=== PATIENT | female | born 1935 | race Caucasian/White ===

== ENCOUNTER → 2017-03-15 | Outpatient (CLI) | payer OTHER ==
--- NOTE | 2017-03-15 15:31 | RAD ---
Examination: Ultrasound left lower extremity venous duplex History: History of left leg pain, swelling Technique: Grayscale, color Doppler 2-D, spectral waveform analysis of the left lower extremity venous system were performed Findings: The visualized common femoral vein, superficial femoral vein, popliteal vein demonstrate normal compression augmentation of flow. The visualized calf veins are patent. Impression No evidence of deep venous thrombosis identified in the visualized left lower extremity venous system.
== END | disposition home or self-care (01) ==
LOC: US 14:39
PROVIDERS: ATTEND Internal Medicine
DX: M79.89 Other specified soft tissue disorders (principal)
CPT/HCPCS: 93971

== ENCOUNTER → 2017-11-25 | Outpatient (CLI) | payer OTHER | END | disposition home or self-care (01) | LOC: KCIC 12:25 | DX: M25.742 Osteophyte, left hand (principal); M25.741 Osteophyte, right hand | CPT/HCPCS: 73130 ==

== ENCOUNTER → 2017-11-25 | Outpatient (CLI) | payer OTHER | END | disposition home or self-care (01) | LOC: KCIC DEXA 12:13 | DX: Z13.820 Encounter for screening for osteoporosis (principal); Z78.0 Asymptomatic menopausal state; M85.88 Other specified disorders of bone density and structure, other site | CPT/HCPCS: 77080 ==

== ENCOUNTER → 2018-11-14 | Outpatient (CLI) | payer MEDICARE ==
[~2018-11-14] MED LIST: ADAL40PE SQ; ASCO500T2 PO; ATOR10TA PO; CLON0.3T PO; CYAN-25 PO; FERR325T14 PO; FURO20TA3 PO; LABE200T4 PO; LEVO125T PO; LINA5TAB PO; MONT10TA49 PO; TRAM50TA PO
--- NOTE | 2018-11-14 10:17 | CARD ---
MR#: [id number] Date of Study: 11/14/2018 Ordering Physician: LEVON BILLINGS, Referring Physician: LEVON BILLINGS Tech: Maria Eugenia Sorto RDCS APPROVED REPORT EXAM: Two-dimensional and M-mode echocardiogram with Doppler and color Doppler. Other Information Quality : Good INDICATION Dizziness and Vertigo 2D DIMENSIONS RVDd2.2 (2.9-3.5cm)Left Atrium(2D)3.4 (1.6-4.0cm) IVSd0.8 (0.7-1.1cm)Aortic Root(2D)2.6 (2.0-3.7cm) LVDd3.5 (3.9-5.9cm)LVOT Diameter2.0 (1.8-2.4cm) PWd0.9 (0.7-1.1cm)LVDs3.1 (2.5-4.0cm) FS (%) 27.0 %SV15.1 ml LVEF(%)55.0 (>50%) Aortic Valve AoV Peak Mayur.123.9cm/sAoV VTI30.0cm AO Peak GR.6.1mmHgLVOT Peak Mayur.93.7cm/s LVOT VTI 22.01cmAO Mean GR.3mmHg JOSE L (VMAX)2.94gl5GON (VTI)2.31cm2 Mitral Valve MV E Roljlowx544.7cm/sMV DECEL XMXW021ni MV A Ihmwgapa675.8cm/sMV PIN77cr E/A Ratio0.9MVA (PHT)3.66cm2 TDI E/Lateral E'13.7E/Medial E'16.4 Tricuspid Valve TR P. Lslwxjsm289qc/sRAP FKHVWUJF7adAg TR Peak Gr.11hqCvAKYS82koNt Pulmonary Vein S1 Gzbomssu52.1cm/sD2 Nuzhfhed39.4cm/s LEFT VENTRICLE The left ventricle is normal size. There is normal left ventricular wall thickness. The left ventricu lar systolic function is normal. The Ejection Fraction is 55-60%. There is normal LV segmental wall m otion. Transmitral Doppler flow pattern is Grade I-abnormal relaxation pattern. RIGHT VENTRICLE The right ventricle is normal size. The right ventricular systolic function is normal. ATRIA The left atrium size is normal. The right atrium size is normal. The interatrial septum is intact wit h no evidence for an atrial septal defect or patent foramen ovale as noted on 2-D or Doppler imaging. AORTIC VALVE The aortic valve is calcified but opens well. Doppler and Color Flow revealed no significant aortic r egurgitation. There is no significant aortic valvular stenosis. MITRAL VALVE The mitral valve is calcified but opens well. There is no evidence of mitral valve prolapse. There is no mitral valve stenosis. Doppler and Color Flow revealed no significant mitral valve regurgitation noted. TRICUSPID VALVE The tricuspid valve is normal in structure and function. Doppler and Color Flow revealed mild tricusp id regurgitation. There is mild pulmonary hypertension. The PA pressure was estimated at 36 mmHg. The re is no tricuspid valve stenosis. PULMONIC VALVE The pulmonic valve is not well visualized. Doppler and Color Flow revealed trace pulmonic valvular re gurgitation. There is no pulmonic valvular stenosis. GREAT VESSELS The aortic root is normal in size. The ascending aorta is normal in size. The IVC is normal in size a nd collapses >50% with inspiration. PERICARDIAL EFFUSION There is no evidence of significant pericardial effusion. Critical Notification Critical Value: No <Conclusion> The left ventricular systolic function is normal. The Ejection Fraction is 55-60%. There is normal LV segmental wall motion. Doppler and Color Flow revealed mild tricuspid regurgitation. The PA pressure was estimated at 36 mmHg. There is no evidence of significant pericardial effusion. Signed by : Levon Billings, Electronically Approved : 11/14/2018 10:15:26
--- NOTE | 2018-11-14 10:28 | RAD ---
MR#: [id number] Date of Study: 11/14/2018 Ordering Physician: LEVON BILLINGS, Referring Physician: LEVON BILLINGS, Tech: MARY Troy, RDMS, RTR APPROVED REPORT Patient Location: OUT-PATIENT Laterality:Bilateral Indications Dizziness and Vertigo Risk Factors Hypertension: Diabetes Doppler Spectral Velocity Analysis Right Left pCCA 65/9 cm/spCCA 82/15 cm/s mCCA 92/15 cm/smCCA 83/17 cm/s dCCA 78/15 cm/sdCCA 89/16 cm/s ECA 76/ cm/sECA 99/ cm/s pICA 50/11 cm/spICA 67/18 cm/s Beth 92/22 cm/smICA 86/19 cm/s dICA 103/23 cm/sdICA 97/31 cm/s Vert. 46/ cm/sVert. 81/ cm/s ICA/CCA 1.12ICA/CCA 1.18 Findings Goldberg scale images of the bilateral carotid vessels reveals mild diffuse intimal hyperplasia. Spectral waveforms and color Doppler of the bilateral internal carotid vessels do not reveal any evid ence of obstructive disease. By velocity criteria overall 0 to less than 50% stenosis. No significant stenosis is identified in the bilateral common carotid and external carotid vessels. Bilateral vertebral velocities are antegrade. Normal ICA to CCA ratio bilaterally Critical Notification Critical Value: No <Conclusion> No significant carotid occlusive disease bilaterally Signed by : Tony Galo, Electronically Approved : 11/14/2018 10:26:34
== END | disposition home or self-care (01) ==
LOC: ECHO 08:39
PROVIDERS: ATTEND Internal Medicine Cardiovascular Disease
DX: I77.3 Arterial fibromuscular dysplasia (principal); I36.1 Nonrheumatic tricuspid (valve) insufficiency; I27.20 Pulmonary hypertension, unspecified; R00.8 Other abnormalities of heart beat; I10 Essential (primary) hypertension; E11.9 Type 2 diabetes mellitus without complications
CPT/HCPCS: 93306; 93880

== ENCOUNTER → 2019-06-08 | Outpatient (CLI) | payer MEDICARE ==
[2019-06-06 11:32] VITALS: BP 165/71
--- NOTE | 2019-06-10 13:55 | RAD ---
MR#: [id number] Date of Study: 06/08/2019 Ordering Physician: LEVON BILLINGS, Referring Physician: LEVON BILLINGS Tech: Medina Porter RVT,ROXIECA APPROVED REPORT Patient Location: OUT-PATIENT Risk Factors Hypertension Renal Artery Doppler Right Renal Artery Left Renal Arter y Proximal 144.2/25.5 cm/secProximal 85.3/30.5 cm/sec Mid 70.6/15.0 cm/secMid 106.9/28.0 cm/sec Distal 74.0/20.8 cm/secDistal 85.6/19.7 cm/sec Renal/Aorta Ratio 1.50Renal/Aorta Ratio 1.10 Prox. Resistive Index 0.82Prox. Resistive Index 0.64 Mid Resistive Index 0.79Mid Resistive Index 0.74 Distal Resistive Index 0.72Distal Resistive Index 0.77 Aortic Doppler VelocityWaveform Mid. Aorta 94.6 cm/sec Findings Due to body habitus and patient compliance the grayscale images are limited. No obvious renal parench ymal abnormalities noted. A cyst is noted on the right kidney measuring approximately 1.2 x 1.1 x 0.8 cm. There is a cyst on the left kidney measuring 1.7 x 1.7 x 1.6 cm. These both appear to be simple cysts. Spectral waveforms and color Doppler are grossly unremarkable. Normal renal to aortic ratios. No obvi ous aortic abnormality noted. The right kidney appears to be small in size at approximate 6.8 x 3.9 x 3.6 cm. Again these are limit ed images. Critical Notification Critical Value: No <Conclusion> 1. No evidence of renal artery stenosis. 2. The bilateral kidneys appear to be small in size and this may simply be related to chronic renal d isease. Clinical correlation recommended. Signed by : Tony Galo, Electronically Approved : 06/10/2019 13:54:46
== END | disposition home or self-care (01) ==
LOC: US 15:34
PROVIDERS: ATTEND Internal Medicine Cardiovascular Disease
DX: N28.1 Cyst of kidney, acquired (principal); I10 Essential (primary) hypertension
CPT/HCPCS: 76770

== ENCOUNTER 2019-07-18 11:48 | Inpatient (IN) | payer MEDICARE ==
[~2019-07-18] VITALS: Ht 162.6 cm; Wt 79.9 kg
[2019-07-18 12:18] LABS: BASO # 0.1 x10^3/uL (0.0-0.2); BASO % 1 % (0-3); EOS # 0.4 x10^3/uL (0.0-0.7); EOS % 5 % (0-3); HEMATOCRIT 30.1 % (36.0-47.0); LYMPH % 12 % (24-48); MEAN CORPUSCULAR HEMOGLOBIN 32 pg (25-35); MEAN CORPUSCULAR HGB CONC 33 g/dL (31-37); MEAN CORPUSCULAR VOLUME 96 fL (79-100); MONO # 0.6 x10^3/uL (0.0-1.1); MONO % 7 % (0-9); NEUT # 6.1 x10^3/uL (1.8-7.7); NEUT % 74 % (31-73); PLATELET COUNT 130 x10^3/uL (140-400); RED BLOOD COUNT 3.13 x10^6/uL (3.50-5.40); RED CELL DISTRIBUTION WIDTH 17.3 % (11.5-14.5); WHITE BLOOD COUNT 8.2 x10^3/uL (4.0-11.0)
[2019-07-18 12:29] LABS: PROTHROMBIN TIME PATIENT 13.6 SEC (11.7-14.0)
[2019-07-18 12:32] LABS: CALCIUM 8.9 mg/dL (8.5-10.1); CREATININE 3.9 mg/dL (0.6-1.0); POTASSIUM 5.1 mmol/L (3.5-5.1)
[2019-07-18 12:38] LABS: ALBUMIN 3.5 g/dL (3.4-5.0); ALBUMIN/GLOBULIN RATIO 0.9 (1.0-1.7); TOTAL BILIRUBIN 0.5 mg/dL (0.2-1.0); TOTAL PROTEIN 7.2 g/dL (6.4-8.2)
--- NOTE | 2019-07-18 12:44 | RAD ---
EXAM: CHEST 1 VIEW History: Shortness of breath COMPARISON: None available. TECHNIQUE: Single portable radiograph of the chest FINDINGS: Low lung volumes and technique accentuates heart size and pulmonary vascularity. Mild prominent bilateral interstitial lung markings likely mild congestive changes. Mild bibasilar lung airspace opacities likely atelectasis or infiltrates. IMPRESSION: Mild congestive changes. Mild bibasilar lung airspace opacities likely atelectasis or infiltrates. Electronically signed by: Bridger Hawkins MD (07/18/2019 12:42 PM) [place] [id number]
--- NOTE | 2019-07-18 13:47 | EKG ---
[facility] [address] [place] [address] Test Date: 2019-07-18 Test Time: 11:58:16 Pat Name: BONI DIAZ Department: Room: Gender: F Night Auditor: : 1935 Requested By: SANJUANITA HESTER Order Number: [id number] Reading MD: Tony Galo MD Measurements Intervals [place] Rate: 71 P: 0 TN: 202 QRS: -177 QRSD: 126 T: 62 QT: 402 QTc: 442 Interpretive Statements SINUS RHYTHM Electronically Signed On 07-30-2019 14:27:56 CDT by Tony Galo MD
[2019-07-18 14:34] LABS: BILIRUBIN,URINE NEGATIVE (NEG); CLARITY,URINE CLEAR; COLOR,URINE YELLOW; NITRITE,URINE POSITIVE (NEG); PROTEIN,URINE 100 mg/dL (NEG-TRACE); UROBILINOGEN,URINE 0.2 mg/dL (0.2 mg/dL)
[2019-07-18 14:42] LABS: BACTERIA,URINE MANY /HPF (0-FEW); SQUAMOUS EPITHELIAL CELL,UR FEW /LPF
[2019-07-18 14:43] LABS: WBC,URINE >40 /HPF (0-4)
[2019-07-18] MEDS ORDERED: ONDANSETRON PF 4 MG/2 ML VIAL. IV PRN (15:45)
[2019-07-18] MEDS ORDERED: MORPHINE SULFATE 4 MG/ML VIAL. IV PRN (15:45)
--- NOTE | 2019-07-18 15:48 | PHYS DOC ---
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 Patient states symptoms are worse when she is laying down she states symptoms are relieved when she is sitting up straight. Denies any cough, congestion, fever. She states she is currently on Lasix by mouth. Review of Systems Review of Systems Constitutional: Denies fever or chills [] Eyes: Denies change in visual acuity, redness, or eye pain [] HENT: Denies nasal congestion or sore throat [] Respiratory: Reports shortness of breath. Denies cough Cardiovascular: No additional information not addressed in HPI [] GI: Denies abdominal pain, nausea, vomiting, bloody stools or diarrhea [] : Denies dysuria or hematuria [] Musculoskeletal: Denies back pain or joint pain [] Integument: Denies rash or skin lesions [] Neurologic: Denies headache, focal weakness or sensory changes [] All other systems were reviewed and found to be within normal limits, except as documented in this note. Allergies Allergies Allergies Coded Allergies Type Severity Reaction Last Updated Verified Sulfa (Sulfonamide Antibiotics) Allergy Severe Swelling 07/05/19 Yes Physical Exam Physical Exam Constitutional: Well developed, well nourished, no acute distress, non-toxic appearance. [] HENT: Normocephalic, atraumatic, bilateral external ears normal, oropharynx moist, no oral exudates, nose normal. [] Eyes: PERRLA, EOMI, conjunctiva normal, no discharge. [] Neck: Normal range of motion, no tenderness, supple, no stridor. [] Cardiovascular:Heart rate regular rhythm, no murmur [] Lungs & Thorax: Bilateral breath sounds clear to auscultation [] Abdomen: Bowel sounds normal, soft, no tenderness, no masses, no pulsatile masses. [] Skin: Warm, dry, left upper extremity noted for new fistula that is not ready for use. The laceration site is still new but it's well approximated with no signs of infection. Back: No tenderness, no CVA tenderness. [] Extremities: No tenderness, no cyanosis, no clubbing, ROM intact, bilateral lower extremities with +2 edema. Neurologic: Alert and oriented X 3, normal motor function, normal sensory function, no focal deficits noted. [] Psychologic: Affect normal, judgement normal, mood normal. [] Current Patient Data Vital Signs Vital Signs Date Time Temp Pulse Resp B/P (MAP) Pulse Ox O2 Delivery O2 Flow Rate FiO2 07/18/19 11:55 99.1 75 23 205/87 (126) 95 Room Air 99.1 Lab Values Laboratory Tests Test 07/18/19 12:00 White Blood Count 8.2 x10^3/uL (4.0-11.0) Red Blood Count 3.13 x10^6/uL (3.50-5.40) L Hemoglobin 10.0 g/dL (12.0-15.5) L Hematocrit 30.1 % (36.0-47.0) L Mean Corpuscular Volume 96 fL (79-100) Mean Corpuscular Hemoglobin 32 pg (25-35) Mean Corpuscular Hemoglobin Concent 33 g/dL (31-37) Red Cell Distribution Width 17.3 % (11.5-14.5) H Platelet Count 130 x10^3/uL (140-400) L Neutrophils (%) (Auto) 74 % (31-73) H Lymphocytes (%) (Auto) 12 % (24-48) L Monocytes (%) (Auto) 7 % (0-9) Eosinophils (%) (Auto) 5 % (0-3) H Basophils (%) (Auto) 1 % (0-3) Neutrophils # (Auto) 6.1 x10^3/uL (1.8-7.7) Lymphocytes # (Auto) 1.0 x10^3/uL (1.0-4.8) Monocytes # (Auto) 0.6 x10^3/uL (0.0-1.1) Eosinophils # (Auto) 0.4 x10^3/uL (0.0-0.7) Basophils # (Auto) 0.1 x10^3/uL (0.0-0.2) Prothrombin Time 13.6 SEC (11.7-14.0) Prothrombin Time INR 1.1 (0.8-1.1) Sodium Level 141 mmol/L (136-145) Potassium Level 5.1 mmol/L (3.5-5.1) Chloride Level 107 mmol/L (98-107) Carbon Dioxide Level 23 mmol/L (21-32) Anion Gap 11 (6-14) Blood Urea Nitrogen 90 mg/dL (7-20) H Creatinine 3.9 mg/dL (0.6-1.0) H Estimated GFR (Cockcroft-Gault) 11.0 BUN/Creatinine Ratio 23 (6-20) H Glucose Level 178 mg/dL (70-99) H Calcium Level 8.9 mg/dL (8.5-10.1) Magnesium Level 2.0 mg/dL (1.8-2.4) Total Bilirubin 0.5 mg/dL (0.2-1.0) Aspartate Amino Transferase (AST) 22 U/L (15-37) Alanine Aminotransferase (ALT) 19 U/L (14-59) Alkaline Phosphatase 79 U/L (46-116) Creatine Kinase 174 U/L (26-192) Creatine Kinase MB (Mass) 4.0 ng/mL (0.0-3.6) H Creatine Kinase MB Relative Index 2.3 % (0-4) Troponin I Quantitative < 0.017 ng/mL (0.000-0.055) BF-Efx-L-Type Natriuretic Peptide 3059 pg/mL (0-449) H Total Protein 7.2 g/dL (6.4-8.2) Albumin 3.5 g/dL (3.4-5.0) Albumin/Globulin Ratio 0.9 (1.0-1.7) L Thyroid Stimulating Hormone (TSH) 5.199 uIU/mL (0.358-3.74) H Laboratory Tests 07/18/19 12:00 Laboratory Tests 07/18/19 12:00 EKG EKG [address] Rose sinus rhythm HR 71 no STEMI[] Radiology/Procedures Radiology/Procedures []PROCEDURE: PORTABLE CHEST 1V EXAM: CHEST 1 VIEW History: Shortness of breath COMPARISON: None available. TECHNIQUE: Single portable radiograph of the chest FINDINGS: Low lung volumes and technique accentuates heart size and pulmonary vascularity. Mild prominent bilateral interstitial lung markings likely mild congestive changes. Mild bibasilar lung airspace opacities likely atelectasis or infiltrates. IMPRESSION: Mild congestive changes. Mild bibasilar lung airspace opacities likely atelectasis or infiltrates. Electronically signed by: Bridger Hawkins MD (07/18/2019 12:42 PM) [facility] DICTATED and SIGNED BY: BRIDGER HAWKINS MD DATE: 07/18/19 1242 Course & Med Decision Making Course & Med Decision Making Pertinent Labs and Imaging studies reviewed. (See chart for details) This is a 84-year-old female patient presenting to the ED today complaining of shortness of breath that began yesterday. Patient has history of CHF as well as kidney disease, she is supposed to start dialysis as soon as her dialysis fistula is ready. She arrives in the ED with O2 sats 95% on room air CBC with normal WBC, CMP with creatinine of 3.9, BUN is 90, chest x-ray noted for CHF exacerbation, also noted for possible atelectasis or pneumonia. Urine analysis is noted for nitrites and leukocytes-patient to be started on Rocephin. [address] Garg who accepted patient for admission, he requested consult to cardiology as well as nephrology. Spoke with Mercedes KLINE for cardiology who will follow-up with patient Routine consult placed for nephrology. Dragon Disclaimer Dragon Disclaimer This electronic medical record was generated, in whole or in part, using a voice recognition dictation system. Departure Departure Impression: Primary Impression: CHF exacerbation Additional Impressions: End stage renal disease UTI (urinary tract infection) Disposition: ADMITTED INPATIENT Condition: STABLE Referrals: HIRA GARG MD (PCP) Problem Qualifiers Primary Impression: CHF exacerbation Heart failure type: unspecified Qualified Codes: I50.9 - Heart failure, unspecified Additional Impressions: UTI (urinary tract infection) Urinary tract infection type: site unspecified Hematuria presence: without hematuria Qualified Codes: N39.0 - Urinary tract infection, site not specified SANJUANITA HESTER APRN Jul 18, 2019 15:48
--- NOTE | 2019-07-18 15:50 | PDOC2 ---
DENIZ BRAN KEMI 07/18/19 1550: CARDIAC CONSULT DATE OF CONSULT Date of Consult DATE: 07/18/19 TIME: 15:49 REASON FOR CONSULT Reason for Consult: SOA REFERRING PHYSICIAN Referring Physician: Ann-Marie Ortiz APRN SOURCE Source: Chart review, Patient HISTORY OF PRESENT ILLNESS HISTORY OF PRESENT ILLNESS This is an 84 yo female who presented secondary to shortness of breath. Patient reports she has been short of breath for the last couple of days. Has progressively worsened. Last night, was unable to lay flat and developed some heaviness in her central chest. Was nauseated this morning. Has had lower ex tremity edema for the last 3-4 days. Has been dizzy upon exertion since last Tuesday. No diaphoresis. Had graft placed last week to start HD. PAST MEDICAL HISTORY Cardiovascular: HTN, Hyperlipidemia Musculoskeletal: Osteoarthritis Rheumatologic: Gout, Rheumatoid arthritis Renal/: Chronic renal failure Endocrine: Diabetes, Hypothyroidism, Osteoporosis PAST SURGICAL HISTORY Past Surgical History: Cholecystectomy, Cataract Removal, Hysterectomy FAMILY HISTORY Family History: Diabetes, Hypertension SOCIAL HISTORY Smoke: No ALCOHOL: none Drugs: None Lives: with Family ALLERGIES ALLERGIES: Coded Allergies: Sulfa (Sulfonamide Antibiotics) (Verified Allergy, Severe, Swelling, 07/05/19) ROS Review of System 14 point ROS conducted with pertinent positives note above in HPI. PHYSICAL EXAM General: Alert, Oriented X3, Cooperative, No acute distress HEENT: Atraumatic, Mucous membr. moist/pink Lungs: Other (bibasilar crackles ) Heart: Regular rate, Normal S1, Normal S2 Abdomen: Soft Extremities: Normal pulses, Other (2+ bilateral LE edema ) Skin: No significant lesion Neuro: Normal speech, Sensation intact Psych/Mental Status: Mental status NL, Mood NL MUSCULOSKELETAL: Osteoarthritic changes both hands VITALS/I&O VITALS/I&O: Vital Signs Date Time Temp Pulse Resp B/P (MAP) Pulse Ox O2 Delivery O2 Flow Rate FiO2 07/18/19 11:55 99.1 75 23 205/87 (126) 95 Room Air 99.1 LABS Lab: Laboratory Tests Test 07/18/19 12:00 07/18/19 14:05 White Blood Count 8.2 x10^3/uL (4.0-11.0) Red Blood Count 3.13 x10^6/uL (3.50-5.40) L Hemoglobin 10.0 g/dL (12.0-15.5) L Hematocrit 30.1 % (36.0-47.0) L Mean Corpuscular Volume 96 fL (79-100) Mean Corpuscular Hemoglobin 32 pg (25-35) Mean Corpuscular Hemoglobin Concent 33 g/dL (31-37) Red Cell Distribution Width 17.3 % (11.5-14.5) H Platelet Count 130 x10^3/uL (140-400) L Neutrophils (%) (Auto) 74 % (31-73) H Lymphocytes (%) (Auto) 12 % (24-48) L Monocytes (%) (Auto) 7 % (0-9) Eosinophils (%) (Auto) 5 % (0-3) H Basophils (%) (Auto) 1 % (0-3) Neutrophils # (Auto) 6.1 x10^3/uL (1.8-7.7) Lymphocytes # (Auto) 1.0 x10^3/uL (1.0-4.8) Monocytes # (Auto) 0.6 x10^3/uL (0.0-1.1) Eosinophils # (Auto) 0.4 x10^3/uL (0.0-0.7) Basophils # (Auto) 0.1 x10^3/uL (0.0-0.2) Prothrombin Time 13.6 SEC (11.7-14.0) Prothrombin Time INR 1.1 (0.8-1.1) Sodium Level 141 mmol/L (136-145) Potassium Level 5.1 mmol/L (3.5-5.1) Chloride Level 107 mmol/L (98-107) Carbon Dioxide Level 23 mmol/L (21-32) Anion Gap 11 (6-14) Blood Urea Nitrogen 90 mg/dL (7-20) H Creatinine 3.9 mg/dL (0.6-1.0) H Estimated GFR (Cockcroft-Gault) 11.0 BUN/Creatinine Ratio 23 (6-20) H Glucose Level 178 mg/dL (70-99) H Calcium Level 8.9 mg/dL (8.5-10.1) Magnesium Level 2.0 mg/dL (1.8-2.4) Total Bilirubin 0.5 mg/dL (0.2-1.0) Aspartate Amino Transferase (AST) 22 U/L (15-37) Alanine Aminotransferase (ALT) 19 U/L (14-59) Alkaline Phosphatase 79 U/L (46-116) Creatine Kinase 174 U/L (26-192) Creatine Kinase MB (Mass) 4.0 ng/mL (0.0-3.6) H Creatine Kinase MB Relative Index 2.3 % (0-4) Troponin I Quantitative < 0.017 ng/mL (0.000-0.055) DH-Klu-Q-Type Natriuretic Peptide 3059 pg/mL (0-449) H Total Protein 7.2 g/dL (6.4-8.2) Albumin 3.5 g/dL (3.4-5.0) Albumin/Globulin Ratio 0.9 (1.0-1.7) L Thyroid Stimulating Hormone (TSH) 5.199 uIU/mL (0.358-3.74) H Urine Collection Type Void Urine Color Yellow Urine Clarity Clear Urine pH 5.0 Urine Specific [place] 1.010 Urine Protein 100 mg/dL (NEG-TRACE) Urine Glucose (UA) Negative mg/dL (NEG) Urine Ketones (Stick) Negative mg/dL (NEG) Urine Blood Trace (NEG) Urine Nitrite Positive (NEG) Urine Bilirubin Negative (NEG) Urine Urobilinogen Dipstick 0.2 mg/dL (0.2 mg/dL) Urine Leukocyte Esterase Moderate (NEG) Urine RBC 1-2 /HPF (0-2) Urine WBC >40 /HPF (0-4) Urine Squamous Epithelial Cells Few /LPF Urine Bacteria Many /HPF (0-FEW) Urine Mucus Slight /LPF Laboratory Tests 07/18/19 12:00 Laboratory Tests 07/18/19 12:00 ECHOCARDIOGRAM ECHOCARDIOGRAM <Conclusion> The left ventricular systolic function is normal. The Ejection Fraction is 55-60%. There is normal LV segmental wall motion. Doppler and Color Flow revealed mild tricuspid regurgitation. The PA pressure was estimated at 36 mmHg. There is no evidence of significant pericardial effusion. DATE: 11/14/18 1015 ASSESSMENT/PLAN ASSESSMENT/PLAN 1. Dyspnea secondary to acute on chronic diastolic HF; likely secondary to uncontrolled blood pressure. Echo earlier this year with preserved LV systolic function 2. Accelerated hypertension; was taken off Norvasc 3 weeks ago with LE edema. Blood pressure has been consistently elevated since. 3. Chest pain, atypical; most probably secondary to above. 4. Hyperlipidemia; statin 5. Diabetes, II; as per PCP 6. PAULA on CKD- ESRD; plan for HD to be initiated 7. Hypothyroidism 8. UTI; as per PCP Recommendations Diuresis as able Consider HD if unable to adequately diurese Echo to assess LV systolic function Resume home antiHTN therapy. Add hydralazine Lipids Consider outpatient ischemic evaluation unless echo significantly abnormal. LEVON BILLINGS MD 07/19/19 0748: CARDIAC CONSULT ASSESSMENT/PLAN ASSESSMENT/PLAN Patient seen and examined 07/18/19. Agree with BORING MACHINE FEEDER's assessment and plan. Acute on chronic diastolic heart failure probably secondary to uncontrolled hypertension and renal insufficiency Agree with adding hydralazine for better blood pressure control Check 2-D echo to assess LV systolic function Attempt diuresis with Lasix and consider hemodialysis if this fails We will consider ischemic evaluation as an outpatient Thank you for your consultation DENIZ BRAN APRN Jul 18, 2019 15:50 LEVON BILLINGS MD Jul 19, 2019 07:48
[2019-07-18] MEDS ORDERED: FUROSEMIDE 40 MG/4 ML VIAL. IVP ONE (16:00)
[2019-07-18] MEDS ORDERED: cefTRIAXone IV Push 1 GM VIAL. IVP ONE (16:15)
[2019-07-18 16:56] VITALS: BP 175/75
[2019-07-18 17:34] LABS: CHOLESTEROL/HDL RATIO 2.3
[2019-07-18] MEDS ORDERED: ACETAMINOPHEN 325 MG TABLET. PO PRN (19:00)
[2019-07-18 19:01] VITALS: BP 173/70
--- NOTE | 2019-07-18 19:29 | PDOC ---
Provider Note Provider Note Patient seen. History and Physical dictated. See dictation# [id number] HIRA BELTRE MD Jul 18, 2019 19:29
[2019-07-18] MEDS ORDERED: ALBUTEROL SULFATE 2.5 MG/3 ML NEBU. NEB PRN ×2 (19:30→19:45)
[2019-07-18] MEDS: IPRATRPIUM/ALBUTEROL 0.5/2.5MG 3 ML NEBU. NEB SCH (19:31)
[2019-07-18] MEDS: BUDESONIDE 0.5 MG/2 ML NEBU. NEB SCH (19:31)
[2019-07-18] MEDS: MORPHINE SULFATE 2 MG/ML VIAL. IV PRN (19:48)
--- NOTE | 2019-07-18 20:28 | HP ---
ADMIT DATE: 07/18/2019 HISTORY OF PRESENT ILLNESS: This 84-year-old female who is known to have worsening chronic kidney disease, recently had a graft placed to start hemodialysis. For the last few days, the patient's breathing has become much worse. She has also been retaining a lot of fluid. Three weeks ago, Dr. Elizondo had started her on amlodipine for elevated blood pressure. She started increasing swelling of the extremities and she felt that, that was due to amlodipine, so she stopped it. Her blood pressures remained high and she has become more short of breath, so she was brought to the Emergency Room. In the Emergency Room, she was noted to be quite short of breath. She was placed on oxygen. She was given IV Lasix. She had congestive changes on the chest x-ray. Urinalysis showed positive nitrite. She had anasarca. Because of the acute on chronic diastolic congestive heart failure and likely need for hemodialysis, the patient was admitted for further evaluation and management. REVIEW OF SYSTEMS: At present time, the patient continues to have persistent shortness of breath. The Lasix given in the Emergency Room did not help her. She remains very anxious. She denies any vomiting, has had nausea earlier. She has had allergies and congestion and nasal drainage. She takes Zyrtec and Xyzal for the same. She even tried inhalers at home from her , but it did not help. She does not have any fever or chills. She complains of swelling of the lower extremities as well as upper extremities and weakness. No complaints of diarrhea, heartburn or abdominal pain. The patient complains of tightness of chest. Denies any chest pains or palpitations. Other systems reviewed and are negative. ALLERGIES: She is allergic to ALLOPURINOL, CIPRO, HYDROXYCHLOROQUINE TABLETS and SULFA. MEDICATIONS: Reviewed and reconciled. PAST MEDICAL HISTORY: Includes chronic gout due to renal impairment of multiple sites without tophus, diabetic polyneuropathy associated with type 2 diabetes mellitus, benign essential hypertension, mixed hyperlipidemia, allergic sinusitis, chronic kidney disease stage V, asthma. PAST SURGICAL HISTORY: Includes cholecystectomy and hysterectomy. The patient recently had a graft placed in the left upper extremity. SOCIAL HISTORY: No history of alcoholism, drug abuse or smoking. FAMILY HISTORY: Reviewed and noncontributory. PHYSICAL EXAMINATION: VITAL SIGNS: Temperature maximum 99.1, pulse 75 per minute, respirations 23 per minute, blood pressure was 205/87 mmHg on admission, now it is 173/70 mmHg. GENERAL: The patient is an elderly female who is alert, oriented x 3 and in mild respiratory distress. She is anxious. EYES: Pupils reacting to light. Conjunctivae pale. Sclerae muddy. HENT: Unremarkable except for mild congestion of throat. NECK: Supple. JVP normal. No thyromegaly. Trachea midline. LUNGS: Decreased breath sounds at bases with occasional basilar rales and tightness with decreased air entry bilaterally. CARDIOVASCULAR: S1, S2 regular. ABDOMEN: Soft, nontender, no guarding, no rigidity. Bowel sounds present. EXTREMITIES: 2+ edema of both lower extremities. The patient has swelling of the left forearm because of the recent surgery for graft for dialysis access. CENTRAL NERVOUS SYSTEM: Alert, oriented and anxious. LABORATORY FINDINGS: Include WBC count 8.2, hemoglobin 10. Glucose 137. Troponin less than 0.017. TSH is 5.199. LDL 50. Sodium 141, potassium 5.1, BUN 90, creatinine 3.9, CK 174. BNP 3059. WBC count 8.2, hemoglobin 10, platelet count 830,000. Urinalysis is positive for nitrite, moderate leukocyte esterase, more than 40 wbc's. IMPRESSION: 1. Acute hypoxic respiratory failure. 2. Acute on chronic diastolic congestive heart failure. 3. End-stage renal disease. 4. Asthma with mild exacerbation. 5. Allergic rhinitis. 6. Anxiety. 7. Urinary tract infection. 8. Diabetes mellitus type 2 with diabetic nephropathy. 9. Diabetic polyneuropathy. 10. Chronic gout. 11. Hypertension. 12. Mixed hyperlipidemia. PLAN: Consult Dr. Rao for nephrology evaluation and management, Dr. Elizondo for cardiology evaluation and management. The patient was given 1 dose of IV Rocephin today. I will readjust it tomorrow. We will resume home medications including the blood pressure medications. The patient was given one dose of IV Lasix in the Emergency Room and she had taken her morning dose also. Special Effects Designer felt that more Lasix may not be beneficial at this time. I will give her low dose morphine 1 mg and give her breathing treatment and also Pulmicort breathing treatment to see if this would help her breathing and relieve the pressure on her chest. For details, please refer to the orders. Hopefully tomorrow if she does not respond, will need dialysis. Condition and treatment extensively discussed with multiple children. For details, please refer to the orders. HIRA BELTRE MD DR: STACI/gerri JOB#: [id number] / [id number]
[2019-07-18] MEDS: cloNIDine HCL 0.3 MG TABLET PO SCH (20:43)
[2019-07-18] MEDS: traMADol 50 MG TABLET PO PRN (20:43)
[2019-07-18] MEDS: ATORVASTATIN CALCIUM 10 MG TABLET. PO SCH (20:43)
[2019-07-18] MEDS: LABETALOL HCL 200 MG TABLET PO SCH (20:43)
[2019-07-18] MEDS: HEPARIN for SUB-Q USE 5,000 UNIT/ML VIAL. SQ SCH (20:47)
[2019-07-18] MEDS ORDERED: FLU VAX QS 2019-20 (36MOS+)/PF 0.5 ML SYRINGE. VAX IM ONE (21:00)
[2019-07-18 23:00] VITALS: BP 175/75
[2019-07-19 03:00] VITALS: BP 145/65
[2019-07-19 04:54] LABS: BASO # 0.1 x10^3/uL (0.0-0.2); BASO % 1 % (0-3); EOS # 0.5 x10^3/uL (0.0-0.7); EOS % 6 % (0-3); HEMATOCRIT 28.6 % (36.0-47.0); HEMOGLOBIN 9.5 g/dL (12.0-15.5); LYMPH # 1.6 x10^3/uL (1.0-4.8); LYMPH % 20 % (24-48); MEAN CORPUSCULAR HEMOGLOBIN 32 pg (25-35); MEAN CORPUSCULAR HGB CONC 33 g/dL (31-37); MEAN CORPUSCULAR VOLUME 96 fL (79-100); MONO # 0.8 x10^3/uL (0.0-1.1); MONO % 9 % (0-9); NEUT # 5.1 x10^3/uL (1.8-7.7); NEUT % 64 % (31-73); PLATELET COUNT 121 x10^3/uL (140-400); RED BLOOD COUNT 2.98 x10^6/uL (3.50-5.40); RED CELL DISTRIBUTION WIDTH 16.9 % (11.5-14.5)
[2019-07-19 05:05] LABS: ALBUMIN 3.1 g/dL (3.4-5.0); ALBUMIN/GLOBULIN RATIO 0.9 (1.0-1.7); CALCIUM 8.7 mg/dL (8.5-10.1); CREATININE 3.6 mg/dL (0.6-1.0); TOTAL BILIRUBIN 0.5 mg/dL (0.2-1.0); TOTAL PROTEIN 6.5 g/dL (6.4-8.2)
[2019-07-19] MEDS: LEVOTHYROXINE 125 MCG TABLET PO SCH (05:59)
[2019-07-19 07:00] VITALS: BP 168/72
[2019-07-19] MEDS: IPRATRPIUM/ALBUTEROL 0.5/2.5MG 3 ML NEBU. NEB SCH ×5 (07:49→20:08)
[2019-07-19] MEDS: BUDESONIDE 0.5 MG/2 ML NEBU. NEB SCH ×2 (07:49→20:08)
[2019-07-19] MEDS: FUROSEMIDE 20 MG TABLET PO SCH (09:00)
[2019-07-19] MEDS: FERROUS SULFATE 325 MG TABLET. PO SCH ×2 (09:00→10:36)
[2019-07-19] MEDS ORDERED: MONTELUKAST SODIUM 10 MG TABLET. PO SCH (09:00)
[2019-07-19] MEDS: HEPARIN for SUB-Q USE 5,000 UNIT/ML VIAL. SQ SCH ×2 (09:00→21:41)
--- NOTE | 2019-07-19 10:01 | PDOC ---
IM PROGRESS NOTES- Subjective Subjective The breathing treatment and morphine helped her dyspnea .Feeling a little better. Objective Vitals/I&O Vital Signs Date Time Temp Pulse Resp B/P (MAP) Pulse Ox O2 Delivery O2 Flow Rate FiO2 07/19/19 07:00 97.6 67 18 168/72 (104) 98 Nasal Cannula 2.0 97.6 I & O 07/18/19 07/18/19 07/19/19 15:00 23:00 07:00 Intake Total 500 ml Output Total 1050 ml 300 ml Balance -1050 ml 200 ml Physical Exam Physical Exam GENERAL: The patient is an elderly female who is alert, oriented x 3 and in mild respiratory distress. She is anxious. EYES: Pupils reacting to light. Conjunctivae pale. Sclerae muddy. HENT: Unremarkable except for mild congestion of throat. NECK: Supple. JVP normal. No thyromegaly. Trachea midline. LUNGS: increased air entry CARDIOVASCULAR: S1, S2 regular. ABDOMEN: Soft, nontender, no guarding, no rigidity. Bowel sounds present. EXTREMITIES: 2+ edema of both lower extremities. The patient has swelling of the left forearm because of the recent surgery for graft for dialysis access. CENTRAL NERVOUS SYSTEM: Alert, oriented and anxious. Labs Laboratory Tests Test 07/18/19 12:00 07/18/19 14:05 07/18/19 17:19 07/18/19 18:08 White Blood Count 8.2 x10^3/uL (4.0-11.0) Red Blood Count 3.13 x10^6/uL (3.50-5.40) L Hemoglobin 10.0 g/dL (12.0-15.5) L Hematocrit 30.1 % (36.0-47.0) L Mean Corpuscular Volume 96 fL (79-100) Mean Corpuscular Hemoglobin 32 pg (25-35) Mean Corpuscular Hemoglobin Concent 33 g/dL (31-37) Red Cell Distribution Width 17.3 % (11.5-14.5) H Platelet Count 130 x10^3/uL (140-400) L Neutrophils (%) (Auto) 74 % (31-73) H Lymphocytes (%) (Auto) 12 % (24-48) L Monocytes (%) (Auto) 7 % (0-9) Eosinophils (%) (Auto) 5 % (0-3) H Basophils (%) (Auto) 1 % (0-3) Neutrophils # (Auto) 6.1 x10^3/uL (1.8-7.7) Lymphocytes # (Auto) 1.0 x10^3/uL (1.0-4.8) Monocytes # (Auto) 0.6 x10^3/uL (0.0-1.1) Eosinophils # (Auto) 0.4 x10^3/uL (0.0-0.7) Basophils # (Auto) 0.1 x10^3/uL (0.0-0.2) Prothrombin Time 13.6 SEC (11.7-14.0) Prothrombin Time INR 1.1 (0.8-1.1) Sodium Level 141 mmol/L (136-145) Potassium Level 5.1 mmol/L (3.5-5.1) Chloride Level 107 mmol/L (98-107) Carbon Dioxide Level 23 mmol/L (21-32) Anion Gap 11 (6-14) Blood Urea Nitrogen 90 mg/dL (7-20) H Creatinine 3.9 mg/dL (0.6-1.0) H Estimated GFR (Cockcroft-Gault) 11.0 BUN/Creatinine Ratio 23 (6-20) H Glucose Level 178 mg/dL (70-99) H Calcium Level 8.9 mg/dL (8.5-10.1) Magnesium Level 2.0 mg/dL (1.8-2.4) Total Bilirubin 0.5 mg/dL (0.2-1.0) Aspartate Amino Transferase (AST) 22 U/L (15-37) Alanine Aminotransferase (ALT) 19 U/L (14-59) Alkaline Phosphatase 79 U/L (46-116) Creatine Kinase 174 U/L (26-192) Creatine Kinase MB (Mass) 4.0 ng/mL (0.0-3.6) H Creatine Kinase MB Relative Index 2.3 % (0-4) Troponin I Quantitative < 0.017 ng/mL (0.000-0.055) < 0.017 ng/mL (0.000-0.055) SH-Gck-Q-Type Natriuretic Peptide 3059 pg/mL (0-449) H Total Protein 7.2 g/dL (6.4-8.2) Albumin 3.5 g/dL (3.4-5.0) Albumin/Globulin Ratio 0.9 (1.0-1.7) L Triglycerides Level 103 mg/dL (0-150) Cholesterol Level 125 mg/dL (0-200) LDL Cholesterol, Calculated 50 mg/dL (0-100) VLDL Cholesterol, Calculated 21 mg/dL (0-40) Non-HDL Cholesterol Calculated 71 mg/dL (0-129) HDL Cholesterol 54 mg/dL (40-60) Cholesterol/HDL Ratio 2.3 Thyroid Stimulating Hormone (TSH) 5.199 uIU/mL (0.358-3.74) H Urine Collection Type Void Urine Color Yellow Urine Clarity Clear Urine pH 5.0 Urine Specific [place] 1.010 Urine Protein 100 mg/dL (NEG-TRACE) Urine Glucose (UA) Negative mg/dL (NEG) Urine Ketones (Stick) Negative mg/dL (NEG) Urine Blood Trace (NEG) Urine Nitrite Positive (NEG) Urine Bilirubin Negative (NEG) Urine Urobilinogen Dipstick 0.2 mg/dL (0.2 mg/dL) Urine Leukocyte Esterase Moderate (NEG) Urine RBC 1-2 /HPF (0-2) Urine WBC >40 /HPF (0-4) Urine Squamous Epithelial Cells Few /LPF Urine Bacteria Many /HPF (0-FEW) Urine Mucus Slight /LPF Glucose (Fingerstick) 137 mg/dL (70-99) H Test 07/18/19 23:10 07/19/19 02:55 Troponin I Quantitative < 0.017 ng/mL (0.000-0.055) White Blood Count 8.0 x10^3/uL (4.0-11.0) Red Blood Count 2.98 x10^6/uL (3.50-5.40) L Hemoglobin 9.5 g/dL (12.0-15.5) L Hematocrit 28.6 % (36.0-47.0) L Mean Corpuscular Volume 96 fL (79-100) Mean Corpuscular Hemoglobin 32 pg (25-35) Mean Corpuscular Hemoglobin Concent 33 g/dL (31-37) Red Cell Distribution Width 16.9 % (11.5-14.5) H Platelet Count 121 x10^3/uL (140-400) L Neutrophils (%) (Auto) 64 % (31-73) Lymphocytes (%) (Auto) 20 % (24-48) L Monocytes (%) (Auto) 9 % (0-9) Eosinophils (%) (Auto) 6 % (0-3) H Basophils (%) (Auto) 1 % (0-3) Neutrophils # (Auto) 5.1 x10^3/uL (1.8-7.7) Lymphocytes # (Auto) 1.6 x10^3/uL (1.0-4.8) Monocytes # (Auto) 0.8 x10^3/uL (0.0-1.1) Eosinophils # (Auto) 0.5 x10^3/uL (0.0-0.7) Basophils # (Auto) 0.1 x10^3/uL (0.0-0.2) Sodium Level 140 mmol/L (136-145) Potassium Level 5.0 mmol/L (3.5-5.1) Chloride Level 107 mmol/L (98-107) Carbon Dioxide Level 21 mmol/L (21-32) Anion Gap 12 (6-14) Blood Urea Nitrogen 89 mg/dL (7-20) H Creatinine 3.6 mg/dL (0.6-1.0) H Estimated GFR (Cockcroft-Gault) 12.0 BUN/Creatinine Ratio 25 (6-20) H Glucose Level 133 mg/dL (70-99) H Calcium Level 8.7 mg/dL (8.5-10.1) Total Bilirubin 0.5 mg/dL (0.2-1.0) Aspartate Amino Transferase (AST) 20 U/L (15-37) Alanine Aminotransferase (ALT) 15 U/L (14-59) Alkaline Phosphatase 65 U/L (46-116) Total Protein 6.5 g/dL (6.4-8.2) Albumin 3.1 g/dL (3.4-5.0) L Albumin/Globulin Ratio 0.9 (1.0-1.7) L Laboratory Tests 07/18/19 12:00 07/19/19 02:55 Laboratory Tests 07/18/19 12:00 07/19/19 02:55 Meds Current Medications Medications (Trade) Dose Ordered Sig/Cate Route PRN Reason Start Time Stop Time Status Last Admin Dose Admin Albuterol/ Ipratropium (Duoneb) 3 ml RTQID NEB 07/18/19 16:00 07/19/19 15:59 07/19/19 07:49 Furosemide (Lasix) 40 mg 1X ONCE IVP 07/18/19 16:00 07/18/19 16:01 DC 07/18/19 16:10 Ceftriaxone Sodium (Rocephin) 1 gm 1X ONCE IVP 07/18/19 16:15 07/18/19 16:16 DC 07/18/19 18:55 Atorvastatin Calcium (Lipitor) 10 mg QHS PO 07/18/19 21:00 07/18/19 20:47 Clonidine HCl (Catapres) 0.3 mg QHS PO 07/18/19 21:00 07/18/19 20:47 Labetalol HCl (Trandate) 200 mg BID PO 07/18/19 21:00 07/18/19 20:47 Hydralazine HCl (Apresoline) 50 mg TID PO 07/18/19 21:00 07/18/19 20:47 Levothyroxine Sodium (Synthroid) 125 mcg DAILY06 PO 07/19/19 06:00 07/19/19 05:59 Tramadol HCl (Ultram) 50 mg PRN Q6HRS PRN PO PAIN MODERATE 07/18/19 19:00 07/18/19 20:47 Heparin Sodium (Porcine) (Heparin Sodium) 5,000 unit Q12HR SQ 07/18/19 21:00 07/18/19 20:47 Budesonide (Pulmicort) 0.5 mg RTBID NEB 07/18/19 20:00 07/19/19 07:49 Morphine Sulfate (Morphine Sulfate) 1 mg PRN Q3HRS PRN IV MODERATE PAIN 07/18/19 19:30 07/18/19 19:48 Assessment Assessment 1. Acute hypoxic respiratory failure. 2. Acute on chronic diastolic congestive heart failure. 3. End-stage renal disease. 4. Asthma with mild exacerbation. 5. Allergic rhinitis. 6. Anxiety. 7. Urinary tract infection. 8. Diabetes mellitus type 2 with diabetic nephropathy. 9. Diabetic polyneuropathy. 10. Chronic gout. 11. Hypertension. 12. Mixed hyperlipidemia. PLAN: Consult Dr. Rao for nephrology evaluation and management, Dr. Elizondo for cardiology evaluation and management. The patient was given 1 dose of IV Rocephin today. I will readjust it tomorrow. We will resume home medications including the blood pressure medications. The patient was given one dose of IV Lasix in the Emergency Room and she had taken her morning dose also. Optician felt that more Lasix may not be beneficial at this time. I will give her low dose morphine 1 mg and give her breathing treatment and also Pulmicort breathing treatment to see if this would help her breathing and relieve the pressure on her chest. For details, please refer to the orders. Hopefully tomorrow if she does not respond, will need dialysis. Condition and treatment extensively discussed with multiple children. For details, please refer to the orders. UTI- adjust the dose of Rocephin due to end-stage renal disease. Diabetes- stable End-stage renal disease- patient had the graft placed on july states about 10-11 days old. We will see the regional office coordinator will allow dialysis through that or she will need a temporary dialysis catheter. Condition treatment options discussed with the patient and the family. Hypertension- not controlled. Echocardiogram pending. Mild exacerbation of asthma improving. Anxiety improving. Plan Plan For more details regarding further plans, please refer to the orders. HIRA BELTRE MD Jul 19, 2019 10:01
[2019-07-19] MEDS ORDERED: FUROSEMIDE 40 MG/4 ML VIAL. IVP ONE ×2 (10:30→17:00)
[2019-07-19] MEDS: ASPIRIN ENTERIC COATED 81 MG TABLET.DR. PO SCH (10:34)
[2019-07-19] MEDS: LABETALOL HCL 200 MG TABLET PO SCH ×2 (10:35→21:32)
[2019-07-19] MEDS: CYANOCOBALAMIN (VITAMIN B-12) 1,000 MCG TABLET. PO SCH (10:35)
[2019-07-19] MEDS: LINAGLIPTIN 5 MG TABLET PO SCH (10:35)
[2019-07-19] MEDS: ASCORBIC ACID 500 MG TABLET PO SCH (10:36)
[2019-07-19 10:53] VITALS: BP 173/79
--- NOTE | 2019-07-19 11:47 | CARD ---
MR#: [id number] Date of Study: 07/19/2019 Ordering Physician: DENIZ BRAN, Referring Physician: DENIZ BRAN Tech: Alma Morataya CHRISTIANNE APPROVED REPORT EXAM: Two-dimensional and M-mode echocardiogram with Doppler and color Doppler. Other Information Quality : AverageHR: 77bpm Rhythm : NSR INDICATION Congestive Heart Failure RISK FACTORS Hypertension Obesity 2D DIMENSIONS RVDd3.3 (2.9-3.5cm)Left Atrium(2D)4.5 (1.6-4.0cm) IVSd0.8 (0.7-1.1cm)Aortic Root(2D)2.9 (2.0-3.7cm) LVDd5.0 (3.9-5.9cm)LVOT Diameter2.1 (1.8-2.4cm) PWd0.8 (0.7-1.1cm)LVDs3.1 (2.5-4.0cm) FS (%) 36.9 %SV78.0 ml Aortic Valve AoV Peak Mayur.160.3cm/sAoV VTI39.8cm AO Peak GR.10.3mmHgLVOT Peak Mayur.112.9cm/s AO Mean GR.5mmHgAVA (VMAX)2.44cm2 Mitral Valve MV E Vbrvglzk994.3cm/sMV DECEL [id number] MV A Xbooyela270.9cm/sE/A Ratio1.1 MV A [id number] Pulmonary Valve PV Peak Ukhpsxgn515.1cm/s Tricuspid Valve TR P. [id number]/sTR Peak Gr.42mmHg Pulmonary Vein S1 Ieykpwko62.9cm/sD2 Zkvbzadf43.8cm/s PVa [id number] LEFT VENTRICLE The left ventricle is normal size. There is borderline concentric left ventricular hypertrophy. The l eft ventricular systolic function is normal and the ejection fraction is within normal range. Ejecti on fraction 55-60%. There is normal LV segmental wall motion. Transmitral Doppler flow pattern is Gra de II-pseudonormal filling dynamics. RIGHT VENTRICLE The right ventricle is normal size. There is normal right ventricular wall thickness. The right ventr icular systolic function is normal. ATRIA The left atrium size is normal. The right atrium size is normal. The interatrial septum is intact wit h no evidence for an atrial septal defect or patent foramen ovale as noted on 2-D or Doppler imaging. AORTIC VALVE The aortic valve is normal in structure and function. Doppler and Color Flow revealed no significant aortic regurgitation. There is no significant aortic valvular stenosis. MITRAL VALVE Mitral annular calcification is mild. There is no mitral valve stenosis. Doppler and Color-flow revea led trace to mild mitral regurgitation. TRICUSPID VALVE The tricuspid valve is normal in structure and function. Doppler and Color Flow revealed mild tricusp id regurgitation. Estimated PAP 48 mmHg. There is no tricuspid valve stenosis. PULMONIC VALVE Doppler and Color Flow revealed no pulmonic valvular regurgitation. GREAT VESSELS The aortic root is normal in size. The ascending aorta is normal in size. IVC is dialated and unrespo nsive. PERICARDIAL EFFUSION There is no evidence of significant pericardial effusion. Critical Notification Critical Value: No <Conclusion> The left ventricle is normal size. The left ventricular systolic function is normal and the ejection fraction is within normal range. Ejection fraction 55-60%. There is borderline concentric left ventricular hypertrophy. Doppler and Color Flow revealed no significant aortic regurgitation. There is no significant aortic valvular stenosis. Doppler and Color-flow revealed trace to mild mitral regurgitation. Doppler and Color Flow revealed mild tricuspid regurgitation. Estimated PAP 48 mmHg. Signed by : Trav Maxwell MD Electronically Approved : 07/19/2019 11:46:47
--- NOTE | 2019-07-19 12:17 | PDOC2 ---
CONSULT Date of Consult Date of Consult DATE: 07/19/19 TIME: 11:50 Reason for Consult Reason for Consult: " ESRD " per primary Identification/Chief Complaint Chief Complaint Shortness of breath" I am feeling little better after breathing treatment " Source Source: Caregiver, Chart review, Patient History of Present Illness Reason for Visit: Pt lashawn 84-year-old with Dx of CKD stage 4/ [address] Rao . Recently seen in the office by [employer] SERVICES DISPATCHER on 06/29 progressed to stage 5. After the CV she was referred to Dr. Campbell for AV access placement - she has a quick AVG placed on 07/09 and can be used when needed. Pt and family reports she was doing alright after shunt placement except for some pain in the Lt arm/forearm- below the shunt but then yesterday starting feeling short of breath . She states her appetite is fair, she had BF this am , denies any N/V. No CP. Reports good UOP. Recd 1 dose of IV Lasix yesterday Currently she just came back from ECHO, reports she is feeling little better since the breathing treatment but still feels hard to breath . Daughter reports LE edema is better since IV lasix Pt states she is not yet ready to initiate HD and would like to ait if possible for some more time Daughter states they have already visited the Dialysis unit [place] [facility] and will be under Dr. Rao's care She was started on amlodipine by Dr. Elizondo for elevated blood pressure but pt stopped it due increasing swelling of the extremities Past Medical History Cardiovascular: HTN, Hyperlipidemia Musculoskeletal: Osteoarthritis Rheumatologic: Gout, Rheumatoid arthritis Renal/: Chronic renal failure Endocrine: Diabetes, Hypothyroidism, Osteoporosis Past Surgical History Past Surgical History: Cholecystectomy, Cataract Removal, Hysterectomy Family History Family History: Diabetes, Hypertension Social History No ALCOHOL: none Drugs: None Lives: with Family Current Problem List Problem List Problems Medical Problems: (1) Acute on chronic diastolic (congestive) heart failure Status: Acute (2) Acute respiratory failure with hypoxia Status: Acute (3) Asthma exacerbation, mild Status: Acute (4) CHF exacerbation Status: Acute (5) Diabetes mellitus with neuropathy Status: Chronic (6) End stage renal disease Status: Acute (7) ESRD (end stage renal disease) Status: Chronic (8) Gout Status: Chronic (9) Hypertension Status: Chronic (10) Mixed hyperlipidemia Status: Chronic (11) UTI (urinary tract infection) Status: Acute Current Medications Current Medications Current Medications Ondansetron HCl (Zofran) 4 mg PRN Q8HRS PRN IV NAUSEA/VOMITING; Start 07/18/19 at 15:45; Stop 07/19/19 at 15:44 Morphine Sulfate (Morphine Sulfate) 4 mg PRN Q2HR PRN IV PAIN; Start 07/18/19 at 15:45; Stop 07/19/19 at 15:44 Albuterol/ Ipratropium (Duoneb) 3 ml RTQID NEB Last administered on 07/19/19 07:49; Start 07/18/19 at 16:00; Stop 07/19/19 at 15:59 Furosemide (Lasix) 40 mg 1X ONCE IVP Last administered on 07/18/19 16:10; Start 07/18/19 at 16:00; Stop 07/18/19 at 16:01; Status DC Ceftriaxone Sodium (Rocephin) 1 gm 1X ONCE IVP Last administered on 07/18/19 18:55; Start 07/18/19 at 16:15; Stop 07/18/19 at 16:16; Status DC Atorvastatin Calcium (Lipitor) 10 mg QHS PO Last administered on 07/18/19 20:47; Start 07/18/19 at 21:00 Clonidine HCl (Catapres) 0.3 mg QHS PO Last administered on 07/18/19 20:47; Start 07/18/19 at 21:00 Labetalol HCl (Trandate) 200 mg BID PO Last administered on 07/19/19 10:42; Start 07/18/19 at 21:00 Aspirin (Ecotrin) 81 mg DAILYWBKFT PO Last administered on 07/19/19 10:42; Start 07/19/19 at 08:00 Hydralazine HCl (Apresoline) 50 mg TID PO Last administered on 07/19/19 10:42; Start 07/18/19 at 21:00 Ascorbic Acid (Vitamin C) 500 mg DAILY PO Last administered on 07/19/19 10:42; Start 07/19/19 at 09:00 Cyanocobalamin (Vitamin B-12) 1,000 mcg DAILY PO Last administered on 07/19/19 10:42; Start 07/19/19 at 09:00 Ferrous Sulfate (Feosol) 325 mg DAILY PO ; Start 07/19/19 at 09:00 Furosemide (Lasix) 20 mg DAILY PO ; Start 07/19/19 at 09:00 Levothyroxine Sodium (Synthroid) 125 mcg DAILY06 PO Last administered on 07/19/19at 05:59; Start 07/19/19 at 06:00 Linagliptin (Tradjenta) 5 mg DAILY PO Last administered on 07/19/19at 10:42; Start 07/19/19 at 09:00 Montelukast Sodium (Singulair) 10 mg DAILY PO ; Start 07/19/19 at 09:00; Stop 07/19/19 at 11:35; Status DC Tramadol HCl (Ultram) 50 mg PRN Q6HRS PRN PO PAIN MODERATE Last administered on 07/18/19at 20:47; Start 07/18/19 at 19:00 Acetaminophen (Tylenol) 650 mg PRN Q6HRS PRN PO MILD PAIN / TEMP; Start 07/18/19 at 19:00 Heparin Sodium (Porcine) (Heparin Sodium) 5,000 unit Q12HR SQ Last administered on 07/18/19at 20:47; Start 07/18/19 at 21:00 Budesonide (Pulmicort) 0.5 mg RTBID NEB Last administered on 07/19/19at 07:49; Start 07/18/19 at 20:00 Morphine Sulfate (Morphine Sulfate) 1 mg PRN Q3HRS PRN IV MODERATE PAIN Last administered on 07/18/19at 19:48; Start 07/18/19 at 19:30 Albuterol Sulfate (Ventolin Neb Soln) 2.5 mg PRN QID PRN NEB SHORTNESS OF BREATH; Start 07/18/19 at 19:30 Influenza Virus Vaccine Quadrival (Afluria Quad 2019-20 (3yr Up) Syringe) 0.5 ml ONCE ONCE VAX IM ; Start 07/18/19 at 21:00; Stop 07/18/19 at 21:01; Status UNV Albuterol Sulfate (Ventolin Neb Soln) 2.5 mg PRN Q6HRS PRN NEB SHORTNESS OF BREATH; Start 07/18/19 at 19:45; Status UNV Ceftriaxone Sodium (Rocephin) 1 gm Q24H IVP ; Start 07/19/19 at 16:00 Furosemide (Lasix) 40 mg 1X ONCE IVP Last administered on 07/19/19at 10:42; Start 07/19/19 at 10:30; Stop 07/19/19 at 10:31; Status DC Cetirizine HCl (ZyrTEC) 10 mg HS PO ; Start 07/19/19 at 21:00 Montelukast Sodium (Singulair) 10 mg HS PO ; Start 07/19/19 at 21:00 Active Scripts Active Reported Vitamin C (Ascorbic Acid) 500 Mg Tablet 500 Mg PO DAILY Humira (Adalimumab) 40 Mg/0.8 Ml Pen.ij.kit 40 Mg SQ Q2WKS Ferrous Sulfate 325 Mg Tablet 325 Mg PO DAILY Tramadol Hcl 50 Mg Tablet 50 Mg PO Q6HRS PRN Singulair Tablet (Montelukast Sodium) 10 Mg Tablet 1 Tab PO DAILY Vitamin B-12 (Cyanocobalamin (Vitamin B-12)) 1,000 Mcg Tablet 1 Tab PO DAILY Tradjenta (Linagliptin) 5 Mg Tablet 5 Mg PO DAILY Synthroid (Levothyroxine Sodium) 125 Mcg Tablet 1 Tab PO DAILY Labetalol Hcl 200 Mg Tablet 1 Tab PO BID Lipitor (Atorvastatin Calcium) 10 Mg Tablet 1 Tab PO QHS Furosemide 20 Mg Tablet 1 Tab PO DAILY Clonidine Hcl 0.3 Mg Tablet 1 Tab PO QHS Allergies Allergies: Coded Allergies: Sulfa (Sulfonamide Antibiotics) (Verified Allergy, Severe, Swelling, 07/05/19) ROS Review of System Per HPI Physical Exam Physical Exam General: NAD HEENT: OM moist, On o2 by NC Neck supple Lungs: Coarse breath sounds Heart: Regular rate, Normal S1, Normal S2 Abdomen: Soft, NT Extremities: 1+ bilateral LE edema ) Skin: No significant lesion, No rash Neuro Grossly normal, No Asterexis Psych/Mental Status: Mental status NL, Mood NL No Alex Vital Signs Vital Signs Date Time Temp Pulse Resp B/P (MAP) Pulse Ox O2 Delivery O2 Flow Rate FiO2 07/19/19 10:53 67 173/79 (110) 07/19/19 07:00 97.6 18 98 Nasal Cannula 2.0 97.6 Assessment & Plan PAULA - Creat peaked to 3.9 Back to baseline, s/p IV Lasix x 1 Pt has a quick AVG which can be used for HD any time Pt reluctant to initiate dialysis and wait for some time IV Lasix today, Re-eval in am will have to start Dialysis if inadequately diuresed or worsening renal function Discussed with Pt and family at bedside ,Monitor renal function, strict i/o , daily standing weight CKD stage 5- Stable Outpatient labs on 06/06 with BUN/Cr 79/.5 with eGFR of 12 % UTI- as per PCP Dyspnea secondary to acute on chronic diastolic HF Echo earlier this year with preserved LV systolic function Cardiology following Accelerated hypertension; was taken off Norvasc 3 weeks ago with LE edema Diabetes, II- as per PCP Discussed with RN Labs Labs Laboratory Tests Test 07/18/19 12:00 07/18/19 14:05 07/18/19 17:19 07/18/19 18:08 White Blood Count 8.2 x10^3/uL (4.0-11.0) Red Blood Count 3.13 x10^6/uL (3.50-5.40) Hemoglobin 10.0 g/dL (12.0-15.5) Hematocrit 30.1 % (36.0-47.0) Mean Corpuscular Volume 96 fL (79-100) Mean Corpuscular Hemoglobin 32 pg (25-35) Mean Corpuscular Hemoglobin Concent 33 g/dL (31-37) Red Cell Distribution Width 17.3 % (11.5-14.5) Platelet Count 130 x10^3/uL (140-400) Neutrophils (%) (Auto) 74 % (31-73) Lymphocytes (%) (Auto) 12 % (24-48) Monocytes (%) (Auto) 7 % (0-9) Eosinophils (%) (Auto) 5 % (0-3) Basophils (%) (Auto) 1 % (0-3) Neutrophils # (Auto) 6.1 x10^3/uL (1.8-7.7) Lymphocytes # (Auto) 1.0 x10^3/uL (1.0-4.8) Monocytes # (Auto) 0.6 x10^3/uL (0.0-1.1) Eosinophils # (Auto) 0.4 x10^3/uL (0.0-0.7) Basophils # (Auto) 0.1 x10^3/uL (0.0-0.2) Prothrombin Time 13.6 SEC (11.7-14.0) Prothromb Time International Ratio 1.1 (0.8-1.1) Sodium Level 141 mmol/L (136-145) Potassium Level 5.1 mmol/L (3.5-5.1) Chloride Level 107 mmol/L (98-107) Carbon Dioxide Level 23 mmol/L (21-32) Anion Gap 11 (6-14) Blood Urea Nitrogen 90 mg/dL (7-20) Creatinine 3.9 mg/dL (0.6-1.0) Estimated GFR (Cockcroft-Gault) 11.0 BUN/Creatinine Ratio 23 (6-20) Glucose Level 178 mg/dL (70-99) Calcium Level 8.9 mg/dL (8.5-10.1) Magnesium Level 2.0 mg/dL (1.8-2.4) Total Bilirubin 0.5 mg/dL (0.2-1.0) Aspartate Amino Transf (AST/SGOT) 22 U/L (15-37) Alanine Aminotransferase (ALT/SGPT) 19 U/L (14-59) Alkaline Phosphatase 79 U/L (46-116) Creatine Kinase 174 U/L (26-192) Creatine Kinase MB (Mass) 4.0 ng/mL (0.0-3.6) Creatine Kinase MB Relative Index 2.3 % (0-4) Troponin I Quantitative < 0.017 ng/mL (0.000-0.055) < 0.017 ng/mL (0.000-0.055) XN-Rie-R-Type Natriuretic Peptide 3059 pg/mL (0-449) Total Protein 7.2 g/dL (6.4-8.2) Albumin 3.5 g/dL (3.4-5.0) Albumin/Globulin Ratio 0.9 (1.0-1.7) Triglycerides Level 103 mg/dL (0-150) Cholesterol Level 125 mg/dL (0-200) LDL Cholesterol, Calculated 50 mg/dL (0-100) VLDL Cholesterol, Calculated 21 mg/dL (0-40) Non-HDL Cholesterol Calculated 71 mg/dL (0-129) HDL Cholesterol 54 mg/dL (40-60) Cholesterol/HDL Ratio 2.3 Thyroid Stimulating Hormone (TSH) 5.199 uIU/mL (0.358-3.74) Urine Collection Type Void Urine Color Yellow Urine Clarity Clear Urine pH 5.0 Urine Specific Fajardo 1.010 Urine Protein 100 mg/dL (NEG-TRACE) Urine Glucose (UA) Negative mg/dL (NEG) Urine Ketones (Stick) Negative mg/dL (NEG) Urine Blood Trace (NEG) Urine Nitrite Positive (NEG) Urine Bilirubin Negative (NEG) Urine Urobilinogen Dipstick 0.2 mg/dL (0.2 mg/dL) Urine Leukocyte Esterase Moderate (NEG) Urine RBC 1-2 /HPF (0-2) Urine WBC >40 /HPF (0-4) Urine Squamous Epithelial Cells Few /LPF Urine Bacteria Many /HPF (0-FEW) Urine Mucus Slight /LPF Glucose (Fingerstick) 137 mg/dL (70-99) Test 07/18/19 23:10 07/19/19 02:55 Troponin I Quantitative < 0.017 ng/mL (0.000-0.055) White Blood Count 8.0 x10^3/uL (4.0-11.0) Red Blood Count 2.98 x10^6/uL (3.50-5.40) Hemoglobin 9.5 g/dL (12.0-15.5) Hematocrit 28.6 % (36.0-47.0) Mean Corpuscular Volume 96 fL (79-100) Mean Corpuscular Hemoglobin 32 pg (25-35) Mean Corpuscular Hemoglobin Concent 33 g/dL (31-37) Red Cell Distribution Width 16.9 % (11.5-14.5) Platelet Count 121 x10^3/uL (140-400) Neutrophils (%) (Auto) 64 % (31-73) Lymphocytes (%) (Auto) 20 % (24-48) Monocytes (%) (Auto) 9 % (0-9) Eosinophils (%) (Auto) 6 % (0-3) Basophils (%) (Auto) 1 % (0-3) Neutrophils # (Auto) 5.1 x10^3/uL (1.8-7.7) Lymphocytes # (Auto) 1.6 x10^3/uL (1.0-4.8) Monocytes # (Auto) 0.8 x10^3/uL (0.0-1.1) Eosinophils # (Auto) 0.5 x10^3/uL (0.0-0.7) Basophils # (Auto) 0.1 x10^3/uL (0.0-0.2) Sodium Level 140 mmol/L (136-145) Potassium Level 5.0 mmol/L (3.5-5.1) Chloride Level 107 mmol/L (98-107) Carbon Dioxide Level 21 mmol/L (21-32) Anion Gap 12 (6-14) Blood Urea Nitrogen 89 mg/dL (7-20) Creatinine 3.6 mg/dL (0.6-1.0) Estimated GFR (Cockcroft-Gault) 12.0 BUN/Creatinine Ratio 25 (6-20) Glucose Level 133 mg/dL (70-99) Calcium Level 8.7 mg/dL (8.5-10.1) Total Bilirubin 0.5 mg/dL (0.2-1.0) Aspartate Amino Transf (AST/SGOT) 20 U/L (15-37) Alanine Aminotransferase (ALT/SGPT) 15 U/L (14-59) Alkaline Phosphatase 65 U/L (46-116) Total Protein 6.5 g/dL (6.4-8.2) Albumin 3.1 g/dL (3.4-5.0) Albumin/Globulin Ratio 0.9 (1.0-1.7) Laboratory Tests Test 07/18/19 12:00 07/18/19 14:05 07/18/19 17:19 07/18/19 18:08 White Blood Count 8.2 x10^3/uL (4.0-11.0) Red Blood Count 3.13 x10^6/uL (3.50-5.40) Hemoglobin 10.0 g/dL (12.0-15.5) Hematocrit 30.1 % (36.0-47.0) Mean Corpuscular Volume 96 fL (79-100) Mean Corpuscular Hemoglobin 32 pg (25-35) Mean Corpuscular Hemoglobin Concent 33 g/dL (31-37) Red Cell Distribution Width 17.3 % (11.5-14.5) Platelet Count 130 x10^3/uL (140-400) Neutrophils (%) (Auto) 74 % (31-73) Lymphocytes (%) (Auto) 12 % (24-48) Monocytes (%) (Auto) 7 % (0-9) Eosinophils (%) (Auto) 5 % (0-3) Basophils (%) (Auto) 1 % (0-3) Neutrophils # (Auto) 6.1 x10^3/uL (1.8-7.7) Lymphocytes # (Auto) 1.0 x10^3/uL (1.0-4.8) Monocytes # (Auto) 0.6 x10^3/uL (0.0-1.1) Eosinophils # (Auto) 0.4 x10^3/uL (0.0-0.7) Basophils # (Auto) 0.1 x10^3/uL (0.0-0.2) Prothrombin Time 13.6 SEC (11.7-14.0) Prothromb Time International Ratio 1.1 (0.8-1.1) Sodium Level 141 mmol/L (136-145) Potassium Level 5.1 mmol/L (3.5-5.1) Chloride Level 107 mmol/L (98-107) Carbon Dioxide Level 23 mmol/L (21-32) Anion Gap 11 (6-14) Blood Urea Nitrogen 90 mg/dL (7-20) Creatinine 3.9 mg/dL (0.6-1.0) Estimated GFR (Cockcroft-Gault) 11.0 BUN/Creatinine Ratio 23 (6-20) Glucose Level 178 mg/dL (70-99) Calcium Level 8.9 mg/dL (8.5-10.1) Magnesium Level 2.0 mg/dL (1.8-2.4) Total Bilirubin 0.5 mg/dL (0.2-1.0) Aspartate Amino Transf (AST/SGOT) 22 U/L (15-37) Alanine Aminotransferase (ALT/SGPT) 19 U/L (14-59) Alkaline Phosphatase 79 U/L (46-116) Creatine Kinase 174 U/L (26-192) Creatine Kinase MB (Mass) 4.0 ng/mL (0.0-3.6) Creatine Kinase MB Relative Index 2.3 % (0-4) Troponin I Quantitative < 0.017 ng/mL (0.000-0.055) < 0.017 ng/mL (0.000-0.055) FP-Khh-M-Type Natriuretic Peptide 3059 pg/mL (0-449) Total Protein 7.2 g/dL (6.4-8.2) Albumin 3.5 g/dL (3.4-5.0) Albumin/Globulin Ratio 0.9 (1.0-1.7) Triglycerides Level 103 mg/dL (0-150) Cholesterol Level 125 mg/dL (0-200) LDL Cholesterol, Calculated 50 mg/dL (0-100) VLDL Cholesterol, Calculated 21 mg/dL (0-40) Non-HDL Cholesterol Calculated 71 mg/dL (0-129) HDL Cholesterol 54 mg/dL (40-60) Cholesterol/HDL Ratio 2.3 Thyroid Stimulating Hormone (TSH) 5.199 uIU/mL (0.358-3.74) Urine Collection Type Void Urine Color Yellow Urine Clarity Clear Urine pH 5.0 Urine Specific Fajardo 1.010 Urine Protein 100 mg/dL (NEG-TRACE) Urine Glucose (UA) Negative mg/dL (NEG) Urine Ketones (Stick) Negative mg/dL (NEG) Urine Blood Trace (NEG) Urine Nitrite Positive (NEG) Urine Bilirubin Negative (NEG) Urine Urobilinogen Dipstick 0.2 mg/dL (0.2 mg/dL) Urine Leukocyte Esterase Moderate (NEG) Urine RBC 1-2 /HPF (0-2) Urine WBC >40 /HPF (0-4) Urine Squamous Epithelial Cells Few /LPF Urine Bacteria Many /HPF (0-FEW) Urine Mucus Slight /LPF Glucose (Fingerstick) 137 mg/dL (70-99) Test 07/18/19 23:10 07/19/19 02:55 Troponin I Quantitative < 0.017 ng/mL (0.000-0.055) White Blood Count 8.0 x10^3/uL (4.0-11.0) Red Blood Count 2.98 x10^6/uL (3.50-5.40) Hemoglobin 9.5 g/dL (12.0-15.5) Hematocrit 28.6 % (36.0-47.0) Mean Corpuscular Volume 96 fL (79-100) Mean Corpuscular Hemoglobin 32 pg (25-35) Mean Corpuscular Hemoglobin Concent 33 g/dL (31-37) Red Cell Distribution Width 16.9 % (11.5-14.5) Platelet Count 121 x10^3/uL (140-400) Neutrophils (%) (Auto) 64 % (31-73) Lymphocytes (%) (Auto) 20 % (24-48) Monocytes (%) (Auto) 9 % (0-9) Eosinophils (%) (Auto) 6 % (0-3) Basophils (%) (Auto) 1 % (0-3) Neutrophils # (Auto) 5.1 x10^3/uL (1.8-7.7) Lymphocytes # (Auto) 1.6 x10^3/uL (1.0-4.8) Monocytes # (Auto) 0.8 x10^3/uL (0.0-1.1) Eosinophils # (Auto) 0.5 x10^3/uL (0.0-0.7) Basophils # (Auto) 0.1 x10^3/uL (0.0-0.2) Sodium Level 140 mmol/L (136-145) Potassium Level 5.0 mmol/L (3.5-5.1) Chloride Level 107 mmol/L (98-107) Carbon Dioxide Level 21 mmol/L (21-32) Anion Gap 12 (6-14) Blood Urea Nitrogen 89 mg/dL (7-20) Creatinine 3.6 mg/dL (0.6-1.0) Estimated GFR (Cockcroft-Gault) 12.0 BUN/Creatinine Ratio 25 (6-20) Glucose Level 133 mg/dL (70-99) Calcium Level 8.7 mg/dL (8.5-10.1) Total Bilirubin 0.5 mg/dL (0.2-1.0) Aspartate Amino Transf (AST/SGOT) 20 U/L (15-37) Alanine Aminotransferase (ALT/SGPT) 15 U/L (14-59) Alkaline Phosphatase 65 U/L (46-116) Total Protein 6.5 g/dL (6.4-8.2) Albumin 3.1 g/dL (3.4-5.0) Albumin/Globulin Ratio 0.9 (1.0-1.7) Review All relevant outside records, renal labs, imaging studies, telemetry/EKG's were reviewed. Images Images Mild congestive changes. Mild bibasilar lung airspace opacities likely atelectasis or infiltrates. LAQUITA SEGUNDO MD Jul 19, 2019 12:16
--- NOTE | 2019-07-19 14:34 | PDOC ---
DENIZ BRAN DIRECTOR GEOTHERMAL OPERATIONS 07/19/19 1434: CARDIO Progress Notes Date and Time Date of Service 07/19/19 Time of Evaluation 1415 Subjective Subjective: No Chest Pain, No Palpitations, No Dizziness, Other (still SOA) Vitals Vitals Vital Signs Date Time Temp Pulse Resp B/P (MAP) Pulse Ox O2 Delivery O2 Flow Rate FiO2 07/19/19 11:58 98 Nasal Cannula 2.0 07/19/19 10:53 67 173/79 (110) 07/19/19 07:00 97.6 18 97.6 Weight Weight [ ] Input and Output Intake and Output Intake and Output 07/19/19 06:59 Intake Total 500 ml Output Total 1350 ml Balance -850 ml Intake Oral 500 ml Output Urine Total 1350 ml Laboratory Labs Laboratory Tests Test 07/18/19 17:19 07/18/19 18:08 07/18/19 23:10 07/19/19 02:55 Glucose (Fingerstick) 137 mg/dL (70-99) Troponin I Quantitative < 0.017 ng/mL (0.000-0.055) < 0.017 ng/mL (0.000-0.055) White Blood Count 8.0 x10^3/uL (4.0-11.0) Red Blood Count 2.98 x10^6/uL (3.50-5.40) Hemoglobin 9.5 g/dL (12.0-15.5) Hematocrit 28.6 % (36.0-47.0) Mean Corpuscular Volume 96 fL (79-100) Mean Corpuscular Hemoglobin 32 pg (25-35) Mean Corpuscular Hemoglobin Concent 33 g/dL (31-37) Red Cell Distribution Width 16.9 % (11.5-14.5) Platelet Count 121 x10^3/uL (140-400) Neutrophils (%) (Auto) 64 % (31-73) Lymphocytes (%) (Auto) 20 % (24-48) Monocytes (%) (Auto) 9 % (0-9) Eosinophils (%) (Auto) 6 % (0-3) Basophils (%) (Auto) 1 % (0-3) Neutrophils # (Auto) 5.1 x10^3/uL (1.8-7.7) Lymphocytes # (Auto) 1.6 x10^3/uL (1.0-4.8) Monocytes # (Auto) 0.8 x10^3/uL (0.0-1.1) Eosinophils # (Auto) 0.5 x10^3/uL (0.0-0.7) Basophils # (Auto) 0.1 x10^3/uL (0.0-0.2) Sodium Level 140 mmol/L (136-145) Potassium Level 5.0 mmol/L (3.5-5.1) Chloride Level 107 mmol/L (98-107) Carbon Dioxide Level 21 mmol/L (21-32) Anion Gap 12 (6-14) Blood Urea Nitrogen 89 mg/dL (7-20) Creatinine 3.6 mg/dL (0.6-1.0) Estimated GFR (Cockcroft-Gault) 12.0 BUN/Creatinine Ratio 25 (6-20) Glucose Level 133 mg/dL (70-99) Calcium Level 8.7 mg/dL (8.5-10.1) Total Bilirubin 0.5 mg/dL (0.2-1.0) Aspartate Amino Transf (AST/SGOT) 20 U/L (15-37) Alanine Aminotransferase (ALT/SGPT) 15 U/L (14-59) Alkaline Phosphatase 65 U/L (46-116) Total Protein 6.5 g/dL (6.4-8.2) Albumin 3.1 g/dL (3.4-5.0) Albumin/Globulin Ratio 0.9 (1.0-1.7) Hepatitis B Surface Antigen Nonreactive (Nonreactive) Hepatitis B Surface Antibody Nonreactive Hepatitis B Core Total Antibody Nonreactive (Nonreactive) Physical Exam HEENT: Neck Supple W Full Motion Chest: Symmetric LUNGS: Other (bibasilar crackles ) Heart: S1S2, RRR, murmurs Abdomen: Soft N/T Extremities: Other (2+ bilateral LE edema) Neurology: alert, oriented, follow commands Assessment Assessment 1. Dyspnea secondary to acute on chronic diastolic HF; likely secondary to uncontrolled blood pressure and RI. Echo showed preserved LV systolic function 2. Accelerated hypertension; remains elevated 3. Chest pain, atypical; most probably secondary to above. Echo without WMA 4. Hyperlipidemia; statin. LDL 50 5. Diabetes, II; as per PCP 6. PAULA on CKD- ESRD; plans for HD to be initiated 7. Hypothyroidism 8. UTI; as per PCP Recommendations Ongoing diuresis; will give extra dose of Lasix this afternoon Consider HD if unable to adequately diurese; defer to nephrology Increase hydralazine Consider outpatient ischemic evaluation unless echo significantly abnormal. Supportive care LEVON BILLINGS MD 07/19/19 1647: CARDIO Progress Notes Assessment Assessment Patient seen and examined. Agree with GROUNDS CARETAKER's assessment and plan. Inadequate diuresis with current dose of Lasix Defer Lasix drip vs initiating hemodialysis to nephrology team Blood pressure better controlled 2-D echo showed normal LV function without any wall motion abnormalities Plan ischemic evaluation as an outpatient DENIZ BRAN APRN Jul 19, 2019 14:34 LEVON BILLINGS MD Jul 19, 2019 16:47
[2019-07-19 15:00] VITALS: BP 141/67
[2019-07-19] MEDS: cefTRIAXone IV Push 1 GM VIAL. IVP SCH (15:15)
[2019-07-19 19:21] VITALS: BP 166/74
[2019-07-19] MEDS: LACTOBACILLUS RHAMNOSUS GG 1 CAPSULE. PO SCH (21:31)
[2019-07-19] MEDS: cloNIDine HCL 0.3 MG TABLET PO SCH (21:31)
[2019-07-19] MEDS: MONTELUKAST SODIUM 10 MG TABLET. PO SCH (21:32)
[2019-07-19] MEDS: ATORVASTATIN CALCIUM 10 MG TABLET. PO SCH (21:32)
[2019-07-19] MEDS: hydrALAZINE 25 MG TABLET PO SCH (21:32)
[2019-07-19] MEDS: CETIRIZINE HCL 10 MG TABLET. PO SCH (21:32)
[2019-07-19] MEDS: traMADol 50 MG TABLET PO PRN (21:33)
[2019-07-19] MEDS: MORPHINE SULFATE 2 MG/ML VIAL. IV PRN (21:37)
[2019-07-19 22:19] VITALS: BP 193/74
[2019-07-20 03:02] VITALS: BP 174/80
[2019-07-20] MEDS: LEVOTHYROXINE 125 MCG TABLET PO SCH (05:51)
[2019-07-20 06:10] LABS: BASO # 0.1 x10^3/uL (0.0-0.2); BASO % 1 % (0-3); EOS # 0.2 x10^3/uL (0.0-0.7); EOS % 3 % (0-3); HEMATOCRIT 30.7 % (36.0-47.0); HEMOGLOBIN 10.2 g/dL (12.0-15.5); LYMPH # 1.2 x10^3/uL (1.0-4.8); LYMPH % 14 % (24-48); MEAN CORPUSCULAR HEMOGLOBIN 32 pg (25-35); MEAN CORPUSCULAR HGB CONC 33 g/dL (31-37); MEAN CORPUSCULAR VOLUME 96 fL (79-100); MONO # 0.7 x10^3/uL (0.0-1.1); MONO % 8 % (0-9); NEUT # 6.9 x10^3/uL (1.8-7.7); NEUT % 76 % (31-73); PLATELET COUNT 142 x10^3/uL (140-400); RED BLOOD COUNT 3.21 x10^6/uL (3.50-5.40); RED CELL DISTRIBUTION WIDTH 17.1 % (11.5-14.5); WHITE BLOOD COUNT 9.1 x10^3/uL (4.0-11.0)
[2019-07-20 07:00] VITALS: BP 165/70
[2019-07-20 07:07] LABS: ALBUMIN 3.3 g/dL (3.4-5.0); CREATININE 3.4 mg/dL (0.6-1.0); GFR 12.9; PHOSPHORUS 4.8 mg/dL (2.6-4.7); POTASSIUM 4.5 mmol/L (3.5-5.1); TOTAL BILIRUBIN 0.6 mg/dL (0.2-1.0); TOTAL PROTEIN 6.5 g/dL (6.4-8.2)
[2019-07-20] MEDS: BUDESONIDE 0.5 MG/2 ML NEBU. NEB SCH ×2 (07:50→20:00)
[2019-07-20] MEDS: IPRATRPIUM/ALBUTEROL 0.5/2.5MG 3 ML NEBU. NEB SCH ×4 (07:50→20:00)
[2019-07-20] MEDS: FERROUS SULFATE 325 MG TABLET. PO SCH (09:00)
[2019-07-20] MEDS: LACTOBACILLUS RHAMNOSUS GG 1 CAPSULE. PO SCH ×2 (09:20→21:22)
[2019-07-20] MEDS: ASPIRIN ENTERIC COATED 81 MG TABLET.DR. PO SCH (09:21)
[2019-07-20] MEDS: FUROSEMIDE 20 MG TABLET PO SCH (09:21)
[2019-07-20] MEDS: LINAGLIPTIN 5 MG TABLET PO SCH (09:21)
[2019-07-20] MEDS: CYANOCOBALAMIN (VITAMIN B-12) 1,000 MCG TABLET. PO SCH (09:21)
[2019-07-20] MEDS: ASCORBIC ACID 500 MG TABLET PO SCH (09:21)
[2019-07-20] MEDS: LABETALOL HCL 200 MG TABLET PO SCH (09:22)
[2019-07-20] MEDS: hydrALAZINE 25 MG TABLET PO SCH ×3 (09:23→21:00)
[2019-07-20] MEDS: HEPARIN for SUB-Q USE 5,000 UNIT/ML VIAL. SQ SCH ×2 (09:31→21:29)
--- NOTE | 2019-07-20 09:53 | PDOC ---
IM PROGRESS NOTES- Subjective Subjective The breathing treatment and morphine helped her dyspnea .Feeling a little better. Objective Vitals/I&O Vital Signs Date Time Temp Pulse Resp B/P (MAP) Pulse Ox O2 Delivery O2 Flow Rate FiO2 07/20/19 09:31 73 165/70 07/20/19 07:51 97 Nasal Cannula 2.0 07/20/19 07:00 98.1 22 98.1 I & O 07/19/19 07/19/19 07/20/19 15:00 23:00 07:00 Intake Total 350 ml Output Total 650 ml 600 ml 950 ml Balance -650 ml -600 ml -600 ml Physical Exam Physical Exam GENERAL: The patient is an elderly female who is alert, oriented x 3 and in mild respiratory distress. She is anxious. EYES: Pupils reacting to light. Conjunctivae pale. Sclerae muddy. HENT: Unremarkable except for mild congestion of throat. NECK: Supple. JVP normal. No thyromegaly. Trachea midline. LUNGS: increased air entry CARDIOVASCULAR: S1, S2 regular. ABDOMEN: Soft, nontender, no guarding, no rigidity. Bowel sounds present. EXTREMITIES: 2+ edema of both lower extremities. The patient has swelling of the left forearm because of the recent surgery for graft for dialysis access. CENTRAL NERVOUS SYSTEM: Alert, oriented and anxious. Labs Laboratory Tests Test 07/19/19 20:41 07/20/19 05:45 07/20/19 07:58 Glucose (Fingerstick) 142 mg/dL (70-99) H 147 mg/dL (70-99) H White Blood Count 9.1 x10^3/uL (4.0-11.0) Red Blood Count 3.21 x10^6/uL (3.50-5.40) L Hemoglobin 10.2 g/dL (12.0-15.5) L Hematocrit 30.7 % (36.0-47.0) L Mean Corpuscular Volume 96 fL (79-100) Mean Corpuscular Hemoglobin 32 pg (25-35) Mean Corpuscular Hemoglobin Concent 33 g/dL (31-37) Red Cell Distribution Width 17.1 % (11.5-14.5) H Platelet Count 142 x10^3/uL (140-400) Neutrophils (%) (Auto) 76 % (31-73) H Lymphocytes (%) (Auto) 14 % (24-48) L Monocytes (%) (Auto) 8 % (0-9) Eosinophils (%) (Auto) 3 % (0-3) Basophils (%) (Auto) 1 % (0-3) Neutrophils # (Auto) 6.9 x10^3/uL (1.8-7.7) Lymphocytes # (Auto) 1.2 x10^3/uL (1.0-4.8) Monocytes # (Auto) 0.7 x10^3/uL (0.0-1.1) Eosinophils # (Auto) 0.2 x10^3/uL (0.0-0.7) Basophils # (Auto) 0.1 x10^3/uL (0.0-0.2) Sodium Level 140 mmol/L (136-145) Potassium Level 4.5 mmol/L (3.5-5.1) Chloride Level 104 mmol/L (98-107) Carbon Dioxide Level 21 mmol/L (21-32) Anion Gap 15 (6-14) H Blood Urea Nitrogen 88 mg/dL (7-20) H Creatinine 3.4 mg/dL (0.6-1.0) H Estimated GFR (Cockcroft-Gault) 12.9 BUN/Creatinine Ratio 26 (6-20) H Glucose Level 147 mg/dL (70-99) H Calcium Level 9.0 mg/dL (8.5-10.1) Phosphorus Level 4.8 mg/dL (2.6-4.7) H Total Bilirubin 0.6 mg/dL (0.2-1.0) Aspartate Amino Transferase (AST) 17 U/L (15-37) Alanine Aminotransferase (ALT) 16 U/L (14-59) Alkaline Phosphatase 66 U/L (46-116) Total Protein 6.5 g/dL (6.4-8.2) Albumin 3.3 g/dL (3.4-5.0) L Albumin/Globulin Ratio 1.0 (1.0-1.7) Laboratory Tests 07/20/19 05:45 Laboratory Tests 07/20/19 05:45 Meds Current Medications Medications (Trade) Dose Ordered Sig/Cate Route PRN Reason Start Time Stop Time Status Last Admin Dose Admin Ceftriaxone Sodium (Rocephin) 1 gm Q24H IVP 07/19/19 16:00 07/19/19 15:16 Furosemide (Lasix) 40 mg 1X ONCE IVP 07/19/19 10:30 07/19/19 10:31 DC 07/19/19 10:42 Cetirizine HCl (ZyrTEC) 10 mg HS PO 07/19/19 21:00 07/19/19 21:41 Montelukast Sodium (Singulair) 10 mg HS PO 07/19/19 21:00 07/19/19 21:41 Lactobacillus Rhamnosus (Culturelle) 1 cap BID PO 07/19/19 21:00 07/20/19 09:31 Albuterol/ Ipratropium (Duoneb) 3 ml RTQID NEB 07/19/19 17:00 07/20/19 07:50 Furosemide (Lasix) 40 mg 1X ONCE IVP 07/19/19 17:00 07/19/19 17:01 DC 07/19/19 18:00 Hydralazine HCl (Apresoline) 75 mg TID PO 07/19/19 21:00 07/20/19 09:31 Assessment Assessment 1. Acute hypoxic respiratory failure. 2. Acute on chronic diastolic congestive heart failure. 3. End-stage renal disease. 4. Asthma with mild exacerbation. 5. Allergic rhinitis. 6. Anxiety. 7. Urinary tract infection. 8. Diabetes mellitus type 2 with diabetic nephropathy. 9. Diabetic polyneuropathy. 10. Chronic gout. 11. Hypertension. 12. Mixed hyperlipidemia. PLAN: Consult Dr. Rao for nephrology evaluation and management, Dr. Elizondo for cardiology evaluation and management. The patient was given 1 dose of IV Rocephin today. I will readjust it tomorrow. We will resume home medications including the blood pressure medications. The patient was given one dose of IV Lasix in the Emergency Room and she had taken her morning dose also. Heel Seat Fitter felt that more Lasix may not be beneficial at this time. I will give her low dose morphine 1 mg and give her breathing treatment and also Pulmicort breathing treatment to see if this would help her breathing and relieve the pressure on her chest. For details, please refer to the orders. Hopefully tomorrow if she does not respond, will need dialysis. Condition and treatment extensively discussed with multiple children. For details, please refer to the orders. UTI- adjust the dose of Rocephin due to end-stage renal disease. Diabetes- stable End-stage renal disease- patient had the graft placed on july about 11 days old. She has a quick AVG. Condition treatment options discussed with the patient and the family. Hypertension- not controlled. Echocardiogram pending. Mild exacerbation of asthma improving. Anxiety improving. Plan Plan For more details regarding further plans, please refer to the orders. HIRA BELTRE MD Jul 20, 2019 09:53
[2019-07-20 11:00] VITALS: BP 138/62
[2019-07-20] MEDS ORDERED: IV NORMAL SALINE 1000ML BAG 1,000 ML IV PRN ×2 (12:23)
[2019-07-20] MEDS ORDERED: DIALYSIS PATIENT. MC PRN ×2 (12:30)
[2019-07-20] MEDS ORDERED: ACETAMINOPHEN 500 MG TABLET PO PRN (12:30)
[2019-07-20] MEDS ORDERED: ALBUMIN HUMAN 25% 200 ML IV PRN (12:30)
[2019-07-20] MEDS ORDERED: diphenhydrAMINE 50 MG/ML VIAL IV PRN ×2 (12:30)
--- NOTE | 2019-07-20 13:44 | PDOC ---
SUBJECTIVE ROS Pt is looking comfortable but states that she is still short of breath and is ready to start HD OBJECTIVE Vital Signs Vital Signs Date Time Temp Pulse Resp B/P (MAP) Pulse Ox O2 Delivery O2 Flow Rate FiO2 07/20/19 09:31 73 165/70 07/20/19 07:51 97 Nasal Cannula 2.0 07/20/19 07:00 98.1 22 98.1 I & 0 Intake and Output 07/20/19 06:59 Intake Total 350 ml Output Total 2200 ml Balance -1850 ml Intake Oral 350 ml Output Urine Total 2200 ml PHYSICAL EXAM Physical Exam General: NAD HEENT: OM moist, On o2 by NC Neck supple Lungs: Coarse breath sounds Heart: Regular rate, Normal S1, Normal S2 Abdomen: Soft, NT Extremities: 1+ bilateral LE edema ) Skin: No significant lesion, No rash Neuro Grossly normal, No Asterexis Psych/Mental Status: Mental status NL, Mood NL No Alex DIAGNOSIS/ASSESSMENT Assessment & Plan CKD stage 5-Now ESRD Cr back to baseline since admission Pt would like to go ahead with HD , 1 st treatment today Seen on dialysis , tolerating well, continue as ordered, Florian CHOUDHARY Consult for OP chair time Access - Quick Graft Lt PAULA - Creat peaked to 3.9 ,Back to baseline, UTI- as per PCP Dyspnea secondary to acute on chronic diastolic HF Echo earlier this year with preserved LV systolic function Cardiology following Accelerated hypertension; was taken off Norvasc 3 weeks ago with LE edema Anticipate improvement with HD and UF Diabetes, II- as per PCP Discussed with Pt, family members at bed side and RN COMMENT/RELEVANT DATA Meds Current Medications Medications (Trade) Dose Ordered Sig/Cate Start Time Stop Time Status Last Admin Dose Admin Acetaminophen (Tylenol) 500 mg 1X PRN PRN 07/20/19 12:30 07/21/19 12:29 Albumin Human 200 ml @ 200 mls/hr 1X PRN PRN 07/20/19 12:30 07/20/19 18:29 Albuterol Sulfate (Ventolin Neb Soln) 2.5 mg PRN Q6HRS PRN 07/18/19 19:45 UNV Albuterol/ Ipratropium (Duoneb) 3 ml RTQID 07/19/19 17:00 07/20/19 07:50 3 ML Ascorbic Acid (Vitamin C) 500 mg DAILY 07/19/19 09:00 07/20/19 09:31 500 MG Aspirin (Ecotrin) 81 mg [id number] 07/19/19 08:00 07/20/19 09:31 81 MG Atorvastatin Calcium (Lipitor) 10 mg QHS 07/18/19 21:00 07/19/19 21:41 10 MG Budesonide (Pulmicort) 0.5 mg RTBID 07/18/19 20:00 07/20/19 07:50 0.5 MG Ceftriaxone Sodium (Rocephin) 1 gm Q24H 07/19/19 16:00 07/19/19 15:16 1 GM Cetirizine HCl (ZyrTEC) 10 mg HS 07/19/19 21:00 07/19/19 21:41 10 MG Clonidine HCl (Catapres) 0.3 mg QHS 07/18/19 21:00 07/19/19 21:41 0.3 MG Cyanocobalamin (Vitamin B-12) 1,000 mcg DAILY 07/19/19 09:00 07/20/19 09:31 1,000 MCG Diphenhydramine HCl (Benadryl) 25 mg 1X PRN PRN 07/20/19 12:30 07/21/19 12:29 Ferrous Sulfate (Feosol) 325 mg DAILY 07/19/19 09:00 Furosemide (Lasix) 40 mg 1X ONCE 07/19/19 17:00 07/19/19 17:01 DC 07/19/19 18:00 40 MG Heparin Sodium (Porcine) (Heparin Sodium) 5,000 unit Q12HR 07/18/19 21:00 07/20/19 09:31 5,000 UNIT Hydralazine HCl (Apresoline) 75 mg TID 07/19/19 21:00 07/20/19 09:31 75 MG Influenza Virus Vaccine Quadrival (Afluria Quad 2019-20 (3yr Up) Syringe) 0.5 ml ONCE ONCE 07/18/19 21:00 07/18/19 21:01 UNV Info (PHARMACY MONITORING -- do not chart) 1 each PRN DAILY PRN 07/20/19 12:30 Labetalol HCl (Trandate) 200 mg BID 07/18/19 21:00 07/20/19 09:31 200 MG Lactobacillus Rhamnosus (Culturelle) 1 cap BID 07/19/19 21:00 07/20/19 09:31 1 CAP Levothyroxine Sodium (Synthroid) 125 mcg DAILY06 07/19/19 06:00 07/20/19 05:51 125 MCG Linagliptin (Tradjenta) 5 mg DAILY 07/19/19 09:00 07/20/19 09:31 5 MG Montelukast Sodium (Singulair) 10 mg HS 07/19/19 21:00 07/19/19 21:41 10 MG Morphine Sulfate (Morphine Sulfate) 1 mg PRN Q3HRS PRN 07/18/19 19:30 07/19/19 21:41 1 MG Ondansetron HCl (Zofran) 4 mg PRN Q8HRS PRN 07/18/19 15:45 07/19/19 15:44 DC Sodium Chloride 1,000 ml @ 400 mls/hr Q2H30M PRN 07/20/19 12:23 07/21/19 00:22 Tramadol HCl (Ultram) 50 mg PRN Q6HRS PRN 07/18/19 19:00 07/19/19 21:41 50 MG Lab Laboratory Tests Test 07/19/19 20:41 07/20/19 05:45 07/20/19 07:58 07/20/19 11:55 Glucose (Fingerstick) 142 mg/dL (70-99) 147 mg/dL (70-99) 151 mg/dL (70-99) White Blood Count 9.1 x10^3/uL (4.0-11.0) Red Blood Count 3.21 x10^6/uL (3.50-5.40) Hemoglobin 10.2 g/dL (12.0-15.5) Hematocrit 30.7 % (36.0-47.0) Mean Corpuscular Volume 96 fL (79-100) Mean Corpuscular Hemoglobin 32 pg (25-35) Mean Corpuscular Hemoglobin Concent 33 g/dL (31-37) Red Cell Distribution Width 17.1 % (11.5-14.5) Platelet Count 142 x10^3/uL (140-400) Neutrophils (%) (Auto) 76 % (31-73) Lymphocytes (%) (Auto) 14 % (24-48) Monocytes (%) (Auto) 8 % (0-9) Eosinophils (%) (Auto) 3 % (0-3) Basophils (%) (Auto) 1 % (0-3) Neutrophils # (Auto) 6.9 x10^3/uL (1.8-7.7) Lymphocytes # (Auto) 1.2 x10^3/uL (1.0-4.8) Monocytes # (Auto) 0.7 x10^3/uL (0.0-1.1) Eosinophils # (Auto) 0.2 x10^3/uL (0.0-0.7) Basophils # (Auto) 0.1 x10^3/uL (0.0-0.2) Sodium Level 140 mmol/L (136-145) Potassium Level 4.5 mmol/L (3.5-5.1) Chloride Level 104 mmol/L (98-107) Carbon Dioxide Level 21 mmol/L (21-32) Anion Gap 15 (6-14) Blood Urea Nitrogen 88 mg/dL (7-20) Creatinine 3.4 mg/dL (0.6-1.0) Estimated GFR (Cockcroft-Gault) 12.9 BUN/Creatinine Ratio 26 (6-20) Glucose Level 147 mg/dL (70-99) Calcium Level 9.0 mg/dL (8.5-10.1) Phosphorus Level 4.8 mg/dL (2.6-4.7) Total Bilirubin 0.6 mg/dL (0.2-1.0) Aspartate Amino Transf (AST/SGOT) 17 U/L (15-37) Alanine Aminotransferase (ALT/SGPT) 16 U/L (14-59) Alkaline Phosphatase 66 U/L (46-116) Total Protein 6.5 g/dL (6.4-8.2) Albumin 3.3 g/dL (3.4-5.0) Albumin/Globulin Ratio 1.0 (1.0-1.7) Results All relevant outside records, renal labs, imaging studies, telemetry/EKG's were reviewed. LAQUITA SEGUNDO MD Jul 20, 2019 13:44
--- NOTE | 2019-07-20 14:13 | PDOC ---
BRADEN STARKEY [employer]IC[employer] 07/20/19 1413: CARDIO Progress Notes Date and Time Date of Service 07/20/2019 Time of Evaluation 1700 Subjective Subjective: No Chest Pain, No Palpitations, No Dizziness, Other (just came back from HD, not feeling good, nauseated) Vitals Vitals Vital Signs Date Time Temp Pulse Resp B/P (MAP) Pulse Ox O2 Delivery O2 Flow Rate FiO2 07/20/19 11:00 98.2 71 22 138/62 (87) 97 Nasal Cannula 2.0 98.2 Weight Weight [ ] Input and Output Intake and Output Intake and Output 07/20/19 06:59 Intake Total 350 ml Output Total 2200 ml Balance -1850 ml Intake Oral 350 ml Output Urine Total 2200 ml Laboratory Labs Laboratory Tests Test 07/19/19 20:41 07/20/19 05:45 07/20/19 07:58 07/20/19 11:55 Glucose (Fingerstick) 142 mg/dL (70-99) 147 mg/dL (70-99) 151 mg/dL (70-99) White Blood Count 9.1 x10^3/uL (4.0-11.0) Red Blood Count 3.21 x10^6/uL (3.50-5.40) Hemoglobin 10.2 g/dL (12.0-15.5) Hematocrit 30.7 % (36.0-47.0) Mean Corpuscular Volume 96 fL (79-100) Mean Corpuscular Hemoglobin 32 pg (25-35) Mean Corpuscular Hemoglobin Concent 33 g/dL (31-37) Red Cell Distribution Width 17.1 % (11.5-14.5) Platelet Count 142 x10^3/uL (140-400) Neutrophils (%) (Auto) 76 % (31-73) Lymphocytes (%) (Auto) 14 % (24-48) Monocytes (%) (Auto) 8 % (0-9) Eosinophils (%) (Auto) 3 % (0-3) Basophils (%) (Auto) 1 % (0-3) Neutrophils # (Auto) 6.9 x10^3/uL (1.8-7.7) Lymphocytes # (Auto) 1.2 x10^3/uL (1.0-4.8) Monocytes # (Auto) 0.7 x10^3/uL (0.0-1.1) Eosinophils # (Auto) 0.2 x10^3/uL (0.0-0.7) Basophils # (Auto) 0.1 x10^3/uL (0.0-0.2) Sodium Level 140 mmol/L (136-145) Potassium Level 4.5 mmol/L (3.5-5.1) Chloride Level 104 mmol/L (98-107) Carbon Dioxide Level 21 mmol/L (21-32) Anion Gap 15 (6-14) Blood Urea Nitrogen 88 mg/dL (7-20) Creatinine 3.4 mg/dL (0.6-1.0) Estimated GFR (Cockcroft-Gault) 12.9 BUN/Creatinine Ratio 26 (6-20) Glucose Level 147 mg/dL (70-99) Calcium Level 9.0 mg/dL (8.5-10.1) Phosphorus Level 4.8 mg/dL (2.6-4.7) Total Bilirubin 0.6 mg/dL (0.2-1.0) Aspartate Amino Transf (AST/SGOT) 17 U/L (15-37) Alanine Aminotransferase (ALT/SGPT) 16 U/L (14-59) Alkaline Phosphatase 66 U/L (46-116) Total Protein 6.5 g/dL (6.4-8.2) Albumin 3.3 g/dL (3.4-5.0) Albumin/Globulin Ratio 1.0 (1.0-1.7) Physical Exam HEENT: Neck Supple W Full Motion Chest: Symmetric LUNGS: Other (bibasilar crackles ) Heart: murmurs, irregularly irregular (AFIB RVR) Abdomen: Soft N/T Extremities: Other (2+ bilateral LE edema) Neurology: alert, oriented, follow commands Assessment Assessment 1. Acute on chronic diastolic CHF: due to uncontrolled HTN and renal disease. Echo showed preserved LV systolic function 2. Accelerated hypertension; better 3. Chest pain, atypical 4. Hyperlipidemia; statin. LDL 50 5. Diabetes, II; as per PCP 6. PALUA on CKD 7. Hypothyroidism 8. UTI; as per PCP 9. AFIB RVR: new today Recommendations 1. post HD, nauseated, zofran x1. AFIB started post HD possibly from fluid/lyte shifts. DC labetolol. give IV lopressor and start on metoprolol 2. Fluid off loading per HD 3. Continue current BP regimen. Continue ASA. Note rhythm in the next 48 hours then will consider for anticoagulation 4. Consider outpatient ischemic evaluation unless echo significantly abnormal. 5. Supportive care LEVON BILLINGS MD 07/20/19 1545: CARDIO Progress Notes Assessment Assessment Patient seen and examined. Agree with ORGANIC SECTION TECHNICAL LEAD's assessment and plan. Hemodialysis initiated today secondary to inadequate diuresis with Lasix. Nephrology following. Blood pressure labile but better controlled 2-D echo showed normal LV function without any wall motion abnormalities Plan ischemic evaluation as an outpatient BRADEN STARKEY APRN Jul 20, 2019 14:13 LEVON BILLINGS MD Jul 20, 2019 15:45
[2019-07-20 15:00] VITALS: BP 147/67
--- NOTE | 2019-07-20 15:07 | NUR ---
SW consulted for OP HD. Chart reviewed and discussed with RN. Pt lives at home with family and starting HD today. SW spoke with pt and family at bedside regarding OP HD set up process. Pt's family reported they had visited [facility] by blaise (Gamaliel Randall) and requested if pt can be placed at that clinic. Pt and family aware if Gamaliel [facility] if full pt might have to go to other clinics until a chair opens. Pt and family verbalized understanding. Plan 1. [facility] phoned and faxed referral to [facility] Admission, phone: [phone] ext: [phone] (left a message for Pk). Pt acceptance and admission pending. 2. Access notes and flow sheet pending- will need to be faxed once available. 3. Will continue to follow pt.
[2019-07-20] MEDS: cefTRIAXone IV Push 1 GM VIAL. IVP SCH (16:11)
[2019-07-20] MEDS ORDERED: ONDANSETRON PF 4 MG/2 ML VIAL. IV ONE (17:15)
[2019-07-20] MEDS ORDERED: METOPROLOL TARTRATE 5 MG/5 ML VIAL. IVP ONE (17:15)
[2019-07-20] MEDS ORDERED: METOPROLOL TARTRATE 5 MG/5 ML VIAL. IVP PRN (17:15)
[2019-07-20 19:40] VITALS: BP 133/58
[2019-07-20] MEDS: cloNIDine HCL 0.3 MG TABLET PO SCH (21:00)
[2019-07-20] MEDS: ATORVASTATIN CALCIUM 10 MG TABLET. PO SCH (21:00)
[2019-07-20] MEDS: CETIRIZINE HCL 10 MG TABLET. PO SCH (21:22)
[2019-07-20] MEDS: MONTELUKAST SODIUM 10 MG TABLET. PO SCH (21:22)
[2019-07-20] MEDS: METOPROLOL TART IMMED RELEASE 50 MG TABLET. PO SCH (21:23)
[2019-07-20 23:00] VITALS: BP 144/63
[2019-07-21] MEDS: traMADol 50 MG TABLET PO PRN (02:11)
[2019-07-21 02:36] VITALS: BP 155/70
[2019-07-21] MEDS: LEVOTHYROXINE 125 MCG TABLET PO SCH (06:19)
[2019-07-21 07:00] VITALS: BP 173/75
[2019-07-21] MEDS ORDERED: IV NORMAL SALINE 1000ML BAG 1,000 ML IV PRN ×2 (07:39)
[2019-07-21] MEDS ORDERED: ALBUMIN HUMAN 25% 200 ML IV PRN (07:45)
[2019-07-21] MEDS ORDERED: DIALYSIS PATIENT. MC PRN ×2 (07:45)
[2019-07-21] MEDS ORDERED: diphenhydrAMINE 50 MG/ML VIAL IV PRN ×2 (07:45)
[2019-07-21 07:47] LABS: BASO % 0 % (0-3); EOS % 0 % (0-3); HEMATOCRIT 33.2 % (36.0-47.0); HEMOGLOBIN 10.6 g/dL (12.0-15.5); LYMPH # 1.2 x10^3/uL (1.0-4.8); LYMPH % 11 % (24-48); MEAN CORPUSCULAR HEMOGLOBIN 31 pg (25-35); MEAN CORPUSCULAR HGB CONC 32 g/dL (31-37); MEAN CORPUSCULAR VOLUME 97 fL (79-100); MONO # 0.9 x10^3/uL (0.0-1.1); MONO % 8 % (0-9); NEUT # 8.7 x10^3/uL (1.8-7.7); NEUT % 81 % (31-73); PLATELET COUNT 170 x10^3/uL (140-400); RED BLOOD COUNT 3.42 x10^6/uL (3.50-5.40); RED CELL DISTRIBUTION WIDTH 17.1 % (11.5-14.5); WHITE BLOOD COUNT 10.9 x10^3/uL (4.0-11.0)
[2019-07-21] MEDS ORDERED: LIDOCAINE 1% PF 2 ML VIAL. ONE ×2 (07:55→08:00)
[2019-07-21] MEDS ORDERED: LIDOCAINE 1% PF 30 ML VIAL. INJ ONE (08:00)
[2019-07-21 08:03] LABS: CALCIUM 9.3 mg/dL (8.5-10.1); CREATININE 3.3 mg/dL (0.6-1.0); GFR 13.3; POTASSIUM 4.4 mmol/L (3.5-5.1)
[2019-07-21] MEDS: IPRATRPIUM/ALBUTEROL 0.5/2.5MG 3 ML NEBU. NEB SCH ×4 (08:17→18:29)
[2019-07-21] MEDS: BUDESONIDE 0.5 MG/2 ML NEBU. NEB SCH ×2 (08:17→18:29)
[2019-07-21] MEDS: CYANOCOBALAMIN (VITAMIN B-12) 1,000 MCG TABLET. PO SCH (09:00)
[2019-07-21] MEDS: LACTOBACILLUS RHAMNOSUS GG 1 CAPSULE. PO SCH ×2 (09:00→22:39)
[2019-07-21] MEDS: FERROUS SULFATE 325 MG TABLET. PO SCH (09:00)
[2019-07-21] MEDS: ASCORBIC ACID 500 MG TABLET PO SCH (09:00)
[2019-07-21] MEDS: ONDANSETRON PF 4 MG/2 ML VIAL. IV PRN ×3 (09:53→22:36)
--- NOTE | 2019-07-21 11:24 | PDOC ---
PROGRESS NOTES Subjective Subjective seen in dialysis Objective Objective Vital Signs Date Time Temp Pulse Resp B/P (MAP) Pulse Ox O2 Delivery O2 Flow Rate FiO2 07/21/19 08:18 97 Nasal Cannula 3.0 07/21/19 07:00 98.1 70 18 173/75 (107) 98.1 Intake and Output 07/21/19 07:00 Intake Total 170 ml Output Total 100 ml Balance 70 ml Intake Oral 170 ml Output Urine Total 100 ml Physical Exam Abdomen: Soft Heart: Regular rate, Normal S1, Normal S2 Extremities: Normal pulses, Other (2+ bilateral LE edema ) General: Alert, Oriented X3, Cooperative, No acute distress HEENT: Atraumatic, Mucous membr. moist/pink Lungs: Other (bibasilar crackles ) MUSCULOSKELETAL: Osteoarthritic changes both hands Neuro: Normal speech, Sensation intact Psych/Mental Status: Mental status NL, Mood NL Skin: No significant lesion Diagnosis Problem List Problems Medical Problems: (1) Acute on chronic diastolic (congestive) heart failure Status: Acute (2) Acute respiratory failure with hypoxia Status: Acute (3) Asthma exacerbation, mild Status: Acute (4) CHF exacerbation Status: Acute (5) Diabetes mellitus with neuropathy Status: Chronic (6) End stage renal disease Status: Acute (7) ESRD (end stage renal disease) Status: Chronic (8) Gout Status: Chronic (9) Hypertension Status: Chronic (10) Mixed hyperlipidemia Status: Chronic (11) UTI (urinary tract infection) Status: Acute Assessment Assessment 1. Acute hypoxic respiratory failure. 2. Acute on chronic diastolic congestive heart failure. 3. End-stage renal disease. 4. Asthma with mild exacerbation. 5. Allergic rhinitis. 6. Anxiety. 7. Urinary tract infection. 8. Diabetes mellitus type 2 with diabetic nephropathy. 9. Diabetic polyneuropathy. 10. Chronic gout. 11. Hypertension. 12. Mixed hyperlipidemia. PLAN: Day #2 dialysis. doing well. less sob . cr 3.3. home ? mon/tue. Consult Dr. Rao for nephrology evaluation and management, Dr. Elizondo for cardiology evaluation and management. The patient was given 1 dose of IV Rocephin today. I will readjust it tomorrow. We will resume home medications including the blood pressure medications. The patient was given one dose of IV Lasix in the Emergency Room and she had taken her morning dose also. Oil Changer felt that more Lasix may not be beneficial at this time. I will give her low dose morphine 1 mg and give her breathing treatment and also Pulmicort breathing treatment to see if this would help her breathing and relieve the pressure on her chest. For details, please refer to the orders. Hopefully tomorrow if she does not respond, will need dialysis. Condition and treatment extensively discussed with multiple children. For details, please refer to the orders. UTI- adjust the dose of Rocephin due to end-stage renal disease. Diabetes- stable End-stage renal disease- patient had the graft placed on july tates about 11 days old. She has a quick AVG. Condition treatment options discussed with the patient and the family. Hypertension- not controlled. Echocardiogram pending. Mild exacerbation of asthma improving. Anxiety improving. Plan Plan of Care Problems Medical Problems: (1) Acute on chronic diastolic (congestive) heart failure Status: Acute (2) Acute respiratory failure with hypoxia Status: Acute (3) Asthma exacerbation, mild Status: Acute (4) CHF exacerbation Status: Acute (5) Diabetes mellitus with neuropathy Status: Chronic (6) End stage renal disease Status: Acute (7) ESRD (end stage renal disease) Status: Chronic (8) Gout Status: Chronic (9) Hypertension Status: Chronic (10) Mixed hyperlipidemia Status: Chronic (11) UTI (urinary tract infection) Status: Acute Comment Review of Relevant I have reviewed the following items james (where applicable) has been applied. Labs Laboratory Tests Test 07/20/19 11:55 07/20/19 17:15 07/20/19 21:00 07/21/19 06:40 Glucose (Fingerstick) 151 mg/dL (70-99) 153 mg/dL (70-99) 139 mg/dL (70-99) White Blood Count 10.9 x10^3/uL (4.0-11.0) Red Blood Count 3.42 x10^6/uL (3.50-5.40) Hemoglobin 10.6 g/dL (12.0-15.5) Hematocrit 33.2 % (36.0-47.0) Mean Corpuscular Volume 97 fL (79-100) Mean Corpuscular Hemoglobin 31 pg (25-35) Mean Corpuscular Hemoglobin Concent 32 g/dL (31-37) Red Cell Distribution Width 17.1 % (11.5-14.5) Platelet Count 170 x10^3/uL (140-400) Neutrophils (%) (Auto) 81 % (31-73) Lymphocytes (%) (Auto) 11 % (24-48) Monocytes (%) (Auto) 8 % (0-9) Eosinophils (%) (Auto) 0 % (0-3) Basophils (%) (Auto) 0 % (0-3) Neutrophils # (Auto) 8.7 x10^3/uL (1.8-7.7) Lymphocytes # (Auto) 1.2 x10^3/uL (1.0-4.8) Monocytes # (Auto) 0.9 x10^3/uL (0.0-1.1) Eosinophils # (Auto) 0.0 x10^3/uL (0.0-0.7) Basophils # (Auto) 0.0 x10^3/uL (0.0-0.2) Sodium Level 140 mmol/L (136-145) Potassium Level 4.4 mmol/L (3.5-5.1) Chloride Level 100 mmol/L (98-107) Carbon Dioxide Level 28 mmol/L (21-32) Anion Gap 12 (6-14) Blood Urea Nitrogen 67 mg/dL (7-20) Creatinine 3.3 mg/dL (0.6-1.0) Estimated GFR (Cockcroft-Gault) 13.3 Glucose Level 146 mg/dL (70-99) Calcium Level 9.3 mg/dL (8.5-10.1) Test 07/21/19 07:38 Glucose (Fingerstick) 133 mg/dL (70-99) Medications Current Medications Acetaminophen (Tylenol) 500 mg 1X PRN PRN PO MILD PAIN / TEMP; Start 07/20/19 at 12:30; Stop 07/21/19 at 12:29 Albumin Human 200 ml @ 200 mls/hr 1X PRN PRN IV Hypotension; Start 07/20/19 at 12:30; Stop 07/20/19 at 18:29; Status DC Albumin Human 200 ml @ 200 mls/hr 1X PRN PRN IV Hypotension; Start 07/21/19 at 07:45; Stop 07/21/19 at 13:44 Diphenhydramine HCl (Benadryl) 25 mg 1X PRN PRN IV ITCHING; Start 07/20/19 at 12:30; Stop 07/21/19 at 12:29 Diphenhydramine HCl (Benadryl) 25 mg 1X PRN PRN IV ITCHING; Start 07/20/19 at 12:30; Stop 07/21/19 at 12:29 Diphenhydramine HCl (Benadryl) 25 mg 1X PRN PRN IV ITCHING; Start 07/21/19 at 07:45; Stop 07/22/19 at 07:44 Diphenhydramine HCl (Benadryl) 25 mg 1X PRN PRN IV ITCHING; Start 07/21/19 at 07:45; Stop 07/22/19 at 07:44 Info (PHARMACY MONITORING -- do not chart) 1 each PRN DAILY PRN MC SEE COMMENTS; Start 07/20/19 at 12:30 Info (PHARMACY MONITORING -- do not chart) 1 each PRN DAILY PRN MC SEE COMMENTS; Start 07/20/19 at 12:30; Status UNV Info (PHARMACY MONITORING -- do not chart) 1 each PRN DAILY PRN MC SEE COMMENTS; Start 07/21/19 at 07:45 Info (PHARMACY MONITORING -- do not chart) 1 each PRN DAILY PRN MC SEE COMMENTS; Start 07/21/19 at 07:45; Status UNV Lidocaine HCl (Xylocaine 1% Pf 30ml Vial) 30 ml 1X ONCE INJ ; Start 07/21/19 at 08:00; Stop 07/21/19 at 08:01; Status DC Lidocaine HCl (Xylocaine-Mpf 1% 2ml Vial) 2 ml STK-MED ONCE .ROUTE ; Start 07/21/19 at 07:55; Stop 07/21/19 at 07:55; Status DC Metoprolol Tartrate (Lopressor Vial) 5 mg 1X ONCE IVP Last administered on 07/20/19at 17:35; Start 07/20/19 at 17:15; Stop 07/20/19 at 17:16; Status DC Metoprolol Tartrate (Lopressor Vial) 5 mg PRN Q6HRS PRN IVP HYPERTENSION; Start 07/20/19 at 17:15 Metoprolol Tartrate (Lopressor) 50 mg BID PO Last administered on 07/20/19at 21:29; Start 07/20/19 at 21:00 Ondansetron HCl (Zofran) 4 mg 1X ONCE IV Last administered on 07/20/19at 17:35; Start 07/20/19 at 17:15; Stop 07/20/19 at 17:16; Status DC Ondansetron HCl (Zofran) 4 mg PRN Q6HRS PRN IV NAUSEA/VOMITING Last administered on 07/21/19at 09:53; Start 07/20/19 at 17:15 Sodium Chloride 1,000 ml @ 400 mls/hr Q2H30M PRN IV PATENCY; Start 07/20/19 at 12:23; Stop 07/21/19 at 00:22; Status DC Sodium Chloride 1,000 ml @ 400 mls/hr Q2H30M PRN IV PATENCY; Start 07/21/19 at 07:39; Stop 07/21/19 at 19:38 Sodium Chloride 1,000 ml @ 1,000 mls/hr Q1H PRN IV hypotension; Start 07/20/19 at 12:23; Stop 07/20/19 at 18:22; Status DC Sodium Chloride 1,000 ml @ 1,000 mls/hr Q1H PRN IV hypotension; Start 07/21/19 at 07:39; Stop 07/21/19 at 13:38 Vitals/I & O Vital Sign - Last 24 Hours 07/20/19 07/20/19 07/20/19 07/20/19 15:00 17:18 17:35 19:40 Temp 98.4 98.1 98.4 98.1 Pulse 76 71 117 123 Resp 22 21 B/P (MAP) 147/67 (93) 138/62 126/59 133/58 (83) Pulse Ox 98 97 O2 Delivery Nasal Cannula Nasal Cannula O2 Flow Rate 2.0 2.0 07/20/19 07/20/19 07/20/19 07/21/19 20:00 21:29 23:00 02:11 Temp 98.1 98.1 Pulse 115 75 Resp 20 20 B/P (MAP) 133/64 144/63 (90) Pulse Ox 97 O2 Delivery Nasal Cannula Nasal Cannula Nasal Cannula O2 Flow Rate 2.0 2.0 2.0 07/21/19 07/21/19 07/21/19 07/21/19 02:19 02:36 03:32 07:00 Temp 98.2 98.1 98.2 98.1 Pulse 73 70 Resp 19 18 B/P (MAP) 155/70 (98) 173/75 (107) Pulse Ox 97 98 98 O2 Delivery Nasal Cannula Nasal Cannula Nasal Cannula Nasal Cannula O2 Flow Rate 2.0 2.0 2.0 2.0 07/21/19 07/21/19 07:54 08:18 Pulse Ox 97 O2 Delivery Nasal Cannula Nasal Cannula O2 Flow Rate 2.0 3.0 Intake and Output 07/20/19 07/20/19 07/21/19 15:00 23:00 07:00 Intake Total 170 ml Output Total 100 ml Balance 70 ml NAPOLEON LUNA MD Jul 21, 2019 11:24
[2019-07-21] MEDS: LINAGLIPTIN 5 MG TABLET PO SCH (13:07)
[2019-07-21] MEDS: METOPROLOL TART IMMED RELEASE 50 MG TABLET. PO SCH ×2 (13:08→22:38)
[2019-07-21] MEDS: FUROSEMIDE 20 MG TABLET PO SCH (13:08)
[2019-07-21] MEDS: hydrALAZINE 25 MG TABLET PO SCH ×3 (13:08→22:37)
[2019-07-21] MEDS: ASPIRIN ENTERIC COATED 81 MG TABLET.DR. PO SCH (13:09)
--- NOTE | 2019-07-21 13:14 | PDOC ---
SUBJECTIVE ROS HD this am, went well, no concerns voiced by RN. Pt c/o feeling weak and mild nausea . Reports breathing better but still feels as if Phlegm stuck in the chest OBJECTIVE Vital Signs Vital Signs Date Time Temp Pulse Resp B/P (MAP) Pulse Ox O2 Delivery O2 Flow Rate FiO2 07/21/19 08:18 97 Nasal Cannula 3.0 07/21/19 07:00 98.1 70 18 173/75 (107) 98.1 I & 0 Intake and Output 07/21/19 07:00 Intake Total 170 ml Output Total 100 ml Balance 70 ml Intake Oral 170 ml Output Urine Total 100 ml PHYSICAL EXAM Physical Exam General: NAD HEENT: OM moist, On o2 by NC Neck supple Lungs: Coarse breath sounds Heart: Regular rate, Normal S1, Normal S2 Abdomen: Soft, NT Extremities: 1+ bilateral LE edema ) Skin: No significant lesion, No rash Neuro Grossly normal, No Asterexis Psych/Mental Status: Mental status NL, Mood NL No Alex DIAGNOSIS/ASSESSMENT Assessment & Plan ESRD - initiated on HD 07/20 2 nd treatment today as ordered, Florian Pugh , No issues during HD OP chair time pending Access - Quick Graft Lt UTI- as per PCP Dyspnea secondary to acute on chronic diastolic HF Echo earlier this year with preserved LV systolic function Cardiology following Accelerated hypertension; was taken off Norvasc 3 weeks ago with LE edema Anticipate improvement with HD and UF Diabetes, II- as per PCP Discussed with Pt, family members at bed side COMMENT/RELEVANT DATA Meds Current Medications Medications (Trade) Dose Ordered Sig/Cate Start Time Stop Time Status Last Admin Dose Admin Acetaminophen (Tylenol) 500 mg 1X PRN PRN 07/20/19 12:30 07/21/19 12:29 DC Albumin Human 200 ml @ 200 mls/hr 1X PRN PRN 07/21/19 07:45 07/21/19 13:44 Albuterol Sulfate (Ventolin Neb Soln) 2.5 mg PRN Q6HRS PRN 07/18/19 19:45 UNV Albuterol/ Ipratropium (Duoneb) 3 ml RTQID 07/19/19 17:00 07/21/19 08:17 3 ML Ascorbic Acid (Vitamin C) 500 mg DAILY 07/19/19 09:00 07/20/19 09:31 500 MG Aspirin (Ecotrin) 81 mg [id number] 07/19/19 08:00 07/20/19 09:31 81 MG Atorvastatin Calcium (Lipitor) 10 mg QHS 07/18/19 21:00 07/19/19 21:41 10 MG Budesonide (Pulmicort) 0.5 mg RTBID 07/18/19 20:00 07/21/19 08:17 0.5 MG Ceftriaxone Sodium (Rocephin) 1 gm Q24H 07/19/19 16:00 07/20/19 17:18 1 GM Cetirizine HCl (ZyrTEC) 10 mg HS 07/19/19 21:00 07/20/19 21:29 10 MG Clonidine HCl (Catapres) 0.3 mg QHS 07/18/19 21:00 07/19/19 21:41 0.3 MG Cyanocobalamin (Vitamin B-12) 1,000 mcg DAILY 07/19/19 09:00 07/20/19 09:31 1,000 MCG Diphenhydramine HCl (Benadryl) 25 mg 1X PRN PRN 07/21/19 07:45 07/22/19 07:44 Ferrous Sulfate (Feosol) 325 mg DAILY 07/19/19 09:00 Furosemide (Lasix) 40 mg 1X ONCE 07/19/19 17:00 07/19/19 17:01 DC 07/19/19 18:00 40 MG Heparin Sodium (Porcine) (Heparin Sodium) 5,000 unit Q12HR 07/18/19 21:00 07/20/19 21:29 5,000 UNIT Hydralazine HCl (Apresoline) 75 mg TID 07/19/19 21:00 07/20/19 17:18 75 MG Influenza Virus Vaccine Quadrival (Afluria Quad 2019-20 (3yr Up) Syringe) 0.5 ml ONCE ONCE 07/18/19 21:00 07/18/19 21:01 UNV Info (PHARMACY MONITORING -- do not chart) 1 each PRN DAILY PRN 07/21/19 07:45 Labetalol HCl (Trandate) 200 mg BID 07/18/19 21:00 07/20/19 17:10 DC 07/20/19 09:31 200 MG Lactobacillus Rhamnosus (Culturelle) 1 cap BID 07/19/19 21:00 07/20/19 21:29 1 CAP Levothyroxine Sodium (Synthroid) 125 mcg DAILY06 07/19/19 06:00 07/21/19 06:23 125 MCG Lidocaine HCl (Xylocaine 1% Pf 30ml Vial) 30 ml 1X ONCE 07/21/19 08:00 07/21/19 08:01 DC Lidocaine HCl (Xylocaine-Mpf 1% 2ml Vial) 2 ml STK-MED ONCE 07/21/19 07:55 07/21/19 07:55 DC Linagliptin (Tradjenta) 5 mg DAILY 07/19/19 09:00 07/20/19 09:31 5 MG Metoprolol Tartrate (Lopressor Vial) 5 mg PRN Q6HRS PRN 07/20/19 17:15 Metoprolol Tartrate (Lopressor) 50 mg BID 07/20/19 21:00 07/20/19 21:29 50 MG Montelukast Sodium (Singulair) 10 mg HS 07/19/19 21:00 07/20/19 21:29 10 MG Morphine Sulfate (Morphine Sulfate) 1 mg PRN Q3HRS PRN 07/18/19 19:30 07/19/19 21:41 1 MG Ondansetron HCl (Zofran) 4 mg PRN Q6HRS PRN 07/20/19 17:15 07/21/19 09:53 4 MG Sodium Chloride 1,000 ml @ 400 mls/hr Q2H30M PRN 07/21/19 07:39 07/21/19 19:38 Tramadol HCl (Ultram) 50 mg PRN Q6HRS PRN 07/18/19 19:00 07/21/19 02:11 50 MG Lab Laboratory Tests Test 07/20/19 17:15 07/20/19 21:00 07/21/19 06:40 07/21/19 07:38 Glucose (Fingerstick) 153 mg/dL (70-99) 139 mg/dL (70-99) 133 mg/dL (70-99) White Blood Count 10.9 x10^3/uL (4.0-11.0) Red Blood Count 3.42 x10^6/uL (3.50-5.40) Hemoglobin 10.6 g/dL (12.0-15.5) Hematocrit 33.2 % (36.0-47.0) Mean Corpuscular Volume 97 fL (79-100) Mean Corpuscular Hemoglobin 31 pg (25-35) Mean Corpuscular Hemoglobin Concent 32 g/dL (31-37) Red Cell Distribution Width 17.1 % (11.5-14.5) Platelet Count 170 x10^3/uL (140-400) Neutrophils (%) (Auto) 81 % (31-73) Lymphocytes (%) (Auto) 11 % (24-48) Monocytes (%) (Auto) 8 % (0-9) Eosinophils (%) (Auto) 0 % (0-3) Basophils (%) (Auto) 0 % (0-3) Neutrophils # (Auto) 8.7 x10^3/uL (1.8-7.7) Lymphocytes # (Auto) 1.2 x10^3/uL (1.0-4.8) Monocytes # (Auto) 0.9 x10^3/uL (0.0-1.1) Eosinophils # (Auto) 0.0 x10^3/uL (0.0-0.7) Basophils # (Auto) 0.0 x10^3/uL (0.0-0.2) Sodium Level 140 mmol/L (136-145) Potassium Level 4.4 mmol/L (3.5-5.1) Chloride Level 100 mmol/L (98-107) Carbon Dioxide Level 28 mmol/L (21-32) Anion Gap 12 (6-14) Blood Urea Nitrogen 67 mg/dL (7-20) Creatinine 3.3 mg/dL (0.6-1.0) Estimated GFR (Cockcroft-Gault) 13.3 Glucose Level 146 mg/dL (70-99) Calcium Level 9.3 mg/dL (8.5-10.1) Results All relevant outside records, renal labs, imaging studies, telemetry/EKG's were reviewed. LAQUITA SEGUNDO MD Jul 21, 2019 13:14
[2019-07-21] MEDS: HEPARIN for SUB-Q USE 5,000 UNIT/ML VIAL. SQ SCH ×2 (13:19→22:57)
[2019-07-21 15:21] VITALS: BP_SYST 175
[2019-07-21] MEDS: diphenhydrAMINE HCL 25 MG CAPSULE PO PRN ×2 (15:42→22:48)
[2019-07-21] MEDS: cefTRIAXone IV Push 1 GM VIAL. IVP SCH (15:56)
[2019-07-21 19:35] VITALS: BP 167/72
[2019-07-21] MEDS: ATORVASTATIN CALCIUM 10 MG TABLET. PO SCH (22:37)
[2019-07-21] MEDS: CETIRIZINE HCL 10 MG TABLET. PO SCH (22:37)
[2019-07-21] MEDS: cloNIDine HCL 0.3 MG TABLET PO SCH (22:38)
[2019-07-21] MEDS: MONTELUKAST SODIUM 10 MG TABLET. PO SCH (22:39)
[2019-07-21 23:00] VITALS: BP 178/79
[2019-07-22] MEDS: traMADol 50 MG TABLET PO PRN (01:32)
[2019-07-22 05:08] VITALS: BP 166/81
[2019-07-22] MEDS: LEVOTHYROXINE 125 MCG TABLET PO SCH (06:00)
[2019-07-22] MEDS: ONDANSETRON PF 4 MG/2 ML VIAL. IV PRN ×2 (06:12→16:17)
[2019-07-22 07:00] VITALS: BP 161/78
[2019-07-22] MEDS: IPRATRPIUM/ALBUTEROL 0.5/2.5MG 3 ML NEBU. NEB SCH ×4 (07:58→19:49)
[2019-07-22] MEDS: BUDESONIDE 0.5 MG/2 ML NEBU. NEB SCH ×2 (07:59→19:49)
[2019-07-22] MEDS: FERROUS SULFATE 325 MG TABLET. PO SCH (08:59)
[2019-07-22] MEDS: ASPIRIN ENTERIC COATED 81 MG TABLET.DR. PO SCH (08:59)
[2019-07-22] MEDS: LACTOBACILLUS RHAMNOSUS GG 1 CAPSULE. PO SCH ×2 (08:59→22:35)
[2019-07-22] MEDS: hydrALAZINE 25 MG TABLET PO SCH ×3 (08:59→22:34)
[2019-07-22] MEDS: LINAGLIPTIN 5 MG TABLET PO SCH (08:59)
[2019-07-22] MEDS: ASCORBIC ACID 500 MG TABLET PO SCH (08:59)
[2019-07-22] MEDS: FUROSEMIDE 20 MG TABLET PO SCH (09:00)
[2019-07-22] MEDS: CYANOCOBALAMIN (VITAMIN B-12) 1,000 MCG TABLET. PO SCH (09:00)
[2019-07-22] MEDS: METOPROLOL TART IMMED RELEASE 50 MG TABLET. PO SCH ×2 (09:00→22:35)
[2019-07-22] MEDS: HEPARIN for SUB-Q USE 5,000 UNIT/ML VIAL. SQ SCH ×2 (09:01→22:45)
[2019-07-22 11:00] VITALS: BP 164/68
--- NOTE | 2019-07-22 12:09 | PDOC ---
PROGRESS NOTES Subjective Subjective constipated and nurse requested a stool softener. nurse notes she has insomnia and will order hs trazodone. she was up in chair for 2 hours and now resting in bed supine and not short of breath. family at bedside. no vomiting tomorrow. Objective Objective Vital Signs Date Time Temp Pulse Resp B/P (MAP) Pulse Ox O2 Delivery O2 Flow Rate FiO2 07/22/19 11:58 98 Nasal Cannula 2.0 07/22/19 11:00 98.6 63 18 164/68 (100) 98.6 Intake and Output 07/22/19 07:00 Intake Total 700 ml Output Total 100 ml Balance 600 ml Intake Oral 700 ml Output Urine Total 100 ml Physical Exam Abdomen: Normal bowel sounds, Soft, No tenderness Heart: Normal S1, Normal S2 Extremities: No edema General: Alert HEENT: Atraumatic Lungs: Other (clear anteriorly) Neuro: Normal speech Psych/Mental Status: Mental status NL Skin: No rashes Assessment Assessment Problems acute hypoxic respiratory failure acute on chronic diastolic chf compensated clinically chronic kidney disease stage 5 asthma 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 hypertension hyperlipidemia constipation insomnia Medical Problems: (1) Acute on chronic diastolic (congestive) heart failure Status: Acute (2) Acute respiratory failure with hypoxia Status: Acute (3) Asthma exacerbation, mild Status: Acute (4) CHF exacerbation Status: Acute (5) Diabetes mellitus with neuropathy Status: Chronic (6) End stage renal disease Status: Acute (7) ESRD (end stage renal disease) Status: Chronic (8) Gout Status: Chronic (9) Hypertension Status: Chronic (10) Mixed hyperlipidemia Status: Chronic (11) UTI (urinary tract infection) Status: Acute Plan Plan of Care start colace start hs trazodone continue furosemide continue present management Comment Review of Relevant I have reviewed the following items james (where applicable) has been applied. Labs Laboratory Tests Test 07/20/19 17:15 07/20/19 21:00 07/21/19 06:40 07/21/19 07:38 Glucose (Fingerstick) 153 mg/dL (70-99) 139 mg/dL (70-99) 133 mg/dL (70-99) White Blood Count 10.9 x10^3/uL (4.0-11.0) Red Blood Count 3.42 x10^6/uL (3.50-5.40) Hemoglobin 10.6 g/dL (12.0-15.5) Hematocrit 33.2 % (36.0-47.0) Mean Corpuscular Volume 97 fL (79-100) Mean Corpuscular Hemoglobin 31 pg (25-35) Mean Corpuscular Hemoglobin Concent 32 g/dL (31-37) Red Cell Distribution Width 17.1 % (11.5-14.5) Platelet Count 170 x10^3/uL (140-400) Neutrophils (%) (Auto) 81 % (31-73) Lymphocytes (%) (Auto) 11 % (24-48) Monocytes (%) (Auto) 8 % (0-9) Eosinophils (%) (Auto) 0 % (0-3) Basophils (%) (Auto) 0 % (0-3) Neutrophils # (Auto) 8.7 x10^3/uL (1.8-7.7) Lymphocytes # (Auto) 1.2 x10^3/uL (1.0-4.8) Monocytes # (Auto) 0.9 x10^3/uL (0.0-1.1) Eosinophils # (Auto) 0.0 x10^3/uL (0.0-0.7) Basophils # (Auto) 0.0 x10^3/uL (0.0-0.2) Sodium Level 140 mmol/L (136-145) Potassium Level 4.4 mmol/L (3.5-5.1) Chloride Level 100 mmol/L (98-107) Carbon Dioxide Level 28 mmol/L (21-32) Anion Gap 12 (6-14) Blood Urea Nitrogen 67 mg/dL (7-20) Creatinine 3.3 mg/dL (0.6-1.0) Estimated GFR (Cockcroft-Gault) 13.3 Glucose Level 146 mg/dL (70-99) Calcium Level 9.3 mg/dL (8.5-10.1) Test 07/22/19 07:57 Glucose (Fingerstick) 172 mg/dL (70-99) Laboratory Tests Test 07/22/19 07:57 Glucose (Fingerstick) 172 mg/dL (70-99) Medications Current Medications Ondansetron HCl (Zofran) 4 mg PRN Q8HRS PRN IV NAUSEA/VOMITING; Start 07/18/19 at 15:45; Stop 07/19/19 at 15:44; Status DC Morphine Sulfate (Morphine Sulfate) 4 mg PRN Q2HR PRN IV PAIN; Start 07/18/19 at 15:45; Stop 07/19/19 at 13:56; Status DC Albuterol/ Ipratropium (Duoneb) 3 ml RTQID NEB Last administered on 07/19/19 16:04; Start 07/18/19 at 16:00; Stop 07/19/19 at 15:59; Status DC Furosemide (Lasix) 40 mg 1X ONCE IVP Last administered on 07/18/19 16:10; Start 07/18/19 at 16:00; Stop 07/18/19 at 16:01; Status DC Ceftriaxone Sodium (Rocephin) 1 gm 1X ONCE IVP Last administered on 07/18/19 18:55; Start 07/18/19 at 16:15; Stop 07/18/19 at 16:16; Status DC Atorvastatin Calcium (Lipitor) 10 mg QHS PO Last administered on 07/21/19at 22:58; Start 07/18/19 at 21:00 Clonidine HCl (Catapres) 0.3 mg QHS PO Last administered on 07/21/19 22:58; Start 07/18/19 at 21:00 Labetalol HCl (Trandate) 200 mg BID PO Last administered on 07/20/19 09:31; Start 07/18/19 at 21:00; Stop 07/20/19 at 17:10; Status DC Aspirin (Ecotrin) 81 mg DAILYWBKFT PO Last administered on 07/22/19 09:01; Start 07/19/19 at 08:00 Hydralazine HCl (Apresoline) 50 mg TID PO Last administered on 07/19/19 15:16; Start 07/18/19 at 21:00; Stop 07/19/19 at 16:54; Status DC Ascorbic Acid (Vitamin C) 500 mg DAILY PO Last administered on 07/22/19 09:01; Start 07/19/19 at 09:00 Cyanocobalamin (Vitamin B-12) 1,000 mcg DAILY PO Last administered on 07/22/19at 09:01; Start 07/19/19 at 09:00 Ferrous Sulfate (Feosol) 325 mg DAILY PO Last administered on 07/22/19 09:01; Start 07/19/19 at 09:00 Furosemide (Lasix) 20 mg DAILY PO Last administered on 07/22/19 09:01; Start 07/19/19 at 09:00 Levothyroxine Sodium (Synthroid) 125 mcg DAILY06 PO Last administered on 07/22/19 06:19; Start 07/19/19 at 06:00 Linagliptin (Tradjenta) 5 mg DAILY PO Last administered on 07/22/19 09:01; Start 07/19/19 at 09:00 Montelukast Sodium (Singulair) 10 mg DAILY PO ; Start 07/19/19 at 09:00; Stop 07/19/19 at 11:35; Status DC Tramadol HCl (Ultram) 50 mg PRN Q6HRS PRN PO PAIN MODERATE Last administered on 07/22/19 01:35; Start 07/18/19 at 19:00 Acetaminophen (Tylenol) 650 mg PRN Q6HRS PRN PO MILD PAIN / TEMP; Start 07/18/19 at 19:00 Heparin Sodium (Porcine) (Heparin Sodium) 5,000 unit Q12HR SQ Last administered on 07/22/19 09:01; Start 07/18/19 at 21:00 Budesonide (Pulmicort) 0.5 mg RTBID NEB Last administered on 07/22/19 07:59; Start 07/18/19 at 20:00 Morphine Sulfate (Morphine Sulfate) 1 mg PRN Q3HRS PRN IV SEVERE PAIN Last administered on 07/19/19at 21:41; Start 07/18/19 at 19:30 Albuterol Sulfate (Ventolin Neb Soln) 2.5 mg PRN QID PRN NEB SHORTNESS OF BREATH Last administered on 07/21/19at 02:19; Start 07/18/19 at 19:30 Influenza Virus Vaccine Quadrival (Afluria Quad 2019-20 (3yr Up) Syringe) 0.5 ml ONCE ONCE VAX IM ; Start 07/18/19 at 21:00; Stop 07/18/19 at 21:01; Status UNV Albuterol Sulfate (Ventolin Neb Soln) 2.5 mg PRN Q6HRS PRN NEB SHORTNESS OF BREATH; Start 07/18/19 at 19:45; Status UNV Ceftriaxone Sodium (Rocephin) 1 gm Q24H IVP Last administered on 07/21/19at 15:56; Start 07/19/19 at 16:00 Furosemide (Lasix) 40 mg 1X ONCE IVP Last administered on 07/19/19at 10:42; Start 07/19/19 at 10:30; Stop 07/19/19 at 10:31; Status DC Cetirizine HCl (ZyrTEC) 10 mg HS PO Last administered on 07/21/19at 22:58; Start 07/19/19 at 21:00 Montelukast Sodium (Singulair) 10 mg HS PO Last administered on 07/21/19 22:58; Start 07/19/19 at 21:00 Lactobacillus Rhamnosus (Culturelle) 1 cap BID PO Last administered on 07/22/19 09:01; Start 07/19/19 at 21:00 Albuterol/ Ipratropium (Duoneb) 3 ml RTQID NEB Last administered on 07/22/19 11:56; Start 07/19/19 at 17:00 Furosemide (Lasix) 40 mg 1X ONCE IVP Last administered on 07/19/19at 18:00; Start 07/19/19 at 17:00; Stop 07/19/19 at 17:01; Status DC Hydralazine HCl (Apresoline) 75 mg TID PO Last administered on 07/22/19 09:01; Start 07/19/19 at 21:00 Sodium Chloride 1,000 ml @ 1,000 mls/hr Q1H PRN IV hypotension; Start 07/20/19 at 12:23; Stop 07/20/19 at 18:22; Status DC Albumin Human 200 ml @ 200 mls/hr 1X PRN PRN IV Hypotension; Start 07/20/19 at 12:30; Stop 07/20/19 at 18:29; Status DC Acetaminophen (Tylenol) 500 mg 1X PRN PRN PO MILD PAIN / TEMP; Start 07/20/19 at 12:30; Stop 07/21/19 at 12:29; Status DC Diphenhydramine HCl (Benadryl) 25 mg 1X PRN PRN IV ITCHING; Start 07/20/19 at 12:30; Stop 07/21/19 at 12:29; Status DC Diphenhydramine HCl (Benadryl) 25 mg 1X PRN PRN IV ITCHING; Start 07/20/19 at 12:30; Stop 07/21/19 at 12:29; Status DC Sodium Chloride 1,000 ml @ 400 mls/hr Q2H30M PRN IV PATENCY; Start 07/20/19 at 12:23; Stop 07/21/19 at 00:22; Status DC Info (PHARMACY MONITORING -- do not chart) 1 each PRN DAILY PRN MC SEE COMMENTS; Start 07/20/19 at 12:30; Status UNV Info (PHARMACY MONITORING -- do not chart) 1 each PRN DAILY PRN MC SEE COMME NTS; Start 07/20/19 at 12:30 Metoprolol Tartrate (Lopressor) 50 mg BID PO Last administered on 07/22/19at 09:01; Start 07/20/19 at 21:00 Metoprolol Tartrate (Lopressor Vial) 5 mg 1X ONCE IVP Last administered on 07/20/19at 17:35; Start 07/20/19 at 17:15; Stop 07/20/19 at 17:16; Status DC Metoprolol Tartrate (Lopressor Vial) 5 mg PRN Q6HRS PRN IVP HYPERTENSION; Start 07/20/19 at 17:15 Ondansetron HCl (Zofran) 4 mg 1X ONCE IV Last administered on 07/20/19at 17:35; Start 07/20/19 at 17:15; Stop 07/20/19 at 17:16; Status DC Ondansetron HCl (Zofran) 4 mg PRN Q6HRS PRN IV NAUSEA/VOMITING Last administered on 07/22/19at 06:19; Start 07/20/19 at 17:15 Sodium Chloride 1,000 ml @ 1,000 mls/hr Q1H PRN IV hypotension; Start 07/21/19 at 07:39; Stop 07/21/19 at 13:38; Status DC Albumin Human 200 ml @ 200 mls/hr 1X PRN PRN IV Hypotension; Start 07/21/19 at 07:45; Stop 07/21/19 at 13:44; Status DC Diphenhydramine HCl (Benadryl) 25 mg 1X PRN PRN IV ITCHING; Start 07/21/19 at 07:45; Stop 07/22/19 at 07:44; Status DC Diphenhydramine HCl (Benadryl) 25 mg 1X PRN PRN IV ITCHING; Start 07/21/19 at 07:45; Stop 07/22/19 at 07:44; Status DC Sodium Chloride 1,000 ml @ 400 mls/hr Q2H30M PRN IV PATENCY; Start 07/21/19 at 07:39; Stop 07/21/19 at 19:38; Status DC Info (PHARMACY MONITORING -- do not chart) 1 each PRN DAILY PRN MC SEE COMMENTS; Start 07/21/19 at 07:45; Status UNV Info (PHARMACY MONITORING -- do not chart) 1 each PRN DAILY PRN MC SEE COMMENTS; Start 07/21/19 at 07:45 Lidocaine HCl (Xylocaine 1% Pf 30ml Vial) 30 ml 1X ONCE INJ ; Start 07/21/19 at 08:00; Stop 07/21/19 at 08:01; Status DC Lidocaine HCl (Xylocaine-Mpf 1% 2ml Vial) 2 ml STK-MED ONCE .ROUTE ; Start 07/21/19 at 07:55; Stop 07/21/19 at 07:55; Status DC Diphenhydramine HCl (Benadryl) 25 mg PRN Q8HRS PRN PO ITCHING Last administered on 07/21/19at 22:58; Start 07/21/19 at 15:30 Active Scripts Active Reported Vitamin C (Ascorbic Acid) 500 Mg Tablet 500 Mg PO DAILY Humira (Adalimumab) 40 Mg/0.8 Ml Pen.ij.kit 40 Mg SQ Q2WKS Ferrous Sulfate 325 Mg Tablet 325 Mg PO DAILY Tramadol Hcl 50 Mg Tablet 50 Mg PO Q6HRS PRN Singulair Tablet (Montelukast Sodium) 10 Mg Tablet 1 Tab PO DAILY Vitamin B-12 (Cyanocobalamin (Vitamin B-12)) 1,000 Mcg Tablet 1 Tab PO DAILY Tradjenta (Linagliptin) 5 Mg Tablet 5 Mg PO DAILY Synthroid (Levothyroxine Sodium) 125 Mcg Tablet 1 Tab PO DAILY Labetalol Hcl 200 Mg Tablet 1 Tab PO BID Lipitor (Atorvastatin Calcium) 10 Mg Tablet 1 Tab PO QHS Furosemide 20 Mg Tablet 1 Tab PO DAILY Clonidine Hcl 0.3 Mg Tablet 1 Tab PO QHS Vitals/I & O Vital Sign - Last 24 Hours 07/21/19 07/21/19 07/21/19 07/21/19 13:20 13:20 15:17 15:21 Temp 97.9 97.9 Pulse 76 70 Resp 18 B/P (MAP) 197/80 197/80 175/ Pulse Ox 98 O2 Delivery Nasal Cannula Nasal Cannula O2 Flow Rate 2.0 2.0 07/21/19 07/21/19 07/21/19 07/21/19 15:43 18:31 19:35 20:00 Temp 98.3 98.3 Pulse 72 Resp 17 B/P (MAP) 175/77 167/72 (103) Pulse Ox 98 O2 Delivery Nasal Cannula Nasal Cannula Nasal Cannula O2 Flow Rate 2.0 2.0 2.0 07/21/19 07/21/19 07/21/19 07/21/19 22:58 22:58 22:58 23:00 Temp 98.0 98.0 Pulse 72 72 72 70 Resp 18 B/P (MAP) 167/72 167/72 167/72 178/79 (112) Pulse Ox 97 O2 Delivery Nasal Cannula O2 Flow Rate 2.0 07/22/19 07/22/19 07/22/19 07/22/19 01:35 03:00 04:07 05:08 Temp 98.6 98.6 Pulse 69 66 Resp 20 20 20 B/P (MAP) 166/81 (109) Pulse Ox 97 97 98 O2 Delivery Nasal Cannula Nasal Cannula Nasal Cannula O2 Flow Rate 2.0 2.0 2.0 07/22/19 07/22/19 07/22/19 07/22/19 07:00 07:51 08:00 09:01 Temp 98.0 98.0 Pulse 65 Resp 18 B/P (MAP) 161/78 (105) 161/78 Pulse Ox 99 98 O2 Delivery Nasal Cannula Nasal Cannula Nasal Cannula O2 Flow Rate 2.0 2.0 2.0 07/22/19 07/22/19 07/22/19 09:01 11:00 11:58 Temp 98.6 98.6 Pulse 63 Resp 18 B/P (MAP) 161/78 164/68 (100) Pulse Ox 98 98 O2 Delivery Nasal Cannula Nasal Cannula O2 Flow Rate 2.0 2.0 Intake and Output 07/21/19 07/21/19 07/22/19 15:00 23:00 07:00 Intake Total 100 ml 500 ml 100 ml Output Total 100 ml 0 ml Balance 100 ml 400 ml 100 ml JAYLAN TOLBERT MD Jul 22, 2019 12:09
--- NOTE | 2019-07-22 13:17 | PDOC ---
SUBJECTIVE ROS States feeling better OBJECTIVE Vital Signs Vital Signs Date Time Temp Pulse Resp B/P (MAP) Pulse Ox O2 Delivery O2 Flow Rate FiO2 07/22/19 11:58 98 Nasal Cannula 2.0 07/22/19 11:00 98.6 63 18 164/68 (100) 98.6 I & 0 Intake and Output 07/22/19 06:59 Intake Total 700 ml Output Total 100 ml Balance 600 ml Intake Oral 700 ml Output Urine Total 100 ml PHYSICAL EXAM Physical Exam General: NAD HEENT: OM moist, On o2 by NC Neck supple Lungs: Coarse breath sounds Heart: Regular rate, Normal S1, Normal S2 Abdomen: Soft, NT Extremities: 1+ bilateral LE edema ) Skin: No significant lesion, No rash Neuro Grossly normal, No Asterexis Psych/Mental Status: Mental status NL, Mood NL No Alex DIAGNOSIS/ASSESSMENT Assessment & Plan ESRD - initiated on HD 07/20 2 nd treatment 07/21, eval in am HD either tomorrow or Tuesday based on clinical eval OP chair time pending Access - Quick Graft Lt UTI- as per PCP Dyspnea secondary to acute on chronic diastolic HF Echo earlier this year with preserved LV systolic function Cardiology following Accelerated hypertension; was taken off Norvasc 3 weeks ago with LE edema Anticipate improvement with HD and UF Diabetes, II- as per PCP COMMENT/RELEVANT DATA Meds Current Medications Medications (Trade) Dose Ordered Sig/Cate Start Time Stop Time Status Last Admin Dose Admin Acetaminophen (Tylenol) 500 mg 1X PRN PRN 07/20/19 12:30 07/21/19 12:29 DC Albumin Human 200 ml @ 200 mls/hr 1X PRN PRN 07/21/19 07:45 07/21/19 13:44 DC Albuterol Sulfate (Ventolin Neb Soln) 2.5 mg PRN Q6HRS PRN 07/18/19 19:45 UNV Albuterol/ Ipratropium (Duoneb) 3 ml RTQID 07/19/19 17:00 07/22/19 11:56 3 ML Ascorbic Acid (Vitamin C) 500 mg DAILY 07/19/19 09:00 07/22/19 09:01 500 MG Aspirin (Ecotrin) 81 mg DAILYWBKFT 07/19/19 08:00 07/22/19 09:01 81 MG Atorvastatin Calcium (Lipitor) 10 mg QHS 07/18/19 21:00 07/21/19 22:58 10 MG Budesonide (Pulmicort) 0.5 mg RTBID 07/18/19 20:00 07/22/19 07:59 0.5 MG Ceftriaxone Sodium (Rocephin) 1 gm Q24H 07/19/19 16:00 07/21/19 15:56 1 GM Cetirizine HCl (ZyrTEC) 10 mg HS 07/19/19 21:00 07/21/19 22:58 10 MG Clonidine HCl (Catapres) 0.3 mg QHS 07/18/19 21:00 07/21/19 22:58 0.3 MG Cyanocobalamin (Vitamin B-12) 1,000 mcg DAILY 07/19/19 09:00 07/22/19 09:01 1,000 MCG Diphenhydramine HCl (Benadryl) 25 mg PRN Q8HRS PRN 07/21/19 15:30 07/21/19 22:58 25 MG Docusate Sodium (Colace) 100 mg BID 07/22/19 13:00 Ferrous Sulfate (Feosol) 325 mg DAILY 07/19/19 09:00 07/22/19 09:01 325 MG Furosemide (Lasix) 40 mg 1X ONCE 07/19/19 17:00 07/19/19 17:01 DC 07/19/19 18:00 40 MG Heparin Sodium (Porcine) (Heparin Sodium) 5,000 unit Q12HR 07/18/19 21:00 07/22/19 09:01 5,000 UNIT Hydralazine HCl (Apresoline) 75 mg TID 07/19/19 21:00 07/22/19 09:01 75 MG Influenza Virus Vaccine Quadrival (Afluria Quad 2019-20 (3yr Up) Syringe) 0.5 ml ONCE ONCE 07/18/19 21:00 07/18/19 21:01 UNV Info (PHARMACY MONITORING -- do not chart) 1 each PRN DAILY PRN 07/21/19 07:45 Labetalol HCl (Trandate) 200 mg BID 07/18/19 21:00 07/20/19 17:10 DC 07/20/19 09:31 200 MG Lactobacillus Rhamnosus (Culturelle) 1 cap BID 07/19/19 21:00 07/22/19 09:01 1 CAP Levothyroxine Sodium (Synthroid) 125 mcg DAILY06 07/19/19 06:00 07/22/19 06:19 125 MCG Lidocaine HCl (Xylocaine 1% Pf 30ml Vial) 30 ml 1X ONCE 07/21/19 08:00 07/21/19 08:01 DC Lidocaine HCl (Xylocaine-Mpf 1% 2ml Vial) 2 ml STK-MED ONCE 07/21/19 07:55 07/21/19 07:55 DC Linagliptin (Tradjenta) 5 mg DAILY 07/19/19 09:00 07/22/19 09:01 5 MG Metoprolol Tartrate (Lopressor Vial) 5 mg PRN Q6HRS PRN 07/20/19 17:15 Metoprolol Tartrate (Lopressor) 50 mg BID 07/20/19 21:00 07/22/19 09:01 50 MG Montelukast Sodium (Singulair) 10 mg HS 07/19/19 21:00 07/21/19 22:58 10 MG Morphine Sulfate (Morphine Sulfate) 1 mg PRN Q3HRS PRN 07/18/19 19:30 07/19/19 21:41 1 MG Ondansetron HCl (Zofran) 4 mg PRN Q6HRS PRN 07/20/19 17:15 07/22/19 06:19 4 MG Sodium Chloride 1,000 ml @ 400 mls/hr Q2H30M PRN 07/21/19 07:39 07/21/19 19:38 DC Tramadol HCl (Ultram) 50 mg PRN Q6HRS PRN 07/18/19 19:00 07/22/19 01:35 50 MG Trazodone HCl (Desyrel) 50 mg QHS 07/22/19 21:00 Lab Laboratory Tests Test 07/22/19 07:57 Glucose (Fingerstick) 172 mg/dL (70-99) Results All relevant outside records, renal labs, imaging studies, telemetry/EKG's were reviewed. LAQUITA SEGUNDO MD Jul 22, 2019 13:16
[2019-07-22 15:00] VITALS: BP 166/74
[2019-07-22] MEDS: DOCUSATE SODIUM 100 MG CAPSULE. PO SCH ×2 (16:02→22:34)
[2019-07-22] MEDS: cefTRIAXone IV Push 1 GM VIAL. IVP SCH (16:05)
[2019-07-22] MEDS ORDERED: PROCHLORPERAZINE 10 MG/2 ML VIAL. IM PRN (18:00)
[2019-07-22] MEDS: PROCHLORPERAZINE 10 MG/2 ML VIAL. IV PRN (18:14)
[2019-07-22 19:51] VITALS: BP 129/55
[2019-07-22] MEDS: traZODone 50 MG TABLET. PO SCH (21:00)
[2019-07-22] MEDS: CETIRIZINE HCL 10 MG TABLET. PO SCH (22:34)
[2019-07-22] MEDS: MONTELUKAST SODIUM 10 MG TABLET. PO SCH (22:35)
[2019-07-22] MEDS: ATORVASTATIN CALCIUM 10 MG TABLET. PO SCH (22:36)
[2019-07-22] MEDS: cloNIDine HCL 0.3 MG TABLET PO SCH (22:36)
[2019-07-22 23:28] VITALS: BP 161/68
[2019-07-23 03:57] VITALS: BP 161/69
[2019-07-23 05:08] LABS: CALCIUM 8.8 mg/dL (8.5-10.1); CREATININE 3.9 mg/dL (0.6-1.0); POTASSIUM 4.3 mmol/L (3.5-5.1)
[2019-07-23] MEDS: LEVOTHYROXINE 125 MCG TABLET PO SCH (06:00)
[2019-07-23 07:00] VITALS: BP 181/72
[2019-07-23] MEDS: BUDESONIDE 0.5 MG/2 ML NEBU. NEB SCH ×2 (08:13→19:23)
[2019-07-23] MEDS: IPRATRPIUM/ALBUTEROL 0.5/2.5MG 3 ML NEBU. NEB SCH ×4 (08:13→19:23)
[2019-07-23] MEDS: METOPROLOL TART IMMED RELEASE 50 MG TABLET. PO SCH ×2 (08:19→20:42)
[2019-07-23] MEDS: hydrALAZINE 25 MG TABLET PO SCH ×3 (08:20→20:43)
[2019-07-23] MEDS: ASCORBIC ACID 500 MG TABLET PO SCH (09:00)
[2019-07-23] MEDS: FERROUS SULFATE 325 MG TABLET. PO SCH (09:00)
[2019-07-23] MEDS: CYANOCOBALAMIN (VITAMIN B-12) 1,000 MCG TABLET. PO SCH (09:00)
[2019-07-23] MEDS: LINAGLIPTIN 5 MG TABLET PO SCH (09:57)
[2019-07-23] MEDS: DOCUSATE SODIUM 100 MG CAPSULE. PO SCH ×2 (09:57→20:41)
[2019-07-23] MEDS: ASPIRIN ENTERIC COATED 81 MG TABLET.DR. PO SCH (09:57)
[2019-07-23] MEDS: FUROSEMIDE 20 MG TABLET PO SCH (09:57)
[2019-07-23] MEDS: HEPARIN for SUB-Q USE 5,000 UNIT/ML VIAL. SQ SCH ×2 (10:05→20:51)
--- NOTE | 2019-07-23 10:17 | PDOC ---
IM PROGRESS NOTES- Subjective Subjective Feels very weak,fidgety per family.Has nausea. Objective Vitals/I&O Vital Signs Date Time Temp Pulse Resp B/P (MAP) Pulse Ox O2 Delivery O2 Flow Rate FiO2 07/23/19 09:54 67 175/74 07/23/19 08:13 100 Nasal Cannula 2.0 07/23/19 07:00 97.3 18 97.3 I & O 07/22/19 07/22/19 07/23/19 15:00 23:00 07:00 Intake Total 500 ml Balance 500 ml Physical Exam Physical Exam GENERAL: The patient is an elderly female who is alert, oriented x 3 and in mild respiratory distress. She is anxious. EYES: Pupils reacting to light. Conjunctivae pale. Sclerae muddy. HENT: Unremarkable except for mild congestion of throat. NECK: Supple. JVP normal. No thyromegaly. Trachea midline. LUNGS: increased air entry CARDIOVASCULAR: S1, S2 regular. ABDOMEN: Soft, nontender, no guarding, no rigidity. Bowel sounds present. EXTREMITIES: 2+ edema of both lower extremities. The patient has swelling of the left forearm because of the recent surgery for graft for dialysis access. CENTRAL NERVOUS SYSTEM: Alert, oriented and anxious. Labs Laboratory Tests Test 07/22/19 20:43 07/23/19 04:25 07/23/19 08:29 Glucose (Fingerstick) 214 mg/dL (70-99) H 155 mg/dL (70-99) H Sodium Level 131 mmol/L (136-145) L Potassium Level 4.3 mmol/L (3.5-5.1) Chloride Level 95 mmol/L (98-107) L Carbon Dioxide Level 26 mmol/L (21-32) Anion Gap 10 (6-14) Blood Urea Nitrogen 85 mg/dL (7-20) H Creatinine 3.9 mg/dL (0.6-1.0) H Estimated GFR (Cockcroft-Gault) 11.0 Glucose Level 163 mg/dL (70-99) H Calcium Level 8.8 mg/dL (8.5-10.1) Laboratory Tests 07/23/19 04:25 Meds Current Medications Medications (Trade) Dose Ordered Sig/Cate Route PRN Reason Start Time Stop Time Status Last Admin Dose Admin Docusate Sodium (Colace) 100 mg BID PO 07/22/19 13:00 07/23/19 10:06 Prochlorperazine Edisylate (Compazine) 10 mg PRN Q6HRS PRN IV NAUSEA/VOMITING 2ND CHOICE 07/22/19 18:00 07/22/19 18:14 Assessment Assessment 1. Acute hypoxic respiratory failure. 2. Acute on chronic diastolic congestive heart failure. 3. End-stage renal disease. 4. Asthma with mild exacerbation. 5. Allergic rhinitis. 6. Anxiety. 7. Urinary tract infection. 8. Diabetes mellitus type 2 with diabetic nephropathy. 9. Diabetic polyneuropathy. 10. Chronic gout. 11. Hypertension. 12. Mixed hyperlipidemia. PLAN: Day #2 dialysis. doing well. less sob . cr 3.3. home ? tue/tue. Consult Dr. Rao for nephrology evaluation and management, Dr. Elizondo for cardiology evaluation and management. The patient was given 1 dose of IV Rocephin today. I will readjust it tomorrow. We will resume home medications including the blood pressure medications. The patient was given one dose of IV Lasix in the Emergency Room and she had taken her morning dose also. Site Damage Prevention Technician felt that more Lasix may not be beneficial at this time. I will give her low dose morphine 1 mg and give her breathing treatment and also Pulmicort breathing treatment to see if this would help her breathing and relieve the pressure on her chest. For details, please refer to the orders. Hopefully tomorrow if she does not respond, will need dialysis. Condition and treatment extensively discussed with multiple children. For details, please refer to the orders. UTI- adjust the dose of Rocephin due to end-stage renal disease. Diabetes- stable End-stage renal disease- patient had the graft placed on july about 11 days old. She has a quick AVG. Condition treatment options discussed with the patient and the family. Hypertension- not controlled. Echocardiogram pending. Mild exacerbation of asthma improving. Anxiety improving. Weakness- PT/OT D/w family.? SNF when ready. Plan Plan For more details regarding further plans, please refer to the orders. HIRA BELTRE MD Jul 23, 2019 10:17
[2019-07-23 11:00] VITALS: BP 135/61
[2019-07-23] MEDS ORDERED: IV NORMAL SALINE 1000ML BAG 1,000 ML IV PRN ×2 (11:05)
[2019-07-23] MEDS ORDERED: ACETAMINOPHEN 500 MG TABLET PO PRN (11:15)
[2019-07-23] MEDS ORDERED: diphenhydrAMINE 50 MG/ML VIAL IV PRN ×2 (11:15)
[2019-07-23] MEDS ORDERED: DIALYSIS PATIENT. MC PRN (11:15)
--- NOTE | 2019-07-23 12:01 | PDOC ---
Renal-Progress Notes Subjective Notes Notes NAUSEA AND NOT EATING WELL PER FAMILY History of Present Illness Hx of present illness LONG HX OF CKD AND NOW ESRD WITH FLUID RETENTION Vitals Vitals Vital Signs Date Time Temp Pulse Resp B/P (MAP) Pulse Ox O2 Delivery O2 Flow Rate FiO2 07/23/19 11:00 97.7 61 18 135/61 (85) 97 Nasal Cannula 2.0 97.7 Weight Weight [ ] I.O. Intake and Output Intake and Output 07/23/19 07:00 Intake Total 500 ml Balance 500 ml Intake Oral 500 ml # Voids 3 Labs Labs Laboratory Tests Test 07/22/19 20:43 07/23/19 04:25 07/23/19 08:29 Glucose (Fingerstick) 214 mg/dL (70-99) 155 mg/dL (70-99) Sodium Level 131 mmol/L (136-145) Potassium Level 4.3 mmol/L (3.5-5.1) Chloride Level 95 mmol/L (98-107) Carbon Dioxide Level 26 mmol/L (21-32) Anion Gap 10 (6-14) Blood Urea Nitrogen 85 mg/dL (7-20) Creatinine 3.9 mg/dL (0.6-1.0) Estimated GFR (Cockcroft-Gault) 11.0 Glucose Level 163 mg/dL (70-99) Calcium Level 8.8 mg/dL (8.5-10.1) Review of Systems Constitutional: yes: weakness, alert, oriented Ears/Nose/Throat: Yes: no symptom reported Eyes: Yes: no symptom reported Pulmonary: Yes dyspnea Cardiovascular: Yes edema Gastrointestional: Yes: no symptom reported Genitourinary: Yes: no symptom reported Musculoskeletal: Yes: no symptom reported, muscle stiffness Skin: Yes no symptom reported Psychiatric/Neurological: Yes: no symptom reported Endocrine: Yes: no symptom reported Physical Exam General Appearance: no apparent distress Skin: warm Respiratory: decreased breath sounds Heart: S1S2 Abdomen: soft, bowel sounds present Genitourinary: bladder flat Extremities: pulses present, edema Neurology: alert, oriented Assessment Assessment IMP NEW ESRD ACUTE HYPOXIC RESP FAILURE ACUTE ON CHRONIC D CHF ANEMIA UTI DM II HTN UREMIA LE EDEMA DECONDITIONING PLAN INCREASE PO LASIX ARANESP HD TODAY UF TOWARDS DW CHALLENGE TOLERATED OP HD HAS BEEN SET UP TO MWF AT 3 PM AT [facility] [place] PER FAMILY REQUEST NEEDS THERAPY LURDES GANDARA MD Jul 23, 2019 12:01
--- NOTE | 2019-07-23 13:49 | NUR ---
SS following up with discharge planning. SS contacted [facility], ext [phone], for update. SS left voice message for Pk requesting a return call. SS will continue to follow up with discharge planning.
--- NOTE | 2019-07-23 14:24 | PDOC ---
PROGRESS NOTES Subjective Subjective Feeling better with improvement in dyspnea. Objective Objective Vital Signs Date Time Temp Pulse Resp B/P (MAP) Pulse Ox O2 Delivery O2 Flow Rate FiO2 07/23/19 11:00 97.7 61 18 135/61 (85) 97 Nasal Cannula 2.0 97.7 Intake and Output 07/23/19 07:00 Intake Total 500 ml Balance 500 ml Intake Oral 500 ml # Voids 3 Physical Exam Abdomen: Normal bowel sounds, Soft, No tenderness Heart: Normal S1, Normal S2 Extremities: No edema General: Alert HEENT: Atraumatic Lungs: Other (clear anteriorly) MUSCULOSKELETAL: Osteoarthritic changes both hands Neuro: Normal speech Psych/Mental Status: Mental status NL Skin: No rashes Assessment Assessment 1. Acute on chronic diastolic CHF: due to uncontrolled HTN and renal disease. Echo showed preserved LV systolic function. Much better compensated after initiation of hemodialysis. 2. Accelerated hypertension; better controlled but still labile. Continue current medical regimen. 3. Chest pain, atypical. We will consider ischemic evaluation as an outpatient. 4. Hyperlipidemia; statin. LDL 50 5. Diabetes, II; as per PCP 6. End-stage renal disease: Hemodialysis per nephrology team Plan Plan of Care Problems Medical Problems: (1) Acute on chronic diastolic (congestive) heart failure Status: Acute (2) Acute respiratory failure with hypoxia Status: Acute (3) Asthma exacerbation, mild Status: Acute (4) CHF exacerbation Status: Acute (5) Diabetes mellitus with neuropathy Status: Chronic (6) End stage renal disease Status: Acute (7) ESRD (end stage renal disease) Status: Chronic (8) Gout Status: Chronic (9) Hypertension Status: Chronic (10) Mixed hyperlipidemia Status: Chronic (11) UTI (urinary tract infection) Status: Acute Comment Review of Relevant I have reviewed the following items james (where applicable) has been applied. Labs Laboratory Tests Test 07/22/19 20:43 07/23/19 04:25 07/23/19 08:29 Glucose (Fingerstick) 214 mg/dL (70-99) 155 mg/dL (70-99) Sodium Level 131 mmol/L (136-145) Potassium Level 4.3 mmol/L (3.5-5.1) Chloride Level 95 mmol/L (98-107) Carbon Dioxide Level 26 mmol/L (21-32) Anion Gap 10 (6-14) Blood Urea Nitrogen 85 mg/dL (7-20) Creatinine 3.9 mg/dL (0.6-1.0) Estimated GFR (Cockcroft-Gault) 11.0 Glucose Level 163 mg/dL (70-99) Calcium Level 8.8 mg/dL (8.5-10.1) Medications Current Medications Acetaminophen (Tylenol) 500 mg 1X PRN PRN PO MILD PAIN / TEMP; Start 07/23/19 at 11:15; Stop 07/24/19 at 11:14 Darbepoetin Bryan (ARANESP for DIALYSIS PTS) 60 mcg WEEKLYHS SQ ; Start 07/28/19 at 21:00 Diphenhydramine HCl (Benadryl) 25 mg 1X PRN PRN IV ITCHING; Start 07/23/19 at 11:15; Stop 07/24/19 at 11:14 Diphenhydramine HCl (Benadryl) 25 mg 1X PRN PRN IV ITCHING; Start 07/23/19 at 1 1:15; Stop 07/24/19 at 11:14 Furosemide (Lasix) 40 mg DAILY PO ; Start 07/24/19 at 09:00 Info (PHARMACY MONITORING -- do not chart) 1 each PRN DAILY PRN MC SEE COMMENTS; Start 07/23/19 at 11:15 Prochlorperazine Edisylate (Compazine) 10 mg PRN Q6HRS PRN IM NAUSEA/VOMITING; Start 07/22/19 at 18:00; Stop 07/22/19 at 17:58; Status DC Prochlorperazine Edisylate (Compazine) 10 mg PRN Q6HRS PRN IV NAUSEA/VOMITING 2ND CHOICE Last administered on 07/22/19at 18:14; Start 07/22/19 at 18:00 Sodium Chloride 1,000 ml @ 400 mls/hr Q2H30M PRN IV PATENCY; Start 07/23/19 at 11:05; Stop 07/23/19 at 23:04 Sodium Chloride 1,000 ml @ 1,000 mls/hr Q1H PRN IV hypotension; Start 07/23/19 at 11:05; Stop 07/23/19 at 17:04 Trazodone HCl (Desyrel) 50 mg QHS PO ; Start 07/22/19 at 21:00 Vitals/I & O Vital Sign - Last 24 Hours 07/22/19 07/22/19 07/22/19 07/22/19 15:00 16:05 16:23 19:50 Temp 98.9 98.9 Pulse 68 72 Resp 18 B/P (MAP) 166/74 (104) 166/79 Pulse Ox 98 98 O2 Delivery Nasal Cannula Nasal Cannula Nasal Cannula O2 Flow Rate 2.0 2.0 2.0 07/22/19 07/22/19 07/22/19 07/22/19 19:51 19:52 20:00 22:46 Temp 97.5 97.5 Pulse 67 72 Resp 16 B/P (MAP) 129/55 (79) 166/79 Pulse Ox 97 O2 Delivery Nasal Cannula Nasal Cannula Nasal Cannula O2 Flow Rate 2.0 2.0 2.0 07/22/19 07/22/19 07/22/19 07/23/19 22:46 22:46 23:28 03:57 Temp 97.3 97.4 97.3 97.4 Pulse 72 72 70 78 Resp 16 16 B/P (MAP) 166/79 166/79 161/68 (99) 161/69 (99) Pulse Ox 98 98 O2 Delivery Nasal Cannula Nasal Cannula O2 Flow Rate 2.0 2.0 07/23/19 07/23/19 07/23/19 07/23/19 07:00 08:13 09:54 09:54 Temp 97.3 97.3 Pulse 67 67 67 Resp 18 B/P (MAP) 181/72 (108) 175/74 175/74 Pulse Ox 99 100 O2 Delivery Room Air Nasal Cannula O2 Flow Rate 2.0 07/23/19 11:00 Temp 97.7 97.7 Pulse 61 Resp 18 B/P (MAP) 135/61 (85) Pulse Ox 97 O2 Delivery Nasal Cannula O2 Flow Rate 2.0 Intake and Output 07/22/19 07/22/19 07/23/19 15:00 23:00 07:00 Intake Total 500 ml Balance 500 ml LEVON BILLINGS MD Jul 23, 2019 14:24
--- NOTE | 2019-07-23 15:19 | NUR ---
SS following up with discharge planning. SS received phone contact from Pk at [facility] stating that pt has confirmed chair time at [facility], , [id number] [place] [id number], Tuesday; Tuesday; Tuesday at 1500. Pk reported that pt's first chair time is scheduled for 07/25/2019 and pt will need to arrive at 1400. Pt's RN notified.
[2019-07-23] MEDS: PROCHLORPERAZINE 10 MG/2 ML VIAL. IV PRN (16:49)
[2019-07-23] MEDS: cefTRIAXone IV Push 1 GM VIAL. IVP SCH (16:51)
[2019-07-23] MEDS ORDERED: METOPROLOL TARTRATE 5 MG/5 ML VIAL. IVP SCH (18:00)
[2019-07-23] MEDS: LACTOBACILLUS RHAMNOSUS GG 1 CAPSULE. PO SCH ×2 (18:10→20:41)
[2019-07-23 19:00] VITALS: BP 127/51
[2019-07-23] MEDS: ATORVASTATIN CALCIUM 10 MG TABLET. PO SCH (20:41)
[2019-07-23] MEDS: CETIRIZINE HCL 10 MG TABLET. PO SCH (20:42)
[2019-07-23] MEDS: cloNIDine HCL 0.3 MG TABLET PO SCH (20:42)
[2019-07-23] MEDS: MONTELUKAST SODIUM 10 MG TABLET. PO SCH (20:42)
[2019-07-23] MEDS: traZODone 50 MG TABLET. PO SCH (20:43)
--- NOTE | 2019-07-23 22:00 | NUR ---
PT UP TO BSC, WEAK. WHEN BACK TO BED PT HAD DIZZY EPISODE, GOT VERY WEAK 98/56. ONCE IN BED AND MADE COMFORTABLE BP 107/53. EXPALINED TO DAUGHTER BOUCHRA THE EPISODE WHICH DAUGHTER IN ROOM NOTIFIED HER OF THE EPISODE. EXPLAINED SHE IS IN AFIB AND THAT MEDS WERE GIVEN AND IT TAKES TIME TO WORK. SEEING 61-109 IN HR/AFIB. AND PT ISNT SUSTAINING THE HIGH HR. WAS 120'S AT SHIFT CHANGE. PT IS STABLE NOW. DAUGHTER INSISTED THAT CARDIOLOGY BE CALLED. SPOKE WITH DR BILLINGS WHO SAID PT IS IN AND OUT OF AFIB. AND WILL ADDRESS SITUATION TOMORROW. LCRN
[2019-07-23 23:00] VITALS: BP 107/53
[2019-07-24 03:00] VITALS: BP 138/48
[2019-07-24 05:36] LABS: BASO % 0 % (0-3); EOS # 0.1 x10^3/uL (0.0-0.7); EOS % 0 % (0-3); HEMATOCRIT 37.3 % (36.0-47.0); HEMOGLOBIN 12.3 g/dL (12.0-15.5); LYMPH # 1.7 x10^3/uL (1.0-4.8); LYMPH % 11 % (24-48); MEAN CORPUSCULAR HEMOGLOBIN 32 pg (25-35); MEAN CORPUSCULAR HGB CONC 33 g/dL (31-37); MEAN CORPUSCULAR VOLUME 96 fL (79-100); MONO # 1.3 x10^3/uL (0.0-1.1); MONO % 9 % (0-9); NEUT # 12.1 x10^3/uL (1.8-7.7); NEUT % 80 % (31-73); PLATELET COUNT 233 x10^3/uL (140-400); RED BLOOD COUNT 3.88 x10^6/uL (3.50-5.40); RED CELL DISTRIBUTION WIDTH 16.7 % (11.5-14.5); WHITE BLOOD COUNT 15.1 x10^3/uL (4.0-11.0)
[2019-07-24 05:47] LABS: CALCIUM 8.7 mg/dL (8.5-10.1); CREATININE 3.5 mg/dL (0.6-1.0); GFR 12.4; POTASSIUM 4.4 mmol/L (3.5-5.1)
[2019-07-24 07:00] VITALS: BP 151/50
[2019-07-24] MEDS: LEVOTHYROXINE 125 MCG TABLET PO SCH (07:26)
[2019-07-24] MEDS: BUDESONIDE 0.5 MG/2 ML NEBU. NEB SCH ×2 (08:14→19:57)
[2019-07-24] MEDS: IPRATRPIUM/ALBUTEROL 0.5/2.5MG 3 ML NEBU. NEB SCH ×4 (08:14→19:57)
[2019-07-24] MEDS: CYANOCOBALAMIN (VITAMIN B-12) 1,000 MCG TABLET. PO SCH (09:00)
--- NOTE | 2019-07-24 09:08 | PDOC ---
Infectious Disease Note Vital Sign Vital Signs Vital Signs Date Time Temp Pulse Resp B/P (MAP) Pulse Ox O2 Delivery O2 Flow Rate FiO2 07/24/19 08:14 98 Nasal Cannula 1.0 07/24/19 07:00 97.4 65 16 151/50 (83) 97.4 Labs Lab Laboratory Tests Test 07/23/19 16:54 07/23/19 21:25 07/24/19 05:15 07/24/19 07:39 Glucose (Fingerstick) 148 mg/dL (70-99) 146 mg/dL (70-99) 147 mg/dL (70-99) White Blood Count 15.1 x10^3/uL (4.0-11.0) Red Blood Count 3.88 x10^6/uL (3.50-5.40) Hemoglobin 12.3 g/dL (12.0-15.5) Hematocrit 37.3 % (36.0-47.0) Mean Corpuscular Volume 96 fL (79-100) Mean Corpuscular Hemoglobin 32 pg (25-35) Mean Corpuscular Hemoglobin Concent 33 g/dL (31-37) Red Cell Distribution Width 16.7 % (11.5-14.5) Platelet Count 233 x10^3/uL (140-400) Neutrophils (%) (Auto) 80 % (31-73) Lymphocytes (%) (Auto) 11 % (24-48) Monocytes (%) (Auto) 9 % (0-9) Eosinophils (%) (Auto) 0 % (0-3) Basophils (%) (Auto) 0 % (0-3) Neutrophils # (Auto) 12.1 x10^3/uL (1.8-7.7) Lymphocytes # (Auto) 1.7 x10^3/uL (1.0-4.8) Monocytes # (Auto) 1.3 x10^3/uL (0.0-1.1) Eosinophils # (Auto) 0.1 x10^3/uL (0.0-0.7) Basophils # (Auto) 0.0 x10^3/uL (0.0-0.2) Sodium Level 135 mmol/L (136-145) Potassium Level 4.4 mmol/L (3.5-5.1) Chloride Level 97 mmol/L (98-107) Carbon Dioxide Level 29 mmol/L (21-32) Anion Gap 9 (6-14) Blood Urea Nitrogen 55 mg/dL (7-20) Creatinine 3.5 mg/dL (0.6-1.0) Estimated GFR (Cockcroft-Gault) 12.4 Glucose Level 159 mg/dL (70-99) Calcium Level 8.7 mg/dL (8.5-10.1) Objective Assessment pt seen, consult dictated Plan Plan of Care / LAKISHA GHOSH MD Jul 24, 2019 09:08
--- NOTE | 2019-07-24 09:11 | PDOC ---
IM PROGRESS NOTES- Subjective Subjective Had blisters on the left arm likely due to reaction to the tape yesterday. No complaints of her fever, cough. Objective Vitals/I&O Vital Signs Date Time Temp Pulse Resp B/P (MAP) Pulse Ox O2 Delivery O2 Flow Rate FiO2 07/24/19 08:14 98 Nasal Cannula 1.0 07/24/19 07:00 97.4 65 16 151/50 (83) 97.4 I & O 07/23/19 07/23/19 07/24/19 15:00 23:00 07:00 Intake Total 250 ml 300 ml 0 ml Output Total 350 ml 400 ml 300 ml Balance -100 ml -100 ml -300 ml Physical Exam Physical Exam GENERAL: The patient is an elderly female who is alert, oriented x 3 and in mild respiratory distress. She is anxious. EYES: Pupils reacting to light. Conjunctivae pale. Sclerae muddy. HENT: Unremarkable except for mild congestion of throat. NECK: Supple. JVP normal. No thyromegaly. Trachea midline. LUNGS: increased air entry CARDIOVASCULAR: S1, S2 regular. ABDOMEN: Soft, nontender, no guarding, no rigidity. Bowel sounds present. EXTREMITIES trace edema of both lower extremities. The patient has swelling of the left forearm because of the recent surgery for graft for dialysis access. She has blisters and redness and bruising on the left upper extremity. CENTRAL NERVOUS SYSTEM: Alert, oriented and anxious. Labs Laboratory Tests Test 07/23/19 16:54 07/23/19 21:25 07/24/19 05:15 07/24/19 07:39 Glucose (Fingerstick) 148 mg/dL (70-99) H 146 mg/dL (70-99) H 147 mg/dL (70-99) H White Blood Count 15.1 x10^3/uL (4.0-11.0) H Red Blood Count 3.88 x10^6/uL (3.50-5.40) Hemoglobin 12.3 g/dL (12.0-15.5) Hematocrit 37.3 % (36.0-47.0) Mean Corpuscular Volume 96 fL (79-100) Mean Corpuscular Hemoglobin 32 pg (25-35) Mean Corpuscular Hemoglobin Concent 33 g/dL (31-37) Red Cell Distribution Width 16.7 % (11.5-14.5) H Platelet Count 233 x10^3/uL (140-400) Neutrophils (%) (Auto) 80 % (31-73) H Lymphocytes (%) (Auto) 11 % (24-48) L Monocytes (%) (Auto) 9 % (0-9) Eosinophils (%) (Auto) 0 % (0-3) Basophils (%) (Auto) 0 % (0-3) Neutrophils # (Auto) 12.1 x10^3/uL (1.8-7.7) H Lymphocytes # (Auto) 1.7 x10^3/uL (1.0-4.8) Monocytes # (Auto) 1.3 x10^3/uL (0.0-1.1) H Eosinophils # (Auto) 0.1 x10^3/uL (0.0-0.7) Basophils # (Auto) 0.0 x10^3/uL (0.0-0.2) Sodium Level 135 mmol/L (136-145) L Potassium Level 4.4 mmol/L (3.5-5.1) Chloride Level 97 mmol/L (98-107) L Carbon Dioxide Level 29 mmol/L (21-32) Anion Gap 9 (6-14) Blood Urea Nitrogen 55 mg/dL (7-20) H Creatinine 3.5 mg/dL (0.6-1.0) H Estimated GFR (Cockcroft-Gault) 12.4 Glucose Level 159 mg/dL (70-99) H Calcium Level 8.7 mg/dL (8.5-10.1) Laboratory Tests 07/24/19 05:15 Laboratory Tests 07/24/19 05:15 Assessment Assessment 1. Acute hypoxic respiratory failure. 2. Acute on chronic diastolic congestive heart failure. 3. End-stage renal disease. 4. Asthma with mild exacerbation. 5. Allergic rhinitis. 6. Anxiety. 7. Urinary tract infection. 8. Diabetes mellitus type 2 with diabetic nephropathy. 9. Diabetic polyneuropathy. 10. Chronic gout. 11. Hypertension. 12. Mixed hyperlipidemia. PLAN: Day #2 dialysis. doing well. less sob . cr 3.3. home ? mon/tu. Consult Dr. Rao for nephrology evaluation and management, Dr. Elizondo for cardiology evaluation and management. The patient was given 1 dose of IV Rocephin today. I will readjust it tomorrow. We will resume home medications including the blood pressure medications. The patient was given one dose of IV Lasix in the Emergency Room and she had taken her morning dose also. Alligator Shear Operator felt that more Lasix may not be beneficial at this time. I will give her low dose morphine 1 mg and give her breathing treatment and also Pulmicort breathing treatment to see if this would help her breathing and relieve the pressure on her chest. For details, please refer to the orders. Hopefully tomorrow if she does not respond, will need dialysis. Condition and treatment extensively discussed with multiple children. For details, please refer to the orders. UTI- adjust the dose of Rocephin due to end-stage renal disease. Diabetes- stable End-stage renal disease- patient had the graft placed on july about 11 days old. She has a quick AVG. Condition treatment options discussed with the patient and the family. Hypertension- not controlled. Echocardiogram pending. Patient had rapid heart rate with low blood pressure last night. Continue to monitor. Mild exacerbation of asthma improving. Anxiety improving. Weakness- PT/OT Leukocytosis- WBC count is 15.1. This may be due to reaction to the tape with blisters on the left upper extremity. Patient is on Rocephin. I will order venous Doppler of the left upper extremity. Consult Dr. Lucian Goode. D/w family. SNF when ready. Plan Plan For more details regarding further plans, please refer to the orders. HIRA BELTRE MD Jul 24, 2019 09:11
[2019-07-24] MEDS: LACTOBACILLUS RHAMNOSUS GG 1 CAPSULE. PO SCH ×2 (09:12→21:16)
[2019-07-24] MEDS: DOCUSATE SODIUM 100 MG CAPSULE. PO SCH ×2 (09:12→21:14)
[2019-07-24] MEDS: ASCORBIC ACID 500 MG TABLET PO SCH (09:12)
[2019-07-24] MEDS: METOPROLOL TART IMMED RELEASE 50 MG TABLET. PO SCH ×2 (09:12→21:17)
[2019-07-24] MEDS: ASPIRIN ENTERIC COATED 81 MG TABLET.DR. PO SCH (09:12)
[2019-07-24] MEDS: LINAGLIPTIN 5 MG TABLET PO SCH (09:13)
[2019-07-24] MEDS: FUROSEMIDE 40 MG TABLET. PO SCH (09:13)
[2019-07-24] MEDS: hydrALAZINE 25 MG TABLET PO SCH ×3 (09:13→21:16)
[2019-07-24] MEDS: HEPARIN for SUB-Q USE 5,000 UNIT/ML VIAL. SQ SCH ×2 (09:21→21:19)
[2019-07-24 11:00] VITALS: BP 124/57
--- NOTE | 2019-07-24 11:42 | NUR ---
SS following up with discharge planning. [facility] contacted SS stating that pt's chair time has been adjusted to 1415 at [facility] on Tuesday, Tuesday, and Tuesday. SS was informed that pt will need to arrive at clinic at 1330 for her first chair time. Pt's daughter and pt's RN notified.
--- NOTE | 2019-07-24 12:33 | RAD ---
EXAM: Left upper extremity venous Doppler sonogram. HISTORY: Pain and swelling. TECHNIQUE: Goldberg scale and color Doppler sonographic evaluation of the left upper extremity veins with spectral waveform analysis was performed. FINDINGS: There is normal color flow, normal compressibility and there are normal spectral waveforms in the left upper extremity veins. There is a patent left upper extremity hemodialysis graft. IMPRESSION: No Doppler evidence of upper extremity venous thrombosis. Patent dialysis graft. Electronically signed by: Salima Harris MD (07/24/2019 12:31 PM) [place] [id number]
--- NOTE | 2019-07-24 13:30 | PDOC ---
Renal-Progress Notes Subjective Notes Notes NO NEW COMPLAINTS BUT TIRED History of Present Illness Hx of present illness STABLE Vitals Vitals Vital Signs Date Time Temp Pulse Resp B/P (MAP) Pulse Ox O2 Delivery O2 Flow Rate FiO2 07/24/19 12:24 92 Room Air 07/24/19 11:00 97.5 69 16 124/57 (79) 97.5 07/24/19 08:14 1.0 Weight Weight [ ] I.O. Intake and Output Intake and Output 07/24/19 07:00 Intake Total 550 ml Output Total 1050 ml Balance -500 ml Intake Oral 550 ml Output Urine Total 1050 ml Labs Labs Laboratory Tests Test 07/23/19 16:54 07/23/19 21:25 07/24/19 05:15 07/24/19 07:39 Glucose (Fingerstick) 148 mg/dL (70-99) 146 mg/dL (70-99) 147 mg/dL (70-99) White Blood Count 15.1 x10^3/uL (4.0-11.0) Red Blood Count 3.88 x10^6/uL (3.50-5.40) Hemoglobin 12.3 g/dL (12.0-15.5) Hematocrit 37.3 % (36.0-47.0) Mean Corpuscular Volume 96 fL (79-100) Mean Corpuscular Hemoglobin 32 pg (25-35) Mean Corpuscular Hemoglobin Concent 33 g/dL (31-37) Red Cell Distribution Width 16.7 % (11.5-14.5) Platelet Count 233 x10^3/uL (140-400) Neutrophils (%) (Auto) 80 % (31-73) Lymphocytes (%) (Auto) 11 % (24-48) Monocytes (%) (Auto) 9 % (0-9) Eosinophils (%) (Auto) 0 % (0-3) Basophils (%) (Auto) 0 % (0-3) Neutrophils # (Auto) 12.1 x10^3/uL (1.8-7.7) Lymphocytes # (Auto) 1.7 x10^3/uL (1.0-4.8) Monocytes # (Auto) 1.3 x10^3/uL (0.0-1.1) Eosinophils # (Auto) 0.1 x10^3/uL (0.0-0.7) Basophils # (Auto) 0.0 x10^3/uL (0.0-0.2) Sodium Level 135 mmol/L (136-145) Potassium Level 4.4 mmol/L (3.5-5.1) Chloride Level 97 mmol/L (98-107) Carbon Dioxide Level 29 mmol/L (21-32) Anion Gap 9 (6-14) Blood Urea Nitrogen 55 mg/dL (7-20) Creatinine 3.5 mg/dL (0.6-1.0) Estimated GFR (Cockcroft-Gault) 12.4 Glucose Level 159 mg/dL (70-99) Calcium Level 8.7 mg/dL (8.5-10.1) Test 07/24/19 12:00 Glucose (Fingerstick) 171 mg/dL (70-99) Review of Systems Constitutional: yes: weakness, alert, oriented Ears/Nose/Throat: Yes: no symptom reported Eyes: Yes: no symptom reported Pulmonary: Yes dyspnea Cardiovascular: Yes edema Gastrointestional: Yes: no symptom reported Genitourinary: Yes: no symptom reported Musculoskeletal: Yes: no symptom reported, muscle stiffness Skin: Yes no symptom reported Psychiatric/Neurological: Yes: no symptom reported Endocrine: Yes: no symptom reported Physical Exam General Appearance: no apparent distress Skin: warm Respiratory: decreased breath sounds Heart: S1S2 Abdomen: soft, bowel sounds present Genitourinary: bladder flat Extremities: pulses present, edema Neurology: alert, oriented Assessment Assessment IMP NEW ESRD ACUTE HYPOXIC RESP FAILURE ACUTE ON CHRONIC D CHF ANEMIA UTI DM II HTN UREMIA LE EDEMA DECONDITIONING NEW LEUCOCYTOSIS PLAN CONT LASIX ARANESP HD TOMORROW CHALLENGE TOLERATED OP HD HAS BEEN SET UP TO MWF AT 3 PM AT [facility] IN THE [facility] AREA PER FAMILY REQUEST NEEDS THERAPY PP TRANSFER SOON UPDATED FAMILY LRUDES GANDARA MD Jul 24, 2019 13:30
[2019-07-24] MEDS: BISACODYL 10 MG SUPP.RECT. PR PRN (13:57)
[2019-07-24 15:00] VITALS: BP 119/40
--- NOTE | 2019-07-24 15:54 | NUR ---
SS following up with discharge planning. PT/OT recommended [facility]. SS spoke with pt's daughter via phone. SS discussed [facility] unit with pt's daughter. Pt's daughter agreeable to [facility] unit and requested that referral be phoned and faxed to [facility], ; fax [phone]. SS phoned and faxed referral to [facility] and notified Gamaliel Randall that pt was not discharging today. SS will await acceptance decision from [facility] and will proceed accordingly with discharge planning.
--- NOTE | 2019-07-24 16:25 | PDOC ---
BRADEN STARKEY CLINICAL PATHOLOGIST 07/24/19 1625: CARDIO Progress Notes Date and Time Date of Service 07/24/2019 Time of Evaluation 1530 Subjective Subjective: No Chest Pain, No shortness of breath, No Palpitations Vitals Vitals Vital Signs Date Time Temp Pulse Resp B/P (MAP) Pulse Ox O2 Delivery O2 Flow Rate FiO2 07/24/19 14:02 115/53 07/24/19 12:24 92 Room Air 07/24/19 11:00 97.5 69 16 97.5 07/24/19 08:14 1.0 Weight Weight [ ] Input and Output Intake and Output Intake and Output 07/24/19 07:00 Intake Total 550 ml Output Total 1050 ml Balance -500 ml Intake Oral 550 ml Output Urine Total 1050 ml Laboratory Labs Laboratory Tests Test 07/23/19 16:54 07/23/19 21:25 07/24/19 05:15 07/24/19 07:39 Glucose (Fingerstick) 148 mg/dL (70-99) 146 mg/dL (70-99) 147 mg/dL (70-99) White Blood Count 15.1 x10^3/uL (4.0-11.0) Red Blood Count 3.88 x10^6/uL (3.50-5.40) Hemoglobin 12.3 g/dL (12.0-15.5) Hematocrit 37.3 % (36.0-47.0) Mean Corpuscular Volume 96 fL (79-100) Mean Corpuscular Hemoglobin 32 pg (25-35) Mean Corpuscular Hemoglobin Concent 33 g/dL (31-37) Red Cell Distribution Width 16.7 % (11.5-14.5) Platelet Count 233 x10^3/uL (140-400) Neutrophils (%) (Auto) 80 % (31-73) Lymphocytes (%) (Auto) 11 % (24-48) Monocytes (%) (Auto) 9 % (0-9) Eosinophils (%) (Auto) 0 % (0-3) Basophils (%) (Auto) 0 % (0-3) Neutrophils # (Auto) 12.1 x10^3/uL (1.8-7.7) Lymphocytes # (Auto) 1.7 x10^3/uL (1.0-4.8) Monocytes # (Auto) 1.3 x10^3/uL (0.0-1.1) Eosinophils # (Auto) 0.1 x10^3/uL (0.0-0.7) Basophils # (Auto) 0.0 x10^3/uL (0.0-0.2) Sodium Level 135 mmol/L (136-145) Potassium Level 4.4 mmol/L (3.5-5.1) Chloride Level 97 mmol/L (98-107) Carbon Dioxide Level 29 mmol/L (21-32) Anion Gap 9 (6-14) Blood Urea Nitrogen 55 mg/dL (7-20) Creatinine 3.5 mg/dL (0.6-1.0) Estimated GFR (Cockcroft-Gault) 12.4 Glucose Level 159 mg/dL (70-99) Calcium Level 8.7 mg/dL (8.5-10.1) Test 07/24/19 12:00 Glucose (Fingerstick) 171 mg/dL (70-99) Review of Systems Constitutional: yes: weakness, alert, oriented Ears/Nose/Throat: Yes: no symptom reported Eyes: Yes: no symptom reported Pulmonary: Yes dyspnea Cardiovascular: Yes edema Gastrointestional: Yes: no symptom reported Genitourinary: Yes: no symptom reported Musculoskeletal: Yes: no symptom reported, muscle stiffness Skin: Yes no symptom reported Psychiatric/Neurological: Yes: no symptom reported Endocrine: Yes: no symptom reported Physical Exam HEENT: Neck Supple W Full Motion Chest: Symmetric LUNGS: Other (bibasilar crackles ) Heart: RRR (SR), murmurs Abdomen: Soft N/T Extremities: Other (2+ bilateral LE edema) Neurology: alert, oriented, follow commands Assessment Assessment 1. Acute on chronic diastolic CHF: due to uncontrolled HTN and renal disease. compensated 2. Accelerated hypertension; controlled 3. Chest pain, atypical 4. Hyperlipidemia; statin. LDL 50 5. Diabetes, II; as per PCP 6. New ESRD 7. Hypothyroidism 8. UTI; as per PCP 9. PAFIB: new onset occurred post HD. Presently SR. 10. Leukocytosis: NEW. per PCP Recommendations 1. Will gradually titrate down her current BP regimen now that she is on HD. Continue BB MCOT as outpt and note AFIB burden to guide further treatment and NOAC consideration 2. Fluid off loading per HD 3. Continue ASA. 4. Consider outpatient ischemic evaluation 5. Supportive care LEVON BILLINGS MD 07/24/192101: CARDIO Progress Notes Assessment Assessment Patient seen and examined. Agree with NURSE SEXUAL ASSAULT's assessment and plan. BP borderline low She is currently on clonidine only QHS - will stop it and monitor BP closely Ac on chr diast HF better compensated with HD Agree with event monitor as outpatient to assess AFib burden and to guide antiarrhythmic/anticoagulation therapy BRADEN STARKEY APRN Jul 24, 2019 16:25 LEVON BILLINGS MD Jul 24, 2019 21:02
[2019-07-24] MEDS: cefTRIAXone IV Push 1 GM VIAL. IVP SCH (16:38)
--- NOTE | 2019-07-24 17:34 | CONS ---
DATE OF CONSULTATION: 07/24/2019 REQUESTING PHYSICIAN: Dr. Garg. REASON FOR CONSULTATION: Leukocytosis. HISTORY OF PRESENT ILLNESS: This is an 84-year-old female with a history of renal insufficiency, who came in with shortness of breath and now started on dialysis. The patient has AV fistula in the left upper arm and now, she has been doing dialysis. The patient has not had any fever. The patient's swelling is slowly improving, but the white count jumped from normal to 15,000, hence the consultation. The patient also has been treated with Rocephin for UTI. The patient denies any nausea or vomiting. Denies any diarrhea, in fact she is constipated. She has not had a bowel movement for 5 days, and some lower abdominal discomfort is present. The patient denies any chest pain, shortness of breath, headache, or visual symptoms. PAST MEDICAL HISTORY: Positive for end-stage renal disease, now on hemodialysis. The patient has rheumatoid arthritis. The patient had been on Humira and now has not had any because it did not help for several months. History of gout, history of diabetes with polyneuropathy, hypertension, hyperlipidemia, and asthma. PAST SURGICAL HISTORY: Has had cholecystectomy, hysterectomy. SOCIAL HISTORY: Negative for smoking, alcohol, or illicit drug use. ALLERGIES: LISTED ALLERGIC TO SULFA. CURRENT MEDICATIONS: The patient is on Rocephin. REVIEW OF SYSTEMS: As per HPI, all other systems reviewed and are negative. PHYSICAL EXAMINATION: GENERAL: Alert, oriented female, not in distress. VITAL SIGNS: Stable, afebrile. HEENT: NAD. NECK: Supple. No JVP. No lymphadenopathy. LUNGS: Clear. HEART: S1, S2 regular. ABDOMEN: Benign. EXTREMITIES: No cyanosis. The patient does have edema; graft site is unremarkable for any infection. SKIN: Unremarkable other than edema and some bruising. NEUROLOGIC: The patient is alert, awake, appropriate. No focal neurologic deficit. LABORATORY DATA: White count is 15.1 up from 10.9 three days ago. BUN and creatinine are 55 and 3.5. Liver functions have been normal. Urinalysis showed more than 40 wbc's. Urine culture is pending or actually not ordered or not done. Chest x-ray had shown pulmonary vascular congestion. IMPRESSION AND PLAN: Leukocytosis, most likely secondary to constipation, they are working on it. The patient is going to get suppository today. We will see what happens. If with good bowel movement white count comes down, then there is nothing much more to do; if it does not come down, we will do more testing. The patient has been on Rocephin for 5 days that can be discontinued now. Discussion with the patient's daughters done at the bedside. Thank you very much, Dr. Garg, for giving me the opportunity to participate in this patient's care. LAKISHA GHOSH MD DR: JESSICA/gerri JOB#: [id number] / [id number]
[2019-07-24 19:00] VITALS: BP 141/47
--- NOTE | 2019-07-24 20:00 | NUR ---
Pt in bed assessment completed vss poc explained pt denied pain at time of assessment family at bedside will resume care and continue to monitor pt. call light in each.
[2019-07-24] MEDS: ATORVASTATIN CALCIUM 10 MG TABLET. PO SCH (21:14)
[2019-07-24] MEDS: CETIRIZINE HCL 10 MG TABLET. PO SCH (21:16)
[2019-07-24] MEDS: MONTELUKAST SODIUM 10 MG TABLET. PO SCH (21:16)
[2019-07-24] MEDS: traZODone 50 MG TABLET. PO SCH (21:17)
[2019-07-24 22:59] VITALS: BP 168/71
[2019-07-25] VITALS (8 sets, daily range): BP systolic 127–188; BP diastolic 57–79
[2019-07-25 05:36] LABS: BASO % 0 % (0-3); EOS # 0.2 x10^3/uL (0.0-0.7); EOS % 1 % (0-3); HEMATOCRIT 36.4 % (36.0-47.0); HEMOGLOBIN 11.7 g/dL (12.0-15.5); LYMPH # 1.9 x10^3/uL (1.0-4.8); LYMPH % 12 % (24-48); MEAN CORPUSCULAR HEMOGLOBIN 31 pg (25-35); MEAN CORPUSCULAR HGB CONC 32 g/dL (31-37); MEAN CORPUSCULAR VOLUME 96 fL (79-100); MONO # 1.2 x10^3/uL (0.0-1.1); MONO % 8 % (0-9); NEUT # 12.2 x10^3/uL (1.8-7.7); NEUT % 79 % (31-73); PLATELET COUNT 225 x10^3/uL (140-400); RED BLOOD COUNT 3.79 x10^6/uL (3.50-5.40); RED CELL DISTRIBUTION WIDTH 16.7 % (11.5-14.5); WHITE BLOOD COUNT 15.6 x10^3/uL (4.0-11.0)
[2019-07-25 05:50] LABS: CALCIUM 8.8 mg/dL (8.5-10.1); CREATININE 4.5 mg/dL (0.6-1.0); GFR 9.3; POTASSIUM 4.1 mmol/L (3.5-5.1)
[2019-07-25] MEDS: LEVOTHYROXINE 125 MCG TABLET PO SCH (06:12)
[2019-07-25] MEDS: IPRATRPIUM/ALBUTEROL 0.5/2.5MG 3 ML NEBU. NEB SCH ×4 (08:00→20:18)
[2019-07-25] MEDS: BUDESONIDE 0.5 MG/2 ML NEBU. NEB SCH ×2 (08:00→20:18)
[2019-07-25] MEDS ORDERED: IV NORMAL SALINE 1000ML BAG 1,000 ML IV PRN ×2 (08:08)
[2019-07-25] MEDS ORDERED: DIALYSIS PATIENT. MC PRN (08:15)
[2019-07-25] MEDS ORDERED: diphenhydrAMINE 50 MG/ML VIAL IV PRN ×2 (08:15)
[2019-07-25] MEDS ORDERED: ACETAMINOPHEN 500 MG TABLET PO PRN (08:15)
[2019-07-25] MEDS: PIPERACILLIN/TAZOBACTAM 2.25 GM in IV NORMAL SALINE 50ML 50 ML IV SCH ×3 (08:15→19:09)
--- NOTE | 2019-07-25 08:27 | PDOC ---
Infectious Disease Note Subjective Subjective pt is feeling better, up sitting in bed ROS ROS no n/v/d/ did have BM yesterday says Vital Sign Vital Signs Vital Signs Date Time Temp Pulse Resp B/P (MAP) Pulse Ox O2 Delivery O2 Flow Rate FiO2 07/25/19 02:36 98.2 71 18 159/72 (101) 92 Room Air 98.2 07/24/19 19:00 2.0 Physical Exam PHYSICAL EXAM GENERAL: Alert, oriented female, not in distress. VITAL SIGNS: Stable, afebrile. HEENT: NAD. NECK: Supple. No JVP. No lymphadenopathy. LUNGS: Clear. HEART: S1, S2 regular. ABDOMEN: Benign. EXTREMITIES: No cyanosis. The patient does have edema; graft site is unremarkable for any infection. SKIN: Unremarkable other than edema and some bruising. NEUROLOGIC: The patient is alert, awake, appropriate. No focal neurologic deficit. Labs Lab Laboratory Tests Test 07/24/19 12:00 07/24/19 17:12 07/24/19 20:51 07/25/19 04:55 Glucose (Fingerstick) 171 mg/dL (70-99) 177 mg/dL (70-99) 145 mg/dL (70-99) White Blood Count 15.6 x10^3/uL (4.0-11.0) Red Blood Count 3.79 x10^6/uL (3.50-5.40) Hemoglobin 11.7 g/dL (12.0-15.5) Hematocrit 36.4 % (36.0-47.0) Mean Corpuscular Volume 96 fL (79-100) Mean Corpuscular Hemoglobin 31 pg (25-35) Mean Corpuscular Hemoglobin Concent 32 g/dL (31-37) Red Cell Distribution Width 16.7 % (11.5-14.5) Platelet Count 225 x10^3/uL (140-400) Neutrophils (%) (Auto) 79 % (31-73) Lymphocytes (%) (Auto) 12 % (24-48) Monocytes (%) (Auto) 8 % (0-9) Eosinophils (%) (Auto) 1 % (0-3) Basophils (%) (Auto) 0 % (0-3) Neutrophils # (Auto) 12.2 x10^3/uL (1.8-7.7) Lymphocytes # (Auto) 1.9 x10^3/uL (1.0-4.8) Monocytes # (Auto) 1.2 x10^3/uL (0.0-1.1) Eosinophils # (Auto) 0.2 x10^3/uL (0.0-0.7) Basophils # (Auto) 0.0 x10^3/uL (0.0-0.2) Sodium Level 133 mmol/L (136-145) Potassium Level 4.1 mmol/L (3.5-5.1) Chloride Level 95 mmol/L (98-107) Carbon Dioxide Level 28 mmol/L (21-32) Anion Gap 10 (6-14) Blood Urea Nitrogen 82 mg/dL (7-20) Creatinine 4.5 mg/dL (0.6-1.0) Estimated GFR (Cockcroft-Gault) 9.3 Glucose Level 151 mg/dL (70-99) Calcium Level 8.8 mg/dL (8.5-10.1) Objective Assessment Leukocytosis, ESRD on HD CHF DM HTN Plan Plan of Care ct abd and pelvis change rocephine to jakysyn d/w family supportive care pt/ot LAKISHA GHOSH MD Jul 25, 2019 08:27
[2019-07-25] MEDS: hydrALAZINE 25 MG TABLET PO SCH ×3 (09:00→21:01)
--- NOTE | 2019-07-25 09:49 | PDOC ---
IM PROGRESS NOTES- Subjective Subjective Had blisters on the left arm likely due to reaction to the tape. No complaints of her fever, cough. Objective Vitals/I&O Vital Signs Date Time Temp Pulse Resp B/P (MAP) Pulse Ox O2 Delivery O2 Flow Rate FiO2 07/25/19 07:00 97.7 71 18 188/79 (115) 93 Room Air 97.7 07/24/19 19:00 2.0 I & O 07/24/19 07/24/19 07/25/19 14:59 22:59 06:59 Intake Total 310 ml 50 ml Balance 310 ml 50 ml Physical Exam Physical Exam GENERAL: The patient is an elderly female who is alert, oriented x 3 and in mild respiratory distress. She is anxious. EYES: Pupils reacting to light. Conjunctivae pale. Sclerae muddy. HENT: Unremarkable except for mild congestion of throat. NECK: Supple. JVP normal. No thyromegaly. Trachea midline. LUNGS: increased air entry CARDIOVASCULAR: S1, S2 regular. ABDOMEN: Soft, non tender, no guarding, no rigidity. Bowel sounds present. EXTREMITIES trace edema of both lower extremities. The patient has swelling of the left forearm because of the recent surgery for graft for dialysis access. She has blisters and redness and bruising on the left upper extremity improving. CENTRAL NERVOUS SYSTEM: Alert, oriented and anxious. Labs Laboratory Tests Test 07/24/19 12:00 07/24/19 17:12 07/24/19 20:51 07/25/19 04:55 Glucose (Fingerstick) 171 mg/dL (70-99) H 177 mg/dL (70-99) H 145 mg/dL (70-99) H White Blood Count 15.6 x10^3/uL (4.0-11.0) H Red Blood Count 3.79 x10^6/uL (3.50-5.40) Hemoglobin 11.7 g/dL (12.0-15.5) L Hematocrit 36.4 % (36.0-47.0) Mean Corpuscular Volume 96 fL (79-100) Mean Corpuscular Hemoglobin 31 pg (25-35) Mean Corpuscular Hemoglobin Concent 32 g/dL (31-37) Red Cell Distribution Width 16.7 % (11.5-14.5) H Platelet Count 225 x10^3/uL (140-400) Neutrophils (%) (Auto) 79 % (31-73) H Lymphocytes (%) (Auto) 12 % (24-48) L Monocytes (%) (Auto) 8 % (0-9) Eosinophils (%) (Auto) 1 % (0-3) Basophils (%) (Auto) 0 % (0-3) Neutrophils # (Auto) 12.2 x10^3/uL (1.8-7.7) H Lymphocytes # (Auto) 1.9 x10^3/uL (1.0-4.8) Monocytes # (Auto) 1.2 x10^3/uL (0.0-1.1) H Eosinophils # (Auto) 0.2 x10^3/uL (0.0-0.7) Basophils # (Auto) 0.0 x10^3/uL (0.0-0.2) Sodium Level 133 mmol/L (136-145) L Potassium Level 4.1 mmol/L (3.5-5.1) Chloride Level 95 mmol/L (98-107) L Carbon Dioxide Level 28 mmol/L (21-32) Anion Gap 10 (6-14) Blood Urea Nitrogen 82 mg/dL (7-20) H Creatinine 4.5 mg/dL (0.6-1.0) H Estimated GFR (Cockcroft-Gault) 9.3 Glucose Level 151 mg/dL (70-99) H Calcium Level 8.8 mg/dL (8.5-10.1) Laboratory Tests 07/25/19 04:55 Laboratory Tests 07/25/19 04:55 Meds Current Medications Medications (Trade) Dose Ordered Sig/Cate Route PRN Reason Start Time Stop Time Status Last Admin Dose Admin Bisacodyl (Dulcolax Supp) 10 mg PRN DAILY PRN GA CONSTIPATION 07/24/19 11:00 07/24/19 14:02 Assessment Assessment 1. Acute hypoxic respiratory failure. 2. Acute on chronic diastolic congestive heart failure. 3. End-stage renal disease. 4. Asthma with mild exacerbation. 5. Allergic rhinitis. 6. Anxiety. 7. Urinary tract infection. 8. Diabetes mellitus type 2 with diabetic nephropathy. 9. Diabetic polyneuropathy. 10. Chronic gout. 11. Hypertension. 12. Mixed hyperlipidemia. PLAN: Day #2 dialysis. doing well. less sob . cr 3.3. home ? tue/tue. Consult Dr. Rao for nephrology evaluation and management, Dr. Elizondo for cardiology evaluation and management. The patient was given 1 dose of IV Rocephin today. I will readjust it tomorrow. We will resume home medications including the blood pressure medications. The patient was given one dose of IV Lasix in the Emergency Room and she had taken her morning dose also. Grocery Supervisor felt that more Lasix may not be beneficial at this time. I will give her low dose morphine 1 mg and give her breathing treatment and also Pulmicort breathing treatment to see if this would help her breathing and relieve the pressure on her chest. For details, please refer to the orders. Hopefully tomorrow if she does not respond, will need dialysis. Condition and treatment extensively discussed with multiple children. For details, please refer to the orders. UTI- adjust the dose of Rocephin due to end-stage renal disease. Diabetes- stable End-stage renal disease- patient had the graft placed on july about 11 days old. She has a quick AVG. Condition treatment options discussed with the patient and the family. Hypertension- not controlled. Echocardiogram pending. Patient had rapid heart rate with low blood pressure last night. Continue to monitor. Mild exacerbation of asthma improving. Anxiety improving. Weakness- PT/OT Leukocytosis- WBC count is 15.6. This may be due to reaction to the tape with blisters on the left upper extremity. Patient is on Rocephin. I will order venous Doppler of the left upper extremity. Consult Dr. Lucian Goode.On IV Zosyn. has ordered CT abd/pelvis.Venous doppler of left upper extremity is negative for DVT.Graft is patent.D/w . Order Chest x ray. D/w family. SNF when ready. Plan Plan For more details regarding further plans, please refer to the orders. HIRA BELTRE MD Jul 25, 2019 09:49
--- NOTE | 2019-07-25 10:33 | PDOC ---
Renal-Progress Notes Subjective Notes Notes NO NEW COMPLAINTS History of Present Illness Hx of present illness STABLE Vitals Vitals Vital Signs Date Time Temp Pulse Resp B/P (MAP) Pulse Ox O2 Delivery O2 Flow Rate FiO2 07/25/19 07:00 97.7 71 18 188/79 (115) 93 Room Air 97.7 07/24/19 19:00 2.0 Weight Weight [ ] I.O. Intake and Output Intake and Output 07/25/19 07:00 Intake Total 360 ml Balance 360 ml Intake Oral 360 ml # Voids 1 # Bowel Movements 1 Labs Labs Laboratory Tests Test 07/24/19 12:00 07/24/19 17:12 07/24/19 20:51 07/25/19 04:55 Glucose (Fingerstick) 171 mg/dL (70-99) 177 mg/dL (70-99) 145 mg/dL (70-99) White Blood Count 15.6 x10^3/uL (4.0-11.0) Red Blood Count 3.79 x10^6/uL (3.50-5.40) Hemoglobin 11.7 g/dL (12.0-15.5) Hematocrit 36.4 % (36.0-47.0) Mean Corpuscular Volume 96 fL (79-100) Mean Corpuscular Hemoglobin 31 pg (25-35) Mean Corpuscular Hemoglobin Concent 32 g/dL (31-37) Red Cell Distribution Width 16.7 % (11.5-14.5) Platelet Count 225 x10^3/uL (140-400) Neutrophils (%) (Auto) 79 % (31-73) Lymphocytes (%) (Auto) 12 % (24-48) Monocytes (%) (Auto) 8 % (0-9) Eosinophils (%) (Auto) 1 % (0-3) Basophils (%) (Auto) 0 % (0-3) Neutrophils # (Auto) 12.2 x10^3/uL (1.8-7.7) Lymphocytes # (Auto) 1.9 x10^3/uL (1.0-4.8) Monocytes # (Auto) 1.2 x10^3/uL (0.0-1.1) Eosinophils # (Auto) 0.2 x10^3/uL (0.0-0.7) Basophils # (Auto) 0.0 x10^3/uL (0.0-0.2) Sodium Level 133 mmol/L (136-145) Potassium Level 4.1 mmol/L (3.5-5.1) Chloride Level 95 mmol/L (98-107) Carbon Dioxide Level 28 mmol/L (21-32) Anion Gap 10 (6-14) Blood Urea Nitrogen 82 mg/dL (7-20) Creatinine 4.5 mg/dL (0.6-1.0) Estimated GFR (Cockcroft-Gault) 9.3 Glucose Level 151 mg/dL (70-99) Calcium Level 8.8 mg/dL (8.5-10.1) Review of Systems Constitutional: yes: weakness, alert, oriented Ears/Nose/Throat: Yes: no symptom reported Eyes: Yes: no symptom reported Pulmonary: Yes dyspnea Cardiovascular: Yes edema Gastrointestional: Yes: no symptom reported Genitourinary: Yes: no symptom reported Musculoskeletal: Yes: no symptom reported, muscle stiffness Skin: Yes no symptom reported Psychiatric/Neurological: Yes: no symptom reported Endocrine: Yes: no symptom reported Physical Exam General Appearance: no apparent distress Skin: warm Respiratory: decreased breath sounds Heart: S1S2 Abdomen: soft, bowel sounds present Genitourinary: bladder flat Extremities: pulses present, edema Neurology: alert, oriented, follow commands Assessment Assessment IMP NEW ESRD ACUTE HYPOXIC RESP FAILURE ACUTE ON CHRONIC D CHF ANEMIA UTI DM II HTN UREMIA LE EDEMA DECONDITIONING NEW LEUCOCYTOSIS PLAN CONT LASIX ARANESP HD TODAY UF TO DW [facility] TOLERATED OP HD HAS BEEN SET UP TO MWF AT 3 PM AT [facility] PER FAMILY REQUEST NEEDS THERAPY PP TRANSFER SOON CT ABD AND PELVIS TODAY D/W DR GHOSH UPDATED FAMILY LURDES GANDARA MD Jul 25, 2019 10:33
[2019-07-25] MEDS: METOPROLOL TARTRATE 5 MG/5 ML VIAL. IVP PRN (11:23)
--- NOTE | 2019-07-25 11:56 | PDOC ---
DENIZ BRAN NAIL MACHINE OPERATOR 07/25/19 1156: CARDIO Progress Notes Date and Time Date of Service 07/25/19 Time of Evaluation 1150 Subjective Subjective: No Chest Pain, No shortness of breath, No Palpitations, Other (feels fatigued after HD) Comments: feels Vitals Vitals Vital Signs Date Time Temp Pulse Resp B/P (MAP) Pulse Ox O2 Delivery O2 Flow Rate FiO2 07/25/19 11:23 137 07/25/19 07:00 97.7 18 188/79 (115) 93 Room Air 97.7 07/24/19 19:00 2.0 Weight Weight [ ] Input and Output Intake and Output Intake and Output 07/25/19 07:00 Intake Total 360 ml Balance 360 ml Intake Oral 360 ml # Voids 1 # Bowel Movements 1 Laboratory Labs Laboratory Tests Test 07/24/19 12:00 07/24/19 17:12 07/24/19 20:51 07/25/19 04:55 Glucose (Fingerstick) 171 mg/dL (70-99) 177 mg/dL (70-99) 145 mg/dL (70-99) White Blood Count 15.6 x10^3/uL (4.0-11.0) Red Blood Count 3.79 x10^6/uL (3.50-5.40) Hemoglobin 11.7 g/dL (12.0-15.5) Hematocrit 36.4 % (36.0-47.0) Mean Corpuscular Volume 96 fL (79-100) Mean Corpuscular Hemoglobin 31 pg (25-35) Mean Corpuscular Hemoglobin Concent 32 g/dL (31-37) Red Cell Distribution Width 16.7 % (11.5-14.5) Platelet Count 225 x10^3/uL (140-400) Neutrophils (%) (Auto) 79 % (31-73) Lymphocytes (%) (Auto) 12 % (24-48) Monocytes (%) (Auto) 8 % (0-9) Eosinophils (%) (Auto) 1 % (0-3) Basophils (%) (Auto) 0 % (0-3) Neutrophils # (Auto) 12.2 x10^3/uL (1.8-7.7) Lymphocytes # (Auto) 1.9 x10^3/uL (1.0-4.8) Monocytes # (Auto) 1.2 x10^3/uL (0.0-1.1) Eosinophils # (Auto) 0.2 x10^3/uL (0.0-0.7) Basophils # (Auto) 0.0 x10^3/uL (0.0-0.2) Sodium Level 133 mmol/L (136-145) Potassium Level 4.1 mmol/L (3.5-5.1) Chloride Level 95 mmol/L (98-107) Carbon Dioxide Level 28 mmol/L (21-32) Anion Gap 10 (6-14) Blood Urea Nitrogen 82 mg/dL (7-20) Creatinine 4.5 mg/dL (0.6-1.0) Estimated GFR (Cockcroft-Gault) 9.3 Glucose Level 151 mg/dL (70-99) Calcium Level 8.8 mg/dL (8.5-10.1) Review of Systems Constitutional: yes: weakness, alert, oriented Ears/Nose/Throat: Yes: no symptom reported Eyes: Yes: no symptom reported Pulmonary: Yes dyspnea Cardiovascular: Yes edema Gastrointestional: Yes: no symptom reported Genitourinary: Yes: no symptom reported Musculoskeletal: Yes: no symptom reported, muscle stiffness Skin: Yes no symptom reported Psychiatric/Neurological: Yes: no symptom reported Endocrine: Yes: no symptom reported Physical Exam HEENT: Neck Supple W Full Motion Chest: Symmetric LUNGS: Other (diminished bases) Heart: irregularly irregular (AFIB with RVR) Abdomen: Soft N/T Extremities: Other (trace bilateral LE edema ) Neurology: alert, oriented, follow commands Assessment Assessment 1. Dyspnea secondary to acute on chronic diastolic HF; likely secondary to uncontrolled blood pressure and RI. Echo showed preserved LV systolic function. Now compensated 2. Hypertension; BP elevated this morning 3. Chest pain, atypical; most probably secondary to above. Echo without WMA 4. Hyperlipidemia; statin. LDL 50 5. Diabetes, II; as per PCP 6. PAULA on CKD, now ESRD on HD 7. Hypothyroidism 8. UTI; as per PCP 9. PAFIB; was maintaining SR, but went back into AFIB with HD today. Recommendations Will start antiarrhythmic with Amiodarone given recurrent AFIB Also Eliqius for stroke prophylaxis. R/b/a discussed with patient and family and they are agreeable. Fluid offloading, management via HD as per nephrology Consider outpatient ischemic evaluation Supportive care LEVON BILLINGS MD 07/25/192042: CARDIO Progress Notes Assessment Assessment Patient seen and examined. Agree with KINESIOLOGY PROFESSOR's assessment and plan. Patient keeps having paroxysms of AF, presently in atrial fib Agree with amiodarone for rhythm maintenance and eliquis for stroke prophylaxis Continue HD per nephrology team DENIZ BRAN APRN Jul 25, 2019 11:56 LEVON BILLINGS MD Jul 25, 2019 20:43
--- NOTE | 2019-07-25 12:45 | RAD ---
Examination: CT ABDOMEN PELVIS WO CONTRAST History: Leukocytosis Comparison/Correlation: None Findings: Axial images of the abdomen and pelvis were obtained without contrast. Sagittal and coronal reformatted images were provided. Small pleural effusions are present. Minimal adjacent atelectasis is present at the lung bases. Cholecystectomy is noted. Liver and spleen are unremarkable. Pancreas is normal. Very minimal perihepatic ascites noted. Distention of the stomach with fluid is noted. Circumferential wall thickening of the duodenum is evident. No extraluminal gas. Subtle stranding about the duodenum is questioned as well. Distention of the duodenal sweep is mild. Moderate quantity of stool in the colon is noted. Diverticulosis of the colon is present. No inflammatory change about the cecum. No loculated collections within the abdomen or pelvis. Degenerative changes of the lower lumbar spine are present. Facet joint degenerative changes are noted. Minimal anterolisthesis of L4 in relation L5. Urinary bladder is unremarkable. Impression: Small pleural effusions. Minimal adjacent atelectasis. Very minimal perihepatic ascites. Distention of the duodenum is mild with suggestion of surrounding stranding. Correlate for possibility of duodenitis. No loculated collection within the abdomen or pelvis. Diverticulosis. PQRS Compliance Statement: One or more of the following individualized dose reduction techniques were utilized for this examination: 1. Automated exposure control 2. Adjustment of the mA and/or kV according to patient size 3. Use of iterative reconstruction technique Electronically signed by: Noé York MD (07/25/2019 12:42 PM) [facility]
[2019-07-25] MEDS: ASPIRIN ENTERIC COATED 81 MG TABLET.DR. PO SCH (12:51)
[2019-07-25] MEDS: DOCUSATE SODIUM 100 MG CAPSULE. PO SCH ×2 (12:51→21:00)
[2019-07-25] MEDS: CYANOCOBALAMIN (VITAMIN B-12) 1,000 MCG TABLET. PO SCH (12:51)
[2019-07-25] MEDS: FUROSEMIDE 40 MG TABLET. PO SCH (12:52)
[2019-07-25] MEDS: LACTOBACILLUS RHAMNOSUS GG 1 CAPSULE. PO SCH ×2 (12:52→21:00)
[2019-07-25] MEDS: ASCORBIC ACID 500 MG TABLET PO SCH (12:52)
[2019-07-25] MEDS: METOPROLOL TART IMMED RELEASE 50 MG TABLET. PO SCH ×2 (12:53→21:02)
[2019-07-25] MEDS: LINAGLIPTIN 5 MG TABLET PO SCH (12:53)
[2019-07-25] MEDS: HEPARIN for SUB-Q USE 5,000 UNIT/ML VIAL. SQ SCH (13:07)
[2019-07-25] MEDS ORDERED: AMIODARONE 900 MG in IV DEXTROSE 5% 500 ML IV PRN (13:30)
[2019-07-25] MEDS ORDERED: AMIODARONE 150 MG in IV DEXTROSE 5% 100ML 100 ML IV ONE (13:30)
--- NOTE | 2019-07-25 14:30 | NUR ---
SS following up with discharge planning. Pt accepted at [facility] pending insurance determination and bed availability. SS met with pt's daughters and recommended that they have another prison unit choice in the event that a bed is not available at [facility]. Pt's daughters reported that they would discuss with family and would contact SS with second option. Pt's RN notified.
--- NOTE | 2019-07-25 15:18 | RAD ---
Single view of the chest. 07/25/2019 2:31 PM Indication: Leukocytosis Comparison: Chest radiograph July 18, 2019 Findings: There are small bilateral pleural effusions likely with mild underlying compressive atelectasis. No pneumothorax is seen. No other focal consolidative infiltrate is identified. Heart size is within normal limits given portable technique. No acute osseous changes are seen. IMPRESSION: Small bilateral pleural effusions likely with underlying compressive atelectasis. Electronically signed by: Filiberto Her MD (07/25/2019 3:15 PM) [id number]
[2019-07-25] MEDS: BISACODYL 10 MG SUPP.RECT. PR PRN (16:39)
--- NOTE | 2019-07-25 19:55 | NUR ---
pt in bed assessment completed vss poc explained family at bedside pt denies pain will resume care and continue to monitor pt.call light in reach.
[2019-07-25] MEDS: ATORVASTATIN CALCIUM 10 MG TABLET. PO SCH (21:00)
[2019-07-25] MEDS: MONTELUKAST SODIUM 10 MG TABLET. PO SCH (21:00)
[2019-07-25] MEDS: CETIRIZINE HCL 10 MG TABLET. PO SCH (21:00)
[2019-07-25] MEDS: traZODone 50 MG TABLET. PO SCH (21:00)
[2019-07-25] MEDS: APIXABAN 5 MG TABLET. PO SCH (21:02)
[2019-07-26] VITALS (10 sets, daily range): BP systolic 144–195; BP diastolic 61–96
[2019-07-26] MEDS: PIPERACILLIN/TAZOBACTAM 2.25 GM in IV NORMAL SALINE 50ML 50 ML IV SCH ×5 (00:16→22:03)
[2019-07-26] MEDS: LEVOTHYROXINE 125 MCG TABLET PO SCH (05:56)
[2019-07-26 07:02] LABS: BASO # 0.1 x10^3/uL (0.0-0.2); BASO % 1 % (0-3); EOS # 0.3 x10^3/uL (0.0-0.7); EOS % 2 % (0-3); HEMATOCRIT 33.8 % (36.0-47.0); HEMOGLOBIN 11.2 g/dL (12.0-15.5); LYMPH # 1.9 x10^3/uL (1.0-4.8); LYMPH % 11 % (24-48); MEAN CORPUSCULAR HEMOGLOBIN 32 pg (25-35); MEAN CORPUSCULAR HGB CONC 33 g/dL (31-37); MEAN CORPUSCULAR VOLUME 96 fL (79-100); MONO # 1.2 x10^3/uL (0.0-1.1); MONO % 7 % (0-9); NEUT # 13.4 x10^3/uL (1.8-7.7); NEUT % 79 % (31-73); PLATELET COUNT 220 x10^3/uL (140-400); RED BLOOD COUNT 3.51 x10^6/uL (3.50-5.40); RED CELL DISTRIBUTION WIDTH 16.4 % (11.5-14.5)
[2019-07-26] MEDS: IPRATRPIUM/ALBUTEROL 0.5/2.5MG 3 ML NEBU. NEB SCH ×2 (07:10→20:24)
[2019-07-26] MEDS: BUDESONIDE 0.5 MG/2 ML NEBU. NEB SCH ×2 (07:10→20:24)
[2019-07-26 07:37] LABS: ALBUMIN 2.9 g/dL (3.4-5.0); CALCIUM 8.6 mg/dL (8.5-10.1); CREATININE 3.5 mg/dL (0.6-1.0); GFR 12.4; TOTAL BILIRUBIN 0.5 mg/dL (0.2-1.0); TOTAL PROTEIN 5.9 g/dL (6.4-8.2)
[2019-07-26] MEDS: ASPIRIN ENTERIC COATED 81 MG TABLET.DR. PO SCH (08:56)
[2019-07-26] MEDS: APIXABAN 5 MG TABLET. PO SCH ×2 (08:57→21:03)
[2019-07-26] MEDS: DOCUSATE SODIUM 100 MG CAPSULE. PO SCH ×2 (08:57→21:00)
[2019-07-26] MEDS: FUROSEMIDE 40 MG TABLET. PO SCH (08:57)
[2019-07-26] MEDS: hydrALAZINE 25 MG TABLET PO SCH ×3 (08:57→21:03)
[2019-07-26] MEDS: LACTOBACILLUS RHAMNOSUS GG 1 CAPSULE. PO SCH ×2 (08:57→21:02)
[2019-07-26] MEDS: METOPROLOL TART IMMED RELEASE 50 MG TABLET. PO SCH ×2 (08:58→21:03)
[2019-07-26] MEDS: LINAGLIPTIN 5 MG TABLET PO SCH (08:58)
[2019-07-26] MEDS: CYANOCOBALAMIN (VITAMIN B-12) 1,000 MCG TABLET. PO SCH (08:58)
[2019-07-26] MEDS: ASCORBIC ACID 500 MG TABLET PO SCH (08:58)
--- NOTE | 2019-07-26 09:13 | PDOC ---
Infectious Disease Note Subjective Subjective pt is feeling better, up sitting in bed ROS ROS no n/v/d/ Vital Sign Vital Signs Vital Signs Date Time Temp Pulse Resp B/P (MAP) Pulse Ox O2 Delivery O2 Flow Rate FiO2 07/26/19 08:58 68 202/88 07/26/19 07:12 94 Room Air 07/26/19 02:32 98.0 18 98.0 Physical Exam PHYSICAL EXAM GENERAL: Alert, oriented female, not in distress. VITAL SIGNS: Stable, afebrile. HEENT: NAD. NECK: Supple. No JVP. No lymphadenopathy. LUNGS: Clear. HEART: S1, S2 regular. ABDOMEN: Benign. EXTREMITIES: No cyanosis. The patient does have edema; graft site is unremarkable for any infection. SKIN: Unremarkable other than edema and some bruising. NEUROLOGIC: The patient is alert, awake, appropriate. No focal neurologic deficit. Labs Lab Laboratory Tests Test 07/25/19 17:16 07/25/19 21:21 07/26/19 06:48 07/26/19 08:22 Glucose (Fingerstick) 140 mg/dL (70-99) 192 mg/dL (70-99) 157 mg/dL (70-99) White Blood Count 17.0 x10^3/uL (4.0-11.0) Red Blood Count 3.51 x10^6/uL (3.50-5.40) Hemoglobin 11.2 g/dL (12.0-15.5) Hematocrit 33.8 % (36.0-47.0) Mean Corpuscular Volume 96 fL (79-100) Mean Corpuscular Hemoglobin 32 pg (25-35) Mean Corpuscular Hemoglobin Concent 33 g/dL (31-37) Red Cell Distribution Width 16.4 % (11.5-14.5) Platelet Count 220 x10^3/uL (140-400) Neutrophils (%) (Auto) 79 % (31-73) Lymphocytes (%) (Auto) 11 % (24-48) Monocytes (%) (Auto) 7 % (0-9) Eosinophils (%) (Auto) 2 % (0-3) Basophils (%) (Auto) 1 % (0-3) Neutrophils # (Auto) 13.4 x10^3/uL (1.8-7.7) Lymphocytes # (Auto) 1.9 x10^3/uL (1.0-4.8) Monocytes # (Auto) 1.2 x10^3/uL (0.0-1.1) Eosinophils # (Auto) 0.3 x10^3/uL (0.0-0.7) Basophils # (Auto) 0.1 x10^3/uL (0.0-0.2) Sodium Level 134 mmol/L (136-145) Potassium Level 4.0 mmol/L (3.5-5.1) Chloride Level 95 mmol/L (98-107) Carbon Dioxide Level 29 mmol/L (21-32) Anion Gap 10 (6-14) Blood Urea Nitrogen 58 mg/dL (7-20) Creatinine 3.5 mg/dL (0.6-1.0) Estimated GFR (Cockcroft-Gault) 12.4 BUN/Creatinine Ratio 17 (6-20) Glucose Level 174 mg/dL (70-99) Calcium Level 8.6 mg/dL (8.5-10.1) Total Bilirubin 0.5 mg/dL (0.2-1.0) Aspartate Amino Transf (AST/SGOT) 15 U/L (15-37) Alanine Aminotransferase (ALT/SGPT) 14 U/L (14-59) Alkaline Phosphatase 56 U/L (46-116) Total Protein 5.9 g/dL (6.4-8.2) Albumin 2.9 g/dL (3.4-5.0) Albumin/Globulin Ratio 1.0 (1.0-1.7) Objective Assessment Leukocytosis, ESRD on HD CHF DM HTN Plan Plan of Care ct abd and pelvis, noted timi d/w family supportive care pt/ot LAKISHA GHOSH MD Jul 26, 2019 09:13
[2019-07-26] MEDS ORDERED: hydrALAZINE 20 MG/ML VIAL. IVP PRN (09:45)
--- NOTE | 2019-07-26 09:47 | PDOC ---
IM PROGRESS NOTES- Subjective Subjective Had blisters on the left arm better. No complaints of her fever, cough.Has severe constipation.Vomited once this AM. Objective Vitals/I&O Vital Signs Date Time Temp Pulse Resp B/P (MAP) Pulse Ox O2 Delivery O2 Flow Rate FiO2 07/26/19 08:58 68 202/88 07/26/19 07:12 94 Room Air 07/26/19 07:00 98.0 18 98.0 I & O 07/25/19 07/25/19 07/26/19 15:00 23:00 07:00 Intake Total 175 ml 330 ml 600 ml Output Total 400 ml Balance 175 ml -70 ml 600 ml Physical Exam Physical Exam GENERAL: The patient is an elderly female who is alert, oriented x 3 and in mild respiratory distress. She is anxious. EYES: Pupils reacting to light. Conjunctivae pale. Sclerae muddy. HENT: Unremarkable except for mild congestion of throat. NECK: Supple. JVP normal. No thyromegaly. Trachea midline. LUNGS: increased air entry CARDIOVASCULAR: S1, S2 regular. ABDOMEN: Soft, non tender, no guarding, no rigidity. Bowel sounds present. EXTREMITIES trace edema of both lower extremities. The patient has swelling of the left forearm because of the recent surgery for graft for dialysis access. She has blisters and redness and bruising on the left upper extremity improving. CENTRAL NERVOUS SYSTEM: Alert, oriented and anxious. Labs Laboratory Tests Test 07/25/19 17:16 07/25/19 21:21 07/26/19 06:48 07/26/19 08:22 Glucose (Fingerstick) 140 mg/dL (70-99) H 192 mg/dL (70-99) H 157 mg/dL (70-99) H White Blood Count 17.0 x10^3/uL (4.0-11.0) H Red Blood Count 3.51 x10^6/uL (3.50-5.40) Hemoglobin 11.2 g/dL (12.0-15.5) L Hematocrit 33.8 % (36.0-47.0) L Mean Corpuscular Volume 96 fL (79-100) Mean Corpuscular Hemoglobin 32 pg (25-35) Mean Corpuscular Hemoglobin Concent 33 g/dL (31-37) Red Cell Distribution Width 16.4 % (11.5-14.5) H Platelet Count 220 x10^3/uL (140-400) Neutrophils (%) (Auto) 79 % (31-73) H Lymphocytes (%) (Auto) 11 % (24-48) L Monocytes (%) (Auto) 7 % (0-9) Eosinophils (%) (Auto) 2 % (0-3) Basophils (%) (Auto) 1 % (0-3) Neutrophils # (Auto) 13.4 x10^3/uL (1.8-7.7) H Lymphocytes # (Auto) 1.9 x10^3/uL (1.0-4.8) Monocytes # (Auto) 1.2 x10^3/uL (0.0-1.1) H Eosinophils # (Auto) 0.3 x10^3/uL (0.0-0.7) Basophils # (Auto) 0.1 x10^3/uL (0.0-0.2) Sodium Level 134 mmol/L (136-145) L Potassium Level 4.0 mmol/L (3.5-5.1) Chloride Level 95 mmol/L (98-107) L Carbon Dioxide Level 29 mmol/L (21-32) Anion Gap 10 (6-14) Blood Urea Nitrogen 58 mg/dL (7-20) H Creatinine 3.5 mg/dL (0.6-1.0) H Estimated GFR (Cockcroft-Gault) 12.4 BUN/Creatinine Ratio 17 (6-20) Glucose Level 174 mg/dL (70-99) H Calcium Level 8.6 mg/dL (8.5-10.1) Total Bilirubin 0.5 mg/dL (0.2-1.0) Aspartate Amino Transferase (AST) 15 U/L (15-37) Alanine Aminotransferase (ALT) 14 U/L (14-59) Alkaline Phosphatase 56 U/L (46-116) Total Protein 5.9 g/dL (6.4-8.2) L Albumin 2.9 g/dL (3.4-5.0) L Albumin/Globulin Ratio 1.0 (1.0-1.7) Laboratory Tests 07/26/19 06:48 Laboratory Tests 07/26/19 06:48 Meds Current Medications Medications (Trade) Dose Ordered Sig/Cate Route PRN Reason Start Time Stop Time Status Last Admin Dose Admin Amiodarone HCl 150 mg/Dextrose 103 ml @ 600 mls/hr 1X ONCE IV 07/25/19 13:30 07/25/19 13:40 DC 07/25/19 14:13 Amiodarone HCl 900 mg/Dextrose 518 ml @ 0 mls/hr CONT PRN IV SEE I/O RECORD 07/25/19 13:30 07/26/19 13:29 07/25/19 14:13 Apixaban (Eliquis) 2.5 mg BID PO 07/25/19 21:00 07/26/19 08:57 Albuterol/ Ipratropium (Duoneb) 3 ml BID NEB 07/25/19 21:00 07/26/19 07:10 Assessment Assessment 1. Acute hypoxic respiratory failure. 2. Acute on chronic diastolic congestive heart failure. 3. End-stage renal disease. 4. Asthma with mild exacerbation. 5. Allergic rhinitis. 6. Anxiety. 7. Urinary tract infection. 8. Diabetes mellitus type 2 with diabetic nephropathy. 9. Diabetic polyneuropathy. 10. Chronic gout. 11. Hypertension. 12. Mixed hyperlipidemia. PLAN: Day #2 dialysis. doing well. less sob . cr 3.3. home ? tue/tue. Consult Dr. Rao for nephrology evaluation and management, Dr. Elizondo for cardiology evaluation and management. The patient was given 1 dose of IV Rocephin today. I will readjust it tomorrow. We will resume home medications including the blood pressure medications. The patient was given one dose of IV Lasix in the Emergency Room and she had taken her morning dose also. Medication Nurse felt that more Lasix may not be beneficial at this time. I will give her low dose morphine 1 mg and give her breathing treatment and also Pulmicort breathing treatment to see if this would help her breathing and relieve the pressure on her chest. For details, please refer to the orders. Hopefully tomorrow if she does not respond, will need dialysis. Condition and treatment extensively discussed with multiple children. For details, please refer to the orders. UTI- adjust the dose of Rocephin due to end-stage renal disease. Diabetes- stable End-stage renal disease- patient had the graft placed on july about 11 days old. She has a quick AVG. Condition treatment options discussed with the patient and the family. Hypertension- not controlled.Now on Amiodarone and Eliquis for PAF. Echocardiogram The left ventricle is normal size. The left ventricular systolic function is normal and the ejection fraction is within normal range. Ejection fraction 55-60%. There is borderline concentric left ventricular hypertrophy. Doppler and Color Flow revealed no significant aortic regurgitation. There is no significant aortic valvular stenosis. Doppler and Color-flow revealed trace to mild mitral regurgitation. Doppler and Color Flow revealed mild tricuspid regurgitation. Estimated PAP 48 mmHg. Mild exacerbation of asthma improving. Anxiety improving. Weakness- PT/OT Leukocytosis- WBC count is 17. This may be due to reaction to the tape with blisters on the left upper extremity. Patient is on Rocephin. I will order venous Doppler of the left upper extremity. D/w Dr. Lucian Goode.On IV Zosyn. CT abd/pelvis. Impression: Small pleural effusions. Minimal adjacent atelectasis. Very minimal perihepatic ascites. Distention of the duodenum is mild with suggestion of surrounding stranding. Correlate for possibility of duodenitis. No loculated collection within the abdomen or pelvis. Diverticulosis. Venous doppler of left upper extremity is negative for DVT.Graft is patent. Order Chest x ray- no infiltrates,small pleural effusion. D/w family. SNF when ready. Plan Plan For more details regarding further plans, please refer to the orders. HIRA BELTRE MD Jul 26, 2019 09:47
--- NOTE | 2019-07-26 11:59 | PDOC ---
Renal-Progress Notes Subjective Notes Notes CONSTIPATION History of Present Illness Hx of present illness STABLE Vitals Vitals Vital Signs Date Time Temp Pulse Resp B/P (MAP) Pulse Ox O2 Delivery O2 Flow Rate FiO2 07/26/19 11:05 98.2 65 18 150/96 (114) 95 Room Air 98.2 Weight Weight [ ] I.O. Intake and Output Intake and Output 07/26/19 07:00 Intake Total 1105 ml Output Total 400 ml Balance 705 ml Intake Oral 1105 ml Output Urine Total 400 ml # Voids 2 # Bowel Movements 1 Labs Labs Laboratory Tests Test 07/25/19 17:16 07/25/19 21:21 07/26/19 06:48 07/26/19 08:22 Glucose (Fingerstick) 140 mg/dL (70-99) 192 mg/dL (70-99) 157 mg/dL (70-99) White Blood Count 17.0 x10^3/uL (4.0-11.0) Red Blood Count 3.51 x10^6/uL (3.50-5.40) Hemoglobin 11.2 g/dL (12.0-15.5) Hematocrit 33.8 % (36.0-47.0) Mean Corpuscular Volume 96 fL (79-100) Mean Corpuscular Hemoglobin 32 pg (25-35) Mean Corpuscular Hemoglobin Concent 33 g/dL (31-37) Red Cell Distribution Width 16.4 % (11.5-14.5) Platelet Count 220 x10^3/uL (140-400) Neutrophils (%) (Auto) 79 % (31-73) Lymphocytes (%) (Auto) 11 % (24-48) Monocytes (%) (Auto) 7 % (0-9) Eosinophils (%) (Auto) 2 % (0-3) Basophils (%) (Auto) 1 % (0-3) Neutrophils # (Auto) 13.4 x10^3/uL (1.8-7.7) Lymphocytes # (Auto) 1.9 x10^3/uL (1.0-4.8) Monocytes # (Auto) 1.2 x10^3/uL (0.0-1.1) Eosinophils # (Auto) 0.3 x10^3/uL (0.0-0.7) Basophils # (Auto) 0.1 x10^3/uL (0.0-0.2) Sodium Level 134 mmol/L (136-145) Potassium Level 4.0 mmol/L (3.5-5.1) Chloride Level 95 mmol/L (98-107) Carbon Dioxide Level 29 mmol/L (21-32) Anion Gap 10 (6-14) Blood Urea Nitrogen 58 mg/dL (7-20) Creatinine 3.5 mg/dL (0.6-1.0) Estimated GFR (Cockcroft-Gault) 12.4 BUN/Creatinine Ratio 17 (6-20) Glucose Level 174 mg/dL (70-99) Calcium Level 8.6 mg/dL (8.5-10.1) Total Bilirubin 0.5 mg/dL (0.2-1.0) Aspartate Amino Transf (AST/SGOT) 15 U/L (15-37) Alanine Aminotransferase (ALT/SGPT) 14 U/L (14-59) Alkaline Phosphatase 56 U/L (46-116) Total Protein 5.9 g/dL (6.4-8.2) Albumin 2.9 g/dL (3.4-5.0) Albumin/Globulin Ratio 1.0 (1.0-1.7) Review of Systems Constitutional: yes: weakness, alert, oriented Ears/Nose/Throat: Yes: no symptom reported Eyes: Yes: no symptom reported Pulmonary: Yes dyspnea Cardiovascular: Yes edema Gastrointestional: Yes: no symptom reported Genitourinary: Yes: no symptom reported Musculoskeletal: Yes: no symptom reported, muscle stiffness Skin: Yes no symptom reported Psychiatric/Neurological: Yes: no symptom reported Endocrine: Yes: no symptom reported Physical Exam General Appearance: no apparent distress Skin: warm Respiratory: decreased breath sounds Heart: S1S2 Abdomen: soft, bowel sounds present Genitourinary: bladder flat Extremities: pulses present, edema Neurology: alert, oriented, follow commands Assessment Assessment IMP NEW ESRD ACUTE HYPOXIC RESP FAILURE ACUTE ON CHRONIC D CHF ANEMIA UTI DM II HTN UREMIA LE EDEMA DECONDITIONING NEW LEUCOCYTOSIS PLAN CONT LASIX ARANESP HD [place] OP HD HAS BEEN SET UP TO MWF AT 3 PM AT [facility] IN THE [facility] AREA PER FAMILY REQUEST NEEDS THERAPY PP TRANSFER SOON CT ABD AND PELVIS NEG D/W DR GHOSH UPDATED FAMILY LACTULOSE FOR CONSTIPATION LURDES GANDARA MD Jul 26, 2019 11:59
[2019-07-26] MEDS ORDERED: LACTULOSE 20 GM/30 ML SOLUTION. PO ONE (12:15)
[2019-07-26] MEDS: AMIODARONE HCL 200 MG TABLET. PO SCH (14:38)
--- NOTE | 2019-07-26 20:58 | PDOC ---
PROGRESS NOTES Subjective Subjective c/o gen fatigue Objective Objective Vital Signs Date Time Temp Pulse Resp B/P (MAP) Pulse Ox O2 Delivery O2 Flow Rate FiO2 07/26/19 20:26 100 Room Air 07/26/19 19:00 98.0 66 18 153/70 (97) 98.0 Intake and Output 07/26/19 07:00 Intake Total 1105 ml Output Total 400 ml Balance 705 ml Intake Oral 1105 ml Output Urine Total 400 ml # Voids 2 # Bowel Movements 1 Physical Exam Abdomen: Normal bowel sounds, Soft, No tenderness Extremities: No edema General: Alert HEENT: Atraumatic Lungs: Other (clear anteriorly) Neuro: Normal speech Psych/Mental Status: Mental status NL Skin: No rashes Assessment Assessment 1. Acute on chronic diastolic HF; much better compensated with fluid removal with HD. Echo showed preserved LV systolic function. \ 2. Hypertension; BP elevated this morning but better controlled now 3. Chest pain, atypical; most probably secondary to above. Echo without WMA. Plan outpatient ischemic evaluation 4. Hyperlipidemia; statin. LDL 50 5. Diabetes, II; as per PCP 6. ESRD on HD 7. Hypothyroidism 8. UTI; as per PCP 9. PAFIB with freq paroxysms, started on amiodarone and eliquis yesterday. Presently in SR Plan Plan of Care Problems Medical Problems: (1) Acute on chronic diastolic (congestive) heart failure Status: Acute (2) Acute respiratory failure with hypoxia Status: Acute (3) Asthma exacerbation, mild Status: Acute (4) CHF exacerbation Status: Acute (5) Diabetes mellitus with neuropathy Status: Chronic (6) End stage renal disease Status: Acute (7) ESRD (end stage renal disease) Status: Chronic (8) Gout Status: Chronic (9) Hypertension Status: Chronic (10) Mixed hyperlipidemia Status: Chronic (11) UTI (urinary tract infection) Status: Acute Comment Review of Relevant I have reviewed the following items james (where applicable) has been applied. Labs Laboratory Tests Test 07/25/19 21:21 07/26/19 06:48 07/26/19 08:22 07/26/19 17:22 Glucose (Fingerstick) 192 mg/dL (70-99) 157 mg/dL (70-99) 199 mg/dL (70-99) White Blood Count 17.0 x10^3/uL (4.0-11.0) Red Blood Count 3.51 x10^6/uL (3.50-5.40) Hemoglobin 11.2 g/dL (12.0-15.5) Hematocrit 33.8 % (36.0-47.0) Mean Corpuscular Volume 96 fL (79-100) Mean Corpuscular Hemoglobin 32 pg (25-35) Mean Corpuscular Hemoglobin Concent 33 g/dL (31-37) Red Cell Distribution Width 16.4 % (11.5-14.5) Platelet Count 220 x10^3/uL (140-400) Neutrophils (%) (Auto) 79 % (31-73) Lymphocytes (%) (Auto) 11 % (24-48) Monocytes (%) (Auto) 7 % (0-9) Eosinophils (%) (Auto) 2 % (0-3) Basophils (%) (Auto) 1 % (0-3) Neutrophils # (Auto) 13.4 x10^3/uL (1.8-7.7) Lymphocytes # (Auto) 1.9 x10^3/uL (1.0-4.8) Monocytes # (Auto) 1.2 x10^3/uL (0.0-1.1) Eosinophils # (Auto) 0.3 x10^3/uL (0.0-0.7) Basophils # (Auto) 0.1 x10^3/uL (0.0-0.2) Sodium Level 134 mmol/L (136-145) Potassium Level 4.0 mmol/L (3.5-5.1) Chloride Level 95 mmol/L (98-107) Carbon Dioxide Level 29 mmol/L (21-32) Anion Gap 10 (6-14) Blood Urea Nitrogen 58 mg/dL (7-20) Creatinine 3.5 mg/dL (0.6-1.0) Estimated GFR (Cockcroft-Gault) 12.4 BUN/Creatinine Ratio 17 (6-20) Glucose Level 174 mg/dL (70-99) Calcium Level 8.6 mg/dL (8.5-10.1) Total Bilirubin 0.5 mg/dL (0.2-1.0) Aspartate Amino Transf (AST/SGOT) 15 U/L (15-37) Alanine Aminotransferase (ALT/SGPT) 14 U/L (14-59) Alkaline Phosphatase 56 U/L (46-116) Total Protein 5.9 g/dL (6.4-8.2) Albumin 2.9 g/dL (3.4-5.0) Albumin/Globulin Ratio 1.0 (1.0-1.7) Medications Current Medications Albuterol/ Ipratropium (Duoneb) 3 ml BID NEB Last administered on 07/26/19at 20:24; Start 07/25/19 at 21:00 Amiodarone HCl (Cordarone) 200 mg DAILY PO Last administered on 07/26/19at 14:38; Start 07/26/19 at 14:15 Apixaban (Eliquis) 2.5 mg BID PO Last administered on 07/26/19at 08:57; Start 07/25/19 at 21:00 Darbepoetin Bryan (ARANESP for DIALYSIS PTS) 60 mcg WEEKLYHS SQ ; Start 07/28/19 at 21:00 Hydralazine HCl (Apresoline Inj) 10 mg PRN Q4HRS PRN IVP ELEVATED BP, SEE COMMENTS Last administered on 07/26/19at 09:58; Start 07/26/19 at 09:45 Lactulose (Lactulose) 30 gm 1X ONCE PO Last administered on 07/26/19at 12:59; Start 07/26/19 at 12:15; Stop 07/26/19 at 12:20; Status DC Piperacillin Sod/ Tazobactam Sod 2.25 gm/Sodium Chloride 50 ml @ 100 mls/hr Q8HRS IV Last administered on 07/26/19at 16:13; Start 07/26/19 at 16:00 Vitals/I & O Vital Sign - Last 24 Hours 07/25/19 07/25/19 07/25/19 07/25/19 21:01 21:02 22:15 23:30 Pulse 91 107 96 66 B/P (MAP) 155/65 155/65 154/67 (96) 141/64 (89) 07/25/19 07/26/19 07/26/19 07/26/19 23:31 01:15 02:15 02:32 Temp 97.6 98.0 97.6 98.0 Pulse 70 64 66 66 Resp 17 18 B/P (MAP) 141/64 (89) 144/66 (92) 152/70 (97) 145/66 (92) Pulse Ox 95 96 O2 Delivery Room Air Room Air 07/26/19 07/26/19 07/26/19 07/26/19 04:10 06:15 07:00 07:12 Temp 98.0 98.0 Pulse 64 68 66 Resp 18 B/P (MAP) 175/69 (104) 195/81 (119) 179/61 (100) Pulse Ox 96 94 O2 Delivery Room Air Room Air 07/26/19 07/26/19 07/26/19 07/26/19 08:00 08:57 08:58 09:58 Pulse 68 68 68 B/P (MAP) 202/88 202/88 197/86 O2 Delivery Room Air 07/26/19 07/26/19 07/26/19 07/26/19 11:05 14:38 14:38 15:16 Temp 98.2 98.1 98.2 98.1 Pulse 65 65 65 64 Resp 18 18 B/P (MAP) 150/96 (114) 150/96 150/96 168/74 (105) Pulse Ox 95 95 O2 Delivery Room Air Room Air 07/26/19 07/26/19 07/26/19 19:00 20:26 20:26 Temp 98.0 98.0 Pulse 66 Resp 18 B/P (MAP) 153/70 (97) Pulse Ox 98 100 100 O2 Delivery Room Air Room Air Room Air Intake and Output 07/25/19 07/25/19 07/26/19 15:00 23:00 07:00 Intake Total 175 ml 330 ml 600 ml Output Total 400 ml Balance 175 ml -70 ml 600 ml LEVON BILLINGS MD Jul 26, 2019 20:58
[2019-07-26] MEDS: traZODone 50 MG TABLET. PO SCH (21:02)
[2019-07-26] MEDS: CETIRIZINE HCL 10 MG TABLET. PO SCH (21:02)
[2019-07-26] MEDS: MONTELUKAST SODIUM 10 MG TABLET. PO SCH (21:02)
[2019-07-26] MEDS: ATORVASTATIN CALCIUM 10 MG TABLET. PO SCH (21:02)
[2019-07-27] VITALS (19 sets, daily range): BP systolic 58–138; BP diastolic 24–61
[2019-07-27 05:36] LABS: FECAL OB PT POSITIVE (NEG)
[2019-07-27] MEDS: LEVOTHYROXINE 125 MCG TABLET PO SCH (06:16)
[2019-07-27] MEDS: PIPERACILLIN/TAZOBACTAM 2.25 GM in IV NORMAL SALINE 50ML 50 ML IV SCH ×2 (06:16→14:00)
[2019-07-27] MEDS ORDERED: IV NORMAL SALINE 1000ML BAG 1,000 ML IV PRN ×2 (06:30)
[2019-07-27] MEDS: BUDESONIDE 0.5 MG/2 ML NEBU. NEB SCH ×2 (08:00→20:00)
[2019-07-27] MEDS ORDERED: DIALYSIS PATIENT. MC PRN ×2 (08:30)
[2019-07-27] MEDS: FUROSEMIDE 40 MG TABLET. PO SCH (09:00)
[2019-07-27] MEDS: ASCORBIC ACID 500 MG TABLET PO SCH (09:00)
[2019-07-27] MEDS: hydrALAZINE 25 MG TABLET PO SCH ×3 (09:00→21:00)
[2019-07-27] MEDS: CYANOCOBALAMIN (VITAMIN B-12) 1,000 MCG TABLET. PO SCH (09:00)
[2019-07-27] MEDS: IPRATRPIUM/ALBUTEROL 0.5/2.5MG 3 ML NEBU. NEB SCH ×3 (09:00→20:59)
[2019-07-27] MEDS: LACTOBACILLUS RHAMNOSUS GG 1 CAPSULE. PO SCH ×2 (09:00→21:00)
[2019-07-27] MEDS: DOCUSATE SODIUM 100 MG CAPSULE. PO SCH ×2 (09:00→21:00)
--- NOTE | 2019-07-27 09:15 | PDOC ---
Infectious Disease Note Subjective Subjective pt is feeling good, in HD she was reportedly had rectal bleed ROS ROS no n/v/d/ Vital Sign Vital Signs Vital Signs Date Time Temp Pulse Resp B/P (MAP) Pulse Ox O2 Delivery O2 Flow Rate FiO2 07/27/19 04:15 66 124/44 (70) 07/27/19 03:36 98.4 16 96 Room Air 98.4 Physical Exam PHYSICAL EXAM GENERAL: Alert, oriented female, not in distress. VITAL SIGNS: Stable, afebrile. HEENT: NAD. NECK: Supple. No JVP. No lymphadenopathy. LUNGS: Clear. HEART: S1, S2 regular. ABDOMEN: Benign. EXTREMITIES: No cyanosis. The patient does have edema; graft site is unremarkable for any infection. SKIN: Unremarkable other than edema and some bruising. NEUROLOGIC: The patient is alert, awake, appropriate. No focal neurologic deficit. Labs Lab Laboratory Tests Test 07/26/19 17:22 07/26/19 21:01 07/27/19 05:00 Glucose (Fingerstick) 199 mg/dL (70-99) 158 mg/dL (70-99) Stool Occult Blood Positive (NEG) Objective Assessment Leukocytosis, ESRD on HD CHF DM HTN Plan Plan of Care ct abd and pelvis, noted timi d/w Dr Garg wbc pending today rectal bleeding ? etiology, supportive care pt/ot LAKISHA GHOSH MD Jul 27, 2019 09:15
--- NOTE | 2019-07-27 09:37 | PDOC ---
IM PROGRESS NOTES- Subjective Subjective Had bowel movements yesterday. 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 She also has rectal bleeding. Objective Vitals/I&O Vital Signs Date Time Temp Pulse Resp B/P (MAP) Pulse Ox O2 Delivery O2 Flow Rate FiO2 07/27/19 04:15 66 124/44 (70) 07/27/19 03:36 98.4 16 96 Room Air 98.4 I & O 07/26/19 07/26/19 07/27/19 15:00 23:00 07:00 Intake Total 100 ml 220 ml 110 ml Output Total 200 ml Balance 100 ml 220 ml -90 ml Physical Exam Physical Exam GENERAL: The patient is an elderly female who is alert, oriented x 3 and in mild respiratory distress. She is anxious. EYES: Pupils reacting to light. Conjunctivae pale. Sclerae muddy. HENT: Unremarkable except for mild congestion of throat. NECK: Supple. JVP normal. No thyromegaly. Trachea midline. LUNGS: increased air entry CARDIOVASCULAR: S1, S2 regular. ABDOMEN: Soft, non tender, no guarding, no rigidity. Bowel sounds present. EXTREMITIES trace edema of both lower extremities. The patient has swelling of the left forearm because of the recent surgery for graft for dialysis access. She has blisters and redness and bruising on the left upper extremity improving. CENTRAL NERVOUS SYSTEM: Alert, oriented and anxious. Labs Laboratory Tests Test 07/26/19 17:22 07/26/19 21:01 07/27/19 05:00 Glucose (Fingerstick) 199 mg/dL (70-99) H 158 mg/dL (70-99) H Stool Occult Blood Positive (NEG) Meds Current Medications Medications (Trade) Dose Ordered Sig/Cate Route PRN Reason Start Time Stop Time Status Last Admin Dose Admin Hydralazine HCl (Apresoline Inj) 10 mg PRN Q4HRS PRN IVP ELEVATED BP, SEE COMMENTS 07/26/19 09:45 07/26/19 09:58 Lactulose (Lactulose) 30 gm 1X ONCE PO 07/26/19 12:15 07/26/19 12:20 DC 07/26/19 12:59 Amiodarone HCl (Cordarone) 200 mg DAILY PO 07/26/19 14:15 07/26/19 14:38 Piperacillin Sod/ Tazobactam Sod 2.25 gm/Sodium Chloride 50 ml @ 100 mls/hr Q8HRS IV 07/26/19 16:00 07/27/19 06:16 Assessment Assessment 1. Acute hypoxic respiratory failure. 2. Acute on chronic diastolic congestive heart failure. 3. End-stage renal disease. 4. Asthma with mild exacerbation. 5. Allergic rhinitis. 6. Anxiety. 7. Urinary tract infection. 8. Diabetes mellitus type 2 with diabetic nephropathy. 9. Diabetic polyneuropathy. 10. Chronic gout. 11. Hypertension. 12. Mixed hyperlipidemia. PLAN: Day #2 dialysis. doing well. less sob . cr 3.3. home ? tue/tue. Consult Dr. Rao for nephrology evaluation and management, Dr. Elizondo for cardiology evaluation and management. The patient was given 1 dose of IV Rocephin today. I will readjust it tomorrow. We will resume home medications including the blood pressure medications. The patient was given one dose of IV Lasix in the Emergency Room and she had taken her morning dose also. Chief Of Police felt that more Lasix may not be beneficial at this time. I will give her low dose morphine 1 mg and give her breathing treatment and also Pulmicort breathing treatment to see if this would help her breathing and relieve the pressure on her chest. For details, please refer to the orders. Hopefully tomorrow if she does not respond, will need dialysis. Condition and treatment extensively discussed with multiple children. For details, please refer to the orders. UTI- adjust the dose of Rocephin due to end-stage renal disease. Diabetes- stable End-stage renal disease- patient had the graft placed on july about 11 days old. She has a quick AVG. Condition treatment options discussed with the patient and the family. Hypertension- not controlled.Now on Amiodarone and Eliquis for PAF. Echocardiogram The left ventricle is normal size. The left ventricular systolic function is normal and the ejection fraction is within normal range. Ejection fraction 55-60%. There is borderline concentric left ventricular hypertrophy. Doppler and Color Flow revealed no significant aortic regurgitation. There is no significant aortic valvular stenosis. Doppler and Color-flow revealed trace to mild mitral regurgitation. Doppler and Color Flow revealed mild tricuspid regurgitation. Estimated PAP 48 mmHg. Mild exacerbation of asthma improving. Anxiety improving. Weakness- PT/OT Leukocytosis- WBC count is 17. This may be due to reaction to the tape with blisters on the left upper extremity. Patient is on Rocephin. I will order venous Doppler of the left upper extremity. D/w Dr. Lucian Goode.On IV Zosyn. CT abd/pelvis. Impression: Small pleural effusions. Minimal adjacent atelectasis. Very minimal perihepatic ascites. Distention of the duodenum is mild with suggestion of surrounding stranding. Correlate for possibility of duodenitis. No loculated collection within the abdomen or pelvis. Diverticulosis. Venous doppler of left upper extremity is negative for DVT.Graft is patent. Chest x ray- no infiltrates,small pleural effusion. Rectal bleeding likely due to constipation and Apixaban. Discontinue Apixaban. Hold aspirin for now Syncope blood pressure was lower. Discussed with dialysis nurse. Today's labs are pending. Plan Plan For more details regarding further plans, please refer to the orders. HIRA BELTRE MD Jul 27, 2019 09:37
--- NOTE | 2019-07-27 10:02 | NUR ---
SS following up with discharge planning. Pt accepted at [facility], ; fax [phone]. Pt has OPHD chair time scheduled at [facility] SS will continue to follow for discharge planning.
[2019-07-27] MEDS ORDERED: FLU VAX QS 2019-20 (36MOS+)/PF 0.5 ML SYRINGE. VAX IM ONE (11:00)
--- NOTE | 2019-07-27 11:34 | PDOC ---
Renal-Progress Notes Subjective Notes Notes FEELING BETTER AFTER BM History of Present Illness Hx of present illness STABLE Vitals Vitals Vital Signs Date Time Temp Pulse Resp B/P (MAP) Pulse Ox O2 Delivery O2 Flow Rate FiO2 07/27/19 04:15 66 124/44 (70) 07/27/19 03:36 98.4 16 96 Room Air 98.4 Weight Weight [ ] I.O. Intake and Output Intake and Output 07/27/19 07:00 Intake Total 430 ml Output Total 200 ml Balance 230 ml Intake Oral 260 ml IV Total 170 ml Urine/Stool Mix 200 ml # Voids 1 # Bowel Movements 4 Labs Labs Laboratory Tests Test 07/26/19 17:22 07/26/19 21:01 07/27/19 05:00 Glucose (Fingerstick) 199 mg/dL (70-99) 158 mg/dL (70-99) Stool Occult Blood Positive (NEG) Review of Systems Constitutional: yes: weakness, alert, oriented Ears/Nose/Throat: Yes: no symptom reported Eyes: Yes: no symptom reported Pulmonary: Yes dyspnea Cardiovascular: Yes edema Gastrointestional: Yes: no symptom reported Genitourinary: Yes: no symptom reported Musculoskeletal: Yes: no symptom reported, muscle stiffness Skin: Yes no symptom reported Psychiatric/Neurological: Yes: no symptom reported Endocrine: Yes: no symptom reported Physical Exam General Appearance: no apparent distress Skin: warm Respiratory: decreased breath sounds Heart: S1S2 Abdomen: soft, bowel sounds present Genitourinary: bladder flat Extremities: pulses present, edema Neurology: alert, oriented, follow commands Assessment Assessment IMP NEW ESRD ACUTE HYPOXIC RESP FAILURE ACUTE ON CHRONIC D CHF ANEMIA UTI DM II HTN UREMIA LE EDEMA DECONDITIONING NEW LEUCOCYTOSIS CONSTIPATION-HAD BM LAST NIGHT PLAN CONT LASIX ARANESP HD TODAY UF TO DW OP HD HAS BEEN SET UP TO MWF AT 3 PM AT [facility] IN THE [facility] ARE[facility] PER FAMILY REQUEST NEEDS THERAPY PP TRANSFER SOON CT ABD AND PELVIS NEG WILL FOLLOW LURDES GANDARA MD Jul 27, 2019 11:34
--- NOTE | 2019-07-27 12:22 | PDOC2 ---
GI CONSULT Reason For Consult: Rectal bleeding HPI: HPI: Pleasant 84 y/o female admitted 07/18/19 w/ SOA - has CHF, ESRD (new HD), and intermittent A Fib. Reviewed w/ nurse. GI-christopher, had not stooled for awhile so received lactulose and then had a a loose brown stool w/ red blood at 4:00 a.m. Not surprisingly, Hemoccult was positive. Hgb stable (10.2 when admitted w/ MCV 96, went up to 12.3, now 11.2).After, BP dropped a little but then rebounded. Additionally has had some n/v - better if spreads pills out throughout the day and w/ Compazine. Not a great appetite. I saw her in dialysis. Says she saw a little red blood and has had some lower abdominal cramping. No reflux/heartburn, dysphagia, chronic nausea or abd pain, chronic diarrhea, or change in weight. H/o intermittent constipation improved w/ dietary changes (more fruit). No previous EGD. Colonoscopy for screening in 10/2005 showed small non-bleeding internal hemorrhoids. S/p cholecystectomy for stones. No liver, pancreas, or PUD history. Getting B12, amiodarone, and ASA here. Also looks like received Eliquis. PMH: PMH: HTN, HLD, CHF, DM, OA, RA (previously on Humira), gout, hypothyroidism, ost eoporosis cholecystectomy, cataract removal, hysterectomy, AV fistula FH: Family History: Cancer (brothers - lung) Social History: Smoke: No ALCOHOL: none Drugs: None ROS: GEN: Denies fevers, chills, sweats HEENT: Denies blurred vision, sore throat CV: Denies chest pain RESP: Denies shortness of air, cough GI: Per HPI : Denies hematuria, dysuria ENDO: Denies weight changes NEURO: Denies confusion, dizziness MSK: Denies weakness, joint pain/swelling SKIN: Denies jaundice, pruritus Vitals: Vitals: Vital Signs Date Time Temp Pulse Resp B/P (MAP) Pulse Ox O2 Delivery O2 Flow Rate FiO2 07/27/19 04:15 66 124/44 (70) 07/27/19 03:36 98.4 16 96 Room Air 98.4 Labs: Labs: Laboratory Tests Test 07/26/19 17:22 07/26/19 21:01 07/27/19 05:00 07/27/19 10:33 Glucose (Fingerstick) 199 mg/dL (70-99) 158 mg/dL (70-99) 123 mg/dL (70-99) Stool Occult Blood Positive (NEG) Test 07/27/19 11:36 Glucose (Fingerstick) 145 mg/dL (70-99) Allergies: Coded Allergies: Sulfa (Sulfonamide Antibiotics) (Verified Allergy, Severe, Swelling, 07/05/19) Medications: Current Medications Medications (Trade) Dose Ordered Sig/Cate Route PRN Reason Start Time Stop Time Status Last Admin Dose Admin Lactulose (Lactulose) 30 gm 1X ONCE PO 07/26/19 12:15 07/26/19 12:20 DC 07/26/19 12:59 Amiodarone HCl (Cordarone) 200 mg DAILY PO 07/26/19 14:15 07/26/19 14:38 Piperacillin Sod/ Tazobactam Sod 2.25 gm/Sodium Chloride 50 ml @ 100 mls/hr Q8HRS IV 07/26/19 16:00 07/27/19 06:16 Imaging: Imaging: CXR 07/25 IMPRESSION: Small bilateral pleural effusions likely with underlying compressive atelectasis. CT A/P 07/25 Impression: Small pleural effusions. Minimal adjacent atelectasis. Very minimal perihepatic ascites. Distention of the duodenum is mild with suggestion of surrounding stranding. Cor relate for possibility of duodenitis. No loculated collection within the abdomen or pelvis. Diverticulosis. UE US 07/22 IMPRESSION: No Doppler evidence of upper extremity venous thrombosis. Patent dialysis graft. Echocardiogram <Conclusion> The left ventricle is normal size. The left ventricular systolic function is normal and the ejection fraction is within normal range. Ejection fraction 55-60%. There is borderline concentric left ventricular hypertrophy. Doppler and Color Flow revealed no significant aortic regurgitation. There is no significant aortic valvular stenosis. Doppler and Color-flow revealed trace to mild mitral regurgitation. Doppler and Color Flow revealed mild tricuspid regurgitation. Estimated PAP 48 mmHg. PE: GEN: NAD - dialyzing HEENT: Atraumatic, PERRL LUNGS: CTAB HEART: RRR ABD: NABS, S/ND/NT EXTREMITY: No edema SKIN: No rashes, no jaundice NEURO/PSYCH: A & O 3 A/P: A/P: ESRD on HD, A Fib, CHF Leukocytosis, anemia Loose stool w/ rectal bleeding - after lactulose for constipation Nausea, decreased appetite CRC screen - 2005 Diverticulosis, hemorrhoids S/p cholecystectomy -- Will review CT findings ("duodenitis") from earlier this week w/ Dr. Hernandes. Add PPI and monitor for now. After I saw, nurse called to report another stool - this time black with red tinge and smells like blood. Will recheck Hgb. JUAN MUHAMMAD Jul 27, 2019 12:22
[2019-07-27] MEDS: LINAGLIPTIN 5 MG TABLET PO SCH (13:17)
[2019-07-27] MEDS: AMIODARONE HCL 200 MG TABLET. PO SCH (13:18)
[2019-07-27] MEDS: METOPROLOL TART IMMED RELEASE 50 MG TABLET. PO SCH ×2 (13:19→21:00)
[2019-07-27 13:26] LABS: BASO % 0 % (0-3); EOS # 0.2 x10^3/uL (0.0-0.7); EOS % 1 % (0-3); HEMATOCRIT 23.2 % (36.0-47.0); HEMOGLOBIN 7.6 g/dL (12.0-15.5); LYMPH % 13 % (24-48); MEAN CORPUSCULAR HEMOGLOBIN 32 pg (25-35); MEAN CORPUSCULAR HGB CONC 33 g/dL (31-37); MEAN CORPUSCULAR VOLUME 96 fL (79-100); MONO # 1.1 x10^3/uL (0.0-1.1); MONO % 7 % (0-9); NEUT # 12.6 x10^3/uL (1.8-7.7); NEUT % 79 % (31-73); PLATELET COUNT 206 x10^3/uL (140-400); RED BLOOD COUNT 2.41 x10^6/uL (3.50-5.40); RED CELL DISTRIBUTION WIDTH 16.2 % (11.5-14.5); WHITE BLOOD COUNT 15.9 x10^3/uL (4.0-11.0)
[2019-07-27 13:28] LABS: CALCIUM 8.1 mg/dL (8.5-10.1); CREATININE 2.3 mg/dL (0.6-1.0); GFR 20.2; POTASSIUM 3.8 mmol/L (3.5-5.1)
--- NOTE | 2019-07-27 13:33 | PDOC ---
CARDIO Progress Notes Date and Time Date of Service 07/27/2019 Time of Evaluation 1320 Subjective Subjective: No Chest Pain, No shortness of breath, No Palpitations Vitals Vitals Vital Signs Date Time Temp Pulse Resp B/P (MAP) Pulse Ox O2 Delivery O2 Flow Rate FiO2 07/27/19 13:19 81 133/61 07/27/19 03:36 98.4 16 96 Room Air 98.4 Weight Weight [ ] Input and Output Intake and Output Intake and Output 07/27/19 07:00 Intake Total 430 ml Output Total 200 ml Balance 230 ml Intake Oral 260 ml IV Total 170 ml Urine/Stool Mix 200 ml # Voids 1 # Bowel Movements 4 Laboratory Labs Laboratory Tests Test 07/26/19 17:22 07/26/19 21:01 07/27/19 05:00 07/27/19 10:33 Glucose (Fingerstick) 199 mg/dL (70-99) 158 mg/dL (70-99) 123 mg/dL (70-99) Stool Occult Blood Positive (NEG) Test 07/27/19 11:36 Glucose (Fingerstick) 145 mg/dL (70-99) Review of Systems Constitutional: yes: weakness, alert, oriented Ears/Nose/Throat: Yes: no symptom reported Eyes: Yes: no symptom reported Pulmonary: Yes dyspnea Cardiovascular: Yes edema Gastrointestional: Yes: no symptom reported Genitourinary: Yes: no symptom reported Musculoskeletal: Yes: no symptom reported, muscle stiffness Skin: Yes no symptom reported Psychiatric/Neurological: Yes: no symptom reported Endocrine: Yes: no symptom reported Physical Exam HEENT: Neck Supple W Full Motion Chest: Symmetric LUNGS: Other (diminished bases) Heart: irregularly irregular (SR with AFIB paroxysms) Abdomen: Soft N/T Extremities: Other (trace bilateral LE edema ) Neurology: alert, oriented, follow commands Assessment Assessment 1. Acute on chronic diastolic CHF; compensated 2. Hypertension: controlled 3. Atypical CP 4. Hyperlipidemia; statin. LDL 50 5. Diabetes, II; as per PCP 6. ESRD on HD 7. Hypothyroidism 8. UTI; as per PCP 9. PAFIB: still has paroxysms 10. Possible rectal bleed: GI consulted Recommendations 1. Hold NOAC for now pending GI w/u. Continue with ASA for stroke prevention. Continue on amiodarone and metoprolol 2. Fluid off loading per HD 3. Consider outpatient ischemic evaluation 4. Watchman referral. 5. Follow up in office BRADEN STARKEY [employer] EXAMINER Jul 27, 2019 13:33
[2019-07-27 14:22] LABS: % EOS 3 % (0-5); % LYMPHS 12 % (24-48); % MONOS 2 % (0-10); % SEGS 83 % (35-66); ANISOCYTOSIS SLIGHT; PLT ESTIMATE ADEQUATE (ADEQUATE); SCHISTOCYTES OCC
[2019-07-27 14:23] LABS: POLYCHROMASIA SLIGHT
[2019-07-27] MEDS: PANTOPRAZOLE IV PUSH 40 MG VIAL. IVP SCH (16:00)
[2019-07-27] MEDS ORDERED: IV NORMAL SALINE 500ML BAG 250 ML IV ONE (16:15)
[2019-07-27] MEDS ORDERED: PANTOPRAZOLE 40 MG TABLET.DR. PO SCH (16:30)
[2019-07-27] MEDS ORDERED: IV NORMAL SALINE 1000ML BAG 1,000 ML IV ONE (18:30)
[2019-07-27] MEDS ORDERED: HEPARIN for NUC MED 500 UNIT/5 ML DISP.SYRIN. IV ONE (21:00)
[2019-07-27] MEDS: CETIRIZINE HCL 10 MG TABLET. PO SCH (21:00)
[2019-07-27] MEDS: MONTELUKAST SODIUM 10 MG TABLET. PO SCH (21:00)
[2019-07-27] MEDS: ATORVASTATIN CALCIUM 10 MG TABLET. PO SCH (21:00)
[2019-07-27] MEDS: traZODone 50 MG TABLET. PO SCH (21:00)
--- NOTE | 2019-07-27 21:00 | NUR ---
Patient transferred to ICU room [address] [place] [address]. Accompanied by DAVI Reece. Bedside report. IVF bolus at 800 mls/hr. RBCs ordered. Patient obtunded and responsive to pain, nonverbal, follows commands. Hypotensive. Many family members in waiting room. Spoke with Gracia, patient's daughter who signed consent form for blood. Will continue to monitor.
--- NOTE | 2019-07-27 21:31 | NUR ---
Notified of patient condition. Orders received. Give both units of blood and recheck Hgb after blood infused. Prn levophed and thompson. Bleeding scan in the am. Will continue to monitor
[2019-07-27] MEDS: IV NORMAL SALINE 1000ML BAG 1,000 ML IV SCH (21:46)
[2019-07-28] VITALS (24 sets, daily range): BP systolic 116–174; BP diastolic 39–81
[2019-07-28] MEDS: PIPERACILLIN/TAZOBACTAM 2.25 GM in IV NORMAL SALINE 50ML 50 ML IV SCH ×4 (01:42→22:27)
[2019-07-28 05:29] LABS: BASO # 0.1 x10^3/uL (0.0-0.2); BASO % 0 % (0-3); EOS # 0.2 x10^3/uL (0.0-0.7); EOS % 1 % (0-3); HEMATOCRIT 26.4 % (36.0-47.0); HEMOGLOBIN 8.8 g/dL (12.0-15.5); LYMPH # 2.6 x10^3/uL (1.0-4.8); LYMPH % 14 % (24-48); MEAN CORPUSCULAR HEMOGLOBIN 31 pg (25-35); MEAN CORPUSCULAR HGB CONC 33 g/dL (31-37); MEAN CORPUSCULAR VOLUME 91 fL (79-100); MONO % 11 % (0-9); NEUT # 13.7 x10^3/uL (1.8-7.7); NEUT % 74 % (31-73); PLATELET COUNT 146 x10^3/uL (140-400); RED BLOOD COUNT 2.89 x10^6/uL (3.50-5.40); RED CELL DISTRIBUTION WIDTH 16.6 % (11.5-14.5); WHITE BLOOD COUNT 18.5 x10^3/uL (4.0-11.0)
[2019-07-28 05:41] LABS: CALCIUM 7.8 mg/dL (8.5-10.1); CREATININE 3.2 mg/dL (0.6-1.0); GFR 13.8
[2019-07-28] MEDS: LEVOTHYROXINE 125 MCG TABLET PO SCH (06:00)
[2019-07-28] MEDS: IV NORMAL SALINE 1000ML BAG 1,000 ML IV SCH ×2 (08:49→22:28)
[2019-07-28] MEDS: PANTOPRAZOLE IV PUSH 40 MG VIAL. IVP SCH (08:50)
[2019-07-28] MEDS: AMIODARONE HCL 200 MG TABLET. PO SCH (09:00)
[2019-07-28] MEDS: ASCORBIC ACID 500 MG TABLET PO SCH (09:00)
[2019-07-28] MEDS: FUROSEMIDE 40 MG TABLET. PO SCH (09:00)
[2019-07-28] MEDS: CYANOCOBALAMIN (VITAMIN B-12) 1,000 MCG TABLET. PO SCH (09:00)
[2019-07-28] MEDS: LINAGLIPTIN 5 MG TABLET PO SCH (09:00)
[2019-07-28] MEDS: DOCUSATE SODIUM 100 MG CAPSULE. PO SCH ×2 (09:00→21:00)
[2019-07-28] MEDS: hydrALAZINE 25 MG TABLET PO SCH ×3 (09:00→21:00)
[2019-07-28] MEDS: LACTOBACILLUS RHAMNOSUS GG 1 CAPSULE. PO SCH ×2 (09:00→21:00)
[2019-07-28] MEDS: METOPROLOL TART IMMED RELEASE 50 MG TABLET. PO SCH ×2 (09:00→21:00)
[2019-07-28] MEDS: IPRATRPIUM/ALBUTEROL 0.5/2.5MG 3 ML NEBU. NEB SCH ×2 (09:36→19:18)
[2019-07-28] MEDS: BUDESONIDE 0.5 MG/2 ML NEBU. NEB SCH ×2 (09:36→19:18)
--- NOTE | 2019-07-28 09:38 | PDOC ---
IM PROGRESS NOTES- Subjective Subjective Patient was transferred to ICU because of significant GI bleeding, melena, rectal bleeding, lethargy, low blood pressure. She was given 1 unit of packed red blood cells and given IV fluids. She denies any pain or dyspnea. She was kept on ice chips by the GI physician. Objective Vitals/I&O Vital Signs Date Time Temp Pulse Resp B/P (MAP) Pulse Ox O2 Delivery O2 Flow Rate FiO2 07/28/19 08:00 98.5 83 16 116/46 (69) 100 Room Air 98.5 07/28/19 06:00 2.0 I & O 07/27/19 07/27/19 07/28/19 15:00 23:00 07:00 Intake Total 100 ml 350 ml 150 ml Output Total 45 ml Balance 100 ml 350 ml 105 ml Physical Exam Physical Exam GENERAL: The patient is an elderly female who is alert, oriented x 3,weak and in no respiratory distress. She is anxious. LUNGS: increased air entry CARDIOVASCULAR: S1, S2 regular. ABDOMEN: Soft, non tender, no guarding, no rigidity. Bowel sounds present. EXTREMITIES trace edema of both lower extremities. The patient has swelling of the left forearm because of the recent surgery for graft for dialysis access. She has blisters and redness and bruising on the left upper extremity improving. CENTRAL NERVOUS SYSTEM: Alert, oriented and anxious. Labs Laboratory Tests Test 07/27/19 10:33 07/27/19 11:36 07/27/19 13:00 07/28/19 01:30 Glucose (Fingerstick) 123 mg/dL (70-99) H 145 mg/dL (70-99) H White Blood Count 15.9 x10^3/uL (4.0-11.0) H Red Blood Count 2.41 x10^6/uL (3.50-5.40) L Hemoglobin 7.6 g/dL (12.0-15.5) L 9.4 g/dL (12.0-15.5) L Hematocrit 23.2 % (36.0-47.0) L Mean Corpuscular Volume 96 fL (79-100) Mean Corpuscular Hemoglobin 32 pg (25-35) Mean Corpuscular Hemoglobin Concent 33 g/dL (31-37) Red Cell Distribution Width 16.2 % (11.5-14.5) H Platelet Count 206 x10^3/uL (140-400) Neutrophils (%) (Auto) 79 % (31-73) H Lymphocytes (%) (Auto) 13 % (24-48) L Monocytes (%) (Auto) 7 % (0-9) Eosinophils (%) (Auto) 1 % (0-3) Basophils (%) (Auto) 0 % (0-3) Neutrophils # (Auto) 12.6 x10^3/uL (1.8-7.7) H Lymphocytes # (Auto) 2.0 x10^3/uL (1.0-4.8) Monocytes # (Auto) 1.1 x10^3/uL (0.0-1.1) Eosinophils # (Auto) 0.2 x10^3/uL (0.0-0.7) Basophils # (Auto) 0.0 x10^3/uL (0.0-0.2) Segmented Neutrophils % 83 % (35-66) H Lymphocytes % 12 % (24-48) L Monocytes % 2 % (0-10) Eosinophils % 3 % (0-5) Platelet Estimate Adequate (ADEQUATE) Large Platelets Occ Polychromasia Slight Anisocytosis Slight Schistocytes Occ Sodium Level 137 mmol/L (136-145) Potassium Level 3.8 mmol/L (3.5-5.1) Chloride Level 99 mmol/L (98-107) Carbon Dioxide Level 31 mmol/L (21-32) Anion Gap 7 (6-14) Blood Urea Nitrogen 43 mg/dL (7-20) H Creatinine 2.3 mg/dL (0.6-1.0) H Estimated GFR (Cockcroft-Gault) 20.2 Glucose Level 146 mg/dL (70-99) H Calcium Level 8.1 mg/dL (8.5-10.1) L Iron Level 109 ug/dL (50-170) Total Iron Binding Capacity 166 ug/dL (250-450) L Iron Saturation 66 % (15-34) H Test 07/28/19 05:00 White Blood Count 18.5 x10^3/uL (4.0-11.0) H Red Blood Count 2.89 x10^6/uL (3.50-5.40) L Hemoglobin 8.8 g/dL (12.0-15.5) L Hematocrit 26.4 % (36.0-47.0) L Mean Corpuscular Volume 91 fL (79-100) # Mean Corpuscular Hemoglobin 31 pg (25-35) Mean Corpuscular Hemoglobin Concent 33 g/dL (31-37) Red Cell Distribution Width 16.6 % (11.5-14.5) H Platelet Count 146 x10^3/uL (140-400) Neutrophils (%) (Auto) 74 % (31-73) H Lymphocytes (%) (Auto) 14 % (24-48) L Monocytes (%) (Auto) 11 % (0-9) H Eosinophils (%) (Auto) 1 % (0-3) Basophils (%) (Auto) 0 % (0-3) Neutrophils # (Auto) 13.7 x10^3/uL (1.8-7.7) H Lymphocytes # (Auto) 2.6 x10^3/uL (1.0-4.8) Monocytes # (Auto) 2.0 x10^3/uL (0.0-1.1) H Eosinophils # (Auto) 0.2 x10^3/uL (0.0-0.7) Basophils # (Auto) 0.1 x10^3/uL (0.0-0.2) Sodium Level 139 mmol/L (136-145) Potassium Level 4.0 mmol/L (3.5-5.1) Chloride Level 105 mmol/L (98-107) Carbon Dioxide Level 23 mmol/L (21-32) Anion Gap 11 (6-14) Blood Urea Nitrogen 89 mg/dL (7-20) #H Creatinine 3.2 mg/dL (0.6-1.0) H Estimated GFR (Cockcroft-Gault) 13.8 Glucose Level 187 mg/dL (70-99) H Calcium Level 7.8 mg/dL (8.5-10.1) L Laboratory Tests 07/27/19 13:00 07/28/19 01:30 07/28/19 05:00 Laboratory Tests 07/27/19 13:00 07/28/19 05:00 Meds Current Medications Medications (Trade) Dose Ordered Sig/Cate Route PRN Reason Start Time Stop Time Status Last Admin Dose Admin Pantoprazole Sodium (PROTONIX VIAL for IV PUSH) 40 mg DAILYAC IVP 07/27/19 14:00 07/28/19 08:50 Sodium Chloride 250 ml @ 250 mls/hr 1X ONCE IV 07/27/19 16:15 07/27/19 17:14 DC 07/27/19 16:15 Sodium Chloride 1,000 ml @ 100 mls/hr Q10H IV 07/27/19 18:00 07/28/19 08:49 Sodium Chloride 1,000 ml @ 1,000 mls/hr 1X ONCE IV 07/27/19 18:30 07/27/19 19:29 DC 07/27/19 18:43 Assessment Assessment 1. Acute hypoxic respiratory failure. 2. Acute on chronic diastolic congestive heart failure. 3. End-stage renal disease. 4. Asthma with mild exacerbation. 5. Allergic rhinitis. 6. Anxiety. 7. Urinary tract infection. 8. Diabetes mellitus type 2 with diabetic nephropathy. 9. Diabetic polyneuropathy. 10. Chronic gout. 11. Hypertension. 12. Mixed hyperlipidemia. PLAN: Day #2 dialysis. doing well. less sob . cr 3.3. home ? mon/tu. Consult Dr. Rao for nephrology evaluation and management, Dr. Elizondo for cardiology evaluation and management. The patient was given 1 dose of IV Rocephin today. I will readjust it tomorrow. We will resume home medications including the blood pressure medications. The patient was given one dose of IV Lasix in the Emergency Room and she had taken her morning dose also. Cancer Center Director felt that more Lasix may not be beneficial at this time. I will give her low dose morphine 1 mg and give her breathing treatment and also Pulmicort breathing treatment to see if this would help her breathing and relieve the pressure on her chest. For details, please refer to the orders. Hopefully tomorrow if she does not respond, will need dialysis. Condition and treatment extensively discussed with multiple children. For details, please refer to the orders. UTI- adjust the dose of Rocephin due to end-stage renal disease. Diabetes- stable End-stage renal disease- patient had the graft placed on july about 11 days old. She has a quick AVG. Condition treatment options discussed with the patient and the family. Hypertension- not controlled.Now on Amiodarone and Eliquis for PAF. Echocardiogram The left ventricle is normal size. The left ventricular systolic function is normal and the ejection fraction is within normal range. Ejection fraction 55-60%. There is borderline concentric left ventricular hypertrophy. Doppler and Color Flow revealed no significant aortic regurgitation. There is no significant aortic valvular stenosis. Doppler and Color-flow revealed trace to mild mitral regurgitation. Doppler and Color Flow revealed mild tricuspid regurgitation. Estimated PAP 48 mmHg. Mild exacerbation of asthma improving. Anxiety improving. Weakness- PT/OT Leukocytosis- WBC count is 17. This may be due to reaction to the tape with blisters on the left upper extremity. Patient is on Rocephin. I will order venous Doppler of the left upper extremity. D/w Dr. Lucain Goode.On IV Zosyn. CT abd/pelvis. Impression: Small pleural effusions. Minimal adjacent atelectasis. Very minimal perihepatic ascites. Distention of the duodenum is mild with suggestion of surrounding stranding. Correlate for possibility of duodenitis. No loculated collection within the abdomen or pelvis. Diverticulosis. Venous doppler of left upper extremity is negative for DVT.Graft is patent. Chest x ray- no infiltrates,small pleural effusion. Rectal bleeding likely due to constipation and Apixaban. Discontinue Apixaban. Hold aspirin for now GI bleeding- the diverticular Acute on chronic blood loss anemia.- Hemoglobin dropped to 7.6 from more than 11 previously. He was given 1 unit of packed red blood cells. Last hemoglobin is 8.8. Continue every 6 hours hemoglobin and hematocrit. She'll transferred to intensive care unit. Recent Syncope - blood pressure was lower. Plan Plan For more details regarding further plans, please refer to the orders. HIRA BELTRE MD Jul 28, 2019 09:38
--- NOTE | 2019-07-28 11:08 | PDOC ---
GI PROGRESS NOTES Date Date/Time DATE: 07/28/19 TIME: 11:03 Subjective Subjective in nuc med for bleeding scan- somulent - no pain reported and rectal bleeding has slowed over night Objective Vitals Vital Signs Date Time Temp Pulse Resp B/P (MAP) Pulse Ox O2 Delivery O2 Flow Rate FiO2 07/28/19 09:36 Room Air 07/28/19 09:00 90 16 144/68 (93) 100 Room Air 07/28/19 08:00 98.5 83 16 116/46 (69) 100 Room Air 98.5 07/28/19 08:00 Room Air 07/28/19 07:00 85 16 149/67 (94) 100 Room Air 07/28/19 06:00 85 14 140/74 (96) 100 Nasal Cannula 2.0 07/28/19 05:00 83 14 142/45 (77) 100 Nasal Cannula 2.0 07/28/19 04:00 Nasal Cannula 2.0 07/28/19 04:00 98.9 80 14 158/63 (94) 100 Nasal Cannula 2.0 98.9 07/28/19 03:00 83 14 155/63 (93) 100 Nasal Cannula 2.0 07/28/19 02:00 83 14 141/57 (85) 100 Nasal Cannula 2.0 07/28/19 01:00 83 14 142/57 (85) 100 Nasal Cannula 2.0 07/28/19 00:01 97.3 84 14 136/54 (81) 100 Nasal Cannula 2.0 97.3 07/28/19 00:00 Nasal Cannula 2.0 07/27/19 23:43 97.3 83 14 116/40 97.3 07/27/19 23:00 80 14 116/40 (65) 100 Nasal Cannula 2.0 07/27/19 22:38 97.2 81 14 97/39 97.2 07/27/19 22:29 97.3 74 14 97/49 97.3 07/27/19 22:08 97.0 95 14 95/31 97.0 07/27/19 22:00 97.2 75 14 79/39 (52) 100 Nasal Cannula 2.0 97.2 07/27/19 21:15 97.5 70 12 77/32 97.5 07/27/19 21:00 97.5 70 14 79/39 (52) 100 Nasal Cannula 2.0 97.5 07/27/19 21:00 100 Room Air 07/27/19 21:00 83 92/37 07/27/19 21:00 70 92/37 07/27/19 20:30 66 14 79/39 (52) 100 Nasal Cannula 2.0 07/27/19 20:30 96.0 66 20 58/24 96.0 07/27/19 20:19 97.6 67 16 78/34 97.6 07/27/19 20:15 66 14 77/32 (47) 100 Nasal Cannula 2.0 07/27/19 20:00 Nasal Cannula 2.0 07/27/19 20:00 66 16 61/37 (45) 100 Nasal Cannula 2.0 07/27/19 19:45 96.0 70 14 58/24 (35) 100 Nasal Cannula 2.0 96.0 07/27/19 19:30 96.0 70 79/39 (52) 100 Nasal Cannula 2.0 96.0 07/27/19 14:50 98.4 69 18 114/56 (75) 96 Room Air 98.4 07/27/19 13:19 81 133/61 07/27/19 13:18 81 133/61 07/27/19 12:00 77 133/61 (85) Labs Labs Laboratory Tests Test 07/27/19 11:36 07/27/19 13:00 07/28/19 01:30 07/28/19 05:00 Glucose (Fingerstick) 145 mg/dL (70-99) White Blood Count 15.9 x10^3/uL (4.0-11.0) 18.5 x10^3/uL (4.0-11.0) Red Blood Count 2.41 x10^6/uL (3.50-5.40) 2.89 x10^6/uL (3.50-5.40) Hemoglobin 7.6 g/dL (12.0-15.5) 9.4 g/dL (12.0-15.5) 8.8 g/dL (12.0-15.5) Hematocrit 23.2 % (36.0-47.0) 26.4 % (36.0-47.0) Mean Corpuscular Volume 96 fL (79-100) 91 fL (79-100) Mean Corpuscular Hemoglobin 32 pg (25-35) 31 pg (25-35) Mean Corpuscular Hemoglobin Concent 33 g/dL (31-37) 33 g/dL (31-37) Red Cell Distribution Width 16.2 % (11.5-14.5) 16.6 % (11.5-14.5) Platelet Count 206 x10^3/uL (140-400) 146 x10^3/uL (140-400) Neutrophils (%) (Auto) 79 % (31-73) 74 % (31-73) Lymphocytes (%) (Auto) 13 % (24-48) 14 % (24-48) Monocytes (%) (Auto) 7 % (0-9) 11 % (0-9) Eosinophils (%) (Auto) 1 % (0-3) 1 % (0-3) Basophils (%) (Auto) 0 % (0-3) 0 % (0-3) Neutrophils # (Auto) 12.6 x10^3/uL (1.8-7.7) 13.7 x10^3/uL (1.8-7.7) Lymphocytes # (Auto) 2.0 x10^3/uL (1.0-4.8) 2.6 x10^3/uL (1.0-4.8) Monocytes # (Auto) 1.1 x10^3/uL (0.0-1.1) 2.0 x10^3/uL (0.0-1.1) Eosinophils # (Auto) 0.2 x10^3/uL (0.0-0.7) 0.2 x10^3/uL (0.0-0.7) Basophils # (Auto) 0.0 x10^3/uL (0.0-0.2) 0.1 x10^3/uL (0.0-0.2) Segmented Neutrophils % 83 % (35-66) Lymphocytes % 12 % (24-48) Monocytes % 2 % (0-10) Eosinophils % 3 % (0-5) Platelet Estimate Adequate (ADEQUATE) Large Platelets Occ Polychromasia Slight Anisocytosis Slight Schistocytes Occ Sodium Level 137 mmol/L (136-145) 139 mmol/L (136-145) Potassium Level 3.8 mmol/L (3.5-5.1) 4.0 mmol/L (3.5-5.1) Chloride Level 99 mmol/L (98-107) 105 mmol/L (98-107) Carbon Dioxide Level 31 mmol/L (21-32) 23 mmol/L (21-32) Anion Gap 7 (6-14) 11 (6-14) Blood Urea Nitrogen 43 mg/dL (7-20) 89 mg/dL (7-20) Creatinine 2.3 mg/dL (0.6-1.0) 3.2 mg/dL (0.6-1.0) Estimated GFR (Cockcroft-Gault) 20.2 13.8 Glucose Level 146 mg/dL (70-99) 187 mg/dL (70-99) Calcium Level 8.1 mg/dL (8.5-10.1) 7.8 mg/dL (8.5-10.1) Iron Level 109 ug/dL (50-170) Total Iron Binding Capacity 166 ug/dL (250-450) Iron Saturation 66 % (15-34) Imaging Imaging NUC MED bleeding scan- in progress but preliminary report- NO ACTIVE BLEEDING Physical Exam Physical Exam somulent chest- clera cor- RRR abd- soft non tender good bowel sounds Assessment Assessment Acute lower GI bleeding yesterday- painless- history and clinical setting supports diverticular bleeding- overnight the brisk bleeding has slowed and stopped- Hgb dropped to 7.7 yesterday but up to 9.4 and then 8.8 after transfusion- clinically bleeding has slowed overnight and now appears to have stopped- no bloody BM this morning and bleeding scan : preliminary report NEGATIVE Plan Plan CLD monitor MIKE MARTINEZ MD Jul 28, 2019 11:08
--- NOTE | 2019-07-28 11:12 | RAD ---
EXAM: GI blood loss exam. HISTORY: GI bleed. TECHNIQUE: Scintigraphic imaging of the abdomen was performed following the previous administration of 33 mCi technetium 99m UltraTag. COMPARISON: CT dated 07/25/2019. FINDINGS: There is expected radiotracer activity within the visceral and vascular structures. There is no accumulation or transit of radiotracer to suggest active gastrointestinal hemorrhage. IMPRESSION: No convincing active gastrointestinal hemorrhage. Electronically signed by: Salima Harris MD (07/28/2019 11:09 AM) [facility]
--- NOTE | 2019-07-28 11:16 | PDOC ---
Infectious Disease Note Subjective Subjective c/o abdominal pain earlier + bloody stools Denies N/V/F/C ROS ROS per HPI Vital Sign Vital Signs Vital Signs Date Time Temp Pulse Resp B/P (MAP) Pulse Ox O2 Delivery O2 Flow Rate FiO2 07/28/19 09:36 Room Air 07/28/19 09:00 90 16 144/68 (93) 100 07/28/19 08:00 98.5 98.5 07/28/19 06:00 2.0 Physical Exam PHYSICAL EXAM GENERAL: Lying down, alert, NAD HEENT: Pupils equal, oral cavity pink, dry NECK: Supple. LUNGS: Clear. HEART: S1, S2 regular. ABDOMEN: Obese, soft, nontender, BS present : Alex in place EXTREMITIES: No gross edema or cyanosis LUE-AV fistula unremarkable for infection SKIN: warm to touch NEUROLOGIC: Alert, nonfocal PIV Labs Lab Laboratory Tests Test 07/27/19 11:36 07/27/19 13:00 07/28/19 01:30 07/28/19 05:00 Glucose (Fingerstick) 145 mg/dL (70-99) White Blood Count 15.9 x10^3/uL (4.0-11.0) 18.5 x10^3/uL (4.0-11.0) Red Blood Count 2.41 x10^6/uL (3.50-5.40) 2.89 x10^6/uL (3.50-5.40) Hemoglobin 7.6 g/dL (12.0-15.5) 9.4 g/dL (12.0-15.5) 8.8 g/dL (12.0-15.5) Hematocrit 23.2 % (36.0-47.0) 26.4 % (36.0-47.0) Mean Corpuscular Volume 96 fL (79-100) 91 fL (79-100) Mean Corpuscular Hemoglobin 32 pg (25-35) 31 pg (25-35) Mean Corpuscular Hemoglobin Concent 33 g/dL (31-37) 33 g/dL (31-37) Red Cell Distribution Width 16.2 % (11.5-14.5) 16.6 % (11.5-14.5) Platelet Count 206 x10^3/uL (140-400) 146 x10^3/uL (140-400) Neutrophils (%) (Auto) 79 % (31-73) 74 % (31-73) Lymphocytes (%) (Auto) 13 % (24-48) 14 % (24-48) Monocytes (%) (Auto) 7 % (0-9) 11 % (0-9) Eosinophils (%) (Auto) 1 % (0-3) 1 % (0-3) Basophils (%) (Auto) 0 % (0-3) 0 % (0-3) Neutrophils # (Auto) 12.6 x10^3/uL (1.8-7.7) 13.7 x10^3/uL (1.8-7.7) Lymphocytes # (Auto) 2.0 x10^3/uL (1.0-4.8) 2.6 x10^3/uL (1.0-4.8) Monocytes # (Auto) 1.1 x10^3/uL (0.0-1.1) 2.0 x10^3/uL (0.0-1.1) Eosinophils # (Auto) 0.2 x10^3/uL (0.0-0.7) 0.2 x10^3/uL (0.0-0.7) Basophils # (Auto) 0.0 x10^3/uL (0.0-0.2) 0.1 x10^3/uL (0.0-0.2) Segmented Neutrophils % 83 % (35-66) Lymphocytes % 12 % (24-48) Monocytes % 2 % (0-10) Eosinophils % 3 % (0-5) Platelet Estimate Adequate (ADEQUATE) Large Platelets Occ Polychromasia Slight Anisocytosis Slight Schistocytes Occ Sodium Level 137 mmol/L (136-145) 139 mmol/L (136-145) Potassium Level 3.8 mmol/L (3.5-5.1) 4.0 mmol/L (3.5-5.1) Chloride Level 99 mmol/L (98-107) 105 mmol/L (98-107) Carbon Dioxide Level 31 mmol/L (21-32) 23 mmol/L (21-32) Anion Gap 7 (6-14) 11 (6-14) Blood Urea Nitrogen 43 mg/dL (7-20) 89 mg/dL (7-20) Creatinine 2.3 mg/dL (0.6-1.0) 3.2 mg/dL (0.6-1.0) Estimated GFR (Cockcroft-Gault) 20.2 13.8 Glucose Level 146 mg/dL (70-99) 187 mg/dL (70-99) Calcium Level 8.1 mg/dL (8.5-10.1) 7.8 mg/dL (8.5-10.1) Iron Level 109 ug/dL (50-170) Total Iron Binding Capacity 166 ug/dL (250-450) Iron Saturation 66 % (15-34) Objective Assessment Leukocytosis UTI, POA. UC not done GI bleed, s/p PRBCs 07/27 ESRD on HD CHF DM HTN Plan Plan of Care Continue Zosyn, renal dosing f/u GI bleeding scan results rectal bleeding ? etiology Monitor labs supportive care PT/OT D/w daughter at bedside D/w nursing Patient seen and examined. Chart reviewed in detail. Case discussed with [employer]. Agree with above plan. CECILLE BECERRA APRN Jul 28, 2019 11:16 YOAV LOONEY MD Jul 28, 2019 19:27
[2019-07-28] MEDS: MONTELUKAST SODIUM 10 MG TABLET. PO SCH (21:00)
[2019-07-28] MEDS ORDERED: DARBEPOETIN ALFA 60 MCG/0.3 ML DISP.SYRIN. SQ SCH (21:00)
[2019-07-28] MEDS: traZODone 50 MG TABLET. PO SCH (21:00)
[2019-07-28] MEDS: ATORVASTATIN CALCIUM 10 MG TABLET. PO SCH (21:00)
[2019-07-28] MEDS: CETIRIZINE HCL 10 MG TABLET. PO SCH (21:00)
[2019-07-29] VITALS (18 sets, daily range): BP systolic 134–188; BP diastolic 43–99
[2019-07-29] MEDS: IV NORMAL SALINE 1000ML BAG 1,000 ML IV SCH ×3 (00:04→19:22)
[2019-07-29] MEDS: METOPROLOL TARTRATE 5 MG/5 ML VIAL. IVP PRN (00:55)
[2019-07-29] MEDS: METOPROLOL TART IMMED RELEASE 50 MG TABLET. PO SCH ×3 (02:13→20:47)
[2019-07-29 04:56] LABS: BASO # 0.1 x10^3/uL (0.0-0.2); BASO % 0 % (0-3); EOS # 0.6 x10^3/uL (0.0-0.7); EOS % 3 % (0-3); HEMATOCRIT 24.1 % (36.0-47.0); LYMPH # 2.3 x10^3/uL (1.0-4.8); LYMPH % 11 % (24-48); MEAN CORPUSCULAR HEMOGLOBIN 31 pg (25-35); MEAN CORPUSCULAR HGB CONC 33 g/dL (31-37); MEAN CORPUSCULAR VOLUME 93 fL (79-100); MONO # 2.1 x10^3/uL (0.0-1.1); MONO % 10 % (0-9); NEUT # 16.2 x10^3/uL (1.8-7.7); NEUT % 76 % (31-73); PLATELET COUNT 150 x10^3/uL (140-400); RED BLOOD COUNT 2.59 x10^6/uL (3.50-5.40); RED CELL DISTRIBUTION WIDTH 16.8 % (11.5-14.5); WHITE BLOOD COUNT 21.3 x10^3/uL (4.0-11.0)
[2019-07-29 05:22] LABS: ALBUMIN 2.4 g/dL (3.4-5.0); ALBUMIN/GLOBULIN RATIO 0.9 (1.0-1.7); CALCIUM 8.6 mg/dL (8.5-10.1); CREATININE 4.3 mg/dL (0.6-1.0); GFR 9.8; POTASSIUM 3.6 mmol/L (3.5-5.1); TOTAL BILIRUBIN 0.7 mg/dL (0.2-1.0)
[2019-07-29] MEDS: PIPERACILLIN/TAZOBACTAM 2.25 GM in IV NORMAL SALINE 50ML 50 ML IV SCH ×3 (05:58→21:21)
[2019-07-29] MEDS: LEVOTHYROXINE 125 MCG TABLET PO SCH (05:58)
--- NOTE | 2019-07-29 07:38 | PDOC ---
Infectious Disease Note Subjective Subjective Comfortable Denies pain/cramps/N/V No fevers ROS ROS per HPI Vital Sign Vital Signs Vital Signs Date Time Temp Pulse Resp B/P (MAP) Pulse Ox O2 Delivery O2 Flow Rate FiO2 07/29/19 06:00 102 15 153/58 (89) 97 Room Air 07/29/19 04:00 98.5 98.5 Physical Exam PHYSICAL EXAM GENERAL: Lying down, alert, NAD HEENT: Pupils equal, oral cavity pink, dry NECK: Supple. LUNGS: Clear. HEART: S1, S2 regular. ABDOMEN: Obese, soft, nontender, BS present : Alex in place EXTREMITIES: No gross edema or cyanosis LUE-AV fistula unremarkable for infection SKIN: warm to touch NEUROLOGIC: Alert, nonfocal PIV Labs Lab Laboratory Tests Test 07/28/19 14:10 07/28/19 22:30 07/29/19 04:00 Hemoglobin 9.1 g/dL (12.0-15.5) 8.1 g/dL (12.0-15.5) 8.0 g/dL (12.0-15.5) White Blood Count 21.3 x10^3/uL (4.0-11.0) Red Blood Count 2.59 x10^6/uL (3.50-5.40) Hematocrit 24.1 % (36.0-47.0) Mean Corpuscular Volume 93 fL (79-100) Mean Corpuscular Hemoglobin 31 pg (25-35) Mean Corpuscular Hemoglobin Concent 33 g/dL (31-37) Red Cell Distribution Width 16.8 % (11.5-14.5) Platelet Count 150 x10^3/uL (140-400) Neutrophils (%) (Auto) 76 % (31-73) Lymphocytes (%) (Auto) 11 % (24-48) Monocytes (%) (Auto) 10 % (0-9) Eosinophils (%) (Auto) 3 % (0-3) Basophils (%) (Auto) 0 % (0-3) Neutrophils # (Auto) 16.2 x10^3/uL (1.8-7.7) Lymphocytes # (Auto) 2.3 x10^3/uL (1.0-4.8) Monocytes # (Auto) 2.1 x10^3/uL (0.0-1.1) Eosinophils # (Auto) 0.6 x10^3/uL (0.0-0.7) Basophils # (Auto) 0.1 x10^3/uL (0.0-0.2) Sodium Level 144 mmol/L (136-145) Potassium Level 3.6 mmol/L (3.5-5.1) Chloride Level 108 mmol/L (98-107) Carbon Dioxide Level 22 mmol/L (21-32) Anion Gap 14 (6-14) Blood Urea Nitrogen 103 mg/dL (7-20) Creatinine 4.3 mg/dL (0.6-1.0) Estimated GFR (Cockcroft-Gault) 9.8 BUN/Creatinine Ratio 24 (6-20) Glucose Level 148 mg/dL (70-99) Calcium Level 8.6 mg/dL (8.5-10.1) Total Bilirubin 0.7 mg/dL (0.2-1.0) Aspartate Amino Transf (AST/SGOT) 23 U/L (15-37) Alanine Aminotransferase (ALT/SGPT) 18 U/L (14-59) Alkaline Phosphatase 31 U/L (46-116) Total Protein 5.0 g/dL (6.4-8.2) Albumin 2.4 g/dL (3.4-5.0) Albumin/Globulin Ratio 0.9 (1.0-1.7) Objective Assessment Leukocytosis UTI, POA. UC not done GI bleed, s/p PRBCs 07/28 ESRD on HD CHF DM HTN Plan Plan of Care Continue Zosyn, renal dosing Monitor labs supportive care PT/OT D/w daughter at bedside D/w nursing Patient seen and examined. Chart reviewed in detail. Case discussed with LONG TERM. Agree with above plan. CECILLE BECERRA APRN Jul 29, 2019 07:38 YOAV LOONEY MD Jul 29, 2019 20:30
[2019-07-29] MEDS: PANTOPRAZOLE IV PUSH 40 MG VIAL. IVP SCH (08:11)
[2019-07-29] MEDS: CYANOCOBALAMIN (VITAMIN B-12) 1,000 MCG TABLET. PO SCH (08:12)
[2019-07-29] MEDS: ASCORBIC ACID 500 MG TABLET PO SCH (08:12)
[2019-07-29] MEDS: FUROSEMIDE 40 MG TABLET. PO SCH (08:12)
[2019-07-29] MEDS: LACTOBACILLUS RHAMNOSUS GG 1 CAPSULE. PO SCH ×2 (08:12→20:47)
[2019-07-29] MEDS: LINAGLIPTIN 5 MG TABLET PO SCH (08:14)
[2019-07-29] MEDS: AMIODARONE HCL 200 MG TABLET. PO SCH (08:14)
[2019-07-29] MEDS: hydrALAZINE 25 MG TABLET PO SCH ×3 (08:14→20:47)
[2019-07-29] MEDS: DOCUSATE SODIUM 100 MG CAPSULE. PO SCH ×2 (08:14→20:47)
--- NOTE | 2019-07-29 08:49 | PDOC ---
IM PROGRESS NOTES- Subjective Subjective Feeling better. No complaints of pain. Objective Vitals/I&O Vital Signs Date Time Temp Pulse Resp B/P (MAP) Pulse Ox O2 Delivery O2 Flow Rate FiO2 07/29/19 08:15 115 146/66 07/29/19 07:00 15 90 Room Air 07/29/19 04:00 98.5 98.5 I & O 07/28/19 07/28/19 07/29/19 15:00 23:00 07:00 Intake Total 900 ml Output Total 35 ml 60 ml 300 ml Balance -35 ml -60 ml 600 ml Physical Exam Physical Exam GENERAL: The patient is an elderly female who is alert, oriented x 3,weak and in no respiratory distress. She is anxious. LUNGS: increased air entry CARDIOVASCULAR: S1, S2 regular. ABDOMEN: Soft, non tender, no guarding, no rigidity. Bowel sounds present. EXTREMITIES trace edema of both lower extremities. The patient has swelling of the left forearm because of the recent surgery for graft for dialysis access. She has blisters and redness and bruising on the left upper extremity improving. CENTRAL NERVOUS SYSTEM: Alert, oriented and anxious. Labs Laboratory Tests Test 07/28/19 14:10 07/28/19 22:30 07/29/19 04:00 Hemoglobin 9.1 g/dL (12.0-15.5) L 8.1 g/dL (12.0-15.5) L 8.0 g/dL (12.0-15.5) L White Blood Count 21.3 x10^3/uL (4.0-11.0) H Red Blood Count 2.59 x10^6/uL (3.50-5.40) L Hematocrit 24.1 % (36.0-47.0) L Mean Corpuscular Volume 93 fL (79-100) Mean Corpuscular Hemoglobin 31 pg (25-35) Mean Corpuscular Hemoglobin Concent 33 g/dL (31-37) Red Cell Distribution Width 16.8 % (11.5-14.5) H Platelet Count 150 x10^3/uL (140-400) Neutrophils (%) (Auto) 76 % (31-73) H Lymphocytes (%) (Auto) 11 % (24-48) L Monocytes (%) (Auto) 10 % (0-9) H Eosinophils (%) (Auto) 3 % (0-3) Basophils (%) (Auto) 0 % (0-3) Neutrophils # (Auto) 16.2 x10^3/uL (1.8-7.7) H Lymphocytes # (Auto) 2.3 x10^3/uL (1.0-4.8) Monocytes # (Auto) 2.1 x10^3/uL (0.0-1.1) H Eosinophils # (Auto) 0.6 x10^3/uL (0.0-0.7) Basophils # (Auto) 0.1 x10^3/uL (0.0-0.2) Sodium Level 144 mmol/L (136-145) Potassium Level 3.6 mmol/L (3.5-5.1) Chloride Level 108 mmol/L (98-107) H Carbon Dioxide Level 22 mmol/L (21-32) Anion Gap 14 (6-14) Blood Urea Nitrogen 103 mg/dL (7-20) H Creatinine 4.3 mg/dL (0.6-1.0) H Estimated GFR (Cockcroft-Gault) 9.8 BUN/Creatinine Ratio 24 (6-20) H Glucose Level 148 mg/dL (70-99) H Calcium Level 8.6 mg/dL (8.5-10.1) Total Bilirubin 0.7 mg/dL (0.2-1.0) Aspartate Amino Transferase (AST) 23 U/L (15-37) Alanine Aminotransferase (ALT) 18 U/L (14-59) Alkaline Phosphatase 31 U/L (46-116) L Total Protein 5.0 g/dL (6.4-8.2) L Albumin 2.4 g/dL (3.4-5.0) L Albumin/Globulin Ratio 0.9 (1.0-1.7) L Laboratory Tests 07/28/19 14:10 07/28/19 22:30 07/29/19 04:00 Laboratory Tests 07/29/19 04:00 Meds Current Medications Medications (Trade) Dose Ordered Sig/Cate Route PRN Reason Start Time Stop Time Status Last Admin Dose Admin Darbepoetin Bryan (ARANESP for DIALYSIS PTS) 60 mcg WEEKLYHS SQ 07/28/19 21:00 07/28/19 22:28 Assessment Assessment 1. Acute hypoxic respiratory failure. 2. Acute on chronic diastolic congestive heart failure. 3. End-stage renal disease. 4. Asthma with mild exacerbation. 5. Allergic rhinitis. 6. Anxiety. 7. Urinary tract infection. 8. Diabetes mellitus type 2 with diabetic nephropathy. 9. Diabetic polyneuropathy. 10. Chronic gout. 11. Hypertension. 12. Mixed hyperlipidemia. PLAN: Day #2 dialysis. doing well. less sob . cr 3.3. home ? mon/tue. Consult Dr. Rao for nephrology evaluation and management, Dr. Elizondo for cardiology evaluation and management. The patient was given 1 dose of IV Rocephin today. I will readjust it tomorrow. We will resume home medications including the blood pressure medications. The patient was given one dose of IV Lasix in the Emergency Room and she had taken her morning dose also. Director Of Real Estate felt that more Lasix may not be beneficial at this time. I will give her low dose morphine 1 mg and give her breathing treatment and also Pulmicort breathing treatment to see if this would help her breathing and relieve the pressure on her chest. For details, please refer to the orders. Hopefully tomorrow if she does not respond, will need dialysis. Condition and treatment extensively discussed with multiple children. For details, please refer to the orders. UTI- adjust the dose of Rocephin due to end-stage renal disease. Diabetes- stable End-stage renal disease- patient had the graft placed on july about 11 days old. She has a quick AVG. Condition treatment options discussed with the patient and the family. Hypertension- better controlled Paroxysmal atrial fibrillation- continue amiodarone. Eliquis has been discontinued rigorously because of GI bleed. Echocardiogram The left ventricle is normal size. The left ventricular systolic function is normal and the ejection fraction is within normal range. Ejection fraction 55-60%. There is borderline concentric left ventricular hypertrophy. Doppler and Color Flow revealed no significant aortic regurgitation. There is no significant aortic valvular stenosis. Doppler and Color-flow revealed trace to mild mitral regurgitation. Doppler and Color Flow revealed mild tricuspid regurgitation. Estimated PAP 48 mmHg. Mild exacerbation of asthma improving. Anxiety improving. Weakness- PT/OT Leukocytosis- WBC count is 21.3. This is multifactorial .On IV Zosyn. CT abd/pelvis. Impression: Small pleural effusions. Minimal adjacent atelectasis. Very minimal perihepatic ascites. Distention of the duodenum is mild with suggestion of surrounding stranding. Correlate for possibility of duodenitis. No loculated collection within the abdomen or pelvis. Diverticulosis. Venous doppler of left upper extremity is negative for DVT.Graft is patent. Chest x ray- no infiltrates,small pleural effusion. Rectal bleeding likely due to constipation and Apixaban. Discontinue Apixaban. Hold aspirin for now GI bleeding- likely diverticular. Improving Acute on chronic blood loss anemia.- Hemoglobin dropped to 7.6 from more than 11 previously. He was given 1 unit of packed red blood cells. Last hemoglobin is 8.. Discontinue every 6 hours hemoglobin and hematocrit. Condition treatment discussed with the patient and the family. Transfer out of ICU. Recent Syncope - blood pressure is better now Plan Plan For more details regarding further plans, please refer to the orders. HIRA BELTRE MD Jul 29, 2019 08:49
[2019-07-29] MEDS: BUDESONIDE 0.5 MG/2 ML NEBU. NEB SCH ×2 (09:26→20:01)
[2019-07-29] MEDS: IPRATRPIUM/ALBUTEROL 0.5/2.5MG 3 ML NEBU. NEB SCH ×2 (09:26→20:01)
--- NOTE | 2019-07-29 11:09 | PDOC ---
GI PROGRESS NOTES Date Date/Time DATE: 07/29/19 TIME: 11:04 Subjective Subjective Sitting in chair in the ICU and improved. c/o swelling in hands and feet and is scheduled for dialysis tomorrow. No further overt bleeding since Tuesday night. Bleeding scan yesterday was negative. Hemoglobin has remained stable. Best these issues with patient and family in the room. Clinical presentation is typical for diverticular bleed. Objective Vitals Vital Signs Date Time Temp Pulse Resp B/P (MAP) Pulse Ox O2 Delivery O2 Flow Rate FiO2 07/29/19 10:00 71 21 187/99 (128) 99 Room Air 07/29/19 09:25 100 Room Air 07/29/19 09:00 89 16 99 Room Air 07/29/19 08:15 115 146/66 07/29/19 08:14 104 146/66 07/29/19 08:14 108 146/66 07/29/19 08:00 98.8 100 16 149/72 (97) 99 Room Air 98.8 07/29/19 08:00 Room Air 07/29/19 07:00 106 15 165/78 (107) 90 Room Air 07/29/19 06:00 102 15 153/58 (89) 97 Room Air 07/29/19 05:00 98 21 159/72 (101) 100 Room Air 07/29/19 04:00 98.5 104 20 159/63 (95) 98 Room Air 98.5 07/29/19 04:00 Room Air 07/29/19 03:00 108 18 150/66 (94) 98 Room Air 07/29/19 02:13 122 134/51 07/29/19 02:00 122 18 134/51 (78) 98 Room Air 07/29/19 01:00 101 24 139/49 (79) Room Air 07/29/19 00:55 122 175/64 07/29/19 00:01 97.2 96 24 165/65 (98) 98 Room Air 97.2 07/29/19 00:00 Room Air 07/28/19 23:00 90 24 164/51 (88) 100 Room Air 07/28/19 22:00 92 24 153/66 (95) 100 Room Air 07/28/19 21:00 96 24 174/81 (112) 100 Room Air 07/28/19 21:00 94 153/66 07/28/19 20:00 Room Air 07/28/19 20:00 98.1 94 16 173/65 (101) 97 Room Air 98.1 07/28/19 19:18 96 Room Air 07/28/19 19:00 90 16 149/53 (85) 100 Room Air 07/28/19 18:00 91 16 134/39 (70) 100 Room Air 07/28/19 17:00 87 16 148/68 (94) 100 Room Air 07/28/19 16:00 90 14 137/51 (79) 100 Room Air 07/28/19 16:00 Room Air 07/28/19 15:00 81 16 145/56 (85) 100 Room Air 07/28/19 14:00 86 16 132/81 (98) 100 Room Air 07/28/19 13:00 86 15 165/55 (91) 100 Room Air 07/28/19 12:29 84 165/51 07/28/19 12:00 99.1 83 18 150/49 (82) 100 Room Air 99.1 07/28/19 12:00 Room Air Labs Labs Laboratory Tests Test 07/28/19 14:10 07/28/19 22:30 07/29/19 04:00 Hemoglobin 9.1 g/dL (12.0-15.5) 8.1 g/dL (12.0-15.5) 8.0 g/dL (12.0-15.5) White Blood Count 21.3 x10^3/uL (4.0-11.0) Red Blood Count 2.59 x10^6/uL (3.50-5.40) Hematocrit 24.1 % (36.0-47.0) Mean Corpuscular Volume 93 fL (79-100) Mean Corpuscular Hemoglobin 31 pg (25-35) Mean Corpuscular Hemoglobin Concent 33 g/dL (31-37) Red Cell Distribution Width 16.8 % (11.5-14.5) Platelet Count 150 x10^3/uL (140-400) Neutrophils (%) (Auto) 76 % (31-73) Lymphocytes (%) (Auto) 11 % (24-48) Monocytes (%) (Auto) 10 % (0-9) Eosinophils (%) (Auto) 3 % (0-3) Basophils (%) (Auto) 0 % (0-3) Neutrophils # (Auto) 16.2 x10^3/uL (1.8-7.7) Lymphocytes # (Auto) 2.3 x10^3/uL (1.0-4.8) Monocytes # (Auto) 2.1 x10^3/uL (0.0-1.1) Eosinophils # (Auto) 0.6 x10^3/uL (0.0-0.7) Basophils # (Auto) 0.1 x10^3/uL (0.0-0.2) Sodium Level 144 mmol/L (136-145) Potassium Level 3.6 mmol/L (3.5-5.1) Chloride Level 108 mmol/L (98-107) Carbon Dioxide Level 22 mmol/L (21-32) Anion Gap 14 (6-14) Blood Urea Nitrogen 103 mg/dL (7-20) Creatinine 4.3 mg/dL (0.6-1.0) Estimated GFR (Cockcroft-Gault) 9.8 BUN/Creatinine Ratio 24 (6-20) Glucose Level 148 mg/dL (70-99) Calcium Level 8.6 mg/dL (8.5-10.1) Total Bilirubin 0.7 mg/dL (0.2-1.0) Aspartate Amino Transf (AST/SGOT) 23 U/L (15-37) Alanine Aminotransferase (ALT/SGPT) 18 U/L (14-59) Alkaline Phosphatase 31 U/L (46-116) Total Protein 5.0 g/dL (6.4-8.2) Albumin 2.4 g/dL (3.4-5.0) Albumin/Globulin Ratio 0.9 (1.0-1.7) Physical Exam Physical Exam Awake today chest- clera cor- RRR abd- soft non tender good bowel sounds Edema : hands and feet Assessment Assessment Acute lower GI bleeding yesterday- painless- history and clinical setting supports diverticular bleeding- Tuesday brisk bleeding - stopped yesterday- Hgb dropped to 7.7 yesterday but up to 9.4 and then 8.8 after transfusion- Bleeding scan was negative yesterday confirming that bleeding had stopped Plan Plan advance diet monitor MIKE MARTINEZ MD Jul 29, 2019 11:09
[2019-07-29] MEDS: MONTELUKAST SODIUM 10 MG TABLET. PO SCH (20:47)
[2019-07-29] MEDS: CETIRIZINE HCL 10 MG TABLET. PO SCH (20:47)
[2019-07-29] MEDS: ATORVASTATIN CALCIUM 10 MG TABLET. PO SCH (20:50)
[2019-07-29] MEDS: traZODone 50 MG TABLET. PO SCH (20:57)
[2019-07-30] VITALS (7 sets, daily range): BP systolic 135–196; BP diastolic 51–79
[2019-07-30 03:22] LABS: HEMATOCRIT 26.6 % (36.0-47.0); HEMOGLOBIN 8.4 g/dL (12.0-15.5)
[2019-07-30] MEDS: LEVOTHYROXINE 125 MCG TABLET PO SCH (06:23)
[2019-07-30] MEDS: PIPERACILLIN/TAZOBACTAM 2.25 GM in IV NORMAL SALINE 50ML 50 ML IV SCH ×3 (06:23→22:29)
[2019-07-30] MEDS: hydrALAZINE 25 MG TABLET PO SCH ×3 (07:27→20:26)
[2019-07-30] MEDS: IPRATRPIUM/ALBUTEROL 0.5/2.5MG 3 ML NEBU. NEB SCH ×2 (08:01→20:28)
[2019-07-30] MEDS: BUDESONIDE 0.5 MG/2 ML NEBU. NEB SCH ×2 (08:01→20:28)
[2019-07-30] MEDS ORDERED: IV NORMAL SALINE 1000ML BAG 1,000 ML IV PRN ×2 (08:18)
[2019-07-30] MEDS ORDERED: diphenhydrAMINE 50 MG/ML VIAL IV PRN ×2 (08:30)
[2019-07-30] MEDS ORDERED: DIALYSIS PATIENT. MC PRN ×2 (08:30)
[2019-07-30] MEDS ORDERED: ALBUMIN HUMAN 25% 200 ML IV PRN (08:30)
[2019-07-30] MEDS ORDERED: ACETAMINOPHEN 500 MG TABLET PO PRN (08:30)
[2019-07-30] MEDS: PANTOPRAZOLE IV PUSH 40 MG VIAL. IVP SCH (08:34)
[2019-07-30] MEDS: FUROSEMIDE 40 MG TABLET. PO SCH (08:35)
[2019-07-30] MEDS: LINAGLIPTIN 5 MG TABLET PO SCH (08:38)
[2019-07-30] MEDS: METOPROLOL TART IMMED RELEASE 50 MG TABLET. PO SCH ×2 (08:39→21:15)
[2019-07-30] MEDS: CYANOCOBALAMIN (VITAMIN B-12) 1,000 MCG TABLET. PO SCH (08:42)
[2019-07-30] MEDS: DOCUSATE SODIUM 100 MG CAPSULE. PO SCH ×2 (08:42→21:17)
[2019-07-30] MEDS: LACTOBACILLUS RHAMNOSUS GG 1 CAPSULE. PO SCH ×2 (08:43→21:17)
[2019-07-30] MEDS: AMIODARONE HCL 200 MG TABLET. PO SCH (08:44)
[2019-07-30] MEDS: ASCORBIC ACID 500 MG TABLET PO SCH (08:55)
--- NOTE | 2019-07-30 09:40 | PDOC ---
IM PROGRESS NOTES- Subjective Subjective Feeling better. No complaints of pain.Has rt foot spasms. Objective Vitals/I&O Vital Signs Date Time Temp Pulse Resp B/P (MAP) Pulse Ox O2 Delivery O2 Flow Rate FiO2 07/30/19 08:44 74 184/71 07/30/19 08:01 99 Room Air 07/30/19 07:00 97.9 16 97.9 I & O 07/29/19 07/29/19 07/30/19 15:00 23:00 07:00 Intake Total 300 ml 293 ml 10 ml Output Total 165 ml 350 ml 250 ml Balance 135 ml -57 ml -240 ml Physical Exam Physical Exam GENERAL: The patient is an elderly female who is alert, oriented x 3,weak and in no respiratory distress. She is anxious. LUNGS: increased air entry CARDIOVASCULAR: S1, S2 regular. ABDOMEN: Soft, non tender, no guarding, no rigidity. Bowel sounds present. EXTREMITIES trace edema of both lower extremities. The patient has swelling of the left forearm because of the recent surgery for graft for dialysis access. She has blisters and redness and bruising on the left upper extremity improving. CENTRAL NERVOUS SYSTEM: Alert, oriented and anxious. Labs Laboratory Tests Test 07/29/19 15:10 07/29/19 17:41 07/29/19 21:07 07/30/19 03:05 Hemoglobin 7.1 g/dL (12.0-15.5) L 8.4 g/dL (12.0-15.5) L Glucose (Fingerstick) 129 mg/dL (70-99) H 127 mg/dL (70-99) H Hematocrit 26.6 % (36.0-47.0) L Mean Corpuscular Hemoglobin Concent 32 g/dL (31-37) Test 07/30/19 07:19 Glucose (Fingerstick) 138 mg/dL (70-99) H Laboratory Tests 07/29/19 15:10 07/30/19 03:05 Assessment Assessment 1. Acute hypoxic respiratory failure. 2. Acute on chronic diastolic congestive heart failure. 3. End-stage renal disease. 4. Asthma with mild exacerbation. 5. Allergic rhinitis. 6. Anxiety. 7. Urinary tract infection. 8. Diabetes mellitus type 2 with diabetic nephropathy. 9. Diabetic polyneuropathy. 10. Chronic gout. 11. Hypertension. 12. Mixed hyperlipidemia. PLAN: Day #2 dialysis. doing well. less sob . cr 3.3. home ? tue/tue. Consult Dr. Rao for nephrology evaluation and management, Dr. Elizondo for cardiology evaluation and management. The patient was given 1 dose of IV Rocephin today. I will readjust it tomorrow. We will resume home medications including the blood pressure medications. The patient was given one dose of IV Lasix in the Emergency Room and she had taken her morning dose also. Wire Coating Machine Operator felt that more Lasix may not be beneficial at this time. I will give her low dose morphine 1 mg and give her breathing treatment and also Pulmicort breathing treatment to see if this would help her breathing and relieve the pressure on her chest. For details, please refer to the orders. Hopefully tomorrow if she does not respond, will need dialysis. Condition and treatment extensively discussed with multiple children. For details, please refer to the orders. UTI- adjust the dose of Rocephin due to end-stage renal disease. Diabetes- stable End-stage renal disease- patient had the graft placed on july about 11 days old. She has a quick AVG. Condition treatment options discussed with the patient and the family. Hypertension- not controlled Paroxysmal atrial fibrillation- continue amiodarone. Eliquis has been discontinued rigorously because of GI bleed. Echocardiogram The left ventricle is normal size. The left ventricular systolic function is normal and the ejection fraction is within normal range. Ejection fraction 55-60%. There is borderline concentric left ventricular hypertrophy. Doppler and Color Flow revealed no significant aortic regurgitation. There is no significant aortic valvular stenosis. Doppler and Color-flow revealed trace to mild mitral regurgitation. Doppler and Color Flow revealed mild tricuspid regurgitation. Estimated PAP 48 mmHg. Mild exacerbation of asthma improving. Anxiety improving. Weakness- PT/OT Leukocytosis- WBC count is 21.3. This is multifactorial .On IV Zosyn. CT abd/pelvis. Impression: Small pleural effusions. Minimal adjacent atelectasis. Very minimal perihepatic ascites. Distention of the duodenum is mild with suggestion of surrounding stranding. Correlate for possibility of duodenitis. No loculated collection within the abdomen or pelvis. Diverticulosis. Venous doppler of left upper extremity is negative for DVT.Graft is patent. Chest x ray- no infiltrates,small pleural effusion. Rectal bleeding likely due to constipation and Apixaban. Discontinue Apixaban. Hold aspirin for now GI bleeding- likely diverticular. Improving.Hb dropped to 7.1,stools dark and tarry.Gave 1 unit PRBcs.Hb now 8.4. Acute on chronic blood loss anemia Condition treatment discussed with the patient and the family. Recent Syncope - blood pressure is better now Plan Plan For more details regarding further plans, please refer to the orders. HIRA BELTRE MD Jul 30, 2019 09:40
--- NOTE | 2019-07-30 10:07 | PDOC ---
Subjective: Subjective: Supportive family in room - dark tarry stool in ICU yesterday, tolerating full liquids, abd is bloated but might be related to needing dialysis, asks about Zosyn for diverticulosis and elevated WBC - says her pain was always upper (none now - "feels full"), also wondering about fluctuating Hgb. Objective: Vital Signs: Vital Signs Date Time Temp Pulse Resp B/P (MAP) Pulse Ox O2 Delivery O2 Flow Rate FiO2 07/30/19 08:44 74 184/71 07/30/19 08:01 99 Room Air 07/30/19 07:00 97.9 16 97.9 Labs: Laboratory Tests Test 07/29/19 15:10 07/29/19 17:41 07/29/19 21:07 07/30/19 03:05 Hemoglobin 7.1 g/dL 8.4 g/dL Glucose (Fingerstick) 129 mg/dL 127 mg/dL Hematocrit 26.6 % Mean Corpuscular Hemoglobin Concent 32 g/dL Test 07/30/19 07:19 Glucose (Fingerstick) 138 mg/dL Imaging: GI Bleed Scan 07/28 IMPRESSION: No convincing active gastrointestinal hemorrhage. PE: GEN: NAD - family helping eat breakfast LUNGS: CTAB HEART: RRR ABD: some distention but soft, does not seem tender NEURO/PSYCH: A & O 3 A/P: Suspected diverticular bleed, anemia - resolving, required transfusion (3 units), family reports dark tarry stool yesterday ESRD on HD, A Fib, CHF Leukocytosis - on Zosyn per ID -- Taking full liquids - change to PO PPI, consider advancing diet? Will review their questions w/ Dr. Hernandes. JUAN MUHAMMAD Jul 30, 2019 10:07
--- NOTE | 2019-07-30 10:15 | PDOC ---
Infectious Disease Note Subjective Subjective Feeling better today though stomach feels bloated/full. Denies cramps/diarrhea/N/V/F/C ROS ROS per HPI Vital Sign Vital Signs Vital Signs Date Time Temp Pulse Resp B/P (MAP) Pulse Ox O2 Delivery O2 Flow Rate FiO2 07/30/19 08:44 74 184/71 07/30/19 08:01 99 Room Air 07/30/19 07:00 97.9 16 97.9 Physical Exam PHYSICAL EXAM GENERAL: Propped up in bed, alert, dialyzing (looks better) HEENT: Pupils equal, oral cavity pink, dry NECK: Supple. LUNGS: Clear. HEART: S1, S2 regular. ABDOMEN: Obese, soft, mildly tender : Alex in place EXTREMITIES: No gross edema or cyanosis LUE-AV fistula unremarkable for infection SKIN: warm to touch NEUROLOGIC: Alert, nonfocal PIV Labs Lab Laboratory Tests Test 07/29/19 15:10 07/29/19 17:41 07/29/19 21:07 07/30/19 03:05 Hemoglobin 7.1 g/dL (12.0-15.5) 8.4 g/dL (12.0-15.5) Glucose (Fingerstick) 129 mg/dL (70-99) 127 mg/dL (70-99) Hematocrit 26.6 % (36.0-47.0) Mean Corpuscular Hemoglobin Concent 32 g/dL (31-37) Test 07/30/19 07:19 Glucose (Fingerstick) 138 mg/dL (70-99) Objective Assessment Leukocytosis, trending up, ? reactive - PRBCs/Influenza vaccine/ - clinically much better UTI, POA. UC not done GI bleed, s/p PRBCs 07/27, 07/28, 07/29 ESRD on HD CHF DM HTN A- fib, on amiodarone Plan Plan of Care Continue Zosyn, renal dosing Monitor labs supportive care PT/OT D/w nursing D/w family Attending Co-Sign Attending Co-Sign The patient was seen and interviewed as well as examined at the bedside. The chart was reviewed. The case was discussed. Agree with the plan of care. CECILLE BECERRA APRN Jul 30, 2019 10:14 KARI SCRUGSG MD Jul 30, 2019 15:14
--- NOTE | 2019-07-30 11:58 | PDOC ---
SUBJECTIVE ROS No concerns voiced during HD OBJECTIVE Vital Signs Vital Signs Date Time Temp Pulse Resp B/P (MAP) Pulse Ox O2 Delivery O2 Flow Rate FiO2 07/30/19 08:44 74 184/71 07/30/19 08:01 99 Room Air 07/30/19 07:00 97.9 16 97.9 I & 0 Intake and Output 07/30/19 07:00 Intake Total 603 ml Output Total 765 ml Balance -162 ml Intake Oral 300 ml Blood Product IV Normal Saline Flush 303 ml Output Urine Total 765 ml # Bowel Movements 1 PHYSICAL EXAM Physical Exam GENERAL: Propped up in bed , NAD HEENT: OM moist NECK: Supple. LUNGS: Clear. HEART: S1, S2 regular. ABDOMEN: Obese, soft, mildly tender EXTREMITIES: No gross edema or cyanosis LUE-AV fistula SKIN: warm to touch NEUROLOGIC: Alert, nonfocal DIAGNOSIS/ASSESSMENT Assessment & Plan ESRD - initiated on HD 07/20 On MWF schedule , seen on HD , tolerating well continue as ordered, [facility]ian [facility] Access - [facility] OPHD chair time scheduled at [facility], [place], [facility], F Anemia- Suspected diverticular bleed, required transfusion (3 units) On HUSSEIN as well GI following Dyspnea secondary to acute on chronic diastolic HF Echo earlier this year with preserved LV systolic function Cardiology following Hypertension; Antihypertensives Diabetes, II- as per PCP COMMENT/RELEVANT DATA Meds Current Medications Medications (Trade) Dose Ordered Sig/Cate Start Time Stop Time Status Last Admin Dose Admin Acetaminophen (Tylenol) 500 mg 1X PRN PRN 07/30/19 08:30 07/31/19 08:29 Albumin Human 200 ml @ 200 mls/hr 1X PRN PRN 07/30/19 08:30 07/30/19 14:29 Albuterol Sulfate (Ventolin Neb Soln) 2.5 mg PRN Q6HRS PRN 07/18/19 19:45 UNV Albuterol/ Ipratropium (Duoneb) 3 ml BID 07/25/19 21:00 07/30/19 08:01 3 ML Amiodarone HCl (Cordarone) 200 mg DAILY 07/26/19 14:15 07/30/19 08:44 200 MG Amiodarone HCl 150 mg/Dextrose 103 ml @ 600 mls/hr 1X ONCE 07/25/19 13:30 07/25/19 13:40 DC 07/25/19 14:13 600 MLS/HR Amiodarone HCl 900 mg/Dextrose 518 ml @ 0 mls/hr CONT PRN 07/25/19 13:30 07/26/19 13:29 DC 07/25/19 14:13 33 MLS/HR Apixaban (Eliquis) 2.5 mg BID 07/25/19 21:00 07/27/19 08:57 DC 07/26/19 21:03 2.5 MG Ascorbic Acid (Vitamin C) 500 mg DAILY 07/19/19 09:00 07/29/19 08:12 500 MG Aspirin (Ecotrin) 81 mg DAILYWBKFT 07/19/19 08:00 07/27/19 08:57 DC 07/26/19 08:56 81 MG Atorvastatin Calcium (Lipitor) 10 mg QHS 07/18/19 21:00 07/29/19 20:50 10 MG Bisacodyl (Dulcolax Supp) 10 mg PRN DAILY PRN 07/24/19 11:00 07/25/19 16:39 10 MG Budesonide (Pulmicort) 0.5 mg RTBID 07/18/19 20:00 07/30/19 08:01 0.5 MG Ceftriaxone Sodium (Rocephin) 1 gm Q24H 07/19/19 16:00 07/25/19 08:04 DC 07/24/19 16:38 1 GM Cetirizine HCl (ZyrTEC) 10 mg HS 07/19/19 21:00 07/29/19 20:47 10 MG Clonidine HCl (Catapres) 0.3 mg QHS 07/18/19 21:00 07/24/19 21:00 DC 07/23/19 20:43 0.3 MG Cyanocobalamin (Vitamin B-12) 1,000 mcg DAILY 07/19/19 09:00 07/29/19 08:12 1,000 MCG Darbepoetin Bryan (ARANESP for DIALYSIS PTS) 60 mcg WEEKLYHS 07/28/19 21:00 07/28/19 22:28 60 MCG Diphenhydramine HCl (Benadryl) 25 mg 1X PRN PRN 07/30/19 08:30 07/31/19 08:29 Docusate Sodium (Colace) 100 mg BID 07/22/19 13:00 07/29/19 20:47 100 MG Ferrous Sulfate (Feosol) 325 mg DAILY 07/19/19 09:00 07/23/19 20:42 DC 07/22/19 09:01 325 MG Furosemide (Lasix) 40 mg DAILY 07/24/19 09:00 07/30/19 08:35 40 MG Heparin Sodium (Porcine) (HEPARIN for NUC MED) 100 unit 1X ONCE 07/27/19 21:00 07/27/19 21:01 DC Heparin Sodium (Porcine) (Heparin Sodium) 5,000 unit Q12HR 07/18/19 21:00 07/25/19 13:30 DC 07/25/19 13:07 5,000 UNIT Hydralazine HCl (Apresoline Inj) 10 mg PRN Q4HRS PRN 07/26/19 09:45 07/26/19 09:58 10 MG Hydralazine HCl (Apresoline) 75 mg TID 07/19/19 21:00 07/30/19 07:27 75 MG Influenza Virus Vaccine Quadrival (Afluria Quad 2019-20 (3yr Up) Syringe) 0.5 ml ONCE ONCE 07/27/19 11:00 07/27/19 11:01 DC 07/29/19 19:19 0.5 ML Info (PHARMACY MONITORING -- do not chart) 1 each PRN DAILY PRN 07/30/19 08:30 UNV Labetalol HCl (Trandate) 200 mg BID 07/18/19 21:00 07/20/19 17:10 DC 07/20/19 09:31 200 MG Lactobacillus Rhamnosus (Culturelle) 1 cap BID 07/19/19 21:00 07/30/19 08:43 1 CAP Lactulose (Lactulose) 30 gm 1X ONCE 07/26/19 12:15 07/26/19 12:20 DC 07/26/19 12:59 30 GM Levothyroxine Sodium (Synthroid) 125 mcg DAILY06 07/19/19 06:00 07/30/19 06:23 125 MCG Lidocaine HCl (Xylocaine 1% Pf 30ml Vial) 30 ml 1X ONCE 07/21/19 08:00 07/21/19 08:01 DC Lidocaine HCl (Xylocaine-Mpf 1% 2ml Vial) 2 ml STK-MED ONCE 07/21/19 08:00 07/23/19 08:25 DC Linagliptin (Tradjenta) 5 mg DAILY 07/19/19 09:00 07/30/19 08:38 5 MG Metoprolol Tartrate (Lopressor Vial) 5 mg PRN Q6HRS PRN 07/23/19 18:15 07/29/19 00:55 5 MG Metoprolol Tartrate (Lopressor) 50 mg BID 07/20/19 21:00 07/30/19 08:39 50 MG Montelukast Sodium (Singulair) 10 mg HS 07/19/19 21:00 07/29/19 20:47 10 MG Morphine Sulfate (Morphine Sulfate) 1 mg PRN Q3HRS PRN 07/18/19 19:30 07/19/19 21:41 1 MG Ondansetron HCl (Zofran) 4 mg PRN Q6HRS PRN 07/20/19 17:15 07/22/19 16:17 4 MG Pantoprazole Sodium (PROTONIX VIAL for IV PUSH) 40 mg DAILYAC 07/27/19 14:00 07/30/19 10:07 DC 07/30/19 08:34 40 MG Pantoprazole Sodium (Protonix) 40 mg DAILYAC 07/31/19 07:30 Piperacillin Sod/ Tazobactam Sod 2.25 gm/Sodium Chloride 50 ml @ 100 mls/hr Q8HRS 07/26/19 16:00 07/30/19 06:23 100 MLS/HR Prochlorperazine Edisylate (Compazine) 10 mg PRN Q6HRS PRN 07/22/19 18:00 07/23/19 16:54 10 MG Sodium Chloride 1,000 ml @ 400 mls/hr Q2H30M PRN 07/30/19 08:18 07/30/19 20:17 Tramadol HCl (Ultram) 50 mg PRN Q6HRS PRN 07/18/19 19:00 07/22/19 01:35 50 MG Trazodone HCl (Desyrel) 50 mg QHS 07/22/19 21:00 07/26/19 21:02 50 MG Lab Laboratory Tests Test 07/29/19 15:10 07/29/19 17:41 07/29/19 21:07 07/30/19 03:05 Hemoglobin 7.1 g/dL (12.0-15.5) 8.4 g/dL (12.0-15.5) Glucose (Fingerstick) 129 mg/dL (70-99) 127 mg/dL (70-99) Hematocrit 26.6 % (36.0-47.0) Mean Corpuscular Hemoglobin Concent 32 g/dL (31-37) Test 07/30/19 07:19 Glucose (Fingerstick) 138 mg/dL (70-99) Results All relevant outside records, renal labs, imaging studies, telemetry/EKG's were reviewed. LAQUITA SEGUNDO MD Jul 30, 2019 11:58
[2019-07-30 12:36] LABS: HEMATOCRIT 27.8 % (36.0-47.0); HEMOGLOBIN 9.4 g/dL (12.0-15.5)
--- NOTE | 2019-07-30 12:50 | NUR ---
SS following up with discharge planning. Pt accepted at [facility], ; fax [phone]. Pt has OPHD chair time scheduled at [facility]. SS will continue to follow for discharge planning.
[2019-07-30 18:19] LABS: HEMATOCRIT 31.1 % (36.0-47.0); HEMOGLOBIN 10.1 g/dL (12.0-15.5)
[2019-07-30] MEDS: ATORVASTATIN CALCIUM 10 MG TABLET. PO SCH (21:14)
[2019-07-30] MEDS: traZODone 50 MG TABLET. PO SCH (21:16)
[2019-07-30] MEDS: CETIRIZINE HCL 10 MG TABLET. PO SCH (21:17)
[2019-07-30] MEDS: MONTELUKAST SODIUM 10 MG TABLET. PO SCH (21:17)
[2019-07-31 00:34] LABS: HEMATOCRIT 25.7 % (36.0-47.0); HEMOGLOBIN 8.6 g/dL (12.0-15.5)
[2019-07-31 02:20] VITALS: BP 140/55
[2019-07-31 04:45] LABS: BASO # 0.1 x10^3/uL (0.0-0.2); BASO % 1 % (0-3); EOS # 0.7 x10^3/uL (0.0-0.7); EOS % 5 % (0-3); HEMATOCRIT 25.3 % (36.0-47.0); HEMOGLOBIN 8.5 g/dL (12.0-15.5); LYMPH % 13 % (24-48); MEAN CORPUSCULAR HEMOGLOBIN 31 pg (25-35); MEAN CORPUSCULAR HGB CONC 34 g/dL (31-37); MEAN CORPUSCULAR VOLUME 93 fL (79-100); MONO # 1.6 x10^3/uL (0.0-1.1); MONO % 11 % (0-9); NEUT # 10.5 x10^3/uL (1.8-7.7); NEUT % 71 % (31-73); PLATELET COUNT 142 x10^3/uL (140-400); RED BLOOD COUNT 2.72 x10^6/uL (3.50-5.40); RED CELL DISTRIBUTION WIDTH 16.5 % (11.5-14.5); WHITE BLOOD COUNT 14.9 x10^3/uL (4.0-11.0)
[2019-07-31 05:18] LABS: ALBUMIN 2.4 g/dL (3.4-5.0); ALBUMIN/GLOBULIN RATIO 0.9 (1.0-1.7); CALCIUM 8.2 mg/dL (8.5-10.1); CREATININE 3.7 mg/dL (0.6-1.0); GFR 11.7; MAGNESIUM 1.7 mg/dL (1.8-2.4); POTASSIUM 3.3 mmol/L (3.5-5.1); TOTAL BILIRUBIN 0.9 mg/dL (0.2-1.0)
[2019-07-31] MEDS: LEVOTHYROXINE 125 MCG TABLET PO SCH (05:20)
[2019-07-31] MEDS: PIPERACILLIN/TAZOBACTAM 2.25 GM in IV NORMAL SALINE 50ML 50 ML IV SCH ×3 (05:22→21:21)
[2019-07-31] MEDS: PANTOPRAZOLE 40 MG TABLET.DR. PO SCH ×2 (05:33→08:38)
[2019-07-31 07:00] VITALS: BP 186/76
[2019-07-31] MEDS: IPRATRPIUM/ALBUTEROL 0.5/2.5MG 3 ML NEBU. NEB SCH ×2 (08:22→20:01)
[2019-07-31] MEDS: BUDESONIDE 0.5 MG/2 ML NEBU. NEB SCH ×2 (08:22→20:00)
[2019-07-31] MEDS: ASCORBIC ACID 500 MG TABLET PO SCH (08:37)
[2019-07-31] MEDS: DOCUSATE SODIUM 100 MG CAPSULE. PO SCH ×2 (08:38→21:00)
[2019-07-31] MEDS: FUROSEMIDE 40 MG TABLET. PO SCH (08:38)
[2019-07-31] MEDS: CYANOCOBALAMIN (VITAMIN B-12) 1,000 MCG TABLET. PO SCH (08:38)
[2019-07-31] MEDS: LACTOBACILLUS RHAMNOSUS GG 1 CAPSULE. PO SCH ×2 (08:38→21:20)
[2019-07-31] MEDS: LINAGLIPTIN 5 MG TABLET PO SCH (08:38)
[2019-07-31] MEDS: AMIODARONE HCL 200 MG TABLET. PO SCH (08:39)
[2019-07-31] MEDS: METOPROLOL TART IMMED RELEASE 50 MG TABLET. PO SCH ×2 (08:39→21:20)
[2019-07-31] MEDS: hydrALAZINE 25 MG TABLET PO SCH ×2 (08:40→16:20)
--- NOTE | 2019-07-31 09:55 | PDOC ---
SUBJECTIVE ROS States she is feeling better today , Swelling in LE and hands much improved OBJECTIVE Vital Signs Vital Signs Date Time Temp Pulse Resp B/P (MAP) Pulse Ox O2 Delivery O2 Flow Rate FiO2 07/31/19 08:40 65 186/76 07/31/19 08:19 98 Room Air 07/31/19 07:00 97.9 20 97.9 I & 0 Intake and Output 07/31/19 06:59 Intake Total 270 ml Output Total 425 ml Balance -155 ml Intake Oral 220 ml IV Total 50 ml Output Urine Total 425 ml # Bowel Movements 1 PHYSICAL EXAM Physical Exam GENERAL: Propped up in bed , NAD HEENT: OM moist NECK: Supple. LUNGS: Clear. HEART: S1, S2 regular. ABDOMEN: Obese, soft, mildly tender EXTREMITIES: No gross edema or cyanosis LUE-AV fistula SKIN: warm to touch NEUROLOGIC: Alert, nonfocal DIAGNOSIS/ASSESSMENT Assessment & Plan ESRD - initiated on HD 07/20 On MWF schedule , no indication today Access - [facility] OPHD chair time scheduled at [facility], [place], [facility], F Anemia- Suspected diverticular bleed, required transfusion (3 units) On HUSSEIN as well GI following Dyspnea secondary to acute on chronic diastolic HF Echo earlier this year with preserved LV systolic function Cardiology following Hypertension; Antihypertensives Per Cardiology Diabetes, II- as per PCP COMMENT/RELEVANT DATA Meds Current Medications Medications (Trade) Dose Ordered Sig/Cate Start Time Stop Time Status Last Admin Dose Admin Acetaminophen (Tylenol) 500 mg 1X PRN PRN 07/30/19 08:30 07/31/19 08:29 DC Albumin Human 200 ml @ 200 mls/hr 1X PRN PRN 07/30/19 08:30 07/30/19 14:29 DC Albuterol Sulfate (Ventolin Neb Soln) 2.5 mg PRN Q6HRS PRN 07/18/19 19:45 UNV Albuterol/ Ipratropium (Duoneb) 3 ml BID 07/25/19 21:00 07/31/19 08:22 3 ML Amiodarone HCl (Cordarone) 200 mg DAILY 07/26/19 14:15 07/31/19 08:39 200 MG Amiodarone HCl 150 mg/Dextrose 103 ml @ 600 mls/hr 1X ONCE 07/25/19 13:30 07/25/19 13:40 DC 07/25/19 14:13 600 MLS/HR Amiodarone HCl 900 mg/Dextrose 518 ml @ 0 mls/hr CONT PRN 07/25/19 13:30 07/26/19 13:29 DC 07/25/19 14:13 33 MLS/HR Apixaban (Eliquis) 2.5 mg BID 07/25/19 21:00 07/27/19 08:57 DC 07/26/19 21:03 2.5 MG Ascorbic Acid (Vitamin C) 500 mg DAILY 07/19/19 09:00 07/31/19 08:37 500 MG Aspirin (Ecotrin) 81 mg DAILYWBKFT 07/19/19 08:00 07/27/19 08:57 DC 07/26/19 08:56 81 MG Atorvastatin Calcium (Lipitor) 10 mg QHS 07/18/19 21:00 07/30/19 21:14 10 MG Bisacodyl (Dulcolax Supp) 10 mg PRN DAILY PRN 07/24/19 11:00 07/25/19 16:39 10 MG Budesonide (Pulmicort) 0.5 mg RTBID 07/18/19 20:00 07/31/19 08:22 0.5 MG Ceftriaxone Sodium (Rocephin) 1 gm Q24H 07/19/19 16:00 07/25/19 08:04 DC 07/24/19 16:38 1 GM Cetirizine HCl (ZyrTEC) 10 mg HS 07/19/19 21:00 07/30/19 21:17 10 MG Clonidine HCl (Catapres) 0.3 mg QHS 07/18/19 21:00 07/24/19 21:00 DC 07/23/19 20:43 0.3 MG Cyanocobalamin (Vitamin B-12) 1,000 mcg DAILY 07/19/19 09:00 07/31/19 08:38 1,000 MCG Darbepoetin Bryan (ARANESP for DIALYSIS PTS) 60 mcg WEEKLYHS 07/28/19 21:00 07/28/19 22:28 60 MCG Diphenhydramine HCl (Benadryl) 25 mg 1X PRN PRN 07/30/19 08:30 07/31/19 08:29 DC Docusate Sodium (Colace) 100 mg BID 07/22/19 13:00 07/31/19 08:38 100 MG Ferrous Sulfate (Feosol) 325 mg DAILY 07/19/19 09:00 07/23/19 20:42 DC 07/22/19 09:01 325 MG Furosemide (Lasix) 40 mg DAILY 07/24/19 09:00 07/31/19 08:38 40 MG Heparin Sodium (Porcine) (HEPARIN for NUC MED) 100 unit 1X ONCE 07/27/19 21:00 07/27/19 21:01 DC Heparin Sodium (Porcine) (Heparin Sodium) 5,000 unit Q12HR 07/18/19 21:00 07/25/19 13:30 DC 07/25/19 13:07 5,000 UNIT Hydralazine HCl (Apresoline Inj) 10 mg PRN Q4HRS PRN 07/26/19 09:45 07/26/19 09:58 10 MG Hydralazine HCl (Apresoline) 75 mg TID 07/19/19 21:00 07/31/19 08:40 75 MG Influenza Virus Vaccine Quadrival (Afluria Quad 2019-20 (3yr Up) Syringe) 0.5 ml ONCE ONCE 07/27/19 11:00 07/27/19 11:01 DC 07/29/19 19:19 0.5 ML Info (PHARMACY MONITORING -- do not chart) 1 each PRN DAILY PRN 07/30/19 08:30 UNV Labetalol HCl (Trandate) 200 mg BID 07/18/19 21:00 07/20/19 17:10 DC 07/20/19 09:31 200 MG Lactobacillus Rhamnosus (Culturelle) 1 cap BID 07/19/19 21:00 07/31/19 08:38 1 CAP Lactulose (Lactulose) 30 gm 1X ONCE 07/26/19 12:15 07/26/19 12:20 DC 07/26/19 12:59 30 GM Levothyroxine Sodium (Synthroid) 125 mcg DAILY06 07/19/19 06:00 07/31/19 05:20 125 MCG Lidocaine HCl (Xylocaine 1% Pf 30ml Vial) 30 ml 1X ONCE 07/21/19 08:00 07/21/19 08:01 DC Lidocaine HCl (Xylocaine-Mpf 1% 2ml Vial) 2 ml STK-MED ONCE 07/21/19 08:00 07/23/19 08:25 DC Linagliptin (Tradjenta) 5 mg DAILY 07/19/19 09:00 07/31/19 08:38 5 MG Metoprolol Tartrate (Lopressor Vial) 5 mg PRN Q6HRS PRN 07/23/19 18:15 07/29/19 00:55 5 MG Metoprolol Tartrate (Lopressor) 50 mg BID 07/20/19 21:00 07/31/19 08:39 50 MG Montelukast Sodium (Singulair) 10 mg HS 07/19/19 21:00 07/30/19 21:17 10 MG Morphine Sulfate (Morphine Sulfate) 1 mg PRN Q3HRS PRN 07/18/19 19:30 07/19/19 21:41 1 MG Ondansetron HCl (Zofran) 4 mg PRN Q6HRS PRN 07/20/19 17:15 07/22/19 16:17 4 MG Pantoprazole Sodium (PROTONIX VIAL for IV PUSH) 40 mg DAILYAC 07/27/19 14:00 07/30/19 10:07 DC 07/30/19 08:34 40 MG Pantoprazole Sodium (Protonix) 40 mg DAILYAC 07/31/19 07:30 07/31/19 08:38 40 MG Piperacillin Sod/ Tazobactam Sod 2.25 gm/Sodium Chloride 50 ml @ 100 mls/hr Q8HRS 07/26/19 16:00 07/31/19 05:22 100 MLS/HR Prochlorperazine Edisylate (Compazine) 10 mg PRN Q6HRS PRN 07/22/19 18:00 07/23/19 16:54 10 MG Sodium Chloride 1,000 ml @ 400 mls/hr Q2H30M PRN 07/30/19 08:18 07/30/19 20:17 DC Tramadol HCl (Ultram) 50 mg PRN Q6HRS PRN 07/18/19 19:00 07/22/19 01:35 50 MG Trazodone HCl (Desyrel) 50 mg QHS 07/22/19 21:00 07/30/19 21:16 50 MG Lab Laboratory Tests Test 07/30/19 11:50 07/30/19 17:10 07/30/19 18:00 07/30/19 20:57 Hemoglobin 9.4 g/dL (12.0-15.5) 10.1 g/dL (12.0-15.5) Hematocrit 27.8 % (36.0-47.0) 31.1 % (36.0-47.0) Mean Corpuscular Hemoglobin Concent 34 g/dL (31-37) 33 g/dL (31-37) Glucose (Fingerstick) 120 mg/dL (70-99) 111 mg/dL (70-99) Test 07/31/19 00:15 07/31/19 03:45 07/31/19 08:14 Hemoglobin 8.6 g/dL (12.0-15.5) 8.5 g/dL (12.0-15.5) Hematocrit 25.7 % (36.0-47.0) 25.3 % (36.0-47.0) Mean Corpuscular Hemoglobin Concent 34 g/dL (31-37) 34 g/dL (31-37) White Blood Count 14.9 x10^3/uL (4.0-11.0) Red Blood Count 2.72 x10^6/uL (3.50-5.40) Mean Corpuscular Volume 93 fL (79-100) Mean Corpuscular Hemoglobin 31 pg (25-35) Red Cell Distribution Width 16.5 % (11.5-14.5) Platelet Count 142 x10^3/uL (140-400) Neutrophils (%) (Auto) 71 % (31-73) Lymphocytes (%) (Auto) 13 % (24-48) Monocytes (%) (Auto) 11 % (0-9) Eosinophils (%) (Auto) 5 % (0-3) Basophils (%) (Auto) 1 % (0-3) Neutrophils # (Auto) 10.5 x10^3/uL (1.8-7.7) Lymphocytes # (Auto) 2.0 x10^3/uL (1.0-4.8) Monocytes # (Auto) 1.6 x10^3/uL (0.0-1.1) Eosinophils # (Auto) 0.7 x10^3/uL (0.0-0.7) Basophils # (Auto) 0.1 x10^3/uL (0.0-0.2) Sodium Level 142 mmol/L (136-145) Potassium Level 3.3 mmol/L (3.5-5.1) Chloride Level 106 mmol/L (98-107) Carbon Dioxide Level 24 mmol/L (21-32) Anion Gap 12 (6-14) Blood Urea Nitrogen 64 mg/dL (7-20) Creatinine 3.7 mg/dL (0.6-1.0) Estimated GFR (Cockcroft-Gault) 11.7 BUN/Creatinine Ratio 17 (6-20) Glucose Level 120 mg/dL (70-99) Calcium Level 8.2 mg/dL (8.5-10.1) Magnesium Level 1.7 mg/dL (1.8-2.4) Total Bilirubin 0.9 mg/dL (0.2-1.0) Aspartate Amino Transf (AST/SGOT) 23 U/L (15-37) Alanine Aminotransferase (ALT/SGPT) 13 U/L (14-59) Alkaline Phosphatase 37 U/L (46-116) Total Protein 5.0 g/dL (6.4-8.2) Albumin 2.4 g/dL (3.4-5.0) Albumin/Globulin Ratio 0.9 (1.0-1.7) Glucose (Fingerstick) 119 mg/dL (70-99) Results All relevant outside records, renal labs, imaging studies, telemetry/EKG's were reviewed. LAQUITA SEGUNDO MD Jul 31, 2019 09:55
[2019-07-31] MEDS ORDERED: POTASSIUM CHLORIDE 20 MEQ TABLET.ER. PO ONE (10:00)
--- NOTE | 2019-07-31 10:23 | PDOC ---
IM PROGRESS NOTES- Subjective Subjective Feeling better. No complaints of pain.Has rt foot spasms. Objective Vitals/I&O Vital Signs Date Time Temp Pulse Resp B/P (MAP) Pulse Ox O2 Delivery O2 Flow Rate FiO2 07/31/19 08:40 65 186/76 07/31/19 08:19 98 Room Air 07/31/19 07:00 97.9 20 97.9 I & O 07/30/19 07/30/19 07/31/19 15:00 23:00 07:00 Intake Total 120 ml 150 ml Output Total 100 ml 225 ml 100 ml Balance -100 ml -105 ml 50 ml Physical Exam Physical Exam GENERAL: The patient is an elderly female who is alert, oriented x 3,weak and in no respiratory distress. LUNGS: increased air entry CARDIOVASCULAR: S1, S2 regular. ABDOMEN: Soft, non tender, no guarding, no rigidity. Bowel sounds present. EXTREMITIES trace edema of both lower extremities. The patient has swelling of the left forearm because of the recent surgery for graft for dialysis access. She has blisters and redness and bruising on the left upper extremity improving. CENTRAL NERVOUS SYSTEM: Alert, oriented and anxious. Labs Laboratory Tests Test 07/30/19 11:50 07/30/19 17:10 07/30/19 18:00 07/30/19 20:57 Hemoglobin 9.4 g/dL (12.0-15.5) L 10.1 g/dL (12.0-15.5) L Hematocrit 27.8 % (36.0-47.0) L 31.1 % (36.0-47.0) L Mean Corpuscular Hemoglobin Concent 34 g/dL (31-37) 33 g/dL (31-37) Glucose (Fingerstick) 120 mg/dL (70-99) H 111 mg/dL (70-99) H Test 07/31/19 00:15 07/31/19 03:45 07/31/19 08:14 Hemoglobin 8.6 g/dL (12.0-15.5) L 8.5 g/dL (12.0-15.5) L Hematocrit 25.7 % (36.0-47.0) L 25.3 % (36.0-47.0) L Mean Corpuscular Hemoglobin Concent 34 g/dL (31-37) 34 g/dL (31-37) White Blood Count 14.9 x10^3/uL (4.0-11.0) H Red Blood Count 2.72 x10^6/uL (3.50-5.40) L Mean Corpuscular Volume 93 fL (79-100) Mean Corpuscular Hemoglobin 31 pg (25-35) Red Cell Distribution Width 16.5 % (11.5-14.5) H Platelet Count 142 x10^3/uL (140-400) Neutrophils (%) (Auto) 71 % (31-73) Lymphocytes (%) (Auto) 13 % (24-48) L Monocytes (%) (Auto) 11 % (0-9) H Eosinophils (%) (Auto) 5 % (0-3) H Basophils (%) (Auto) 1 % (0-3) Neutrophils # (Auto) 10.5 x10^3/uL (1.8-7.7) H Lymphocytes # (Auto) 2.0 x10^3/uL (1.0-4.8) Monocytes # (Auto) 1.6 x10^3/uL (0.0-1.1) H Eosinophils # (Auto) 0.7 x10^3/uL (0.0-0.7) Basophils # (Auto) 0.1 x10^3/uL (0.0-0.2) Sodium Level 142 mmol/L (136-145) Potassium Level 3.3 mmol/L (3.5-5.1) L Chloride Level 106 mmol/L (98-107) Carbon Dioxide Level 24 mmol/L (21-32) Anion Gap 12 (6-14) Blood Urea Nitrogen 64 mg/dL (7-20) H Creatinine 3.7 mg/dL (0.6-1.0) H Estimated GFR (Cockcroft-Gault) 11.7 BUN/Creatinine Ratio 17 (6-20) Glucose Level 120 mg/dL (70-99) H Calcium Level 8.2 mg/dL (8.5-10.1) L Magnesium Level 1.7 mg/dL (1.8-2.4) L Total Bilirubin 0.9 mg/dL (0.2-1.0) Aspartate Amino Transferase (AST) 23 U/L (15-37) Alanine Aminotransferase (ALT) 13 U/L (14-59) L Alkaline Phosphatase 37 U/L (46-116) L Total Protein 5.0 g/dL (6.4-8.2) L Albumin 2.4 g/dL (3.4-5.0) L Albumin/Globulin Ratio 0.9 (1.0-1.7) L Glucose (Fingerstick) 119 mg/dL (70-99) H Laboratory Tests 07/30/19 11:50 07/30/19 18:00 07/31/19 00:15 07/31/19 03:45 Laboratory Tests 07/31/19 03:45 Meds Current Medications Medications (Trade) Dose Ordered Sig/Cate Route PRN Reason Start Time Stop Time Status Last Admin Dose Admin Pantoprazole Sodium (Protonix) 40 mg DAILYAC PO 07/31/19 07:30 07/31/19 08:38 Assessment Assessment 1. Acute hypoxic respiratory failure. 2. Acute on chronic diastolic congestive heart failure. 3. End-stage renal disease. 4. Asthma with mild exacerbation. 5. Allergic rhinitis. 6. Anxiety. 7. Urinary tract infection. 8. Diabetes mellitus type 2 with diabetic nephropathy. 9. Diabetic polyneuropathy. 10. Chronic gout. 11. Hypertension. 12. Mixed hyperlipidemia. PLAN: Day #2 dialysis. doing well. less sob . cr 3.3. home ? tue/tue. Consult Dr. Rao for nephrology evaluation and management, Dr. Elizondo for cardiology evaluation and management. The patient was given 1 dose of IV Rocephin today. I will readjust it tomorrow. We will resume home medications including the blood pressure medications. The patient was given one dose of IV Lasix in the Emergency Room and she had taken her morning dose also. Metal Template Maker felt that more Lasix may not be beneficial at this time. I will give her low dose morphine 1 mg and give her breathing treatment and also Pulmicort breathing treatment to see if this would help her breathing and relieve the pressure on her chest. For details, please refer to the orders. Hopefully tomorrow if she does not respond, will need dialysis. Condition and treatment extensively discussed with multiple children. For details, please refer to the orders. UTI-on IV Zosyn Diabetes- stable End-stage renal disease- patient had the graft placed on july states about 11 days old. She has a quick AVG. Condition treatment options discussed with the patient and the family. Hypertension- not controlled. Advised staff to discuss with cardiology. Paroxysmal atrial fibrillation- continue amiodarone. Eliquis has been discontinued rigorously because of GI bleed. Echocardiogram The left ventricle is normal size. The left ventricular systolic function is normal and the ejection fraction is within normal range. Ejection fraction 55-60%. There is borderline concentric left ventricular hypertrophy. Doppler and Color Flow revealed no significant aortic regurgitation. There is no significant aortic valvular stenosis. Doppler and Color-flow revealed trace to mild mitral regurgitation. Doppler and Color Flow revealed mild tricuspid regurgitation. Estimated PAP 48 mmHg. Mild exacerbation of asthma improving. Anxiety improving. Weakness- PT/OT Leukocytosis- WBC count is 14.9 improving. This is multifactorial .On IV Zosyn. CT abd/pelvis. Impression: Small pleural effusions. Minimal adjacent atelectasis. Very minimal perihepatic ascites. Distention of the duodenum is mild with suggestion of surrounding stranding. Correlate for possibility of duodenitis. No loculated collection within the abdomen or pelvis. Diverticulosis. Venous doppler of left upper extremity is negative for DVT.Graft is patent. Chest x ray- no infiltrates,small pleural effusion. Rectal bleeding likely due to constipation and Apixaban. Discontinue Apixaban. Hold aspirin for now GI bleeding- likely diverticular. Improving.Hb dropped to 7.1,stools dark and tarry.Gave 1 unit PRBcs.Hb now 8.4. Acute on chronic blood loss anemia Condition treatment discussed with the patient and the family. Recent Syncope Clinically improving. DC Alex catheter. Increase activity. Recheck labs in a.m. Discussed with GI. Recheck hemoglobin and hematocrit once today. If patient is stable consider discharge tomorrow. Plan Plan For more details regarding further plans, please refer to the orders. HIRA BELTRE MD Jul 31, 2019 10:23
--- NOTE | 2019-07-31 10:32 | PDOC ---
Infectious Disease Note Subjective Subjective Comfortable Feeling better than yesterday Hands less swollen today Denies F/C/N/V/D/SOA ROS ROS per HPI Vital Sign Vital Signs Vital Signs Date Time Temp Pulse Resp B/P (MAP) Pulse Ox O2 Delivery O2 Flow Rate FiO2 07/31/19 08:40 65 186/76 07/31/19 08:19 98 Room Air 07/31/19 07:00 97.9 20 97.9 Physical Exam PHYSICAL EXAM GENERAL: Sitting in the chair, alert, smiling HEENT: Pupils equal, oral cavity pink, dry NECK: Supple. LUNGS: Clear. HEART: S1, S2 regular. ABDOMEN: Soft : Alex in place EXTREMITIES: No gross edema or cyanosis. right hand little puffy LUE-AV fistula unremarkable for infection SKIN: warm to touch NEUROLOGIC: Alert, nonfocal PIV Labs Lab Laboratory Tests Test 07/30/19 11:50 07/30/19 17:10 07/30/19 18:00 07/30/19 20:57 Hemoglobin 9.4 g/dL (12.0-15.5) 10.1 g/dL (12.0-15.5) Hematocrit 27.8 % (36.0-47.0) 31.1 % (36.0-47.0) Mean Corpuscular Hemoglobin Concent 34 g/dL (31-37) 33 g/dL (31-37) Glucose (Fingerstick) 120 mg/dL (70-99) 111 mg/dL (70-99) Test 07/31/19 00:15 07/31/19 03:45 07/31/19 08:14 Hemoglobin 8.6 g/dL (12.0-15.5) 8.5 g/dL (12.0-15.5) Hematocrit 25.7 % (36.0-47.0) 25.3 % (36.0-47.0) Mean Corpuscular Hemoglobin Concent 34 g/dL (31-37) 34 g/dL (31-37) White Blood Count 14.9 x10^3/uL (4.0-11.0) Red Blood Count 2.72 x10^6/uL (3.50-5.40) Mean Corpuscular Volume 93 fL (79-100) Mean Corpuscular Hemoglobin 31 pg (25-35) Red Cell Distribution Width 16.5 % (11.5-14.5) Platelet Count 142 x10^3/uL (140-400) Neutrophils (%) (Auto) 71 % (31-73) Lymphocytes (%) (Auto) 13 % (24-48) Monocytes (%) (Auto) 11 % (0-9) Eosinophils (%) (Auto) 5 % (0-3) Basophils (%) (Auto) 1 % (0-3) Neutrophils # (Auto) 10.5 x10^3/uL (1.8-7.7) Lymphocytes # (Auto) 2.0 x10^3/uL (1.0-4.8) Monocytes # (Auto) 1.6 x10^3/uL (0.0-1.1) Eosinophils # (Auto) 0.7 x10^3/uL (0.0-0.7) Basophils # (Auto) 0.1 x10^3/uL (0.0-0.2) Sodium Level 142 mmol/L (136-145) Potassium Level 3.3 mmol/L (3.5-5.1) Chloride Level 106 mmol/L (98-107) Carbon Dioxide Level 24 mmol/L (21-32) Anion Gap 12 (6-14) Blood Urea Nitrogen 64 mg/dL (7-20) Creatinine 3.7 mg/dL (0.6-1.0) Estimated GFR (Cockcroft-Gault) 11.7 BUN/Creatinine Ratio 17 (6-20) Glucose Level 120 mg/dL (70-99) Calcium Level 8.2 mg/dL (8.5-10.1) Magnesium Level 1.7 mg/dL (1.8-2.4) Total Bilirubin 0.9 mg/dL (0.2-1.0) Aspartate Amino Transf (AST/SGOT) 23 U/L (15-37) Alanine Aminotransferase (ALT/SGPT) 13 U/L (14-59) Alkaline Phosphatase 37 U/L (46-116) Total Protein 5.0 g/dL (6.4-8.2) Albumin 2.4 g/dL (3.4-5.0) Albumin/Globulin Ratio 0.9 (1.0-1.7) Glucose (Fingerstick) 119 mg/dL (70-99) Objective Assessment Leukocytosis, ? reactive - PRBCs/Influenza vaccine/ - improved and clinically much better. UTI, POA. UC not done GI bleed, s/p PRBCs 07/27, 07/28, 07/29 ESRD on HD CHF DM HTN A- fib, on amiodarone Plan Plan of Care Continue Zosyn, renal dosing (07/26) - taper soon Monitor labs supportive care PT/OT D/w nursing D/w family Attending Co-Sign Attending Co-Sign The patient was seen and interviewed as well as examined at the bedside. The chart was reviewed. The case was discussed. Agree with the plan of care. CECILLE BECERRA APRN Jul 31, 2019 10:32 KARI SCRUGGS MD Jul 31, 2019 16:45
[2019-07-31 11:00] VITALS: BP 143/44
--- NOTE | 2019-07-31 11:02 | PDOC ---
Subjective: Subjective: Feeling better today. Nurse says did well w/ oatmeal for breakfast. Family asks if Hgb of 8 is still too low. Objective: Vital Signs: Vital Signs Date Time Temp Pulse Resp B/P (MAP) Pulse Ox O2 Delivery O2 Flow Rate FiO2 07/31/19 08:40 65 186/76 07/31/19 08:19 98 Room Air 07/31/19 07:00 97.9 20 97.9 Labs: Laboratory Tests Test 07/30/19 11:50 07/30/19 17:10 07/30/19 18:00 07/30/19 20:57 Hemoglobin 9.4 g/dL 10.1 g/dL Hematocrit 27.8 % 31.1 % Mean Corpuscular Hemoglobin Concent 34 g/dL 33 g/dL Glucose (Fingerstick) 120 mg/dL 111 mg/dL Test 07/31/19 00:15 07/31/19 03:45 07/31/19 08:14 Hemoglobin 8.6 g/dL 8.5 g/dL Hematocrit 25.7 % 25.3 % Mean Corpuscular Hemoglobin Concent 34 g/dL 34 g/dL White Blood Count 14.9 x10^3/uL Red Blood Count 2.72 x10^6/uL Mean Corpuscular Volume 93 fL Mean Corpuscular Hemoglobin 31 pg Red Cell Distribution Width 16.5 % Platelet Count 142 x10^3/uL Neutrophils (%) (Auto) 71 % Lymphocytes (%) (Auto) 13 % Monocytes (%) (Auto) 11 % Eosinophils (%) (Auto) 5 % Basophils (%) (Auto) 1 % Neutrophils # (Auto) 10.5 x10^3/uL Lymphocytes # (Auto) 2.0 x10^3/uL Monocytes # (Auto) 1.6 x10^3/uL Eosinophils # (Auto) 0.7 x10^3/uL Basophils # (Auto) 0.1 x10^3/uL Sodium Level 142 mmol/L Potassium Level 3.3 mmol/L Chloride Level 106 mmol/L Carbon Dioxide Level 24 mmol/L Anion Gap 12 Blood Urea Nitrogen 64 mg/dL Creatinine 3.7 mg/dL Estimated GFR (Cockcroft-Gault) 11.7 BUN/Creatinine Ratio 17 Glucose Level 120 mg/dL Calcium Level 8.2 mg/dL Magnesium Level 1.7 mg/dL Total Bilirubin 0.9 mg/dL Aspartate Amino Transf (AST/SGOT) 23 U/L Alanine Aminotransferase (ALT/SGPT) 13 U/L Alkaline Phosphatase 37 U/L Total Protein 5.0 g/dL Albumin 2.4 g/dL Albumin/Globulin Ratio 0.9 Glucose (Fingerstick) 119 mg/dL PE: GEN: NAD - was just working w/ therapy LUNGS: room air HEART: RRR ABD: S/ND/NT NEURO/PSYCH: A & O 3 OTHER: small amount of dark brown liquid stool in commode A/P: Suspected diverticular bleed Anemia - last transfused on 07/29, Hgb fluctuating - family reports baseline Hgb 10-11 ESRD on HD Leukocytosis - better -- Try GI soft. D/w Dr. Garg - continue monitoring Hgb, possible DC tomorrow. JUAN MUHAMMAD Jul 31, 2019 11:02
[2019-07-31] MEDS ORDERED: HYDR-2868 PO (11:08)
[2019-07-31] MEDS ORDERED: ACET325T9 PO (11:08)
[2019-07-31] MEDS ORDERED: IPRA3AMP29 NEB (11:08)
[2019-07-31] MEDS ORDERED: PANT40TA77 PO (11:08)
[2019-07-31] MEDS ORDERED: ONDA4VIA7 IV (11:08)
[2019-07-31] MEDS ORDERED: AMIO200T4 PO (11:08)
[2019-07-31] MEDS ORDERED: CETI10TA16 PO (11:08)
[2019-07-31] MEDS ORDERED: LACT1CAP19 PO (11:08)
[2019-07-31] MEDS ORDERED: PROC10VI IV (11:08)
[2019-07-31] MEDS ORDERED: ALBU2.5V8 NEB (11:08)
[2019-07-31] MEDS ORDERED: DOCU-109 PO (11:08)
[2019-07-31] MEDS ORDERED: BISA10SU4 PR (11:08)
[2019-07-31] MEDS ORDERED: DIPH25CA23 PO (11:08)
[2019-07-31] MEDS ORDERED: BUDE0.5A NEB (11:08)
--- NOTE | 2019-07-31 11:10 | SNU/HH DC ---
DISCHARGE ORDERS DISCHARGE INFORMATION: FINAL DIAGNOSIS Problems Medical Problems: (1) Acute on chronic diastolic (congestive) heart failure Status: Acute (2) Acute respiratory failure with hypoxia Status: Acute (3) Asthma exacerbation, mild Status: Acute (4) CHF exacerbation Status: Acute (5) Diabetes mellitus with neuropathy Status: Chronic (6) End stage renal disease Status: Acute (7) ESRD (end stage renal disease) Status: Chronic (8) Gout Status: Chronic (9) Hypertension Status: Chronic (10) Mixed hyperlipidemia Status: Chronic (11) UTI (urinary tract infection) Status: Acute CONDITION ON DISCHARGE: Stable [facility]: SNF STAY <30 DAYS: Yes POST DISCHARGE ORDERS: ACTIVITY ORDERS: Activity as tolerated (with walker and physical therapy s upervision.) DIET AFTER DISCHARGE: Renal (ADA) FOLLOW-UP: PHYSICIAN FOLLOW-UP: Dr. HIRA Beltre LAB ORDERS FOR FOLLOW-UP: CBC, CMP Tuesday TREATMENT/EQUIPMENT ORDERS: Physical Therapy For: Evalulation/Treatment Occupational Therapy For: Evaluation/Treatment Speech Language Pathology For: Evaluation/Treatment DISCHARGE MEDICATIONS: Home Meds Active Scripts Lactobacillus Rhamnosus Gg (CULTURELLE) 1 Each Cap.sprink, 1 CAP PO BID for a ntibiotic use for 30 Days, #60 CAP Prov:HIRA BELTRE MD 07/31/19 Pantoprazole Sodium (PANTOPRAZOLE SODIUM ) 40 Mg Tablet.dr, 40 MG PO DAILYAC for gastritis for 30 Days, #30 TAB.SR Prov:HIRA BELTRE MD 07/31/19 Ondansetron Hcl/Pf (ONDANSETRON HCL 4 MG/2 ML VIAL) 4 Mg/2 Ml Vial, 4 MG IV PRN Q6HRS PRN for NAUSEA/VOMITING, 1ST CHOICE for 30 Days, #30 EACH Prov:HIRA BELTRE MD 07/31/19 Prochlorperazine Edisylate (PROCHLORPERAZINE EDISYLATE) 10 Mg/2 Ml Vial, 10 MG IV PRN Q6HRS PRN for NAUSEA/VOMITING 2ND CHOICE for 30 Days, #60 EACH Prov:HIRA BELTRE MD 07/31/19 Docusate Sodium (COLACE) 100 Mg Capsule, 100 MG PO BID for constipation for 30 Days, #60 CAP Prov:HIRA BELTRE MD 07/31/19 Bisacodyl (BISACODYL) 10 Mg Supp.rect, 10 MG SC PRN DAILY PRN for CONSTIPATION for 30 Days, #10 SUPP.RECT Prov:HIRA BELTRE MD 07/31/19 Budesonide (BUDESONIDE) 0.5 Mg/2 Ml Ampul.neb, 0.5 MG NEB RTBID for asthma for 30 Days, #60 EACH Prov:HIRA BELTRE MD 07/31/19 Acetaminophen (TYLENOL) 325 Mg Tablet, 650 MG PO PRN Q6HRS PRN for MILD PAIN / TEMP for 30 Days, #120 TAB Prov:HIRA BELTRE MD 07/31/19 Hydralazine Hcl (HYDRALAZINE HCL) 25 Mg Tablet, 75 MG PO TID for hypertension for 30 Days, #270 TAB Prov:HIRA BELTRE MD 07/31/19 Amiodarone Hcl (AMIODARONE HCL) 200 Mg Tablet, 200 MG PO DAILY for atrial fibrillation for 30 Days, #30 TAB Prov:HIRA BELTRE MD 07/31/19 Albuterol Sulfate (Proair Hfa) 8.5 Gm Hfa.aer.ad, 2.5 MG NEB PRN QID PRN for SHORTNESS OF BREATH for 30 Days, #1 INHALER Prov:HIRA BELTRE MD 07/31/19 Ipratropium/Albuterol Sulfate (DUONEB 0.5-3(2.5) MG/3 ML) 3 Ml Ampul.neb, 3 ML NEB BID for asthma for 30 Days, #60 EACH Prov:HIRA BELTRE MD 07/31/19 Cetirizine Hcl (CETIRIZINE HCL) 10 Mg Tablet, 10 MG PO HS for allergies for 30 Days, #30 TAB Prov:HIRA BELTRE MD 07/31/19 Diphenhydramine Hcl (DIPHENHYDRAMINE HCL) 25 Mg Capsule, 25 MG PO PRN Q8HRS PRN for ITCHING for 30 Days, #90 CAP Prov:HIRA BELTRE MD 07/31/19 Reported Medications Ascorbic Acid (VITAMIN C) 500 Mg Tablet, 500 MG PO DAILY for VITAMIN, TAB 05/10/19 Ferrous Sulfate (FERROUS SULFATE) 325 Mg Tablet, 325 MG PO DAILY for IRON SUPPLEMENT , TAB 05/10/19 Tramadol Hcl (TRAMADOL HCL) 50 Mg Tablet, 50 MG PO Q6HRS PRN for PAIN, TAB 05/10/19 Montelukast Sodium (SINGULAIR TABLET ) 10 Mg Tablet, 1 TAB PO DAILY for ALLERGIES, #90 TAB 1 Refill 01/18/19 Cyanocobalamin (Vitamin B-12) (VITAMIN B-12) 1,000 Mcg Tablet, 1 TAB PO DAILY for VITAMIN, #30 TAB 2 Refills 01/18/19 Linagliptin (TRADJENTA) 5 Mg Tablet, 5 MG PO DAILY for TYPE 2 DIABETES, TAB 01/18/19 Levothyroxine Sodium (SYNTHROID) 125 Mcg Tablet, 1 TAB PO DAILY for THYROID, #30 TAB 5 Refills 01/18/19 Labetalol Hcl (LABETALOL HCL) 200 Mg Tablet, 1 TAB PO BID for HEART, #60 TAB 5 Refills 01/18/19 Atorvastatin Calcium (LIPITOR) 10 Mg Tablet, 1 TAB PO QHS for CHOLESTEROL, #90 TAB 1 Refill 01/18/19 Furosemide (FUROSEMIDE) 20 Mg Tablet, 1 TAB PO DAILY for RELEASE FLUID, #90 TAB 1 Refill 01/18/19 Clonidine Hcl (CLONIDINE HCL) 0.3 Mg Tablet, 1 TAB PO QHS for HEART, #30 TAB 2 Refills 01/18/19 Discontinued Reported Medications Adalimumab (HUMIRA) 40 Mg/0.8 Ml Pen.ij.kit, 40 MG SQ Q2WKS for RHEAMATOID AR THRITIS , KIT 05/10/19 HIRA BELTRE MD Jul 31, 2019 11:10
[2019-07-31 11:54] LABS: HEMATOCRIT 28.3 % (36.0-47.0); HEMOGLOBIN 9.5 g/dL (12.0-15.5)
[2019-07-31 15:00] VITALS: BP 147/42
[2019-07-31 19:30] VITALS: BP 124/64
[2019-07-31] MEDS ORDERED: amLODIPine BESYLATE 5 MG TABLET PO SCH (21:00)
[2019-07-31] MEDS: MONTELUKAST SODIUM 10 MG TABLET. PO SCH (21:20)
[2019-07-31] MEDS: ATORVASTATIN CALCIUM 10 MG TABLET. PO SCH (21:20)
[2019-07-31] MEDS: traZODone 50 MG TABLET. PO SCH (21:20)
[2019-07-31] MEDS: CETIRIZINE HCL 10 MG TABLET. PO SCH (21:20)
[2019-07-31] MEDS: traMADol 50 MG TABLET PO PRN (21:25)
[2019-07-31 22:55] VITALS: BP 104/52
[2019-08-01 02:50] VITALS: BP 141/63
[2019-08-01 05:43] LABS: BASO # 0.1 x10^3/uL (0.0-0.2); BASO % 1 % (0-3); EOS # 0.6 x10^3/uL (0.0-0.7); EOS % 4 % (0-3); HEMATOCRIT 24.8 % (36.0-47.0); HEMOGLOBIN 8.4 g/dL (12.0-15.5); LYMPH # 2.5 x10^3/uL (1.0-4.8); LYMPH % 16 % (24-48); MEAN CORPUSCULAR HEMOGLOBIN 32 pg (25-35); MEAN CORPUSCULAR HGB CONC 34 g/dL (31-37); MEAN CORPUSCULAR VOLUME 94 fL (79-100); MONO # 1.7 x10^3/uL (0.0-1.1); MONO % 11 % (0-9); NEUT # 10.6 x10^3/uL (1.8-7.7); NEUT % 68 % (31-73); PLATELET COUNT 147 x10^3/uL (140-400); RED BLOOD COUNT 2.65 x10^6/uL (3.50-5.40); WHITE BLOOD COUNT 15.5 x10^3/uL (4.0-11.0)
[2019-08-01 05:54] LABS: CALCIUM 8.6 mg/dL (8.5-10.1); CREATININE 4.6 mg/dL (0.6-1.0); GFR 9.1; POTASSIUM 3.5 mmol/L (3.5-5.1)
[2019-08-01] MEDS: PIPERACILLIN/TAZOBACTAM 2.25 GM in IV NORMAL SALINE 50ML 50 ML IV SCH (06:44)
[2019-08-01] MEDS: LEVOTHYROXINE 125 MCG TABLET PO SCH (06:45)
[2019-08-01 07:00] VITALS: BP 147/56
[2019-08-01] MEDS ORDERED: IV NORMAL SALINE 1000ML BAG 1,000 ML IV PRN ×2 (08:20)
[2019-08-01] MEDS ORDERED: ALBUMIN HUMAN 25% 200 ML IV PRN (08:30)
[2019-08-01] MEDS ORDERED: DIALYSIS PATIENT. MC PRN ×2 (08:30)
[2019-08-01] MEDS: BUDESONIDE 0.5 MG/2 ML NEBU. NEB SCH ×2 (08:59→19:57)
[2019-08-01] MEDS: IPRATRPIUM/ALBUTEROL 0.5/2.5MG 3 ML NEBU. NEB SCH ×2 (08:59→19:57)
--- NOTE | 2019-08-01 08:59 | PDOC ---
Infectious Disease Note Subjective Subjective Feeling good, stronger Hoping to transfer to soon Diarrhea slowed down Enjoying some coffee Denies F/C/N/V/SOA ROS ROS per HPI Vital Sign Vital Signs Vital Signs Date Time Temp Pulse Resp B/P (MAP) Pulse Ox O2 Delivery O2 Flow Rate FiO2 08/01/19 07:00 97.6 65 16 147/56 (86) 96 Room Air 97.6 Physical Exam PHYSICAL EXAM GENERAL: Sitting in the chair, alert, smiling HEENT: Pupils equal, oral cavity pink, dry NECK: Supple. LUNGS: Clear. HEART: S1, S2 regular. ABDOMEN: Soft : Alex in place EXTREMITIES: No gross edema or cyanosis. right hand little puffy LUE-AV fistula unremarkable for infection SKIN: warm to touch NEUROLOGIC: Alert, nonfocal PIV Labs Lab Laboratory Tests Test 07/31/19 11:45 07/31/19 17:23 07/31/19 20:56 08/01/19 05:37 Hemoglobin 9.5 g/dL (12.0-15.5) 8.4 g/dL (12.0-15.5) Hematocrit 28.3 % (36.0-47.0) 24.8 % (36.0-47.0) Mean Corpuscular Hemoglobin Concent 34 g/dL (31-37) 34 g/dL (31-37) Glucose (Fingerstick) 135 mg/dL (70-99) 123 mg/dL (70-99) 163 mg/dL (70-99) White Blood Count 15.5 x10^3/uL (4.0-11.0) Red Blood Count 2.65 x10^6/uL (3.50-5.40) Mean Corpuscular Volume 94 fL (79-100) Mean Corpuscular Hemoglobin 32 pg (25-35) Red Cell Distribution Width 17.0 % (11.5-14.5) Platelet Count 147 x10^3/uL (140-400) Neutrophils (%) (Auto) 68 % (31-73) Lymphocytes (%) (Auto) 16 % (24-48) Monocytes (%) (Auto) 11 % (0-9) Eosinophils (%) (Auto) 4 % (0-3) Basophils (%) (Auto) 1 % (0-3) Neutrophils # (Auto) 10.6 x10^3/uL (1.8-7.7) Lymphocytes # (Auto) 2.5 x10^3/uL (1.0-4.8) Monocytes # (Auto) 1.7 x10^3/uL (0.0-1.1) Eosinophils # (Auto) 0.6 x10^3/uL (0.0-0.7) Basophils # (Auto) 0.1 x10^3/uL (0.0-0.2) Sodium Level 143 mmol/L (136-145) Potassium Level 3.5 mmol/L (3.5-5.1) Chloride Level 106 mmol/L (98-107) Carbon Dioxide Level 24 mmol/L (21-32) Anion Gap 13 (6-14) Blood Urea Nitrogen 70 mg/dL (7-20) Creatinine 4.6 mg/dL (0.6-1.0) Estimated GFR (Cockcroft-Gault) 9.1 Glucose Level 139 mg/dL (70-99) Calcium Level 8.6 mg/dL (8.5-10.1) Test 08/01/19 07:38 Glucose (Fingerstick) 121 mg/dL (70-99) Objective Assessment Leukocytosis, ? reactive - PRBCs/Influenza vaccine/ - improved and clinically much better. UTI, POA. UC not done GI bleed, s/p PRBCs 07/27, 07/28, 07/29 ESRD on HD CHF DM HTN A- fib, on amiodarone Plan Plan of Care Continue Zosyn, renal dosing (07/26) - taper soon Monitor labs supportive care PT/OT D/w nursing D/w family Clinically cont to improve WBC mild increase despite WBC so will decrease and monitor D/w daughter and nursing Attending Co-Sign Attending Co-Sign The patient was seen and interviewed as well as examined at the bedside. The chart was reviewed. The case was discussed. Agree with the plan of care. CECILLE BECERRA APRN Aug 01, 2019 08:59 KARI SCRUGGS MD Aug 01, 2019 15:18
[2019-08-01] MEDS: CYANOCOBALAMIN (VITAMIN B-12) 1,000 MCG TABLET. PO SCH (09:00)
[2019-08-01] MEDS: DOCUSATE SODIUM 100 MG CAPSULE. PO SCH ×2 (09:00→20:13)
[2019-08-01] MEDS: LACTOBACILLUS RHAMNOSUS GG 1 CAPSULE. PO SCH ×2 (09:00→20:12)
[2019-08-01] MEDS: ASCORBIC ACID 500 MG TABLET PO SCH (09:00)
[2019-08-01] MEDS: METOPROLOL TART IMMED RELEASE 50 MG TABLET. PO SCH ×2 (09:00→20:12)
--- NOTE | 2019-08-01 09:53 | PDOC ---
IM PROGRESS NOTES- Subjective Subjective Feeling better. No complaints of pain.Has rt foot spasms. Objective Vitals/I&O Vital Signs Date Time Temp Pulse Resp B/P (MAP) Pulse Ox O2 Delivery O2 Flow Rate FiO2 08/01/19 09:00 99 Room Air 08/01/19 09:00 65 147/56 08/01/19 07:00 97.6 16 97.6 I & O 07/31/19 07/31/19 08/01/19 15:00 23:00 07:00 Intake Total 1040 ml 300 ml 200 ml Balance 1040 ml 300 ml 200 ml Physical Exam Physical Exam GENERAL: The patient is an elderly female who is alert, oriented x 3,weak and in no respiratory distress. LUNGS: increased air entry CARDIOVASCULAR: S1, S2 regular. ABDOMEN: Soft, non tender, no guarding, no rigidity. Bowel sounds present. EXTREMITIES trace edema of both lower extremities. The patient has swelling of the left forearm because of the recent surgery for graft for dialysis access. She has blisters and redness and bruising on the left upper extremity improving. CENTRAL NERVOUS SYSTEM: Alert, oriented and anxious. Labs Laboratory Tests Test 07/31/19 11:45 07/31/19 17:23 07/31/19 20:56 08/01/19 05:37 Hemoglobin 9.5 g/dL (12.0-15.5) L 8.4 g/dL (12.0-15.5) L Hematocrit 28.3 % (36.0-47.0) L 24.8 % (36.0-47.0) L Mean Corpuscular Hemoglobin Concent 34 g/dL (31-37) 34 g/dL (31-37) Glucose (Fingerstick) 135 mg/dL (70-99) H 123 mg/dL (70-99) H 163 mg/dL (70-99) H White Blood Count 15.5 x10^3/uL (4.0-11.0) H Red Blood Count 2.65 x10^6/uL (3.50-5.40) L Mean Corpuscular Volume 94 fL (79-100) Mean Corpuscular Hemoglobin 32 pg (25-35) Red Cell Distribution Width 17.0 % (11.5-14.5) H Platelet Count 147 x10^3/uL (140-400) Neutrophils (%) (Auto) 68 % (31-73) Lymphocytes (%) (Auto) 16 % (24-48) L Monocytes (%) (Auto) 11 % (0-9) H Eosinophils (%) (Auto) 4 % (0-3) H Basophils (%) (Auto) 1 % (0-3) Neutrophils # (Auto) 10.6 x10^3/uL (1.8-7.7) H Lymphocytes # (Auto) 2.5 x10^3/uL (1.0-4.8) Monocytes # (Auto) 1.7 x10^3/uL (0.0-1.1) H Eosinophils # (Auto) 0.6 x10^3/uL (0.0-0.7) Basophils # (Auto) 0.1 x10^3/uL (0.0-0.2) Sodium Level 143 mmol/L (136-145) Potassium Level 3.5 mmol/L (3.5-5.1) Chloride Level 106 mmol/L (98-107) Carbon Dioxide Level 24 mmol/L (21-32) Anion Gap 13 (6-14) Blood Urea Nitrogen 70 mg/dL (7-20) H Creatinine 4.6 mg/dL (0.6-1.0) H Estimated GFR (Cockcroft-Gault) 9.1 Glucose Level 139 mg/dL (70-99) H Calcium Level 8.6 mg/dL (8.5-10.1) Test 08/01/19 07:38 Glucose (Fingerstick) 121 mg/dL (70-99) H Laboratory Tests 07/31/19 11:45 08/01/19 05:37 Laboratory Tests 08/01/19 05:37 Meds Current Medications Medications (Trade) Dose Ordered Sig/Cate Route PRN Reason Start Time Stop Time Status Last Admin Dose Admin Potassium Chloride (Klor-Con) 20 meq 1X ONCE PO 07/31/19 10:00 07/31/19 10:01 DC 07/31/19 11:54 Hydralazine HCl (Apresoline) 100 mg TID PO 07/31/19 21:00 07/31/19 21:20 Assessment Assessment 1. Acute hypoxic respiratory failure. 2. Acute on chronic diastolic congestive heart failure. 3. End-stage renal disease. 4. Asthma with mild exacerbation. 5. Allergic rhinitis. 6. Anxiety. 7. Urinary tract infection. 8. Diabetes mellitus type 2 with diabetic nephropathy. 9. Diabetic polyneuropathy. 10. Chronic gout. 11. Hypertension. 12. Mixed hyperlipidemia. PLAN: Day #2 dialysis. doing well. less sob . cr 3.3. home ? mon/tue. Consult Dr. Rao for nephrology evaluation and management, Dr. Elizondo for cardiology evaluation and management. The patient was given 1 dose of IV Rocephin today. I will readjust it tomorrow. We will resume home medications including the blood pressure medications. The patient was given one dose of IV Lasix in the Emergency Room and she had taken her morning dose also. [employer] felt that more Lasix may not be beneficial at this time. I will give her low dose morphine 1 mg and give her breathing treatment and also Pulmicort breathing treatment to see if this would help her breathing and relieve the pressure on her chest. For details, please refer to the orders. Hopefully tomorrow if she does not respond, will need dialysis. Condition and treatment extensively discussed with multiple children. For details, please refer to the orders. UTI-on IV Zosyn Diabetes- stable End-stage renal disease- patient had the graft placed on july about 11 days old. She has a quick AVG. Condition treatment options discussed with the patient and the family. Hypertension- not controlled. Advised staff to discuss with cardiology. Paroxysmal atrial fibrillation- continue amiodarone. Eliquis has been discontinued rigorously because of GI bleed. Echocardiogram The left ventricle is normal size. The left ventricular systolic function is normal and the ejection fraction is within normal range. Ejection fraction 55-60%. There is borderline concentric left ventricular hypertrophy. Doppler and Color Flow revealed no significant aortic regurgitation. There is no significant aortic valvular stenosis. Doppler and Color-flow revealed trace to mild mitral regurgitation. Doppler and Color Flow revealed mild tricuspid regurgitation. Estimated PAP 48 mmHg. Mild exacerbation of asthma improving. Anxiety improving. Weakness- PT/OT Leukocytosis- WBC count is 15.5 . Clinically patient is improving. This may be reactive. Continue IV Zosyn. CT abd/pelvis. Impression: Small pleural effusions. Minimal adjacent atelectasis. Very minimal perihepatic ascites. Distention of the duodenum is mild with suggestion of surrounding stranding. Correlate for possibility of duodenitis. No loculated collection within the abdomen or pelvis. Diverticulosis. Venous doppler of left upper extremity is negative for DVT.Graft is patent. Chest x ray- no infiltrates,small pleural effusion. Rectal bleeding likely due to constipation and Apixaban. Discontinue Apixaban. Hold aspirin for now GI bleeding- likely diverticular. Improving.Hb dropped to 7.1,stools dark and tarry.Gave 1 unit PRBcs.Hb now 8.4. Acute on chronic blood loss anemia Condition treatment discussed with the patient and the family. Recent Syncope Clinically improving. DC Alex catheter. Increase activity. Recheck labs in a.m. Discussed with GI. Recheck hemoglobin and hematocrit once today. If patient is stable consider discharge tomorrow. Plan Plan For more details regarding further plans, please refer to the orders. HIRA BELTRE MD Aug 01, 2019 09:53
--- NOTE | 2019-08-01 10:37 | PDOC ---
Subjective: Subjective: No bleeding. No stools since yesterday - had diarrhea then - wonders if related to protein shake or antibiotics. Eating better. Daughter present. Objective: Vital Signs: Vital Signs Date Time Temp Pulse Resp B/P (MAP) Pulse Ox O2 Delivery O2 Flow Rate FiO2 08/01/19 09:00 99 Room Air 08/01/19 09:00 65 147/56 08/01/19 07:00 97.6 16 97.6 Labs: Laboratory Tests Test 07/31/19 11:45 07/31/19 17:23 07/31/19 20:56 08/01/19 05:37 Hemoglobin 9.5 g/dL 8.4 g/dL Hematocrit 28.3 % 24.8 % Mean Corpuscular Hemoglobin Concent 34 g/dL 34 g/dL Glucose (Fingerstick) 135 mg/dL 123 mg/dL 163 mg/dL White Blood Count 15.5 x10^3/uL Red Blood Count 2.65 x10^6/uL Mean Corpuscular Volume 94 fL Mean Corpuscular Hemoglobin 32 pg Red Cell Distribution Width 17.0 % Platelet Count 147 x10^3/uL Neutrophils (%) (Auto) 68 % Lymphocytes (%) (Auto) 16 % Monocytes (%) (Auto) 11 % Eosinophils (%) (Auto) 4 % Basophils (%) (Auto) 1 % Neutrophils # (Auto) 10.6 x10^3/uL Lymphocytes # (Auto) 2.5 x10^3/uL Monocytes # (Auto) 1.7 x10^3/uL Eosinophils # (Auto) 0.6 x10^3/uL Basophils # (Auto) 0.1 x10^3/uL Sodium Level 143 mmol/L Potassium Level 3.5 mmol/L Chloride Level 106 mmol/L Carbon Dioxide Level 24 mmol/L Anion Gap 13 Blood Urea Nitrogen 70 mg/dL Creatinine 4.6 mg/dL Estimated GFR (Cockcroft-Gault) 9.1 Glucose Level 139 mg/dL Calcium Level 8.6 mg/dL Test 08/01/19 07:38 Glucose (Fingerstick) 121 mg/dL PE: GEN: NAD - staff giving bed bath LUNGS: room air HEART: RRR NEURO/PSYCH: A & O 3 A/P: Suspected diverticular bleed - resolving Anemia - stable -- ADAT, continue support. JUAN MUHAMMAD Aug 01, 2019 10:37
[2019-08-01 11:00] VITALS: BP 161/47
[2019-08-01] MEDS ORDERED: LIDOCAINE 1% PF 2 ML VIAL. INJ STA (11:01)
--- NOTE | 2019-08-01 13:18 | NUR ---
SS following up with discharge planning. Pt accepted at [facility] and has a bed. SS contacted [facility] and provided update. [facility] reported that pt has a 1415 chair time. They requested that pt arrive at the clinic on 08/03/2019 at 1400. SS notified [facility]. SS will continue to follow for discharge planning.
--- NOTE | 2019-08-01 13:45 | PDOC ---
SUBJECTIVE ROS States she is feeling better, PT went well OBJECTIVE Vital Signs Vital Signs Date Time Temp Pulse Resp B/P (MAP) Pulse Ox O2 Delivery O2 Flow Rate FiO2 08/01/19 11:00 98.0 67 16 161/47 (85) 98 Room Air 98.0 I & 0 Intake and Output 08/01/19 07:00 Intake Total 1540 ml Balance 1540 ml Intake Oral 1490 ml IV Total 50 ml PHYSICAL EXAM Physical Exam GENERAL: Propped up in bed , NAD HEENT: OM moist NECK: Supple. LUNGS: Clear. HEART: S1, S2 regular. ABDOMEN: Obese, soft, mildly tender EXTREMITIES: No gross edema or cyanosis LUE-AV fistula SKIN: warm to touch NEUROLOGIC: Alert, nonfocal DIAGNOSIS/ASSESSMENT Assessment & Plan ESRD - initiated on HD 07/20 On MWF schedule , seen on HD, tolerating well, continue as ordered , Florian Meade Access - Quick Graft Lt OPHD chair time scheduled at [facility], M, W[facility] F Anemia- Suspected diverticular bleed, required transfusion (3 units) On HUSSEIN , Tsat normal 07/27 GI following Dyspnea secondary to acute on chronic diastolic HF Echo earlier this year with preserved LV systolic function Cardiology following Hypertension; Antihypertensives Per Cardiology Diabetes, II- as per PCP COMMENT/RELEVANT DATA Meds Current Medications Medications (Trade) Dose Ordered Sig/Cate Start Time Stop Time Status Last Admin Dose Admin Acetaminophen (Tylenol) 500 mg 1X PRN PRN 07/30/19 08:30 07/31/19 08:29 DC Albumin Human 200 ml @ 200 mls/hr 1X PRN PRN 08/01/19 08:30 08/01/19 14:29 Albuterol Sulfate (Ventolin Neb Soln) 2.5 mg PRN Q6HRS PRN 07/18/19 19:45 UNV Albuterol/ Ipratropium (Duoneb) 3 ml BID 07/25/19 21:00 08/01/19 08:59 3 ML Amiodarone HCl (Cordarone) 200 mg DAILY 07/26/19 14:15 07/31/19 08:39 200 MG Amiodarone HCl 150 mg/Dextrose 103 ml @ 600 mls/hr 1X ONCE 07/25/19 13:30 07/25/19 13:40 DC 07/25/19 14:13 600 MLS/HR Amiodarone HCl 900 mg/Dextrose 518 ml @ 0 mls/hr CONT PRN 07/25/19 13:30 07/26/19 13:29 DC 07/25/19 14:13 33 MLS/HR Amlodipine Besylate (Norvasc) 5 mg QHS 07/31/19 21:00 07/31/19 16:46 DC Apixaban (Eliquis) 2.5 mg BID 07/25/19 21:00 07/27/19 08:57 DC 07/26/19 21:03 2.5 MG Ascorbic Acid (Vitamin C) 500 mg DAILY 07/19/19 09:00 07/31/19 08:37 500 MG Aspirin (Ecotrin) 81 mg DAILYWBKFT 07/19/19 08:00 07/27/19 08:57 DC 07/26/19 08:56 81 MG Atorvastatin Calcium (Lipitor) 10 mg QHS 07/18/19 21:00 07/31/19 21:20 10 MG Bisacodyl (Dulcolax Supp) 10 mg PRN DAILY PRN 07/24/19 11:00 07/25/19 16:39 10 MG Budesonide (Pulmicort) 0.5 mg RTBID 07/18/19 20:00 08/01/19 08:59 0.5 MG Ceftriaxone Sodium (Rocephin) 1 gm Q24H 07/19/19 16:00 07/25/19 08:04 DC 07/24/19 16:38 1 GM Cetirizine HCl (ZyrTEC) 10 mg HS 07/19/19 21:00 07/31/19 21:20 10 MG Clonidine HCl (Catapres) 0.3 mg QHS 07/18/19 21:00 07/24/19 21:00 DC 07/23/19 20:43 0.3 MG Cyanocobalamin (Vitamin B-12) 1,000 mcg DAILY 07/19/19 09:00 07/31/19 08:38 1,000 MCG Darbepoetin Bryan (ARANESP for DIALYSIS PTS) 60 mcg WEEKLYHS 07/28/19 21:00 07/28/19 22:28 60 MCG Diphenhydramine HCl (Benadryl) 25 mg 1X PRN PRN 07/30/19 08:30 07/31/19 08:29 DC Docusate Sodium (Colace) 100 mg BID 07/22/19 13:00 07/31/19 08:38 100 MG Ferrous Sulfate (Feosol) 325 mg DAILY 07/19/19 09:00 07/23/19 20:42 DC 07/22/19 09:01 325 MG Furosemide (Lasix) 40 mg DAILY 07/24/19 09:00 07/31/19 08:38 40 MG Heparin Sodium (Porcine) (HEPARIN for NUC MED) 100 unit 1X ONCE 07/27/19 21:00 07/27/19 21:01 DC Heparin Sodium (Porcine) (Heparin Sodium) 5,000 unit Q12HR 07/18/19 21:00 07/25/19 13:30 DC 07/25/19 13:07 5,000 UNIT Hydralazine HCl (Apresoline Inj) 10 mg PRN Q4HRS PRN 07/26/19 09:45 07/26/19 09:58 10 MG Hydralazine HCl (Apresoline) 100 mg TID 07/31/19 21:00 07/31/19 21:20 100 MG Influenza Virus Vaccine Quadrival (Afluria Quad 2019-20 (3yr Up) Syringe) 0.5 ml ONCE ONCE 07/27/19 11:00 07/27/19 11:01 DC 07/29/19 19:19 0.5 ML Info (PHARMACY MONITORING -- do not chart) 1 each PRN DAILY PRN 08/01/19 08:30 Labetalol HCl (Trandate) 200 mg BID 07/18/19 21:00 07/20/19 17:10 DC 07/20/19 09:31 200 MG Lactobacillus Rhamnosus (Culturelle) 1 cap BID 07/19/19 21:00 07/31/19 21:20 1 CAP Lactulose (Lactulose) 30 gm 1X ONCE 07/26/19 12:15 07/26/19 12:20 DC 07/26/19 12:59 30 GM Levothyroxine Sodium (Synthroid) 125 mcg DAILY06 07/19/19 06:00 08/01/19 06:45 125 MCG Lidocaine HCl (Xylocaine 1% Pf 30ml Vial) 30 ml 1X ONCE 07/21/19 08:00 07/21/19 08:01 DC Lidocaine HCl (Xylocaine-Mpf 1% 2ml Vial) 0.5 ml 1X STAT 08/01/19 11:01 08/01/19 11:07 DC 08/01/19 11:36 0.5 ML Linagliptin (Tradjenta) 5 mg DAILY 07/19/19 09:00 07/31/19 08:38 5 MG Metoprolol Tartrate (Lopressor Vial) 5 mg PRN Q6HRS PRN 07/23/19 18:15 07/29/19 00:55 5 MG Metoprolol Tartrate (Lopressor) 50 mg BID 07/20/19 21:00 07/31/19 21:20 50 MG Montelukast Sodium (Singulair) 10 mg HS 07/19/19 21:00 07/31/19 21:20 10 MG Morphine Sulfate (Morphine Sulfate) 1 mg PRN Q3HRS PRN 07/18/19 19:30 07/19/19 21:41 1 MG Ondansetron HCl (Zofran) 4 mg PRN Q6HRS PRN 07/20/19 17:15 07/22/19 16:17 4 MG Pantoprazole Sodium (PROTONIX VIAL for IV PUSH) 40 mg DAILYAC 07/27/19 14:00 07/30/19 10:07 DC 07/30/19 08:34 40 MG Pantoprazole Sodium (Protonix) 40 mg DAILYAC 07/31/19 07:30 07/31/19 08:38 40 MG Piperacillin Sod/ Tazobactam Sod 2.25 gm/Sodium Chloride 50 ml @ 100 mls/hr Q8HRS 07/26/19 16:00 08/01/19 06:44 100 MLS/HR Potassium Chloride (Klor-Con) 20 meq 1X ONCE 07/31/19 10:00 07/31/19 10:01 DC 07/31/19 11:54 20 MEQ Prochlorperazine Edisylate (Compazine) 10 mg PRN Q6HRS PRN 07/22/19 18:00 07/23/19 16:54 10 MG Sodium Chloride 1,000 ml @ 400 mls/hr Q2H30M PRN 08/01/19 08:20 08/01/19 20:19 Tramadol HCl (Ultram) 50 mg PRN Q6HRS PRN 07/18/19 19:00 07/31/19 21:25 50 MG Trazodone HCl (Desyrel) 50 mg QHS 07/22/19 21:00 07/31/19 21:20 50 MG Lab Laboratory Tests Test 07/31/19 17:23 07/31/19 20:56 08/01/19 05:37 08/01/19 07:38 Glucose (Fingerstick) 123 mg/dL (70-99) 163 mg/dL (70-99) 121 mg/dL (70-99) White Blood Count 15.5 x10^3/uL (4.0-11.0) Red Blood Count 2.65 x10^6/uL (3.50-5.40) Hemoglobin 8.4 g/dL (12.0-15.5) Hematocrit 24.8 % (36.0-47.0) Mean Corpuscular Volume 94 fL (79-100) Mean Corpuscular Hemoglobin 32 pg (25-35) Mean Corpuscular Hemoglobin Concent 34 g/dL (31-37) Red Cell Distribution Width 17.0 % (11.5-14.5) Platelet Count 147 x10^3/uL (140-400) Neutrophils (%) (Auto) 68 % (31-73) Lymphocytes (%) (Auto) 16 % (24-48) Monocytes (%) (Auto) 11 % (0-9) Eosinophils (%) (Auto) 4 % (0-3) Basophils (%) (Auto) 1 % (0-3) Neutrophils # (Auto) 10.6 x10^3/uL (1.8-7.7) Lymphocytes # (Auto) 2.5 x10^3/uL (1.0-4.8) Monocytes # (Auto) 1.7 x10^3/uL (0.0-1.1) Eosinophils # (Auto) 0.6 x10^3/uL (0.0-0.7) Basophils # (Auto) 0.1 x10^3/uL (0.0-0.2) Sodium Level 143 mmol/L (136-145) Potassium Level 3.5 mmol/L (3.5-5.1) Chloride Level 106 mmol/L (98-107) Carbon Dioxide Level 24 mmol/L (21-32) Anion Gap 13 (6-14) Blood Urea Nitrogen 70 mg/dL (7-20) Creatinine 4.6 mg/dL (0.6-1.0) Estimated GFR (Cockcroft-Gault) 9.1 Glucose Level 139 mg/dL (70-99) Calcium Level 8.6 mg/dL (8.5-10.1) Results All relevant outside records, renal labs, imaging studies, telemetry/EKG's were reviewed. LAQUITA SEGUNDO MD Aug 01, 2019 13:45
[2019-08-01 15:00] VITALS: BP 150/47
[2019-08-01] MEDS: LINAGLIPTIN 5 MG TABLET PO SCH (15:40)
[2019-08-01] MEDS: AMIODARONE HCL 200 MG TABLET. PO SCH (15:40)
[2019-08-01] MEDS: FUROSEMIDE 40 MG TABLET. PO SCH (15:41)
[2019-08-01 19:00] VITALS: BP 149/64
[2019-08-01] MEDS: ATORVASTATIN CALCIUM 10 MG TABLET. PO SCH (20:12)
[2019-08-01] MEDS: traZODone 50 MG TABLET. PO SCH (20:12)
[2019-08-01] MEDS: MONTELUKAST SODIUM 10 MG TABLET. PO SCH (20:13)
[2019-08-01] MEDS: CETIRIZINE HCL 10 MG TABLET. PO SCH (20:13)
[2019-08-01] MEDS: traMADol 50 MG TABLET PO PRN (20:13)
[2019-08-01 23:00] VITALS: BP 123/59
[2019-08-02 03:00] VITALS: BP 149/68
[2019-08-02] MEDS: PANTOPRAZOLE 40 MG TABLET.DR. PO SCH (06:18)
[2019-08-02] MEDS: LEVOTHYROXINE 125 MCG TABLET PO SCH (06:18)
[2019-08-02 07:00] VITALS: BP 140/51
[2019-08-02] MEDS: BUDESONIDE 0.5 MG/2 ML NEBU. NEB SCH ×2 (08:12→19:30)
[2019-08-02] MEDS: IPRATRPIUM/ALBUTEROL 0.5/2.5MG 3 ML NEBU. NEB SCH ×2 (08:12→19:30)
[2019-08-02] MEDS: ASCORBIC ACID 500 MG TABLET PO SCH (09:00)
[2019-08-02] MEDS: CYANOCOBALAMIN (VITAMIN B-12) 1,000 MCG TABLET. PO SCH (09:00)
[2019-08-02] MEDS: DOCUSATE SODIUM 100 MG CAPSULE. PO SCH ×2 (09:00→20:26)
[2019-08-02] MEDS: LACTOBACILLUS RHAMNOSUS GG 1 CAPSULE. PO SCH ×2 (09:00→20:27)
[2019-08-02 09:10] LABS: BASO % 0 % (0-3); EOS # 0.5 x10^3/uL (0.0-0.7); EOS % 3 % (0-3); HEMATOCRIT 27.1 % (36.0-47.0); HEMOGLOBIN 8.9 g/dL (12.0-15.5); LYMPH # 2.7 x10^3/uL (1.0-4.8); LYMPH % 16 % (24-48); MEAN CORPUSCULAR HEMOGLOBIN 32 pg (25-35); MEAN CORPUSCULAR HGB CONC 33 g/dL (31-37); MEAN CORPUSCULAR VOLUME 96 fL (79-100); MONO # 1.3 x10^3/uL (0.0-1.1); MONO % 8 % (0-9); NEUT # 12.2 x10^3/uL (1.8-7.7); NEUT % 73 % (31-73); PLATELET COUNT 137 x10^3/uL (140-400); RED BLOOD COUNT 2.81 x10^6/uL (3.50-5.40); RED CELL DISTRIBUTION WIDTH 16.8 % (11.5-14.5); WHITE BLOOD COUNT 16.8 x10^3/uL (4.0-11.0)
[2019-08-02 09:43] LABS: CALCIUM 8.5 mg/dL (8.5-10.1); CREATININE 3.8 mg/dL (0.6-1.0); GFR 11.3; POTASSIUM 3.6 mmol/L (3.5-5.1)
[2019-08-02] MEDS: LINAGLIPTIN 5 MG TABLET PO SCH (10:38)
[2019-08-02] MEDS: FUROSEMIDE 40 MG TABLET. PO SCH (10:39)
[2019-08-02] MEDS: AMIODARONE HCL 200 MG TABLET. PO SCH (10:39)
[2019-08-02] MEDS: METOPROLOL TART IMMED RELEASE 50 MG TABLET. PO SCH ×2 (10:39→20:26)
--- NOTE | 2019-08-02 10:55 | PDOC ---
Subjective: Subjective: Daughter says her stomach doesn't feel good today. Ate a couple bites of cream of wheat and that's it but ate really well yesterday. Says 99.2 is high temp for her. Dark brown stools. No abd pain. Objective: Vital Signs: Vital Signs Date Time Temp Pulse Resp B/P (MAP) Pulse Ox O2 Delivery O2 Flow Rate FiO2 08/02/19 10:40 69 140/51 08/02/19 08:23 97 Room Air 08/02/19 07:00 99.2 16 99.2 Labs: Laboratory Tests Test 08/01/19 17:24 08/01/19 21:02 08/02/19 07:50 08/02/19 09:00 Glucose (Fingerstick) 118 mg/dL 156 mg/dL 108 mg/dL White Blood Count 16.8 x10^3/uL Red Blood Count 2.81 x10^6/uL Hemoglobin 8.9 g/dL Hematocrit 27.1 % Mean Corpuscular Volume 96 fL Mean Corpuscular Hemoglobin 32 pg Mean Corpuscular Hemoglobin Concent 33 g/dL Red Cell Distribution Width 16.8 % Platelet Count 137 x10^3/uL Neutrophils (%) (Auto) 73 % Lymphocytes (%) (Auto) 16 % Monocytes (%) (Auto) 8 % Eosinophils (%) (Auto) 3 % Basophils (%) (Auto) 0 % Neutrophils # (Auto) 12.2 x10^3/uL Lymphocytes # (Auto) 2.7 x10^3/uL Monocytes # (Auto) 1.3 x10^3/uL Eosinophils # (Auto) 0.5 x10^3/uL Basophils # (Auto) 0.0 x10^3/uL Sodium Level 141 mmol/L Potassium Level 3.6 mmol/L Chloride Level 103 mmol/L Carbon Dioxide Level 27 mmol/L Anion Gap 11 Blood Urea Nitrogen 39 mg/dL Creatinine 3.8 mg/dL Estimated GFR (Cockcroft-Gault) 11.3 Glucose Level 119 mg/dL Calcium Level 8.5 mg/dL PE: GEN: NAD - resting in chair under several blankets LUNGS: room air HEART: RRR ABD: S/ND/NT NEURO/PSYCH: A & O 3 A/P: Suspected diverticular bleed - resolved, stable Hgb Dyspepsia ESRD, leukocytosis -- Nausea/dyspepsia has been an issue of and on throughout admission - ?related to HD Continue PPI, support. Okay to restart ASA in a about two weeks. JUAN MUHAMMAD Aug 02, 2019 10:55
--- NOTE | 2019-08-02 11:02 | PDOC3 ---
IM DISCHARGE SUMMARY Date of Admission Date of Admission Date of Admission: Jul 18, 2019 at 13:30 Date of Discharge Date of Discharge August 02, 2019 Primary Diagnosis Primary Diagnosis 1. Acute hypoxic respiratory failure. 2. Acute on chronic diastolic congestive heart failure. 3. End-stage renal disease. 4. Asthma with mild exacerbation. 5. Allergic rhinitis. 6. Anxiety. 7. Urinary tract infection. 8. Diabetes mellitus type 2 with diabetic nephropathy. 9. Diabetic polyneuropathy. 10. Chronic gout. 11. Hypertension. 12. Mixed hyperlipidemia. 13. Acute GI bleeding likely diverticular 14. Acute on chronic blood loss anemia 15. Physical deconditioning 16. Electrolytic imbalance Consults Consults Lucian Goode MD; Cr Olivas MD; Galindo Rao MD; Omid Elizondo MD; Cr Hernandes MD Labs Labs Laboratory Tests Test 08/01/19 17:24 08/01/19 21:02 08/02/19 07:50 08/02/19 09:00 Glucose (Fingerstick) 118 mg/dL (70-99) H 156 mg/dL (70-99) H 108 mg/dL (70-99) H White Blood Count 16.8 x10^3/uL (4.0-11.0) H Red Blood Count 2.81 x10^6/uL (3.50-5.40) L Hemoglobin 8.9 g/dL (12.0-15.5) L Hematocrit 27.1 % (36.0-47.0) L Mean Corpuscular Volume 96 fL (79-100) Mean Corpuscular Hemoglobin 32 pg (25-35) Mean Corpuscular Hemoglobin Concent 33 g/dL (31-37) Red Cell Distribution Width 16.8 % (11.5-14.5) H Platelet Count 137 x10^3/uL (140-400) L Neutrophils (%) (Auto) 73 % (31-73) Lymphocytes (%) (Auto) 16 % (24-48) L Monocytes (%) (Auto) 8 % (0-9) Eosinophils (%) (Auto) 3 % (0-3) Basophils (%) (Auto) 0 % (0-3) Neutrophils # (Auto) 12.2 x10^3/uL (1.8-7.7) H Lymphocytes # (Auto) 2.7 x10^3/uL (1.0-4.8) Monocytes # (Auto) 1.3 x10^3/uL (0.0-1.1) H Eosinophils # (Auto) 0.5 x10^3/uL (0.0-0.7) Basophils # (Auto) 0.0 x10^3/uL (0.0-0.2) Sodium Level 141 mmol/L (136-145) Potassium Level 3.6 mmol/L (3.5-5.1) Chloride Level 103 mmol/L (98-107) Carbon Dioxide Level 27 mmol/L (21-32) Anion Gap 11 (6-14) Blood Urea Nitrogen 39 mg/dL (7-20) H Creatinine 3.8 mg/dL (0.6-1.0) H Estimated GFR (Cockcroft-Gault) 11.3 Glucose Level 119 mg/dL (70-99) H Calcium Level 8.5 mg/dL (8.5-10.1) Laboratory Tests 08/02/19 09:00 Laboratory Tests 08/02/19 09:00 Brief hospital course Brief hospital course This 84-year-old female who is known to have worsening chronic kidney disease, recently had a graft placed to start hemodialysis. For the last few days, the patient's breathing has become much worse. She has also been retaining a lot of fluid. Three weeks ago, Dr. Elizondo had started her on amlodipine for elevated blood pressure. She started increasing swelling of the extremities and she felt that, that was due to amlodipine, so she stopped it. Her blood pressures remained high and she has become more short of breath, so she was brought to the Emergency Room. In the Emergency Room, she was noted to be quite short of breath. She was placed on oxygen. She was given IV Lasix. She had congestive changes on the chest x-ray. Urinalysis showed positive nitrite. She had anasarca. Because of the acute on chronic diastolic congestive heart failure and likely need for hemodialysis, the patient was admitted for further evaluation and management. For more details regarding the past history, family history, social history, surgical history and other details, please refer to History and Physical. Consult Dr. Rao for nephrology evaluation and management, Dr. Elizondo for cardiology evaluation and management. The patient was given 1 dose of IV Rocephin today. I will readjust it tomorrow. We will resume home medications including the blood pressure medications. The patient was given one dose of IV Lasix in the Emergency Room and she had taken her morning dose also. Crate Icer felt that more Lasix may not be beneficial at this time. I will give her low dose morphine 1 mg and give her breathing treatment and also Pulmicort breathing treatment to see if this would help her breathing and relieve the pressure on her chest. For details, please refer to the orders. Hopefully tomorrow if she does not respond, will need dialysis. Condition and treatment extensively discussed with multiple children. For details, please refer to the orders. UTI-on IV Zosyn Diabetes- stable End-stage renal disease- patient had the graft placed on july states about 11 days old. She has a quick AVG. Condition treatment options discussed with the patient and the family. Hypertension- not controlled. Advised staff to discuss with cardiology. Paroxysmal atrial fibrillation- continue amiodarone. Eliquis has been discontinued rigorously because of GI bleed. Echocardiogram The left ventricle is normal size. The left ventricular systolic function is normal and the ejection fraction is within normal range. Ejection fraction 55-60%. There is borderline concentric left ventricular hypertrophy. Doppler and Color Flow revealed no significant aortic regurgitation. There is no significant aortic valvular stenosis. Doppler and Color-flow revealed trace to mild mitral regurgitation. Doppler and Color Flow revealed mild tricuspid regurgitation. Estimated PAP 48 mmHg. Mild exacerbation of asthma improving. Anxiety improving. Weakness- PT/OT Leukocytosis- WBC count is 15.5 . Clinically patient is improving. This may be reactive. Continue IV Zosyn. CT abd/pelvis. Impression: Small pleural effusions. Minimal adjacent atelectasis. Very minimal perihepatic ascites. Distention of the duodenum is mild with suggestion of surrounding stranding. Correlate for possibility of duodenitis. No loculated collection within the abdomen or pelvis. Diverticulosis. Venous doppler of left upper extremity is negative for DVT.Graft is patent. Chest x ray- no infiltrates,small pleural effusion. Rectal bleeding likely due to constipation and Apixaban. Discontinue Apixaban. Hold aspirin for now GI bleeding- likely diverticular. Improving.Hb dropped to 7.1,stools dark and tarry.Gave 1 unit PRBcs.Hb stable Acute on chronic blood loss anemia stable Condition treatment discussed with the patient and the family. Recent Syncope Clinically improving. DC Alex catheter. Increase activity. She has abdominal pain and low-grade fever of 99.2 this morning . W visit count has increased to 16.8. IV Zosyn has been discontinued. We'll check with Dr. Godinez. We will also see how she does this afternoon with her bowel pain. Abdomen is soft and nontender. If patient remains stable and if it is okay with the specialists consider discharging her later this afternoon. She did have 1 loose bowel movement early this morning. No vomiting. Medications Current Medications Medications (Trade) Dose Ordered Sig/Cate Route PRN Reason Start Time Stop Time Status Last Admin Dose Admin Lidocaine HCl (Xylocaine-Mpf 1% 2ml Vial) 0.5 ml 1X STAT INJ 08/01/19 11:01 08/01/19 11:07 DC 08/01/19 11:36 Medications reviewed and reconciled for discharge. Allergy Allergies Coded Allergies Type Severity Reaction Last Updated Verified Sulfa (Sulfonamide Antibiotics) Allergy Severe Swelling 07/05/19 Yes amlodipine Adverse Reaction Severe Severe Leg Swelling 07/31/[address] Yes Follow up By Dr. HIRA Garg DISPOSITION: [facility] facility Comments Discharge Management - 35 minutes. For other details please refer to discharge instructions HIRA GARG MD Aug 02, 2019 11:02
[2019-08-02 11:03] VITALS: BP 159/52
--- NOTE | 2019-08-02 12:31 | PDOC ---
SUBJECTIVE ROS Stable , states just feeling some discomfort in her stomach- mild nausea, did keep the pills down. Didn't eat much BF OBJECTIVE Vital Signs Vital Signs Date Time Temp Pulse Resp B/P (MAP) Pulse Ox O2 Delivery O2 Flow Rate FiO2 08/02/19 11:03 97.8 72 16 159/52 (87) 99 Room Air 97.8 I & 0 Intake and Output 08/02/19 07:00 Intake Total 0 ml Output Total 0 ml Balance 0 ml Intake Oral 0 ml Output Urine Total 0 ml # Voids 1 # Bowel Movements 1 PHYSICAL EXAM Physical Exam GENERAL: Propped up in bed , NAD HEENT: OM moist NECK: Supple. LUNGS: Clear. HEART: S1, S2 regular. ABDOMEN: Obese, soft, mildly tender EXTREMITIES: No gross edema or cyanosis LUE-AV fistula SKIN: warm to touch NEUROLOGIC: Alert, nonfocal DIAGNOSIS/ASSESSMENT Assessment & Plan ESRD - initiated on HD 07/20 On MWF No indication for HD today Access - Quick Graft Lt OPHD chair time scheduled at [facility] Anemia- Suspected diverticular bleed, required transfusion (3 units) On HUSSEIN , Tsat normal 07/27 GI following Dyspnea secondary to acute on chronic diastolic HF Echo earlier this year with preserved LV systolic function Cardiology following Hypertension; Antihypertensives Per Cardiology Diabetes, II- as per PCP COMMENT/RELEVANT DATA Meds Current Medications Medications (Trade) Dose Ordered Sig/Cate Start Time Stop Time Status Last Admin Dose Admin Acetaminophen (Tylenol) 500 mg 1X PRN PRN 07/30/19 08:30 07/31/19 08:29 DC Albumin Human 200 ml @ 200 mls/hr 1X PRN PRN 08/01/19 08:30 08/01/19 14:29 DC Albuterol Sulfate (Ventolin Neb Soln) 2.5 mg PRN Q6HRS PRN 07/18/19 19:45 UNV Albuterol/ Ipratropium (Duoneb) 3 ml BID 07/25/19 21:00 08/02/19 08:12 3 ML Amiodarone HCl (Cordarone) 200 mg DAILY 07/26/19 14:15 08/02/19 10:39 200 MG Amiodarone HCl 150 mg/Dextrose 103 ml @ 600 mls/hr 1X ONCE 07/25/19 13:30 07/25/19 13:40 DC 07/25/19 14:13 600 MLS/HR Amiodarone HCl 900 mg/Dextrose 518 ml @ 0 mls/hr CONT PRN 07/25/19 13:30 07/26/19 13:29 DC 07/25/19 14:13 33 MLS/HR Amlodipine Besylate (Norvasc) 5 mg QHS 07/31/19 21:00 07/31/19 16:46 DC Apixaban (Eliquis) 2.5 mg BID 07/25/19 21:00 07/27/19 08:57 DC 07/26/19 21:03 2.5 MG Ascorbic Acid (Vitamin C) 500 mg DAILY 07/19/19 09:00 07/31/19 08:37 500 MG Aspirin (Ecotrin) 81 mg DAILYWBKFT 07/19/19 08:00 07/27/19 08:57 DC 07/26/19 08:56 81 MG Atorvastatin Calcium (Lipitor) 10 mg QHS 07/18/19 21:00 08/01/19 20:12 10 MG Bisacodyl (Dulcolax Supp) 10 mg PRN DAILY PRN 07/24/19 11:00 07/25/19 16:39 10 MG Budesonide (Pulmicort) 0.5 mg RTBID 07/18/19 20:00 08/02/19 08:12 0.5 MG Ceftriaxone Sodium (Rocephin) 1 gm Q24H 07/19/19 16:00 07/25/19 08:04 DC 07/24/19 16:38 1 GM Cetirizine HCl (ZyrTEC) 10 mg HS 07/19/19 21:00 08/01/19 20:13 10 MG Clonidine HCl (Catapres) 0.3 mg QHS 07/18/19 21:00 07/24/19 21:00 DC 07/23/19 20:43 0.3 MG Cyanocobalamin (Vitamin B-12) 1,000 mcg DAILY 07/19/19 09:00 07/31/19 08:38 1,000 MCG Darbepoetin Bryan (ARANESP for DIALYSIS PTS) 60 mcg WEEKLYHS 07/28/19 21:00 07/28/19 22:28 60 MCG Diphenhydramine HCl (Benadryl) 25 mg 1X PRN PRN 07/30/19 08:30 07/31/19 08:29 DC Docusate Sodium (Colace) 100 mg BID 07/22/19 13:00 07/31/19 08:38 100 MG Ferrous Sulfate (Feosol) 325 mg DAILY 07/19/19 09:00 07/23/19 20:42 DC 07/22/19 09:01 325 MG Furosemide (Lasix) 40 mg DAILY 07/24/19 09:00 08/02/19 10:39 40 MG Heparin Sodium (Porcine) (HEPARIN for NUC MED) 100 unit 1X ONCE 07/27/19 21:00 07/27/19 21:01 DC Heparin Sodium (Porcine) (Heparin Sodium) 5,000 unit Q12HR 07/18/19 21:00 07/25/19 13:30 DC 07/25/19 13:07 5,000 UNIT Hydralazine HCl (Apresoline Inj) 10 mg PRN Q4HRS PRN 07/26/19 09:45 07/26/19 09:58 10 MG Hydralazine HCl (Apresoline) 100 mg TID 07/31/19 21:00 08/02/19 10:40 100 MG Influenza Virus Vaccine Quadrival (Afluria Quad 2019-20 (3yr Up) Syringe) 0.5 ml ONCE ONCE 07/27/19 11:00 07/27/19 11:01 DC 07/29/19 19:19 0.5 ML Info (PHARMACY MONITORING -- do not chart) 1 each PRN DAILY PRN 08/01/19 08:30 Labetalol HCl (Trandate) 200 mg BID 07/18/19 21:00 07/20/19 17:10 DC 07/20/19 09:31 200 MG Lactobacillus Rhamnosus (Culturelle) 1 cap BID 07/19/19 21:00 08/01/19 20:12 1 CAP Lactulose (Lactulose) 30 gm 1X ONCE 07/26/19 12:15 07/26/19 12:20 DC 07/26/19 12:59 30 GM Levothyroxine Sodium (Synthroid) 125 mcg DAILY06 07/19/19 06:00 08/02/19 06:18 125 MCG Lidocaine HCl (Xylocaine 1% Pf 30ml Vial) 30 ml 1X ONCE 07/21/19 08:00 07/21/19 08:01 DC Lidocaine HCl (Xylocaine-Mpf 1% 2ml Vial) 0.5 ml 1X STAT 08/01/19 11:01 08/01/19 11:07 DC 08/01/19 11:36 0.5 ML Linagliptin (Tradjenta) 5 mg DAILY 07/19/19 09:00 08/02/19 10:38 5 MG Metoprolol Tartrate (Lopressor Vial) 5 mg PRN Q6HRS PRN 07/23/19 18:15 07/29/19 00:55 5 MG Metoprolol Tartrate (Lopressor) 50 mg BID 07/20/19 21:00 08/02/19 10:39 50 MG Montelukast Sodium (Singulair) 10 mg HS 07/19/19 21:00 08/01/19 20:13 10 MG Morphine Sulfate (Morphine Sulfate) 1 mg PRN Q3HRS PRN 07/18/19 19:30 07/19/19 21:41 1 MG Ondansetron HCl (Zofran) 4 mg PRN Q6HRS PRN 07/20/19 17:15 07/22/19 16:17 4 MG Pantoprazole Sodium (PROTONIX VIAL for IV PUSH) 40 mg DAILYAC 07/27/19 14:00 07/30/19 10:07 DC 07/30/19 08:34 40 MG Pantoprazole Sodium (Protonix) 40 mg DAILYAC 07/31/19 07:30 08/02/19 06:18 40 MG Piperacillin Sod/ Tazobactam Sod 2.25 gm/Sodium Chloride 50 ml @ 100 mls/hr Q8HRS 07/26/19 16:00 08/01/19 15:17 DC 08/01/19 06:44 100 MLS/HR Potassium Chloride (Klor-Con) 20 meq 1X ONCE 07/31/19 10:00 07/31/19 10:01 DC 07/31/19 11:54 20 MEQ Prochlorperazine Edisylate (Compazine) 10 mg PRN Q6HRS PRN 07/22/19 18:00 07/23/19 16:54 10 MG Sodium Chloride 1,000 ml @ 400 mls/hr Q2H30M PRN 10/2/19 08:20 08/01/19 20:19 DC Tramadol HCl (Ultram) 50 mg PRN Q6HRS PRN 07/18/19 19:00 08/01/19 20:13 50 MG Trazodone HCl (Desyrel) 50 mg QHS 07/22/19 21:00 08/01/19 20:12 50 MG Lab Laboratory Tests Test 08/01/19 17:24 08/01/19 21:02 08/02/19 07:50 08/02/19 09:00 Glucose (Fingerstick) 118 mg/dL (70-99) 156 mg/dL (70-99) 108 mg/dL (70-99) White Blood Count 16.8 x10^3/uL (4.0-11.0) Red Blood Count 2.81 x10^6/uL (3.50-5.40) Hemoglobin 8.9 g/dL (12.0-15.5) Hematocrit 27.1 % (36.0-47.0) Mean Corpuscular Volume 96 fL (79-100) Mean Corpuscular Hemoglobin 32 pg (25-35) Mean Corpuscular Hemoglobin Concent 33 g/dL (31-37) Red Cell Distribution Width 16.8 % (11.5-14.5) Platelet Count 137 x10^3/uL (140-400) Neutrophils (%) (Auto) 73 % (31-73) Lymphocytes (%) (Auto) 16 % (24-48) Monocytes (%) (Auto) 8 % (0-9) Eosinophils (%) (Auto) 3 % (0-3) Basophils (%) (Auto) 0 % (0-3) Neutrophils # (Auto) 12.2 x10^3/uL (1.8-7.7) Lymphocytes # (Auto) 2.7 x10^3/uL (1.0-4.8) Monocytes # (Auto) 1.3 x10^3/uL (0.0-1.1) Eosinophils # (Auto) 0.5 x10^3/uL (0.0-0.7) Basophils # (Auto) 0.0 x10^3/uL (0.0-0.2) Sodium Level 141 mmol/L (136-145) Potassium Level 3.6 mmol/L (3.5-5.1) Chloride Level 103 mmol/L (98-107) Carbon Dioxide Level 27 mmol/L (21-32) Anion Gap 11 (6-14) Blood Urea Nitrogen 39 mg/dL (7-20) Creatinine 3.8 mg/dL (0.6-1.0) Estimated GFR (Cockcroft-Gault) 11.3 Glucose Level 119 mg/dL (70-99) Calcium Level 8.5 mg/dL (8.5-10.1) Test 08/02/19 11:41 Glucose (Fingerstick) 104 mg/dL (70-99) Results All relevant outside records, renal labs, imaging studies, telemetry/EKG's were reviewed. LAQUITA SEGUNDO MD Aug 02, 2019 12:31
--- NOTE | 2019-08-02 12:37 | NUR ---
SS following for discharge planning. Discharge orders received for [facility], ; fax [phone]. SS phoned and faxed discharge orders to [facility]. [facility] contacted SS and reported that they were working on a new insurance authorization for pt and would notify SS once received. SS will arrange transportation once SS received notification.
[2019-08-02 15:00] VITALS: BP 131/45
--- NOTE | 2019-08-02 15:50 | NUR ---
SS following up with discharge planning. [facility] contacted SS wanting parameters for clonidine. SS attempted to contact Dr. Garg and received no return call. Pt's RN contacted Cardiology and was told to refer to Dr. Garg.
--- NOTE | 2019-08-02 17:01 | PDOC ---
Infectious Disease Note Subjective Subjective Didn't feel too good this morning, but better now Walked some with physical therapy Eating 25-50% meals No further diarrhea No fever or chills Vital Sign Vital Signs Vital Signs Date Time Temp Pulse Resp B/P (MAP) Pulse Ox O2 Delivery O2 Flow Rate FiO2 08/02/19 15:00 98.0 66 16 131/45 (73) 98 Room Air 98.0 Physical Exam PHYSICAL EXAM GENERAL: Sitting in the chair, alert, smiling HEENT: Pupils equal, oral cavity pink, dry NECK: Supple. LUNGS: Clear. HEART: S1, S2 regular. ABDOMEN: Soft : Alex in place EXTREMITIES: No gross edema or cyanosis. right hand little puffy LUE-AV fistula unremarkable for infection SKIN: warm to touch NEUROLOGIC: Alert, nonfocal Labs Lab Laboratory Tests Test 08/01/19 17:24 08/01/19 21:02 08/02/19 07:50 08/02/19 09:00 Glucose (Fingerstick) 118 mg/dL (70-99) 156 mg/dL (70-99) 108 mg/dL (70-99) White Blood Count 16.8 x10^3/uL (4.0-11.0) Red Blood Count 2.81 x10^6/uL (3.50-5.40) Hemoglobin 8.9 g/dL (12.0-15.5) Hematocrit 27.1 % (36.0-47.0) Mean Corpuscular Volume 96 fL (79-100) Mean Corpuscular Hemoglobin 32 pg (25-35) Mean Corpuscular Hemoglobin Concent 33 g/dL (31-37) Red Cell Distribution Width 16.8 % (11.5-14.5) Platelet Count 137 x10^3/uL (140-400) Neutrophils (%) (Auto) 73 % (31-73) Lymphocytes (%) (Auto) 16 % (24-48) Monocytes (%) (Auto) 8 % (0-9) Eosinophils (%) (Auto) 3 % (0-3) Basophils (%) (Auto) 0 % (0-3) Neutrophils # (Auto) 12.2 x10^3/uL (1.8-7.7) Lymphocytes # (Auto) 2.7 x10^3/uL (1.0-4.8) Monocytes # (Auto) 1.3 x10^3/uL (0.0-1.1) Eosinophils # (Auto) 0.5 x10^3/uL (0.0-0.7) Basophils # (Auto) 0.0 x10^3/uL (0.0-0.2) Sodium Level 141 mmol/L (136-145) Potassium Level 3.6 mmol/L (3.5-5.1) Chloride Level 103 mmol/L (98-107) Carbon Dioxide Level 27 mmol/L (21-32) Anion Gap 11 (6-14) Blood Urea Nitrogen 39 mg/dL (7-20) Creatinine 3.8 mg/dL (0.6-1.0) Estimated GFR (Cockcroft-Gault) 11.3 Glucose Level 119 mg/dL (70-99) Calcium Level 8.5 mg/dL (8.5-10.1) Test 08/02/19 11:41 08/02/19 16:39 Glucose (Fingerstick) 104 mg/dL (70-99) 110 mg/dL (70-99) Objective Assessment Leukocytosis, ? reactive - PRBCs/Influenza vaccine. UTI, POA. UC not done GI bleed, s/p PRBCs 07/27, 07/28, 07/29 ESRD on HD CHF DM HTN A- fib, on amiodarone Plan Plan of Care off antibiotics Hold discharge supportive care PT/OT D/w nursing D/w family at bedside Not feeling well this am but better now and walked more. Appetite a little off Repeat WBC in am if stable or better can transfer Attending Co-Sign Attending Co-Sign The patient was seen and interviewed as well as examined at the bedside. The chart was reviewed. The case was discussed. Agree with the plan of care. CECILLE BECERRA APRN Aug 02, 2019 17:01 KARI SCRUGGS MD Aug 02, 2019 17:25
[2019-08-02 20:22] VITALS: BP 137/41
[2019-08-02] MEDS: traMADol 50 MG TABLET PO PRN (20:25)
[2019-08-02] MEDS: traZODone 50 MG TABLET. PO SCH (20:25)
[2019-08-02] MEDS: MONTELUKAST SODIUM 10 MG TABLET. PO SCH (20:26)
[2019-08-02] MEDS: ATORVASTATIN CALCIUM 10 MG TABLET. PO SCH (20:26)
[2019-08-02] MEDS: CETIRIZINE HCL 10 MG TABLET. PO SCH (20:26)
[2019-08-02 22:41] VITALS: BP 126/72
[2019-08-03 03:14] VITALS: BP 147/51
[2019-08-03] MEDS: PANTOPRAZOLE 40 MG TABLET.DR. PO SCH (06:54)
[2019-08-03] MEDS: LEVOTHYROXINE 125 MCG TABLET PO SCH (06:54)
[2019-08-03 07:00] VITALS: BP 166/50
[2019-08-03 07:12] LABS: BASO # 0.1 x10^3/uL (0.0-0.2); BASO % 1 % (0-3); EOS # 0.6 x10^3/uL (0.0-0.7); EOS % 5 % (0-3); HEMATOCRIT 25.9 % (36.0-47.0); HEMOGLOBIN 8.6 g/dL (12.0-15.5); LYMPH % 15 % (24-48); MEAN CORPUSCULAR HEMOGLOBIN 32 pg (25-35); MEAN CORPUSCULAR HGB CONC 33 g/dL (31-37); MEAN CORPUSCULAR VOLUME 96 fL (79-100); MONO # 1.1 x10^3/uL (0.0-1.1); MONO % 8 % (0-9); NEUT # 9.5 x10^3/uL (1.8-7.7); NEUT % 72 % (31-73); PLATELET COUNT 158 x10^3/uL (140-400); RED BLOOD COUNT 2.69 x10^6/uL (3.50-5.40); RED CELL DISTRIBUTION WIDTH 16.9 % (11.5-14.5); WHITE BLOOD COUNT 13.2 x10^3/uL (4.0-11.0)
[2019-08-03] MEDS ORDERED: IV NORMAL SALINE 1000ML BAG 1,000 ML IV PRN ×2 (07:50)
[2019-08-03] MEDS: IPRATRPIUM/ALBUTEROL 0.5/2.5MG 3 ML NEBU. NEB SCH (07:52)
[2019-08-03] MEDS: BUDESONIDE 0.5 MG/2 ML NEBU. NEB SCH (07:52)
[2019-08-03] MEDS ORDERED: ALBUMIN HUMAN 25% 200 ML IV PRN (08:00)
[2019-08-03] MEDS ORDERED: DIALYSIS PATIENT. MC PRN ×2 (08:00)
[2019-08-03] MEDS: FUROSEMIDE 40 MG TABLET. PO SCH (09:00)
[2019-08-03] MEDS: ASCORBIC ACID 500 MG TABLET PO SCH (09:00)
[2019-08-03] MEDS: CYANOCOBALAMIN (VITAMIN B-12) 1,000 MCG TABLET. PO SCH (09:00)
[2019-08-03] MEDS: DOCUSATE SODIUM 100 MG CAPSULE. PO SCH (09:00)
--- NOTE | 2019-08-03 09:43 | PDOC ---
Subjective: Subjective: Feels better today, might go to [facility] after HD. Objective: Objective: D/w nurse - no GI concerns, DC today. Vital Signs: Vital Signs Date Time Temp Pulse Resp B/P (MAP) Pulse Ox O2 Delivery O2 Flow Rate FiO2 08/03/19 07:52 97 Room Air 08/03/19 07:00 98.2 66 18 166/50 (88) 98.2 08/02/19 20:25 2.0 Labs: Laboratory Tests Test 08/02/19 11:41 08/02/19 16:39 08/02/19 20:49 08/03/19 04:03 Glucose (Fingerstick) 104 mg/dL 110 mg/dL 159 mg/dL White Blood Count 13.2 x10^3/uL Red Blood Count 2.69 x10^6/uL Hemoglobin 8.6 g/dL Hematocrit 25.9 % Mean Corpuscular Volume 96 fL Mean Corpuscular Hemoglobin 32 pg Mean Corpuscular Hemoglobin Concent 33 g/dL Red Cell Distribution Width 16.9 % Platelet Count 158 x10^3/uL Neutrophils (%) (Auto) 72 % Lymphocytes (%) (Auto) 15 % Monocytes (%) (Auto) 8 % Eosinophils (%) (Auto) 5 % Basophils (%) (Auto) 1 % Neutrophils # (Auto) 9.5 x10^3/uL Lymphocytes # (Auto) 2.0 x10^3/uL Monocytes # (Auto) 1.1 x10^3/uL Eosinophils # (Auto) 0.6 x10^3/uL Basophils # (Auto) 0.1 x10^3/uL Test 08/03/19 08:04 Glucose (Fingerstick) 94 mg/dL PE: GEN: NAD LUNGS: CTAB HEART: RRR ABD: S/ND/NT NEURO/PSYCH: A & O 3 A/P: Suspected diverticular bleed - resolved ESRD -- DC per primary. JUAN MUHAMMAD Aug 03, 2019 09:43
--- NOTE | 2019-08-03 10:13 | PDOC ---
IM PROGRESS NOTES- Subjective Subjective Feeling better. No complaints of pain. Objective Vitals/I&O Vital Signs Date Time Temp Pulse Resp B/P (MAP) Pulse Ox O2 Delivery O2 Flow Rate FiO2 08/03/19 08:00 Room Air 08/03/19 07:52 97 08/03/19 07:00 98.2 66 18 166/50 (88) 98.2 08/02/19 20:25 2.0 I & O 08/02/19 08/02/19 08/03/19 15:00 23:00 07:00 Intake Total 100 ml Balance 100 ml Physical Exam Physical Exam GENERAL: The patient is an elderly female who is alert, oriented x 3,weak and in no respiratory distress. LUNGS: increased air entry CARDIOVASCULAR: S1, S2 regular. ABDOMEN: Soft, non tender, no guarding, no rigidity. Bowel sounds present. EXTREMITIES trace edema of both lower extremities. The patient has swelling of the left forearm because of the recent surgery for graft for dialysis access. She has blisters and redness and bruising on the left upper extremity improving. CENTRAL NERVOUS SYSTEM: Alert, oriented and anxious. Labs Laboratory Tests Test 08/02/19 11:41 08/02/19 16:39 08/02/19 20:49 08/03/19 04:03 Glucose (Fingerstick) 104 mg/dL (70-99) H 110 mg/dL (70-99) H 159 mg/dL (70-99) H White Blood Count 13.2 x10^3/uL (4.0-11.0) H Red Blood Count 2.69 x10^6/uL (3.50-5.40) L Hemoglobin 8.6 g/dL (12.0-15.5) L Hematocrit 25.9 % (36.0-47.0) L Mean Corpuscular Volume 96 fL (79-100) Mean Corpuscular Hemoglobin 32 pg (25-35) Mean Corpuscular Hemoglobin Concent 33 g/dL (31-37) Red Cell Distribution Width 16.9 % (11.5-14.5) H Platelet Count 158 x10^3/uL (140-400) Neutrophils (%) (Auto) 72 % (31-73) Lymphocytes (%) (Auto) 15 % (24-48) L Monocytes (%) (Auto) 8 % (0-9) Eosinophils (%) (Auto) 5 % (0-3) H Basophils (%) (Auto) 1 % (0-3) Neutrophils # (Auto) 9.5 x10^3/uL (1.8-7.7) H Lymphocytes # (Auto) 2.0 x10^3/uL (1.0-4.8) Monocytes # (Auto) 1.1 x10^3/uL (0.0-1.1) Eosinophils # (Auto) 0.6 x10^3/uL (0.0-0.7) Basophils # (Auto) 0.1 x10^3/uL (0.0-0.2) Test 08/03/19 08:04 Glucose (Fingerstick) 94 mg/dL (70-99) Laboratory Tests 08/03/19 04:03 Assessment Assessment 1. Acute hypoxic respiratory failure. 2. Acute on chronic diastolic congestive heart failure. 3. End-stage renal disease. 4. Asthma with mild exacerbation. 5. Allergic rhinitis. 6. Anxiety. 7. Urinary tract infection. 8. Diabetes mellitus type 2 with diabetic nephropathy. 9. Diabetic polyneuropathy. 10. Chronic gout. 11. Hypertension. 12. Mixed hyperlipidemia. PLAN: Day #2 dialysis. doing well. less sob . cr 3.3. home ? tue/tue. Consult Dr. Rao for nephrology evaluation and management, Dr. Elizondo for cardiology evaluation and management. The patient was given 1 dose of IV Rocephin today. I will readjust it tomorrow. We will resume home medications including the blood pressure medications. The patient was given one dose of IV Lasix in the Emergency Room and she had taken her morning dose also. Gathering Machine Feeder felt that more Lasix may not be beneficial at this time. I will give her low dose morphine 1 mg and give her breathing treatment and also Pulmicort breathing treatment to see if this would help her breathing and relieve the pressure on her chest. For details, please refer to the orders. Hopefully tomorrow if she does not respond, will need dialysis. Condition and treatment extensively discussed with multiple children. For details, please refer to the orders. UTI-on IV Zosyn Diabetes- stable End-stage renal disease- patient had the graft placed on july states about 11 days old. She has a quick AVG. Condition treatment options discussed with the patient and the family. Hypertension- not controlled. Advised staff to discuss with cardiology. Paroxysmal atrial fibrillation- continue amiodarone. Eliquis has been discontinued rigorously because of GI bleed. Echocardiogram The left ventricle is normal size. The left ventricular systolic function is normal and the ejection fraction is within normal range. Ejection fraction 55-60%. There is borderline concentric left ventricular hypertrophy. Doppler and Color Flow revealed no significant aortic regurgitation. There is no significant aortic valvular stenosis. Doppler and Color-flow revealed trace to mild mitral regurgitation. Doppler and Color Flow revealed mild tricuspid regurgitation. Estimated PAP 48 mmHg. Mild exacerbation of asthma improving. Anxiety improving. Weakness- PT/OT Leukocytosis- WBC count is improving. Today it is 13.2.. Clinically patient is improving. This may be reactive. Off antibiotics. CT abd/pelvis. Impression: Small pleural effusions. Minimal adjacent atelectasis. Very minimal perihepatic ascites. Distention of the duodenum is mild with suggestion of surrounding stranding. Correlate for possibility of duodenitis. No loculated collection within the abdomen or pelvis. Diverticulosis. Venous doppler of left upper extremity is negative for DVT.Graft is patent. Chest x ray- no infiltrates,small pleural effusion. Rectal bleeding likely due to constipation and Apixaban. Discontinue Apixaban. Hold aspirin for now GI bleeding- likely diverticular. Improving. Hemoglobin is 8.6. Acute on chronic blood loss anemia Condition treatment discussed with the patient and the family. Recent Syncope Clinically improving. Patient did not go yesterday as she was not feeling well and the infectious diseases specialist wanted to observe her for 1 more day. Doing better today. okay to discharge. Discharge management 35 minutes. Plan Plan For more details regarding further plans, please refer to the orders. HIRA BELTRE MD Aug 03, 2019 10:13
[2019-08-03] MEDS ORDERED: LIDOCAINE 1% PF 2 ML VIAL. ID STA (10:22)
[2019-08-03] MEDS ORDERED: FURO40TA4 PO (10:28)
[2019-08-03] MEDS ORDERED: HYDR100T24 PO (10:28)
[2019-08-03] MEDS ORDERED: METO50TA6 PO (10:28)
--- NOTE | 2019-08-03 11:22 | NUR ---
SS following for discharge planning. Discharge orders received for [facility]. SS phoned and faxed discharge orders to [facility], ; fax [phone]. Pt will discharge today and go to [facility] between 1630 and 1700 via [facility]. Pt, pt's family, and pt's RN notified.
--- NOTE | 2019-08-03 13:31 | PDOC ---
SUBJECTIVE ROS Stable ,states feeling much better today Seen on HD, no complaints OBJECTIVE Vital Signs Vital Signs Date Time Temp Pulse Resp B/P (MAP) Pulse Ox O2 Delivery O2 Flow Rate FiO2 08/03/19 08:00 Room Air 08/03/19 07:52 97 08/03/19 07:00 98.2 66 18 166/50 (88) 98.2 08/02/19 20:25 2.0 I & 0 Intake and Output 08/03/19 07:00 Intake Total 100 ml Balance 100 ml Intake Oral 100 ml # Voids 2 # Bowel Movements 1 PHYSICAL EXAM Physical Exam GENERAL: Propped up in bed , NAD HEENT: OM moist NECK: Supple. LUNGS: Clear. HEART: S1, S2 regular. ABDOMEN: Obese, soft, mildly tender EXTREMITIES: No gross edema or cyanosis LUE-AV fistula SKIN: warm to touch NEUROLOGIC: Alert, nonfocal DIAGNOSIS/ASSESSMENT Assessment & Plan ESRD - initiated on HD 07/20 On MWF seen on HD, tolerating well , no complaints, Dw Lexy Access - Quick Graft Lt OPHD chair time scheduled at [facility], M, W, F Anemia- Suspected diverticular bleed, required transfusion (3 units) On HUSSEIN , Tsat normal 07/27 GI following Dyspnea secondary to acute on chronic diastolic HF Echo earlier this year with preserved LV systolic function Hypertension; iMproved BP Antihypertensives Diabetes, II- as per PCP COMMENT/RELEVANT DATA Meds Current Medications Medications (Trade) Dose Ordered Sig/Cate Start Time Stop Time Status Last Admin Dose Admin Acetaminophen (Tylenol) 500 mg 1X PRN PRN 07/30/19 08:30 07/31/19 08:29 DC Albumin Human 200 ml @ 200 mls/hr 1X PRN PRN 08/03/19 08:00 08/03/19 13:59 Albuterol Sulfate (Ventolin Neb Soln) 2.5 mg PRN Q6HRS PRN 07/18/19 19:45 UNV Albuterol/ Ipratropium (Duoneb) 3 ml BID 07/25/19 21:00 08/03/19 07:52 3 ML Amiodarone HCl (Cordarone) 200 mg DAILY 07/26/19 14:15 08/02/19 10:39 200 MG Amiodarone HCl 150 mg/Dextrose 103 ml @ 600 mls/hr 1X ONCE 07/25/19 13:30 07/25/19 13:40 DC 07/25/19 14:13 600 MLS/HR Amiodarone HCl 900 mg/Dextrose 518 ml @ 0 mls/hr CONT PRN 07/25/19 13:30 07/26/19 13:29 DC 07/25/19 14:13 33 MLS/HR Amlodipine Besylate (Norvasc) 5 mg QHS 07/31/19 21:00 07/31/19 16:46 DC Apixaban (Eliquis) 2.5 mg BID 07/25/19 21:00 07/27/19 08:57 DC 07/26/19 21:03 2.5 MG Ascorbic Acid (Vitamin C) 500 mg DAILY 07/19/19 09:00 07/31/19 08:37 500 MG Aspirin (Ecotrin) 81 mg [id number] 07/19/19 08:00 07/27/19 08:57 DC 07/26/19 08:56 81 MG Atorvastatin Calcium (Lipitor) 10 mg QHS 07/18/19 21:00 08/02/19 20:26 10 MG Bisacodyl (Dulcolax Supp) 10 mg PRN DAILY PRN 07/24/19 11:00 07/25/19 16:39 10 MG Budesonide (Pulmicort) 0.5 mg RTBID 07/18/19 20:00 08/03/19 07:52 0.5 MG Ceftriaxone Sodium (Rocephin) 1 gm Q24H 07/19/19 16:00 07/25/19 08:04 DC 07/24/19 16:38 1 GM Cetirizine HCl (ZyrTEC) 10 mg HS 07/19/19 21:00 08/02/19 20:26 10 MG Clonidine HCl (Catapres) 0.3 mg QHS 07/18/19 21:00 07/24/19 21:00 DC 07/23/19 20:43 0.3 MG Cyanocobalamin (Vitamin B-12) 1,000 mcg DAILY 07/19/19 09:00 07/31/19 08:38 1,000 MCG Darbepoetin Bryan (ARANESP for DIALYSIS PTS) 60 mcg WEEKLYHS 07/28/19 21:00 07/28/19 22:28 60 MCG Diphenhydramine HCl (Benadryl) 25 mg 1X PRN PRN 07/30/19 08:30 07/31/19 08:29 DC Docusate Sodium (Colace) 100 mg BID 07/22/19 13:00 07/31/19 08:38 100 MG Ferrous Sulfate (Feosol) 325 mg DAILY 07/19/19 09:00 07/23/19 20:42 DC 07/22/19 09:01 325 MG Furosemide (Lasix) 40 mg DAILY 07/24/19 09:00 08/02/19 10:39 40 MG Heparin Sodium (Porcine) (HEPARIN for NUC MED) 100 unit 1X ONCE 07/27/19 21:00 07/27/19 21:01 DC Heparin Sodium (Porcine) (Heparin Sodium) 5,000 unit Q12HR 07/18/19 21:00 07/25/19 13:30 DC 07/25/19 13:07 5,000 UNIT Hydralazine HCl (Apresoline Inj) 10 mg PRN Q4HRS PRN 07/26/19 09:45 07/26/19 09:58 10 MG Hydralazine HCl (Apresoline) 100 mg TID 07/31/19 21:00 08/02/19 20:26 100 MG Influenza Virus Vaccine Quadrival (Afluria Quad 2019-20 (3yr Up) Syringe) 0.5 ml ONCE ONCE 07/27/19 11:00 07/27/19 11:01 DC 07/29/19 19:19 0.5 ML Info (PHARMACY MONITORING -- do not chart) 1 each PRN DAILY PRN 08/03/19 08:00 Labetalol HCl (Trandate) 200 mg BID 07/18/19 21:00 07/20/19 17:10 DC 07/20/19 09:31 200 MG Lactobacillus Rhamnosus (Culturelle) 1 cap BID 07/19/19 21:00 08/01/19 20:12 1 CAP Lactulose (Lactulose) 30 gm 1X ONCE 07/26/19 12:15 07/26/19 12:20 DC 07/26/19 12:59 30 GM Levothyroxine Sodium (Synthroid) 125 mcg DAILY06 07/19/19 06:00 08/03/19 06:54 125 MCG Lidocaine HCl (Xylocaine 1% Pf 30ml Vial) 30 ml 1X ONCE 07/21/19 08:00 07/21/19 08:01 DC Lidocaine HCl (Xylocaine-Mpf 1% 2ml Vial) 0.5 ml 1X STAT 08/03/19 10:22 08/03/19 10:25 DC 08/03/19 10:55 0.5 ML Linagliptin (Tradjenta) 5 mg DAILY 07/19/19 09:00 08/02/19 10:38 5 MG Metoprolol Tartrate (Lopressor Vial) 5 mg PRN Q6HRS PRN 07/23/19 18:15 07/29/19 00:55 5 MG Metoprolol Tartrate (Lopressor) 50 mg BID 07/20/19 21:00 08/02/19 20:26 50 MG Montelukast Sodium (Singulair) 10 mg HS 07/19/19 21:00 08/02/19 20:26 10 MG Morphine Sulfate (Morphine Sulfate) 1 mg PRN Q3HRS PRN 07/18/19 19:30 07/19/19 21:41 1 MG Ondansetron HCl (Zofran) 4 mg PRN Q6HRS PRN 07/20/19 17:15 07/22/19 16:17 4 MG Pantoprazole Sodium (PROTONIX VIAL for IV PUSH) 40 mg DAILYAC 07/27/19 14:00 07/30/19 10:07 DC 07/30/19 08:34 40 MG Pantoprazole Sodium (Protonix) 40 mg DAILYAC 07/31/19 07:30 08/03/19 06:54 40 MG Piperacillin Sod/ Tazobactam Sod 2.25 gm/Sodium Chloride 50 ml @ 100 mls/hr Q8HRS 07/26/19 16:00 08/01/19 15:17 DC 08/01/19 06:44 100 MLS/HR Potassium Chloride (Klor-Con) 20 meq 1X ONCE 07/31/19 10:00 07/31/19 10:01 DC 07/31/19 11:54 20 MEQ Prochlorperazine Edisylate (Compazine) 10 mg PRN Q6HRS PRN 07/22/19 18:00 07/23/19 16:54 10 MG Sodium Chloride 1,000 ml @ 400 mls/hr Q2H30M PRN 08/03/19 07:50 08/03/19 19:49 Tramadol HCl (Ultram) 50 mg PRN Q6HRS PRN 07/18/19 19:00 08/02/19 20:25 50 MG Trazodone HCl (Desyrel) 50 mg QHS 07/22/19 21:00 08/02/19 20:25 50 MG Lab Laboratory Tests Test 08/02/19 16:39 08/02/19 20:49 08/03/19 04:03 08/03/19 08:04 Glucose (Fingerstick) 110 mg/dL (70-99) 159 mg/dL (70-99) 94 mg/dL (70-99) White Blood Count 13.2 x10^3/uL (4.0-11.0) Red Blood Count 2.69 x10^6/uL (3.50-5.40) Hemoglobin 8.6 g/dL (12.0-15.5) Hematocrit 25.9 % (36.0-47.0) Mean Corpuscular Volume 96 fL (79-100) Mean Corpuscular Hemoglobin 32 pg (25-35) Mean Corpuscular Hemoglobin Concent 33 g/dL (31-37) Red Cell Distribution Width 16.9 % (11.5-14.5) Platelet Count 158 x10^3/uL (140-400) Neutrophils (%) (Auto) 72 % (31-73) Lymphocytes (%) (Auto) 15 % (24-48) Monocytes (%) (Auto) 8 % (0-9) Eosinophils (%) (Auto) 5 % (0-3) Basophils (%) (Auto) 1 % (0-3) Neutrophils # (Auto) 9.5 x10^3/uL (1.8-7.7) Lymphocytes # (Auto) 2.0 x10^3/uL (1.0-4.8) Monocytes # (Auto) 1.1 x10^3/uL (0.0-1.1) Eosinophils # (Auto) 0.6 x10^3/uL (0.0-0.7) Basophils # (Auto) 0.1 x10^3/uL (0.0-0.2) Results All relevant outside records, renal labs, imaging studies, telemetry/EKG's were reviewed. LAQUITA SEGUNDO MD Aug 03, 2019 13:31
[2019-08-03] MEDS: METOPROLOL TART IMMED RELEASE 50 MG TABLET. PO SCH (15:54)
[2019-08-03] MEDS: LINAGLIPTIN 5 MG TABLET PO SCH (15:55)
[2019-08-03] MEDS: AMIODARONE HCL 200 MG TABLET. PO SCH (15:56)
[2019-08-03 15:57] VITALS: BP 153/72
[2019-08-03] MEDS: LACTOBACILLUS RHAMNOSUS GG 1 CAPSULE. PO SCH (15:57)
--- NOTE | 2019-08-03 16:33 | NUR ---
Discharge: Patient dressed and waiting on transport. Family at bedside. I attempted to call report to [facility] [phone]. Spoke with Rahel who stated she was to busy to take report and will call me back.
--- NOTE | 2019-08-03 17:07 | NUR ---
Nursing: Report given to Rahel at [facility]. Patient assisted off of unit via wheelchair accompanied by transport and daughters.
== END 2019-08-03 17:05 | DRG 682 ==
LOC: ER 11:48 → 2 SOUTH 13:30 → 1 WEST ICU 07-27 19:15 → 2 SOUTH 07-29 16:05
PROVIDERS: ADMIT Internal Medicine; ATTEND Internal Medicine
PROC: 30233N1 Transfusion of Nonautologous Red Blood Cells into Peripheral Vein, Percutaneous Approach (ICD-10-PCS; principal; 2019-07-19)
PROC: 5A1D70Z Performance of Urinary Filtration, Intermittent, Less than 6 Hours Per Day (ICD-10-PCS; 2019-07-20)
PROC: 5A1D70Z Performance of Urinary Filtration, Intermittent, Less than 6 Hours Per Day (ICD-10-PCS; 2019-07-21)
PROC: 5A1D70Z Performance of Urinary Filtration, Intermittent, Less than 6 Hours Per Day (ICD-10-PCS; 2019-07-23)
PROC: 5A1D70Z Performance of Urinary Filtration, Intermittent, Less than 6 Hours Per Day (ICD-10-PCS; 2019-07-25)
PROC: 5A1D70Z Performance of Urinary Filtration, Intermittent, Less than 6 Hours Per Day (ICD-10-PCS; 2019-07-27)
PROC: 5A1D70Z Performance of Urinary Filtration, Intermittent, Less than 6 Hours Per Day (ICD-10-PCS; 2019-07-30)
PROC: 5A1D70Z Performance of Urinary Filtration, Intermittent, Less than 6 Hours Per Day (ICD-10-PCS; 2019-08-01)
PROC: 5A1D70Z Performance of Urinary Filtration, Intermittent, Less than 6 Hours Per Day (ICD-10-PCS; 2019-08-03)
DX: N17.9 Acute kidney failure, unspecified (principal); K57.31 Diverticulosis of large intestine without perforation or abscess with bleeding; I50.33 Acute on chronic diastolic (congestive) heart failure; J96.01 Acute respiratory failure with hypoxia; I13.2 Hypertensive heart and chronic kidney disease with heart failure and with stage 5 chronic kidney disease, or end stage renal disease; D62 Acute posthemorrhagic anemia; J45.901 Unspecified asthma with (acute) exacerbation; J98.11 Atelectasis; N39.0 Urinary tract infection, site not specified; N18.6 End stage renal disease; E03.9 Hypothyroidism, unspecified; E11.21 Type 2 diabetes mellitus with diabetic nephropathy; E11.22 Type 2 diabetes mellitus with diabetic chronic kidney disease; E11.42 Type 2 diabetes mellitus with diabetic polyneuropathy; E78.2 Mixed hyperlipidemia; F41.9 Anxiety disorder, unspecified; G47.00 Insomnia, unspecified; I48.0 Paroxysmal atrial fibrillation; K59.00 Constipation, unspecified; M10.39 Gout due to renal impairment, multiple sites; M81.0 Age-related osteoporosis without current pathological fracture; Z82.49 Family history of ischemic heart disease and other diseases of the circulatory system; Z90.49 Acquired absence of other specified parts of digestive tract; Z90.710 Acquired absence of both cervix and uterus; Z99.2 Dependence on renal dialysis; Z83.3 Family history of diabetes mellitus; G89.29 Other chronic pain; M19.90 Unspecified osteoarthritis, unspecified site; Z88.2 Allergy status to sulfonamides; Z88.8 Allergy status to other drugs, medicaments and biological substances
CPT/HCPCS: 36415; 71045; 74176; 78278; 80048; 80053; 80061; 81001; 82274; 82553; 82962; 83540; 83550; 83735; 83880; 84100; 84443; 84484; 85007; 85014; 85018; 85025; 85610; 86704; 86706; 86850; 86900; 86901; 86920; 87340; 90471; 90686; 93005; 93306; 93971; 94640; 94760; 96374; 97164; A9560; C9113; J0282; J0360; J0696; J0780; J0882; J1644; J1940; J2270; J2405; J2543; J3490; J7030; J7040; J7613; J7620; J7626; P9016; Q0163; 97110; 97116; 97530; 97535; 99285-25; G0378

== ENCOUNTER 2019-10-30 08:11 | Outpatient (CLI) | payer MEDICARE ==
[2019-10-30] VITALS (7 sets, daily range): BP systolic 120–143; BP diastolic 52–73
[~2019-10-30] VITALS: Ht 161.3 cm; Wt 70.8 kg
[~2019-10-30 08:11] MED LIST changes: +ACET325T9 PO; +ALBU2.5V8 NEB; +AMIO200T4 PO; +BISA10SU4 PR; +BUDE0.5A NEB; +CETI10TA16 PO; +DIPH25CA23 PO; +DOCU-109 PO; +FURO40TA4 PO; +HYDR-2868 PO; +HYDR100T24 PO; +IPRA3AMP29 NEB; +LACT1CAP19 PO; +METO50TA6 PO; +ONDA4VIA7 IV; +PANT40TA77 PO; +PROC10VI IV
[2019-10-30 08:54] LABS: BASO # 0.1 x10^3/uL (0.0-0.2); BASO % 2 % (0-3); EOS # 0.4 x10^3/uL (0.0-0.7); EOS % 5 % (0-3); HEMOGLOBIN 12.7 g/dL (12.0-15.5); LYMPH # 1.9 x10^3/uL (1.0-4.8); LYMPH % 25 % (24-48); MEAN CORPUSCULAR HEMOGLOBIN 33 pg (25-35); MEAN CORPUSCULAR HGB CONC 33 g/dL (31-37); MEAN CORPUSCULAR VOLUME 101 fL (79-100); MONO # 0.9 x10^3/uL (0.0-1.1); MONO % 12 % (0-9); NEUT # 4.3 x10^3/uL (1.8-7.7); NEUT % 57 % (31-73); PLATELET COUNT 213 x10^3/uL (140-400); RED BLOOD COUNT 3.85 x10^6/uL (3.50-5.40); RED CELL DISTRIBUTION WIDTH 15.3 % (11.5-14.5); WHITE BLOOD COUNT 7.6 x10^3/uL (4.0-11.0)
[2019-10-30 09:03] LABS: PROTHROMBIN TIME PATIENT 12.4 SEC (11.7-14.0)
[2019-10-30 09:08] LABS: CALCIUM 9.2 mg/dL (8.5-10.1); CREATININE 3.5 mg/dL (0.6-1.0); GFR 12.4; POTASSIUM 3.9 mmol/L (3.5-5.1)
[2019-10-30] MEDS ORDERED: HYDR100T24 PO (09:32)
[2019-10-30] MEDS ORDERED: FOLI0.8T7 PO (09:32)
[2019-10-30] MEDS ORDERED: LEVO5TAB29 PO (09:32)
[2019-10-30] MEDS ORDERED: FURO-69 PO (09:32)
[2019-10-30] MEDS ORDERED: IODIXANOL 320 MG/ML 100 ML VIAL. ONE (10:20)
[2019-10-30] MEDS ORDERED: LIDOCAINE WITH 8.4% SOD BICARB 3 ML DISP.SYRIN. ONE ×2 (10:20→10:23)
[2019-10-30] MEDS ORDERED: MIDAZOLAM HCL/PF 2 MG/2 ML VIAL. ONE (10:26)
[2019-10-30] MEDS ORDERED: HEPARIN for IV BOLUS 10,000 UNIT/10 ML VIAL. ONE (10:27)
[2019-10-30] MEDS ORDERED: fentaNYL PF VIAL 100 MCG/2 ML VIAL ONE (10:27)
[2019-10-30] MEDS ORDERED: fentaNYL PF VIAL 100 MCG/2 ML VIAL IV ONE (11:00)
[2019-10-30] MEDS ORDERED: CONTRAST GIVEN. MC PRN (11:00)
[2019-10-30] MEDS ORDERED: LIDOCAINE WITH 8.4% SOD BICARB 3 ML DISP.SYRIN. IJ ONE (11:00)
[2019-10-30] MEDS ORDERED: IODIXANOL 320 MG/ML 100 ML VIAL. IART ONE (11:00)
[2019-10-30] MEDS ORDERED: MIDAZOLAM HCL/PF 2 MG/2 ML VIAL. IV ONE (11:00)
--- NOTE | 2019-10-30 12:45 | NUR ---
Discharge Note: BONI DIAZ Discharge instructions and discharge home medications reviewed with patient and daughters and a copy given. All questions have been answered and understanding verbalized. The following instructions and handouts were given: Moderate sedation and Fistula care. Discontinued lines and drains: PIV to right forearm, dressing clean dry intact. Patient discharged to home with daughters via wheelchair to private vehicle.
--- NOTE | 2019-11-01 09:04 | RAD ---
11/01/2019 6:58 AM Procedure: 1. Left upper extremity fistulogram 2. Angioplasty, venous anastomotic stenosis Clinical Indication: HIGH VENOUS PRESSURES Discussion: The procedure was explained in its entirety to the patient or the patients designated service liaison representative by a member of the treatment team, including a discussion of the risks, benefits and commonly accepted alternatives to the procedure, as well as the expected consequences of no therapy whatsoever. Discussion of the risks included, but was not limited to, those that are most frequent and those that are rare but possibly severe or life-threatening, as well as the possibility of unforeseen complications. All elements of maximal sterile barrier technique including the use of a cap, mask, sterile gown, sterile gloves, large sterile sheet, appropriate hand hygiene, and 2% chlorhexidine for cutaneous antisepsis (or acceptable alternative antiseptic per current guidelines) were followed for this procedure. A timeout procedure was performed. The left upper extremity was prepped and draped using sterile barrier technique. Ultrasound evaluation demonstrates the left upper extremity AV graft to be grossly patent. 1% lidocaine was administered. The graft was accessed under direct ultrasound guidance. Reference ultrasound images were saved the medical record. A 6 Bangladeshi vascular sheath was placed. Fistulogram was were performed demonstrating a moderate to high-grade venous anastomotic stenosis. No other flow-limiting stenosis was identified. Balloon angioplasty was performed initially with a 6 mm x 4 cm balloon and subsequently an 8 mm x 4 cm balloon. This resulted in significantly improved morphology and flow through the lesion. The sheath was removed over pursestring suture. Sterile dressings were applied. Total fluoroscopy time: 2.6 min Dose area product: 14 Gycm2 The procedures performed under conscious sedation including continuous cardiopulmonary monitoring via dedicated sedation nurse. 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
--- NOTE | 2019-11-06 12:49 | PDOC1 ---
History and Physical Date of Procedure Date of Admission 11.01.19 Procedure Procedure Procedure: 1. Left upper extremity fistulogram 2. Angioplasty, venous anastomotic stenosis Clinical Indication: HIGH VENOUS PRESSURES Discussion: The procedure was explained in its entirety to the patient or the patients designated billing customer service representative by a member of the treatment team, including a discussion of the risks, benefits and commonly accepted alternatives to the procedure, as well as the expected consequences of no therapy whatsoever. Discussion of the risks included, but was not limited to, those that are most frequent and those that are rare but possibly severe or life-threatening, as well as the possibility of unforeseen complications. All elements of maximal sterile barrier technique including the use of a cap, mask, sterile gown, sterile gloves, large sterile sheet, appropriate hand hygiene, and 2% chlorhexidine for cutaneous antisepsis (or acceptable alternative antiseptic per current guidelines) were followed for this procedure. A timeout procedure was performed. The left upper extremity was prepped and draped using sterile barrier technique. Ultrasound evaluation demonstrates the left upper extremity AV graft to be grossly patent. 1% lidocaine was administered. The graft was accessed under direct ultrasound guidance. Reference ultrasound images were saved the medical record. A 6 Japanese vascular sheath was placed. Fistulogram was were performed demonstrating a moderate to high-grade venous anastomotic stenosis. No other flow-limiting stenosis was identified. Balloon angioplasty was performed initially with a 6 mm x 4 cm balloon and subsequently an 8 mm x 4 cm balloon. This resulted in significantly improved morphology and flow through the lesion. The sheath was removed over pursestring suture. Sterile dressings were applied. Total fluoroscopy time: 2.6 min Dose area product: 14 Gycm2 The procedures performed under conscious sedation including continuous cardiopulmonary monitoring via dedicated sedation nurse. 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 High venous pressures at dialysis Cardiovascular: No pertinent hx Pulmonary: No pertinent hx GI: No pertinent hx Heme/Onc: No pertinent hx Hepatobiliary: No pertinent hx Psych: No pertinent hx Musculoskeletal: low back pain Rheumatologic: No pertinent hx Renal/: Chronic renal failure (esrd) Endocrine: No pertinent hx Dermatology: No pertinent hx Current Medications Current Medications Current Medications Iodixanol (Visipaque 320) 100 ml STK-MED ONCE .ROUTE ; Start 10/30/19 at 10:20; Stop 10/30/19 at 10:20; Status DC Lidocaine HCl (Buffered Lidocaine 1%) 3 ml STK-MED ONCE .ROUTE ; Start 10/30/19 at 10:20; Stop 10/30/19 at 10:20; Status DC Heparin Sodium/ Sodium Chloride 500 ml @ As Directed STK-MED ONCE .ROUTE ; Start 10/30/19 at 10:20; Stop 10/30/19 at 10:20; Status DC Lidocaine HCl (Buffered Lidocaine 1%) 3 ml STK-MED ONCE .ROUTE ; Start 10/30/19 at 10:23; Stop 10/30/19 at 10:24; Status DC Midazolam HCl (Versed) 2 mg STK-MED ONCE .ROUTE ; Start 10/30/19 at 10:26; Stop 10/30/19 at 10:26; Status DC Fentanyl Citrate (Fentanyl 2ml Vial) 100 mcg STK-MED ONCE .ROUTE ; Start 10/30/19 at 10:27; Stop 10/30/19 at 10:27; Status DC Heparin Sodium (Porcine) (Heparin Sodium) 10,000 unit STK-MED ONCE .ROUTE ; Start 10/30/19 at 10:27; Stop 10/30/19 at 10:27; Status DC Heparin Sodium/ Sodium Chloride (HEPARIN for ARTERIAL LINE FLUSH) 1,000 unit 1X ONCE IART Last administered on 10/30/19at 11:08; Start 10/30/19 at 11:00; Stop 10/30/19 at 11:01; Status DC Lidocaine HCl (Buffered Lidocaine 1%) 3 ml 1X ONCE IJ Last administered on 10/30/19at 11:08; Start 10/30/19 at 11:00; Stop 10/30/19 at 11:01; Status DC Midazolam HCl (Versed) 2 mg 1X ONCE IV Last administered on 10/30/19at 11:08; Start 10/30/19 at 11:00; Stop 10/30/19 at 11:01; Status DC Fentanyl Citrate (Fentanyl 2ml Vial) 100 mcg 1X ONCE IV Last administered on 10/30/19at 11:09; Start 10/30/19 at 11:00; Stop 10/30/19 at 11:01; Status DC Iodixanol (Visipaque 320) 100 ml 1X ONCE IART Last administered on 10/30/19at 11:08; Start 10/30/19 at 11:00; Stop 10/30/19 at 11:01; Status DC Info (CONTRAST GIVEN -- Rx MONITORING) 1 each PRN DAILY PRN MC SEE COMMENTS; Start 10/30/19 at 11:00; Stop 10/30/19 at 13:13; Status DC Active Scripts Active Metoprolol Tartrate 50 Mg Tablet 1 Tab PO BID Pantoprazole Sodium (Pantoprazole Sodium) 40 Mg Tablet.dr 40 Mg PO DAILYAC 30 Days Tylenol (Acetaminophen) 325 Mg Tablet 650 Mg PO PRN Q6HRS PRN 30 Days Amiodarone Hcl 200 Mg Tablet 200 Mg PO DAILY 30 Days Proair Hfa (Albuterol Sulfate) 8.5 Gm Hfa.aer.ad 2.5 Mg NEB PRN QID PRN 30 Days Duoneb 0.5-3(2.5) Mg/3 Ml (Albuterol/Ipratropium) 3 Ml Ampul.neb 3 Ml NEB BID 30 Days Diphenhydramine Hcl 25 Mg Capsule 25 Mg PO PRN Q8HRS PRN 30 Days Reported Xyzal (Levocetirizine Dihydrochloride) 5 Mg Tablet 1 Tab PO DAILY 30 Days Dialyvite 800 Tablet (Folic Acid/Vitamin B Comp W-C) 0.8 Mg Tablet 1 Tab PO DAILY 30 Days Lasix (Furosemide) 20 Mg Tablet 1 Tab PO DAILY 30 Days Hydralazine Hcl 100 Mg Tablet 0.5 Tab PO TID Tramadol Hcl 50 Mg Tablet 50 Mg PO Q6HRS PRN Singulair Tablet (Montelukast Sodium) 10 Mg Tablet 1 Tab PO DAILY Tradjenta (Linagliptin) 5 Mg Tablet 5 Mg PO DAILY Synthroid (Levothyroxine Sodium) 125 Mcg Tablet 1 Tab PO DAILY Lipitor (Atorvastatin Calcium) 10 Mg Tablet 1 Tab PO QHS Allergies Allergies: Coded Allergies: Sulfa (Sulfonamide Antibiotics) (Verified Allergy, Severe, Swelling, 07/05/19) amlodipine (Verified Adverse Reaction, Severe, Severe Leg Swelling, 07/31/19) Physical Exam Lungs: Clear to auscultation Heart: Regular rate Assessment Assessment Clinical Indication: ESRD LUE FISTULA WITH HIGH VENOUS PRESSURES Plan Plan FISTULOGRAM WITH POSSIBLE INTERVENTION ISRRAEL KING MD 7, 2020 12:49
== END 2019-10-30 13:00 | disposition home or self-care (01) ==
LOC: INTRAD 08:11
PROVIDERS: ATTEND Internal Medicine Nephrology
DX: T82.858A Stenosis of other vascular prosthetic devices, implants and grafts, initial encounter (principal); Z79.01 Long term (current) use of anticoagulants; Y83.8 Other surgical procedures as the cause of abnormal reaction of the patient, or of later complication, without mention of misadventure at the time of the procedure
CPT/HCPCS: 36415; 36902; 76937; 80048; 85025; 85610; 99152; 99153; C1725; C1769; C1892; C1894; J1644; J2250; J3010; Q9967

== ENCOUNTER 2020-01-23 12:59 | Emergency (ER) | payer MEDICARE ==
[~2020-01-23] VITALS: Ht 160 cm; Wt 72.7 kg
[~2020-01-23 12:59] MED LIST changes: +FOLI0.8T7 PO; +FURO-69 PO; +LEVO5TAB29 PO
--- NOTE | 2020-01-23 15:36 | RAD ---
Exam: CT head INDICATION: Fall this morning, hit back of head TECHNIQUE: Sequential axial images through the head and cervical spine were obtained without the administration of IV contrast. Comparisons: None FINDINGS: Head: No focal parenchymal lesion or hemorrhage is identified. There is no midline shift or sulcal effacement. No acute vascular territory infarction is identified. Goldberg-white distinction is preserved. The ventricular system is within normal limits without compression hydrocephalus. The basal cisterns are well maintained. Extracranial soft tissue scalp contusion overlying the left posterior occipital region. The visualized portions of the paranasal sinuses and mastoid air cells are well-pneumatized. No acute fractures. Cervical spine: Vertebral body heights are well-maintained. Grade 1 anterior listhesis of C5 on C6 and C6 on C7. Fracture to the cervical spine is not identified. Multilevel spondylotic change in cervical spine with degenerative disc disease greatest at C6-C7. Moderate bilateral facet arthropathy is noted throughout cervical spine. Visualized paraspinal soft tissues are unremarkable. IMPRESSION: 1. Mild extra cranial soft tissue scalp contusion overlying the left occipital region without underlying osseous or intracranial abnormality. 2. Negative CT C-spine for acute traumatic injury. Exposure: One or more of the following in the visualized dose reduction techniques were utilized for this examination: 1. Automated exposure control 2. Adjustment of the MA and/or KV according to patient size Use of iterative of reconstructive technique Electronically signed by: Cordell Swain MD (01/23/2020 3:32 PM) [id number]
--- NOTE | 2020-01-23 16:12 | RAD ---
Examination: SHOULDER 2+V RIGHT, HUMERUS RIGHT History: Pain after fall Comparison/Correlation: None Findings: 3 views of the right shoulder and 2 view exam the right humerus was performed. Acromioclavicular degenerative hypertrophy is present. Elevated right humeral head is present. Correlate for underlying rotator cuff tear. No acute fracture or bone destruction. Soft tissues are grossly unremarkable. Bony mineralization appears adequate for the patient's age. Impression: No acute fracture or bone destruction. High riding right humeral head is present. Correlate clinically. Electronically signed by: Noé York MD (01/23/2020 4:09 PM) [id number]
--- NOTE | 2020-01-23 16:24 | PHYS DOC ---
Past Medical History Past Medical History: Asthma, CHF, High Cholesterol, Hypertension, Hypothyroid, Renal Failure, Other Additional Past Medical Histor: STAGE 5 RENAL FAILURE, CHRONIC PAIN Past Surgical History: Cholecystectomy, Hysterectomy Smoking Status: Never Smoker Alcohol Use: None Drug Use: None Adult General Chief Complaint Chief Complaint: MECHANICAL FALL HPI HPI Patient is a 84 year old female who presents to the emergency department via POV with complaints of neck and bilateral shoulder pain. Patient states that last night at approximately 2300 she had gotten up to her bathroom and her walker got caught on something and she ended up falling. Patient states when she fell she fell backwards and hit her head on the floor. She denies any loss of consciousness, numbness, tingling, weakness, or use of blood thinners. Patient states she has had a posterior located headache and pain in both of her shoulders since the fall. She states that the right shoulder hurts worse than the left shoulder. Patient states she had to call EMS to help her get up off the floor after the fall. Pt Denies any chest pain, palpitations, syncope, difficulty speaking, vision changes, fever, cough, shortness of breath, wheezing, or low back pain. She currently rates her discomfort a 7 out of 10 on the pain scale, she states that she took 2 tablets of her tramadol prior to arrival. Patient states she takes tramadol every 6 hours for chronic pain. Review of Systems Review of Systems Complete ROS is negative unless otherwise noted in HPI. Current Medications Current Medications Current Medications Medications (Trade) Dose Ordered Sig/Cate Start Time Stop Time Status Last Admin Dose Admin Orphenadrine Citrate (Norflex) 60 mg 1X ONCE 01/23/20 17:00 01/23/20 17:01 DC 01/23/20 16:51 60 MG Allergies Allergies Allergies Coded Allergies Type Severity Reaction Last Updated Verified Sulfa (Sulfonamide Antibiotics) Allergy Severe Swelling 07/05/19 Yes amlodipine Adverse Reaction Severe Severe Leg Swelling 07/31/19 Yes Physical Exam Physical Exam See Above Constitutional: Well developed, well nourished, no acute distress, non-toxic appearance. [] HENT: Normocephalic, atraumatic, bilateral external ears normal, bilateral TMs normal, oropharynx moist, no oral exudates, nose normal. [] Eyes: PERRLA, EOMI, conjunctiva normal, no discharge. [] Neck: Normal range of motion, cervical spine TTP without obvious deformity, step-off, or crepitus; supple, no stridor. [] Cardiovascular:Heart rate regular rhythm, no murmur [] Lungs & Thorax: Bilateral breath sounds clear to auscultation, Respirations even and unlabored, no retractions, no respiratory distress [] Abdomen: soft, no tenderness Skin: Warm, dry, no erythema, no rash. [] Back: No thoracic or lumbar bony tenderness Extremities: R shoulder and upper arm TTP, no crepitus or obvious deformity, no cyanosis, no clubbing, ROM intact, no edema. [] Neurologic: Alert and oriented X 3, no focal deficits noted. [] Psychologic: Affect normal, judgement normal, mood normal. [] Current Patient Data Vital Signs Vital Signs Date Time Temp Pulse Resp B/P (MAP) Pulse Ox O2 Delivery O2 Flow Rate FiO2 01/23/20 16:43 62 29 95 01/23/20 13:55 98.5 181/79 (113) Room Air 98.5 EKG EKG [] Radiology/Procedures Radiology/Procedures PROCEDURE: HUMERUS RIGHT Examination: SHOULDER 2+V RIGHT, HUMERUS RIGHT History: Pain after fall Comparison/Correlation: None Findings: 3 views of the right shoulder and 2 view exam the right humerus was performed. Acromioclavicular degenerative hypertrophy is present. Elevated right humeral head is present. Correlate for underlying rotator cuff tear. No acute fracture or bone destruction. Soft tissues are grossly unremarkable. Bony mineralization appears adequate for the patient's age. Impression: No acute fracture or bone destruction. High riding right humeral head is present. Correlate clinically. PROCEDURE: CT HEAD AND CERVICAL SPINE WO Exam: CT head INDICATION: Fall this morning, hit back of head TECHNIQUE: Sequential axial images through the head and cervical spine were obtained without the administration of IV contrast. Comparisons: None FINDINGS: Head: No focal parenchymal lesion or hemorrhage is identified. There is no midline shift or sulcal effacement. No acute vascular territory infarction is identified. Goldberg-white distinction is preserved. The ventricular system is within normal limits without compression hydrocephalus. The basal cisterns are well maintained. Extracranial soft tissue scalp contusion overlying the left posterior occipital region. The visualized portions of the paranasal sinuses and mastoid air cells are well-pneumatized. No acute fractures. Cervical spine: Vertebral body heights are well-maintained. Grade 1 anterior listhesis of C5 on C6 and C6 on C7. Fracture to the cervical spine is not identified. Multilevel spondylotic change in cervical spine with degenerative disc disease greatest at C6-C7. Moderate bilateral facet arthropathy is noted throughout cervical spine. Visualized paraspinal soft tissues are unremarkable. IMPRESSION: 1. Mild extra cranial soft tissue scalp contusion overlying the left occipital region without underlying osseous or intracranial abnormality. 2. Negative CT C-spine for acute traumatic injury. Exposure: One or more of the following in the visualized dose reduction techniques were utilized for this examination: 1. Automated exposure control 2. Adjustment of the MA and/or KV according to patient size Use of iterative of reconstructive technique [] Course & Med Decision Making Course & Med Decision Making Pertinent Labs and Imaging studies reviewed. (See chart for details) Patient is 84-year-old female who presented emergency room with complaints of head, neck, and right shoulder pain after a fall at approximately [address] of her head and neck were negative for any acute findings. X-rays of the right shoulder and right humerus were also negative for any acute fracture. The patient was given 60 mg of IM Norflex in the emergency department a prescription was written for 10 mg of Flexeril. The patient reported that her walker got stuck and that was the reason for her fall. She denied any fever, cough, chest pain, abdominal pain, nausea, vomiting, diarrhea, palpitations, shortness of breath, or wheezing. The c-collar was removed by myself after results of the head and cervical spine CT were back and negative. Patient's daughter was at the bedside when results were discussed. Recommended that someone stays with the patient to observe her for head injury precautions for the next 1 to 2 days. Encouraged patient and her daughter to return to the ER if symptoms worsen. Patient and her daughter verbalized an understanding of home care, medications, follow-up, and return to ED instructions and were in agreement with the plan of care. [] Dragon Disclaimer Dragon Disclaimer This electronic medical record was generated, in whole or in part, using a voice recognition dictation system. Departure Departure Impression: Primary Impression: Fall as cause of accidental injury at home as place of occurrence Additional Impressions: Acute cervical myofascial strain Closed head injury without loss of consciousness Shoulder pain, acute Disposition: 01 HOME, SELF-CARE Condition: STABLE Referrals: HIRA BELTRE MD (PCP) Patient Instructions: Cervical Sprain, [id number], Fall Prevention and Home Safety, Jowj-[id number], Head Injury, Adult, [id number] Additional Instructions: Fill prescription(s) and use as directed. Recommend application of ice to sore areas for 10-15 minutes every hour today and tomorrow and then ice or heat to sore areas as needed for comfort. Continue taking your home Tramadol as needed for pain. Follow up with your primary care doctor in 1-2 days. Return to the ER if your symptoms worsen. Scripts Cyclobenzaprine Hcl (CYCLOBENZAPRINE HCL) 10 Mg Tablet 0.5-1 TAB PO TID for 7 Days, #20 TAB 0 Refills Prov: LEONA BARRERA APRN 01/23/20 Problem Qualifiers Primary Impression: Fall as cause of accidental injury at home as place of occurrence Encounter type: initial encounter Qualified Codes: W19.XXXA - Unspecified fall, initial encounter; Y92.009 - Unspecified place in unspecified non- institutional (private) residence as the place of occurrence of the external cause Additional Impressions: Acute cervical myofascial strain Encounter type: initial encounter Qualified Codes: S16.1XXA - Strain of muscle, fascia and tendon at neck level, initial encounter Closed head injury without loss of consciousness Encounter type: initial encounter Qualified Codes: S09.90XA - Unspecified injury of head, initial encounter Shoulder pain, acute Laterality: right Qualified Codes: M25.511 - Pain in right shoulder LEONA BARRERA CUSTOMER OPERATIONS INTERN Jan 23, 2020 16:24
[2020-01-23 16:43] VITALS: BP 149/90
[2020-01-23] MEDS ORDERED: ORPHENADRINE CITRATE 60 MG/2 ML VIAL. IM ONE (17:00)
[2020-01-23] MEDS ORDERED: CYCL10TA2 PO (17:14)
== END 2020-01-23 16:55 | disposition home or self-care (01) ==
LOC: ER 12:59
DX: S16.1XXA Strain of muscle, fascia and tendon at neck level, initial encounter (principal); S09.90XA Unspecified injury of head, initial encounter; M25.511 Pain in right shoulder; M25.512 Pain in left shoulder; I13.2 Hypertensive heart and chronic kidney disease with heart failure and with stage 5 chronic kidney disease, or end stage renal disease; N18.5 Chronic kidney disease, stage 5; I50.9 Heart failure, unspecified; Z99.2 Dependence on renal dialysis; E78.00 Pure hypercholesterolemia, unspecified; E03.9 Hypothyroidism, unspecified; G89.29 Other chronic pain; J45.909 Unspecified asthma, uncomplicated; Z90.710 Acquired absence of both cervix and uterus; Z90.49 Acquired absence of other specified parts of digestive tract; Z88.2 Allergy status to sulfonamides; Z88.8 Allergy status to other drugs, medicaments and biological substances; W18.09XA Striking against other object with subsequent fall, initial encounter; Z91.81 History of falling; Y93.89 Activity, other specified; Y92.89 Other specified places as the place of occurrence of the external cause; Y99.8 Other external cause status
CPT/HCPCS: 70450; 72125; 73030; 73060; 96372; 99285; J2360

== ENCOUNTER 2020-04-30 15:22 | Inpatient (IN) | payer MEDICARE ==
[~2020-04-30] VITALS: Ht 160 cm; Wt 68.0 kg
[~2020-04-30 15:22] MED LIST changes: -ASCO500T2 PO; +ASCO500T4 PO; +CYCL10TA2 PO; +METO25TA4 PO; -PROC10VI IV; +PROC10VI20 IV
--- NOTE | 2020-04-30 15:30 | PHYS DOC ---
Past Medical History Past Medical History: Asthma, CHF, High Cholesterol, Hypertension, Hypothyroid, Renal Failure, Other Additional Past Medical Histor: STAGE 5 RENAL FAILURE, CHRONIC PAIN Past Surgical History: Cholecystectomy, Hysterectomy Smoking Status: Never Smoker Alcohol Use: None Drug Use: None General Adult HPI: HPI: 85-year-old female past medical history significant for asthma, CHF, hypothyroidism, DM, ESRD (MWF - last HD tuesday, missed today), hypertension and hyperlipidemia, presents the ED with complaints of generalized weakness, anorexia with epigastric " stomach pains," that feels "uneasy." Patient states she had difficulty sleeping last night because of shortness of breath. Pres ented to dialysis with these symptoms and fats and oils loader instructed patient to come to the ER. Dialysis clinic was concerned patient was bradycardic and hypotensive, EMS reports heart rate of 52 and blood pressure 131/63. Patient anuric. Patient reports her blood pressure was used in the 50s. Lives at home. No known sick contacts or exposure to COVID. Takes metoprolol 25 mg twice a day and amiodarone. Does not believe she has any tachyarrhythmias or atrial fibrillation. Is on no blood thinners. States she was admitted to the hospital this past month for neck pain and had a cardiac work-up. Reports no overdosing on her medications. Review of systems: Denies associated fever, chills, cough, hemoptysis, nausea, vomiting, diaphoresis, syncope, chest pressure heaviness or tightness, lateral leg swelling, rash, new or worsening neck pain, headache, blurry vision or neurologic deficits. pmd-Pratip Garg Review of Systems: Review of Systems: Constitutional: Denies fever or chills. [] Eyes: Denies change in visual acuity. [] HENT: Denies nasal congestion or sore throat. [] Respiratory: Denies cough or shortness of breath. [] Cardiovascular: Denies chest pain or edema. [] GI: Denies abdominal pain, nausea, vomiting, bloody stools or diarrhea. [] : Denies dysuria. [] Musculoskeletal: Denies back pain or joint pain. [] Integument: Denies rash. [] Neurologic: Denies headache, focal weakness or sensory changes. [] Endocrine: Denies polyuria or polydipsia. [] Lymphatic: Denies swollen glands. [] Psychiatric: Denies depression or anxiety. [] Heart Score: HEART Score for Chest Pain: HEART Score for Chest Pain Response (Comments) Value History Moderately Suspicious 1 ECG Nonspecific Repolarizatio 1 Age > 65 2 Risk Factors >3 Risk Factors or Hx CAD 2 Total 6 Risk Factors: Risk Factors: DM, Current or recent (<one month) smoker, HTN, HLP, family history of CAD, obesity. Risk Scores: Score 0 - 3: 2.5% MACE over next 6 weeks - Discharge Home Score 4 - 6: 20.3% MACE over next 6 weeks - Admit for Clinical Observation Score 7 - 10: 72.7% MACE over next 6 weeks - Early Invasive Strategies Allergies: Allergies: Allergies Coded Allergies Type Severity Reaction Last Updated Verified Sulfa (Sulfonamide Antibiotics) Allergy Severe Swelling 07/05/19 Yes amlodipine Adverse Reaction Severe Severe Leg Swelling 07/31/19 Yes Physical Exam: PE: Constitutional: Well developed, well nourished, no acute distress, frail appearance. [] no hypotension - map has remained > 65, afebrile HENT: Normocephalic, atraumatic, bilateral external ears normal, oropharynx moist, no oral exudates, nose normal. [] support tape over neck Eyes: EOMI, conjunctiva normal, no discharge. [] Neck: Normal range of motion, no tenderness, supple, no stridor. [] Cardiovascular:bradycardic, no murmur [] Lungs & Thorax: Bilateral breath sounds clear to auscultation [] Abdomen: Bowel sounds normal, soft, no tenderness, no masses, no pulsatile masses, large obese abdomen w/fluid wave, no specific ttp Skin: Warm, dry, no erythema, no rash. [] Back: No tenderness, no CVA tenderness. [] Extremities: No tenderness, no cyanosis, no clubbing, ROM intact, no unilateral edema. [] LUE thrill Neurologic: Alert and oriented X 3, normal motor function, normal sensory function, no focal deficits noted. [] Psychologic: Affect normal, judgement normal, mood normal. [] Current Patient Data: Vital Signs: abnormal bradycardia w/no hypotension, soa, syncope or chest pressure/tightness EKG: EKG: Wide-complex bradycardia at 34 bpm, QRS 118, QTc 367, no T wave inversions, no ST elevations or ST depressions Radiology/Procedures: Radiology/Procedures: IMAGING REPORT Signed PATIENT: BONI DIAZ ACCOUNT: [id number] : 1935 LOCATION: ER AGE: 85 SEX: F EXAM STATUS: REG ER ORD. PHYSICIAN: ROEL LACEY DO REASON: weakness 17 labs 3:40 PROCEDURE: PORTABLE CHEST 1V EXAM: CHEST 1 VIEW History: Weakness COMPARISON: 04/17/2020 TECHNIQUE: Single portable radiograph of the chest FINDINGS: Low lung volumes and technique accentuates heart size and pulmonary vascularity. Mild congestive changes. Small left pleural effusion. Mild bibasilar lung airspace opacities likely atelectasis or infiltrates. IMPRESSION: 1. Mild congestive changes with small left pleural effusion. Bibasilar lung airspace opacities likely atelectasis or infiltrates. Electronically signed by: Bridger Hawkins MD (04/30/2020 4:24 PM) [id number] DICTATED and SIGNED BY: BRIDGER HAWKINS MD DATE: 04/30/20 1624 Impression: Concern for weakness and nonfocal abdominal discomfort with bradycardia, left pleural effusion on chest x-ray. BNP pending. I d/w Ranjana, RACK PULLER for cardiology who agrees with current management monitoring, TCP if pts' mentation should change, becomes hypotensive, she syncopize or c/o has cp/soa. Abdomen with fluid wave - no ttp. WBC 14, pt afebrile. Will admit to ICU for close medical monitoring. Patient stable at time of admission and agrees with this plan. Critical care time was 30 minutes which includes time at bedside, spent in discussion of patient's care with specialist and/or family members, with inte rpretation of laboratory and/or radiological studies and is exclusive of procedures. Course & Med Decision Making: Course & Med Decision Making Pertinent Labs and Imaging studies reviewed. (See chart for details) [] Dragon Disclaimer: Shanna Disclaimer: This electronic medical record was generated, in whole or in part, using a voice recognition dictation system. Departure Departure Impression: Primary Impression: Bradycardia Additional Impressions: Weakness ESRD (end stage renal disease) Pleural effusion, left Disposition: ADMITTED INPATIENT Admitting Physician: Hira Garg Condition: GUARDED Referrals: HIRA GARG MD (PCP) Justicifation of Admission Dx: Justifications for Admission: Justification of Admission Dx: Yes Chronic Renal Failure: Cardiac Arrhythmias ROEL LACEY DO Apr 30, 2020 15:30
[2020-04-30] MEDS ORDERED: ATROPINE 1 MG/10 ML DISP.SYRINGE. ONE (15:40)
[2020-04-30 16:00] LABS: BASO # 0.1 x10^3/uL (0.0-0.2); BASO % 1 % (0-3); CREATININE 5.8 mg/dL (0.6-1.0); EOS # 0.1 x10^3/uL (0.0-0.7); EOS % 1 % (0-3); GFR 6.9; HEMATOCRIT 36.1 % (36.0-47.0); HEMOGLOBIN 11.9 g/dL (12.0-15.5); LYMPH # 1.7 x10^3/uL (1.0-4.8); LYMPH % 12 % (24-48); MEAN CORPUSCULAR HEMOGLOBIN 35 pg (25-35); MEAN CORPUSCULAR HGB CONC 33 g/dL (31-37); MEAN CORPUSCULAR VOLUME 107 fL (79-100); MONO % 7 % (0-9); NEUT # 11.7 x10^3/uL (1.8-7.7); NEUT % 80 % (31-73); PLATELET COUNT 294 x10^3/uL (140-400); POTASSIUM 4.8 mmol/L (3.5-5.1); RED BLOOD COUNT 3.39 x10^6/uL (3.50-5.40); RED CELL DISTRIBUTION WIDTH 14.2 % (11.5-14.5); WHITE BLOOD COUNT 14.6 x10^3/uL (4.0-11.0)
[2020-04-30 16:05] LABS: ALBUMIN 2.9 g/dL (3.4-5.0); ALBUMIN/GLOBULIN RATIO 0.7 (1.0-1.7); MAGNESIUM 2.2 mg/dL (1.8-2.4); PHOSPHORUS 5.4 mg/dL (2.6-4.7); TOTAL BILIRUBIN 0.3 mg/dL (0.2-1.0); TOTAL PROTEIN 6.9 g/dL (6.4-8.2)
--- NOTE | 2020-04-30 16:27 | RAD ---
EXAM: CHEST 1 VIEW History: Weakness COMPARISON: 04/17/2020 TECHNIQUE: Single portable radiograph of the chest FINDINGS: Low lung volumes and technique accentuates heart size and pulmonary vascularity. Mild congestive changes. Small left pleural effusion. Mild bibasilar lung airspace opacities likely atelectasis or infiltrates. IMPRESSION: 1. Mild congestive changes with small left pleural effusion. Bibasilar lung airspace opacities likely atelectasis or infiltrates. Electronically signed by: Bridger Hawkins MD (04/30/2020 4:24 PM) [id number]
--- NOTE | 2020-04-30 16:56 | PDOC2 ---
BRADEN STARKEY FACING CUTTING MACHINE OPERATOR 04/30/20 1656: CARDIAC CONSULT DATE OF CONSULT Date of Consult DATE: 04/30/20 TIME: 16:44 REASON FOR CONSULT Reason for Consult: Bradycardia REFERRING PHYSICIAN Referring Physician: [facility] SOURCE Source: Chart review, Patient HISTORY OF PRESENT ILLNESS HISTORY OF PRESENT ILLNESS This is a pleasant 85 yo female admitted for complains of weakness. She went to dialysis center today and was nted with severe bradycardia in the 30s. She has been feeling weak in the last week and has some SOA. No passing out or significant dizziness. No chest pain but notable for some midabdominal discomfort describing it as cramps. She does have hx of diverticulosis and constipation but so far her abd soft and nontender and last BM was 2 days ago and soft. No nausea or vomiting. No chest pain. She takes metoprolol and amiodarone and in ED I noted her rhythm to be narrow junctional with rate in theupper 20s. BP is currently stable and aside from weakness she brett any CP nor SOA or no changes in her mentation. To add she does not take any eliquis nor ASA but does have hx of PAFIB and prior diverticular bleed. PAST MEDICAL HISTORY Cardiovascular: AFIB, CHF, HTN, Hyperlipidemia GI: Diverticulosis, GI bleed (diverticular bleed) Heme/Onc: Anemia NOS Hepatobiliary: No pertinent hx Musculoskeletal: Osteoarthritis Rheumatologic: Gout, Rheumatoid arthritis ENT: Other (cataract) Renal/: Chronic renal failure, UTI Endocrine: Diabetes (2), Hypothyroidism, Osteoporosis PAST SURGICAL HISTORY Past Surgical History Cholecystectomy, Cataract Removal, Hysterectomy Past Surgical History: Other (LA AV dialysis fistula) FAMILY HISTORY Family History: Diabetes, Hypertension SOCIAL HISTORY Smoke: No ALCOHOL: none Drugs: None Lives: with Family (spouse) ALLERGIES ALLERGIES: Coded Allergies: Sulfa (Sulfonamide Antibiotics) (Verified Allergy, Severe, Swelling, 07/05) amlodipine (Verified Adverse Reaction, Severe, Severe Leg Swelling, 07/31/19) ROS Review of System 14 point ROS evaluated with pertinent positives noted per HPI PHYSICAL EXAM General: Alert, Oriented X3, Cooperative, No acute distress HEENT: Mucous membr. moist/pink Lungs: Other (diminished bases) Heart: Regular rate (junctional), Normal S1, Normal S2, Other (2/6 systolic murmur to LLS border) Abdomen: Soft, No tenderness Extremities: No cyanosis, No edema Skin: No breakdown, No significant lesion Neuro: Normal speech, Sensation intact Psych/Mental Status: Mental status NL, Mood NL MUSCULOSKELETAL: Osteoarthritic changes both hands VITALS/I&O VITALS/I&O: Vital Signs Date Time Temp Pulse Resp B/P (MAP) Pulse Ox O2 Delivery O2 Flow Rate FiO2 04/30/20 16:30 28 15 94 04/30/20 15:30 98.2 132/63 (86) Room Air 98.2 LABS Lab: Laboratory Tests Test 04/30/20 15:42 White Blood Count 14.6 x10^3/uL (4.0-11.0) H Red Blood Count 3.39 x10^6/uL (3.50-5.40) L Hemoglobin 11.9 g/dL (12.0-15.5) L Hematocrit 36.1 % (36.0-47.0) Mean Corpuscular Volume 107 fL (79-100) H Mean Corpuscular Hemoglobin 35 pg (25-35) Mean Corpuscular Hemoglobin Concent 33 g/dL (31-37) Red Cell Distribution Width 14.2 % (11.5-14.5) Platelet Count 294 x10^3/uL (140-400) Neutrophils (%) (Auto) 80 % (31-73) H Lymphocytes (%) (Auto) 12 % (24-48) L Monocytes (%) (Auto) 7 % (0-9) Eosinophils (%) (Auto) 1 % (0-3) Basophils (%) (Auto) 1 % (0-3) Neutrophils # (Auto) 11.7 x10^3/uL (1.8-7.7) H Lymphocytes # (Auto) 1.7 x10^3/uL (1.0-4.8) Monocytes # (Auto) 1.0 x10^3/uL (0.0-1.1) Eosinophils # (Auto) 0.1 x10^3/uL (0.0-0.7) Basophils # (Auto) 0.1 x10^3/uL (0.0-0.2) Sodium Level 130 mmol/L (136-145) L Potassium Level 4.8 mmol/L (3.5-5.1) Chloride Level 93 mmol/L (98-107) L Carbon Dioxide Level 26 mmol/L (21-32) Anion Gap 11 (6-14) Blood Urea Nitrogen 46 mg/dL (7-20) H Creatinine 5.8 mg/dL (0.6-1.0) H Estimated GFR (Cockcroft-Gault) 6.9 BUN/Creatinine Ratio 8 (6-20) Glucose Level 221 mg/dL (70-99) H Calcium Level 9.0 mg/dL (8.5-10.1) Phosphorus Level 5.4 mg/dL (2.6-4.7) H Magnesium Level 2.2 mg/dL (1.8-2.4) Total Bilirubin 0.3 mg/dL (0.2-1.0) Aspartate Amino Transferase (AST) 17 U/L (15-37) Alanine Aminotransferase (ALT) 13 U/L (14-59) L Alkaline Phosphatase 73 U/L (46-116) Troponin I Quantitative < 0.017 ng/mL (0.000-0.055) Total Protein 6.9 g/dL (6.4-8.2) Albumin 2.9 g/dL (3.4-5.0) L Albumin/Globulin Ratio 0.7 (1.0-1.7) L Lipase 218 U/L (73-393) Laboratory Tests 04/30/20 15:42 Laboratory Tests 04/30/20 15:42 ECHOCARDIOGRAM ECHOCARDIOGRAM <Conclusion> The left ventricle is normal size. The left ventricular systolic function is normal and the ejection fraction is within normal range. Ejection fraction 55-60%. There is borderline concentric left ventricular hypertrophy. Doppler and Color Flow revealed no significant aortic regurgitation. There is no significant aortic valvular stenosis. Doppler and Color-flow revealed trace to mild mitral regurgitation. Doppler and Color Flow revealed mild tricuspid regurgitation. Estimated PAP 48 mmHg. DATE: 07/19/19 1139 ASSESSMENT/PLAN ASSESSMENT/PLAN 1. Bradycardia: noted junctional regular narrow complex in the upper 20s with stable BP 2. PAFIB: on home amiodarone and metoprolol 3. Hypertension: controlled 4. Acute on Chronic diastolic CHF 4. DM2/HLP 6. ESRD: missed HD today due to bradycardia 7. Hypothyroidism: on replacement 8. Prior diverticular bleed: hence taken off NOAC 9. Abdominal pain: possibly cramps. no tenderness Recommendations 1. Has not been on ASA for a while. Will resume prior to DC. Hold for now with noted abd pain.Will start prior to DC. 2. DC amiodarone and metoprolol. Allow washout period. Will start on low dose dopamine. Monitor rhythm overnight. Check TSH 3. Fluid off loading per HD 4. Consider outpatient ischemic evaluation if none recent 5. MCOT. Will consider for Watchman referral. LEVON BILLINGS MD 05/01/20 0654: CARDIAC CONSULT ASSESSMENT/PLAN ASSESSMENT/PLAN Patient seen and examined 04/30/20. Agree with ENROLLMENT CLERK's assessment and plan. Agree with stopping amiodarone and metoprolol and start low-dose dopamine for chronotropic support. If patient becomes hemodynamically unstable, we will plan for temporary transvenous pacemaker. Since patient was poor candidate for long-term anticoagulation, EP referral has been made for possible LAAO procedure last office visit. Continue hemodialysis per nephrology team. Thank you for your consultation. BRADEN STARKEY APRN Apr 30, 2020 16:56 LEVON BILLINGS MD May 01, 2020 06:54
[2020-04-30] MEDS ORDERED: ONDANSETRON PF 4 MG/2 ML VIAL. ONE (17:54)
[2020-04-30] MEDS ORDERED: ONDANSETRON PF 4 MG/2 ML VIAL. IVP ONE (18:00)
[2020-04-30] MEDS ORDERED: diphenhydrAMINE HCL 25 MG CAPSULE PO PRN (18:15)
[2020-04-30] MEDS ORDERED: ONDANSETRON PF 4 MG/2 ML VIAL. IVP PRN (18:15)
--- NOTE | 2020-04-30 18:22 | PDOC ---
Provider Note Provider Note [id number] Justicifation of Admission Dx: Justifications for Admission: Justification of Admission Dx: Yes Chronic Renal Failure: Cardiac Arrhythmias HIRA BELTRE MD Apr 30, 2020 18:22
--- NOTE | 2020-04-30 18:51 | HP ---
ADMIT DATE: 04/30/2020 HISTORY OF PRESENT ILLNESS: This 85-year-old female, who was recently admitted here and who is on hemodialysis for end-stage renal disease, went to the dialysis unit today for dialysis and was noted to have symptomatic bradycardia with a heart rate in 30s. Because of that, the patient was sent to the Emergency Room. The patient states that for the last 3 days, she has been feeling very weak and tired and dizzy. She denies any fever, cold, cough, congestion, chest pains, palpitations. She does admit to some shortness of breath. In the Emergency Room, the heart rate was around 24 per minute to 27 per minute. The patient's blood pressure was stable. Because of the very low heart rate, the patient was started on IV dopamine. The patient is admitted for further evaluation and management. The patient is on metoprolol and amiodarone at home that are on hold at this time. In the Emergency Room, WBC count was 14.6, hemoglobin was 11.9. Sodium 130, potassium 4.8, BUN 46, creatinine 5.8, phosphorus 5.4, calcium 9, ALT 13, AST 17, albumin 2.9. Troponin less than 0.017. BNP was 24,870. TSH was 4.892. Chest x-ray shows congestive changes with small left pleural effusion. Because of the symptomatic bradycardia with acute on chronic diastolic congestive heart failure and failure to get dialysis done and leukocytosis, the patient was admitted for further evaluation and management. REVIEW OF SYSTEMS: As noted in the history of present illness. The patient does admit to some body aches and joint pains, but she denies any fever, chills, cold, cough, congestion, diarrhea, dysuria, or any other issues. She just feels weak and tired and dizzy at times and shortness of breath with exertion. PAST MEDICAL HISTORY: The patient recently had a fall and she has had some neck pain since then. 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 The patient has a history of atrial flutter. Could not be anticoagulated because of the GI bleeding. The patient has a history of paroxysmal atrial fibrillation. Has a history of chronic gout, physical deconditioning, and osteoarthritis. On her recent admission on 04/18/2020, she was treated empirically with IV antibiotics for leukocytosis. ALLERGIES: THE PATIENT IS ALLERGIC TO ALLOPURINOL, CIPRO, HYDROXYCHLOROQUINE TABLETS, AND SULFA. PAST SURGICAL HISTORY: Includes cholecystectomy, hysterectomy, dialysis catheter as well as fistula in the left upper extremity. SOCIAL HISTORY: No history of smoking, alcoholism, or drug abuse. FAMILY HISTORY: Reviewed and noncontributory. The patient has a history of diabetes and hypertension in the family. MEDICATIONS: Reviewed. The patient is on amiodarone and Toprol. PHYSICAL EXAMINATION: VITAL SIGNS: Temperature 98.2, pulse 27 per minute, respirations 14 per minute, blood pressure 132/63 mmHg. GENERAL: The patient is alert, oriented, not in acute distress. SKIN: Warm and dry. There is no cyanosis. EYES: Pupils reacting to light. Conjunctivae are pink. Sclerae white. HEENT: Unremarkable. NECK: JVP normal. No thyromegaly. Mild pain with range of motion. LUNGS: Decreased breath sounds at bases. No wheezing. No rales. CARDIOVASCULAR SYSTEM: S1, S2 regular. Significant bradycardia present. ABDOMEN: Soft, nontender. No guarding, no rigidity. Bowel sounds present. EXTREMITIES: Trace edema. Some bruising noted. SKIN: Warm and dry. There is no cyanosis. CENTRAL NERVOUS SYSTEM: Alert and oriented, generalized weakness. IMPRESSION: 1. Symptomatic bradycardia. 2. End-stage renal disease, on hemodialysis. 3. Acute on chronic diastolic congestive heart failure. Previous echocardiogram showed ejection fraction of 60-65%. 4. Leukocytosis, etiology not clear. 5. 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 6. Neck pain after her recent fall. 7. Asthma. 8. Allergic rhinitis. 9. Anxiety, stable. 10. Chronic Gout. 11. Hypertension. 12. Mixed hyperlipidemia. 13. History of paroxysmal atrial fibrillation. 14. History of diverticular bleeding. 15. Anemia. 16. Osteoarthritis. 17. Physical deconditioning. PLAN: Consult Dr. Elizondo for cardiology evaluation and management. We will hold amiodarone and Toprol. TSH is borderline, so I do not believe that is contributing significantly to the bradycardia. The patient has been started on IV dopamine and heart rate is now at 48 per minute. She will be admitted to Intensive Care Unit. For details, please refer to the orders. Condition and treatment discussed with the patient and her daughter in the Emergency Room. She will get dialysis tomorrow. Consult service order clerk, Dr. Rao, for nephrology evaluation and management. I will also consult Dr. Godinez because of the leukocytosis. Clinically, the patient does not have any infection. This may be reactive. We will monitor. For details, please refer to the orders. HIRA BELTRE MD DR: STACI/gerri JOB#: [id number] / [id number]
[2020-04-30 19:40] VITALS: BP 129/63
[2020-04-30 20:37] VITALS: BP 127/43
[2020-04-30] MEDS: ATORVASTATIN CALCIUM 10 MG TABLET. PO SCH (20:52)
[2020-04-30] MEDS: ACETAMINOPHEN 325 MG TABLET. PO PRN (20:52)
[2020-04-30] MEDS: MONTELUKAST SODIUM 10 MG TABLET. PO SCH (20:52)
[2020-04-30 21:37] VITALS: BP 135/50
[2020-04-30 23:37] VITALS: BP 116/44
[2020-05-01] VITALS (23 sets, daily range): BP systolic 109–154; BP diastolic 32–72
[2020-05-01 04:23] LABS: BASO # 0.1 x10^3/uL (0.0-0.2); BASO % 1 % (0-3); EOS # 0.1 x10^3/uL (0.0-0.7); EOS % 1 % (0-3); HEMATOCRIT 37.1 % (36.0-47.0); HEMOGLOBIN 12.1 g/dL (12.0-15.5); LYMPH # 2.4 x10^3/uL (1.0-4.8); LYMPH % 15 % (24-48); MEAN CORPUSCULAR HEMOGLOBIN 35 pg (25-35); MEAN CORPUSCULAR HGB CONC 33 g/dL (31-37); MEAN CORPUSCULAR VOLUME 107 fL (79-100); MONO # 1.1 x10^3/uL (0.0-1.1); MONO % 7 % (0-9); NEUT # 11.7 x10^3/uL (1.8-7.7); NEUT % 76 % (31-73); PLATELET COUNT 263 x10^3/uL (140-400); RED BLOOD COUNT 3.49 x10^6/uL (3.50-5.40); RED CELL DISTRIBUTION WIDTH 13.9 % (11.5-14.5); WHITE BLOOD COUNT 15.4 x10^3/uL (4.0-11.0)
[2020-05-01 04:44] LABS: ALBUMIN 2.8 g/dL (3.4-5.0); ALBUMIN/GLOBULIN RATIO 0.7 (1.0-1.7); CREATININE 6.5 mg/dL (0.6-1.0); GFR 6.1; MAGNESIUM 2.6 mg/dL (1.8-2.4); POTASSIUM 4.7 mmol/L (3.5-5.1); TOTAL BILIRUBIN 0.3 mg/dL (0.2-1.0); TOTAL PROTEIN 6.7 g/dL (6.4-8.2)
--- NOTE | 2020-05-01 05:59 | EKG ---
[facility] [address] [place] [address] Test Date: 2020-04-30 Test Time: 18:02:50 Pat Name: BONI DIAZ Department: Room: Gender: F Water Analyst: : 1935 Requested By: ROEL LACEY Order Number: [id number] Reading MD: Measurements Intervals [place] Rate: 38 P: ME: QRS: 5 QRSD: 124 T: 72 QT: 470 QTc: 376 Interpretive Statements IRREGULAR RHYTHM, NO P-WAVE FOUND LEFT BUNDLE BRANCH BLOCK ABNORMAL ECG RI6.02 Compared to ECG 04/30/2020 15:34:40 Left bundle-branch block now present Left-axis deviation no longer present
[2020-05-01] MEDS: LEVOTHYROXINE 125 MCG TABLET PO SCH (06:13)
[2020-05-01] MEDS: PANTOPRAZOLE 40 MG TABLET.DR. PO SCH (07:30)
[2020-05-01] MEDS: IPRATRPIUM/ALBUTEROL 0.5/2.5MG 3 ML NEBU. NEB SCH ×2 (07:50→20:07)
[2020-05-01] MEDS: FUROSEMIDE 20 MG TABLET PO SCH (09:00)
--- NOTE | 2020-05-01 09:21 | PDOC2 ---
CONSULT Date of Consult Date of Consult DATE: 05/01/20 TIME: 09:14 Reason for Consult Reason for Consult: ESRD Source Source: Chart review History of Present Illness Reason for Visit: Pt is a 85-year-old CF, with Dx of ESRD on HD MWF , she was recently admitted at [facility] , She went to the dialysis unit yesterday and was noted to have symptomatic bradycardia with a heart rate in 30s and she was sent to the Emergency Room. She states that for the last 3 days, she has been feeling very weak and tired and dizzy. Denies any fever, cold, cough, congestion, chest pains, palpitations. She is c/o some shortness of breath. In the E R , heart rate was around 24 - 27/min ,BP stable . Currently she is on Dopamine IV Currently Comfortable, No complaints, family at bedside, On Dopamine , BP stable Past Medical History Cardiovascular: AFIB, CHF, HTN, Hyperlipidemia Pulmonary: No pertinent hx GI: Diverticulosis, GI bleed (diverticular bleed) Heme/Onc: Anemia NOS Hepatobiliary: No pertinent hx Psych: No pertinent hx Musculoskeletal: Osteoarthritis Rheumatologic: Gout, Rheumatoid arthritis ENT: Other (cataract) Renal/: Chronic renal failure, UTI Endocrine: Diabetes (2), Hypothyroidism, Osteoporosis Past Surgical History Past Surgical History: Other (LA AV dialysis fistula) Family History Family History: Diabetes, Hypertension Social History No ALCOHOL: none Drugs: None Lives: with Family (spouse) Current Problem List Problem List Problems Medical Problems: (1) Bradycardia Status: Acute (2) ESRD (end stage renal disease) Status: Chronic (3) Pleural effusion, left Status: Acute (4) Weakness Status: Acute Current Medications Current Medications Current Medications Atropine Sulfate (ATROPINE 1mg SYRINGE) 1 mg STK-MED ONCE .ROUTE ; Start 04/30/20 at 15:40; Stop 04/30/20 at 15:41; Status DC Dopamine HCl/ Dextrose 250 ml @ 12.769 mls/ hr 1X ONCE IV Last administered on 04/30/20at 17:15; Start 04/30/20 at 17:15; Stop 05/01/20 at 12:49 Ondansetron HCl (Zofran) 4 mg STK-MED ONCE .ROUTE ; Start 04/30/20 at 17:54; Stop 04/30/20 at 17:54; Status DC Ondansetron HCl (Zofran) 4 mg 1X ONCE IVP Last administered on 04/30/20at 18:00; Start 04/30/20 at 18:00; Stop 04/30/20 at 18:01; Status DC Acetaminophen (Tylenol) 650 mg PRN Q6HRS PRN PO MILD PAIN / TEMP > 100.3'F Last administered on 04/30/20at 20:52; Start 04/30/20 at 18:15 Atorvastatin Calcium (Lipitor) 10 mg QHS PO Last administered on 04/30/20at 20:52; Start 04/30/20 at 21:00 Diphenhydramine HCl (Benadryl) 25 mg PRN Q8HRS PRN PO ITCHING Last administered on 05/01/20at 02:53; Start 04/30/20 at 18:15 Vitamin B Complex/ Vitamin C (Nabila-Pepito) 1 tab DAILY PO ; Start 05/01/20 at 09:00 Furosemide (Lasix) 20 mg DAILY PO ; Start 05/01/20 at 09:00 Albuterol/ Ipratropium (Duoneb) 3 ml RTBID NEB Last administered on 05/01/20at 07:50; Start 04/30/20 at 20:00 Levothyroxine Sodium (Synthroid) 125 mcg DAILY07 PO ; Start 05/01/20 at 07:00 Linagliptin (Tradjenta) 5 mg DAILY PO ; Start 05/01/20 at 09:00 Montelukast Sodium (Singulair) 10 mg QHS PO Last administered on 04/30/20at 20:52; Start 04/30/20 at 21:00 Pantoprazole Sodium (Protonix) 40 mg DAILYAC PO ; Start 05/01/20 at 07:30 Cetirizine HCl (ZyrTEC) 10 mg DAILY PO ; Start 05/01/20 at 09:00 Ondansetron HCl (Zofran) 4 mg PRN Q6HRS PRN IVP Nausea; Start 04/30/20 at 18:15 Active Scripts Active Cyclobenzaprine Hcl 10 Mg Tablet 0.5-1 Tab PO TID 7 Days Pantoprazole Sodium (Pantoprazole Sodium) 40 Mg Tablet.dr 40 Mg PO DAILYAC 30 Days Tylenol (Acetaminophen) 325 Mg Tablet 650 Mg PO PRN Q6HRS PRN 30 Days Proair Hfa (Albuterol Sulfate) 8.5 Gm Hfa.aer.ad 2.5 Mg NEB PRN QID PRN 30 Days Duoneb 0.5-3(2.5) Mg/3 Ml (Albuterol/Ipratropium) 3 Ml Ampul.neb 3 Ml NEB BID 30 Days Diphenhydramine Hcl 25 Mg Capsule 25 Mg PO PRN Q8HRS PRN 30 Days Reported Xyzal (Levocetirizine Dihydrochloride) 5 Mg Tablet 1 Tab PO DAILY 30 Days Dialyvite 800 Tablet (Folic Acid/Vitamin B Comp W-C) 0.8 Mg Tablet 1 Tab PO DAILY 30 Days Lasix (Furosemide) 20 Mg Tablet 1 Tab PO DAILY 30 Days Hydralazine Hcl 100 Mg Tablet 75 Mg PO TID Tramadol Hcl 50 Mg Tablet 50 Mg PO Q6HRS PRN Singulair Tablet (Montelukast Sodium) 10 Mg Tablet 1 Tab PO DAILY Tradjenta (Linagliptin) 5 Mg Tablet 5 Mg PO DAILY Synthroid (Levothyroxine Sodium) 125 Mcg Tablet 1 Tab PO DAILY Lipitor (Atorvastatin Calcium) 10 Mg Tablet 1 Tab PO QHS Allergies Allergies: Coded Allergies: Sulfa (Sulfonamide Antibiotics) (Verified Allergy, Severe, Swelling, 07/05/19) amlodipine (Verified Adverse Reaction, Severe, Severe Leg Swelling, 07/31/19) ROS Review of System Per HPI rest negative Physical Exam Physical Exam GENERAL: , NAD HEENT: OM moist , on O2 by NC NECK: Supple. LUNGS: Clear. HEART: Bradycardia + ABDOMEN: Obese, soft, EXTREMITIES: No gross edema or cyanosis LUE-AV fistula SKIN: No rash NEUROLOGIC: Alert, nonfocal No CVA or SP tenderness Vital Signs Vital Signs Date Time Temp Pulse Resp B/P (MAP) Pulse Ox O2 Delivery O2 Flow Rate FiO2 05/01/20 08:00 Nasal Cannula 2.0 05/01/20 07:53 96 05/01/20 07:37 97.8 36 115/32 (59) 97.8 05/01/20 04:15 18 Assessment & Plan ESRD - HD on MWF Last HD was Tuesday, missed yesterday 2/2 symptomatic Bradycardia Dialysis today as ordered, Florian Pugh Access - Lt AV access Hyponatremia- Monitor, Dialysis today Bradycardia- symptomatic , per Cardiology Amiodarone and metoprolol dced ,Currently on Dopamine PAFIB Acute on Chronic diastolic CHF Hypothyroidism: on replacement Anemia- Hx of Suspected diverticular bleed needing transfusion in the past Currently stable, No indication for HUSSEIN Hypertension; BP low Diabetes, II- as per PCP CoVid-19 was negative at her recent admission Labs Labs Laboratory Tests Test 04/30/20 15:42 05/01/20 03:40 White Blood Count 14.6 x10^3/uL (4.0-11.0) 15.4 x10^3/uL (4.0-11.0) Red Blood Count 3.39 x10^6/uL (3.50-5.40) 3.49 x10^6/uL (3.50-5.40) Hemoglobin 11.9 g/dL (12.0-15.5) 12.1 g/dL (12.0-15.5) Hematocrit 36.1 % (36.0-47.0) 37.1 % (36.0-47.0) Mean Corpuscular Volume 107 fL (79-100) 107 fL (79-100) Mean Corpuscular Hemoglobin 35 pg (25-35) 35 pg (25-35) Mean Corpuscular Hemoglobin Concent 33 g/dL (31-37) 33 g/dL (31-37) Red Cell Distribution Width 14.2 % (11.5-14.5) 13.9 % (11.5-14.5) Platelet Count 294 x10^3/uL (140-400) 263 x10^3/uL (140-400) Neutrophils (%) (Auto) 80 % (31-73) 76 % (31-73) Lymphocytes (%) (Auto) 12 % (24-48) 15 % (24-48) Monocytes (%) (Auto) 7 % (0-9) 7 % (0-9) Eosinophils (%) (Auto) 1 % (0-3) 1 % (0-3) Basophils (%) (Auto) 1 % (0-3) 1 % (0-3) Neutrophils # (Auto) 11.7 x10^3/uL (1.8-7.7) 11.7 x10^3/uL (1.8-7.7) Lymphocytes # (Auto) 1.7 x10^3/uL (1.0-4.8) 2.4 x10^3/uL (1.0-4.8) Monocytes # (Auto) 1.0 x10^3/uL (0.0-1.1) 1.1 x10^3/uL (0.0-1.1) Eosinophils # (Auto) 0.1 x10^3/uL (0.0-0.7) 0.1 x10^3/uL (0.0-0.7) Basophils # (Auto) 0.1 x10^3/uL (0.0-0.2) 0.1 x10^3/uL (0.0-0.2) Sodium Level 130 mmol/L (136-145) 129 mmol/L (136-145) Potassium Level 4.8 mmol/L (3.5-5.1) 4.7 mmol/L (3.5-5.1) Chloride Level 93 mmol/L (98-107) 93 mmol/L (98-107) Carbon Dioxide Level 26 mmol/L (21-32) 23 mmol/L (21-32) Anion Gap 11 (6-14) 13 (6-14) Blood Urea Nitrogen 46 mg/dL (7-20) 54 mg/dL (7-20) Creatinine 5.8 mg/dL (0.6-1.0) 6.5 mg/dL (0.6-1.0) Estimated GFR (Cockcroft-Gault) 6.9 6.1 BUN/Creatinine Ratio 8 (6-20) 8 (6-20) Glucose Level 221 mg/dL (70-99) 131 mg/dL (70-99) Calcium Level 9.0 mg/dL (8.5-10.1) 9.0 mg/dL (8.5-10.1) Phosphorus Level 5.4 mg/dL (2.6-4.7) Magnesium Level 2.2 mg/dL (1.8-2.4) 2.6 mg/dL (1.8-2.4) Total Bilirubin 0.3 mg/dL (0.2-1.0) 0.3 mg/dL (0.2-1.0) Aspartate Amino Transf (AST/SGOT) 17 U/L (15-37) 17 U/L (15-37) Alanine Aminotransferase (ALT/SGPT) 13 U/L (14-59) 14 U/L (14-59) Alkaline Phosphatase 73 U/L (46-116) 64 U/L (46-116) Troponin I Quantitative < 0.017 ng/mL (0.000-0.055) PF-Bht-Z-Type Natriuretic Peptide 64335 pg/mL (0-449) Total Protein 6.9 g/dL (6.4-8.2) 6.7 g/dL (6.4-8.2) Albumin 2.9 g/dL (3.4-5.0) 2.8 g/dL (3.4-5.0) Albumin/Globulin Ratio 0.7 (1.0-1.7) 0.7 (1.0-1.7) Lipase 218 U/L (73-393) Thyroid Stimulating Hormone (TSH) 4.892 uIU/mL (0.358-3.74) Laboratory Tests Test 04/30/20 15:42 05/01/20 03:40 White Blood Count 14.6 x10^3/uL (4.0-11.0) 15.4 x10^3/uL (4.0-11.0) Red Blood Count 3.39 x10^6/uL (3.50-5.40) 3.49 x10^6/uL (3.50-5.40) Hemoglobin 11.9 g/dL (12.0-15.5) 12.1 g/dL (12.0-15.5) Hematocrit 36.1 % (36.0-47.0) 37.1 % (36.0-47.0) Mean Corpuscular Volume 107 fL (79-100) 107 fL (79-100) Mean Corpuscular Hemoglobin 35 pg (25-35) 35 pg (25-35) Mean Corpuscular Hemoglobin Concent 33 g/dL (31-37) 33 g/dL (31-37) Red Cell Distribution Width 14.2 % (11.5-14.5) 13.9 % (11.5-14.5) Platelet Count 294 x10^3/uL (140-400) 263 x10^3/uL (140-400) Neutrophils (%) (Auto) 80 % (31-73) 76 % (31-73) Lymphocytes (%) (Auto) 12 % (24-48) 15 % (24-48) Monocytes (%) (Auto) 7 % (0-9) 7 % (0-9) Eosinophils (%) (Auto) 1 % (0-3) 1 % (0-3) Basophils (%) (Auto) 1 % (0-3) 1 % (0-3) Neutrophils # (Auto) 11.7 x10^3/uL (1.8-7.7) 11.7 x10^3/uL (1.8-7.7) Lymphocytes # (Auto) 1.7 x10^3/uL (1.0-4.8) 2.4 x10^3/uL (1.0-4.8) Monocytes # (Auto) 1.0 x10^3/uL (0.0-1.1) 1.1 x10^3/uL (0.0-1.1) Eosinophils # (Auto) 0.1 x10^3/uL (0.0-0.7) 0.1 x10^3/uL (0.0-0.7) Basophils # (Auto) 0.1 x10^3/uL (0.0-0.2) 0.1 x10^3/uL (0.0-0.2) Sodium Level 130 mmol/L (136-145) 129 mmol/L (136-145) Potassium Level 4.8 mmol/L (3.5-5.1) 4.7 mmol/L (3.5-5.1) Chloride Level 93 mmol/L (98-107) 93 mmol/L (98-107) Carbon Dioxide Level 26 mmol/L (21-32) 23 mmol/L (21-32) Anion Gap 11 (6-14) 13 (6-14) Blood Urea Nitrogen 46 mg/dL (7-20) 54 mg/dL (7-20) Creatinine 5.8 mg/dL (0.6-1.0) 6.5 mg/dL (0.6-1.0) Estimated GFR (Cockcroft-Gault) 6.9 6.1 BUN/Creatinine Ratio 8 (6-20) 8 (6-20) Glucose Level 221 mg/dL (70-99) 131 mg/dL (70-99) Calcium Level 9.0 mg/dL (8.5-10.1) 9.0 mg/dL (8.5-10.1) Phosphorus Level 5.4 mg/dL (2.6-4.7) Magnesium Level 2.2 mg/dL (1.8-2.4) 2.6 mg/dL (1.8-2.4) Total Bilirubin 0.3 mg/dL (0.2-1.0) 0.3 mg/dL (0.2-1.0) Aspartate Amino Transf (AST/SGOT) 17 U/L (15-37) 17 U/L (15-37) Alanine Aminotransferase (ALT/SGPT) 13 U/L (14-59) 14 U/L (14-59) Alkaline Phosphatase 73 U/L (46-116) 64 U/L (46-116) Troponin I Quantitative < 0.017 ng/mL (0.000-0.055) VX-Nei-D-Type Natriuretic Peptide 67912 pg/mL (0-449) Total Protein 6.9 g/dL (6.4-8.2) 6.7 g/dL (6.4-8.2) Albumin 2.9 g/dL (3.4-5.0) 2.8 g/dL (3.4-5.0) Albumin/Globulin Ratio 0.7 (1.0-1.7) 0.7 (1.0-1.7) Lipase 218 U/L (73-393) Thyroid Stimulating Hormone (TSH) 4.892 uIU/mL (0.358-3.74) Review All relevant outside records, renal labs, imaging studies, telemetry/EKG's were reviewed. LAQUITA SEGUNDO MD May 01, 2020 09:21
--- NOTE | 2020-05-01 09:52 | PDOC ---
IM PROGRESS NOTES- Subjective Subjective No pain,dyspnea. Feels uncomfortable and restless. Objective Vitals/I&O Vital Signs Date Time Temp Pulse Resp B/P (MAP) Pulse Ox O2 Delivery O2 Flow Rate FiO2 05/01/20 08:00 Nasal Cannula 2.0 05/01/20 07:53 96 05/01/20 07:37 97.8 36 115/32 (59) 97.8 05/01/20 04:15 18 I & O 04/30/20 04/30/20 05/01/20 15:00 23:00 07:00 Intake Total 120 ml 0 ml Output Total 0 ml 0 ml Balance 120 ml 0 ml Physical Exam Physical Exam General appearance - alert,well appearing, and in no distress and oriented to person, place, and time Mental Status - alert, oriented to person, place, and time, affect appropriate to mood Head - normal Chest -decreased breath sounds at bases Heart - S1 and S2 normal Abdomen - soft, nontender Neurological - alert and oriented Extremities - + pedal edema Skin - warm and dry Labs Laboratory Tests Test 04/30/20 15:42 05/01/20 03:40 White Blood Count 14.6 x10^3/uL (4.0-11.0) H 15.4 x10^3/uL (4.0-11.0) H Red Blood Count 3.39 x10^6/uL (3.50-5.40) L 3.49 x10^6/uL (3.50-5.40) L Hemoglobin 11.9 g/dL (12.0-15.5) L 12.1 g/dL (12.0-15.5) Hematocrit 36.1 % (36.0-47.0) 37.1 % (36.0-47.0) Mean Corpuscular Volume 107 fL (79-100) H 107 fL (79-100) H Mean Corpuscular Hemoglobin 35 pg (25-35) 35 pg (25-35) Mean Corpuscular Hemoglobin Concent 33 g/dL (31-37) 33 g/dL (31-37) Red Cell Distribution Width 14.2 % (11.5-14.5) 13.9 % (11.5-14.5) Platelet Count 294 x10^3/uL (140-400) 263 x10^3/uL (140-400) Neutrophils (%) (Auto) 80 % (31-73) H 76 % (31-73) H Lymphocytes (%) (Auto) 12 % (24-48) L 15 % (24-48) L Monocytes (%) (Auto) 7 % (0-9) 7 % (0-9) Eosinophils (%) (Auto) 1 % (0-3) 1 % (0-3) Basophils (%) (Auto) 1 % (0-3) 1 % (0-3) Neutrophils # (Auto) 11.7 x10^3/uL (1.8-7.7) H 11.7 x10^3/uL (1.8-7.7) H Lymphocytes # (Auto) 1.7 x10^3/uL (1.0-4.8) 2.4 x10^3/uL (1.0-4.8) Monocytes # (Auto) 1.0 x10^3/uL (0.0-1.1) 1.1 x10^3/uL (0.0-1.1) Eosinophils # (Auto) 0.1 x10^3/uL (0.0-0.7) 0.1 x10^3/uL (0.0-0.7) Basophils # (Auto) 0.1 x10^3/uL (0.0-0.2) 0.1 x10^3/uL (0.0-0.2) Sodium Level 130 mmol/L (136-145) L 129 mmol/L (136-145) L Potassium Level 4.8 mmol/L (3.5-5.1) 4.7 mmol/L (3.5-5.1) Chloride Level 93 mmol/L (98-107) L 93 mmol/L (98-107) L Carbon Dioxide Level 26 mmol/L (21-32) 23 mmol/L (21-32) Anion Gap 11 (6-14) 13 (6-14) Blood Urea Nitrogen 46 mg/dL (7-20) H 54 mg/dL (7-20) H Creatinine 5.8 mg/dL (0.6-1.0) H 6.5 mg/dL (0.6-1.0) H Estimated GFR (Cockcroft-Gault) 6.9 6.1 BUN/Creatinine Ratio 8 (6-20) 8 (6-20) Glucose Level 221 mg/dL (70-99) H 131 mg/dL (70-99) H Calcium Level 9.0 mg/dL (8.5-10.1) 9.0 mg/dL (8.5-10.1) Phosphorus Level 5.4 mg/dL (2.6-4.7) H Magnesium Level 2.2 mg/dL (1.8-2.4) 2.6 mg/dL (1.8-2.4) H Total Bilirubin 0.3 mg/dL (0.2-1.0) 0.3 mg/dL (0.2-1.0) Aspartate Amino Transferase (AST) 17 U/L (15-37) 17 U/L (15-37) Alanine Aminotransferase (ALT) 13 U/L (14-59) L 14 U/L (14-59) Alkaline Phosphatase 73 U/L (46-116) 64 U/L (46-116) Troponin I Quantitative < 0.017 ng/mL (0.000-0.055) PJ-Qqb-A-Type Natriuretic Peptide 39045 pg/mL (0-449) H Total Protein 6.9 g/dL (6.4-8.2) 6.7 g/dL (6.4-8.2) Albumin 2.9 g/dL (3.4-5.0) L 2.8 g/dL (3.4-5.0) L Albumin/Globulin Ratio 0.7 (1.0-1.7) L 0.7 (1.0-1.7) L Lipase 218 U/L (73-393) Thyroid Stimulating Hormone (TSH) 4.892 uIU/mL (0.358-3.74) H Laboratory Tests 04/30/20 15:42 05/01/20 03:40 Laboratory Tests 04/30/20 15:42 05/01/20 03:40 Meds Current Medications Medications (Trade) Dose Ordered Sig/Cate Route PRN Reason Start Time Stop Time Status Last Admin Dose Admin Dopamine HCl/ Dextrose 250 ml @ 12.769 mls/ hr 1X ONCE IV 04/30/20 17:15 05/01/20 12:49 04/30/20 17:15 Ondansetron HCl (Zofran) 4 mg 1X ONCE IVP 04/30/20 18:00 04/30/20 18:01 DC 04/30/20 18:00 Acetaminophen (Tylenol) 650 mg PRN Q6HRS PRN PO MILD PAIN / TEMP > 100.3'F 04/30/20 18:15 04/30/20 20:52 Atorvastatin Calcium (Lipitor) 10 mg QHS PO 04/30/20 21:00 04/30/20 20:52 Diphenhydramine HCl (Benadryl) 25 mg PRN Q8HRS PRN PO ITCHING 04/30/20 18:15 05/01/20 02:53 Albuterol/ Ipratropium (Duoneb) 3 ml RTBID NEB 04/30/20 20:00 05/01/20 07:50 Montelukast Sodium (Singulair) 10 mg QHS PO 04/30/20 21:00 04/30/20 20:52 Assessment Assessment 1. Symptomatic bradycardia. 2. End-stage renal disease, on hemodialysis. 3. Acute on chronic diastolic congestive heart failure. Previous echocardiogram showed ejection fraction of 60-65%. 4. Leukocytosis, etiology not clear. 5. 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 6. Neck pain after her recent fall. 7. Asthma. 8. Allergic rhinitis. 9. Anxiety, stable. 10. Chronic Gout. 11. Hypertension. 12. Mixed hyperlipidemia. 13. History of paroxysmal atrial fibrillation. 14. History of diverticular bleeding. 15. Anemia. 16. Osteoarthritis. 17. Physical deconditioning. PLAN: Consult Dr. Elizondo for cardiology evaluation and management. We will hold amiodarone and Toprol. TSH is borderline, so I do not believe that is contributing significantly to the bradycardia. The patient has been started on IV dopamine and heart rate is now at 48 per minute. She will be admitted to Intensive Care Unit. For details, please refer to the orders. Condition and treatment discussed with the patient and her daughter in the Emergency Room. She will get dialysis tomorrow. Consult dietitian teaching, Dr. Rao, for nephrology evaluation and management. I will also consult Dr. Godinez because of the leukocytosis. Clinically, the patient does not have any infection. This may be reactive. We will monitor. For details, please refer to the orders. Leukocytosis-WBC count is 15.6. Etiology not clear. This could be reactive. Bradycardia-patient is on low-dose IV dopamine. Amiodarone and Toprol were stopped. Anxiety-Xanax as needed. Heparin subcu for DVT prophylaxis. Condition treatment options discussed with the patient and the family. Plan Plan For more details regarding further plans, please refer to the orders. Justicifation of Admission Dx: Justifications for Admission: Justification of Admission Dx: Yes Chronic Renal Failure: Cardiac Arrhythmias HIRA BELTRE MD May 01, 2020 09:52
[2020-05-01] MEDS: ACETAMINOPHEN 325 MG TABLET. PO PRN (10:08)
--- NOTE | 2020-05-01 10:14 | PDOC ---
Infectious Disease Note Vital Sign Vital Signs Vital Signs Date Time Temp Pulse Resp B/P (MAP) Pulse Ox O2 Delivery O2 Flow Rate FiO2 05/01/20 08:00 Nasal Cannula 2.0 05/01/20 07:53 96 05/01/20 07:37 97.8 36 115/32 (59) 97.8 05/01/20 04:15 18 Labs Lab Laboratory Tests Test 04/30/20 15:42 05/01/20 03:40 White Blood Count 14.6 x10^3/uL (4.0-11.0) 15.4 x10^3/uL (4.0-11.0) Red Blood Count 3.39 x10^6/uL (3.50-5.40) 3.49 x10^6/uL (3.50-5.40) Hemoglobin 11.9 g/dL (12.0-15.5) 12.1 g/dL (12.0-15.5) Hematocrit 36.1 % (36.0-47.0) 37.1 % (36.0-47.0) Mean Corpuscular Volume 107 fL (79-100) 107 fL (79-100) Mean Corpuscular Hemoglobin 35 pg (25-35) 35 pg (25-35) Mean Corpuscular Hemoglobin Concent 33 g/dL (31-37) 33 g/dL (31-37) Red Cell Distribution Width 14.2 % (11.5-14.5) 13.9 % (11.5-14.5) Platelet Count 294 x10^3/uL (140-400) 263 x10^3/uL (140-400) Neutrophils (%) (Auto) 80 % (31-73) 76 % (31-73) Lymphocytes (%) (Auto) 12 % (24-48) 15 % (24-48) Monocytes (%) (Auto) 7 % (0-9) 7 % (0-9) Eosinophils (%) (Auto) 1 % (0-3) 1 % (0-3) Basophils (%) (Auto) 1 % (0-3) 1 % (0-3) Neutrophils # (Auto) 11.7 x10^3/uL (1.8-7.7) 11.7 x10^3/uL (1.8-7.7) Lymphocytes # (Auto) 1.7 x10^3/uL (1.0-4.8) 2.4 x10^3/uL (1.0-4.8) Monocytes # (Auto) 1.0 x10^3/uL (0.0-1.1) 1.1 x10^3/uL (0.0-1.1) Eosinophils # (Auto) 0.1 x10^3/uL (0.0-0.7) 0.1 x10^3/uL (0.0-0.7) Basophils # (Auto) 0.1 x10^3/uL (0.0-0.2) 0.1 x10^3/uL (0.0-0.2) Sodium Level 130 mmol/L (136-145) 129 mmol/L (136-145) Potassium Level 4.8 mmol/L (3.5-5.1) 4.7 mmol/L (3.5-5.1) Chloride Level 93 mmol/L (98-107) 93 mmol/L (98-107) Carbon Dioxide Level 26 mmol/L (21-32) 23 mmol/L (21-32) Anion Gap 11 (6-14) 13 (6-14) Blood Urea Nitrogen 46 mg/dL (7-20) 54 mg/dL (7-20) Creatinine 5.8 mg/dL (0.6-1.0) 6.5 mg/dL (0.6-1.0) Estimated GFR (Cockcroft-Gault) 6.9 6.1 BUN/Creatinine Ratio 8 (6-20) 8 (6-20) Glucose Level 221 mg/dL (70-99) 131 mg/dL (70-99) Calcium Level 9.0 mg/dL (8.5-10.1) 9.0 mg/dL (8.5-10.1) Phosphorus Level 5.4 mg/dL (2.6-4.7) Magnesium Level 2.2 mg/dL (1.8-2.4) 2.6 mg/dL (1.8-2.4) Total Bilirubin 0.3 mg/dL (0.2-1.0) 0.3 mg/dL (0.2-1.0) Aspartate Amino Transf (AST/SGOT) 17 U/L (15-37) 17 U/L (15-37) Alanine Aminotransferase (ALT/SGPT) 13 U/L (14-59) 14 U/L (14-59) Alkaline Phosphatase 73 U/L (46-116) 64 U/L (46-116) Troponin I Quantitative < 0.017 ng/mL (0.000-0.055) SI-Vcv-P-Type Natriuretic Peptide 45765 pg/mL (0-449) Total Protein 6.9 g/dL (6.4-8.2) 6.7 g/dL (6.4-8.2) Albumin 2.9 g/dL (3.4-5.0) 2.8 g/dL (3.4-5.0) Albumin/Globulin Ratio 0.7 (1.0-1.7) 0.7 (1.0-1.7) Lipase 218 U/L (73-393) Thyroid Stimulating Hormone (TSH) 4.892 uIU/mL (0.358-3.74) Objective Assessment Leukocytosis - likely reactive Epigastric pain - lipase 218 Bradycardia - on Dopamine Sulfa allergy w/ rash Constipation (last BM 3 days ago; takes hypdrocodone night before dialysis days regularly PAFIB - now off amiodarone CHF with a small left pleural effusion CKD/HD via AVF Diabetes type II w/ neuropathy Hypothyroidism Plan Plan of Care Last hospitalized about 2 weeks ago for atypical CP, fever and leukocytosis. She was treated empirically with vanc and Cefepime. COVID-19 and BC remained neg. Eventually discharge home on 04/20 off abx. Awaiting cardiology follow-up D/w family at bedside D/w nursing Thank you [id number] Seen and feeling better. No F/C/S/N/v/D/SOA/ currently Hold abx and monitor Attending Co-Sign Attending Co-Sign The patient was seen and interviewed as well as examined at the bedside. The chart was reviewed. The case was discussed. Agree with the plan of care. CECILLE BECERRA APRN May 01, 2020 10:14 KARI SCRUGGS MD May 01, 2020 15:47
--- NOTE | 2020-05-01 11:00 | CONS ---
DATE OF CONSULTATION: 05/01/2020 REFERRING PHYSICIAN: Rebeca Garg MD REASON FOR CONSULTATION: Leukocytosis. HISTORY OF PRESENT ILLNESS: The patient is an 85-year-old female with a past medical history of chronic diastolic congestive heart failure, paroxysmal atrial fibrillation on amiodarone, chronic kidney disease on hemodialysis via AV fistula, and diabetes mellitus type 2. She was recently admitted for atypical chest pain with fever and leukocytosis. She was treated empirically with vancomycin and cefepime. COVID-19 tested and blood cultures remain negative. She was eventually discharged home on 04/20 off antibiotics. She said she felt pretty good when she went home; however the following day, she started to feel bad. She became progressively weak and short of air. She also developed some epigastric pain associated with nausea. She vomited times x 1. She has not had a bowel movement in 3 days. She takes a hydrocodone tablet the night before dialysis to help her relax. On arrival to the ER, she was hypotensive and bradycardic with a heart rate of 28-34 beats per minute. She was started on a dopamine drip. Cardiology is following. Chest x-ray showed mild congestive changes with small left pleural effusion and bibasilar lung airspace opacities, likely atelectasis or infiltrates. Her WBC count was 14,000. Blood cultures were ordered. She is anuric. She denies sinus congestion, sore throat or cough. PAST MEDICAL HISTORY: Chronic diastolic congestive heart failure, paroxysmal atrial fibrillation, diabetes mellitus type 2, peripheral neuropathy, chronic gout, benign essential hypertension, hyperlipidemia, allergic sinusitis, chronic kidney disease, on hemodialysis, asthma, history of GI bleed, history of questionable urinary tract infections, osteoarthritis and osteoporosis. PAST SURGICAL HISTORY: Cholecystectomy, hysterectomy, left upper extremity AV fistula creation, and cataract extraction bilaterally. SOCIAL HISTORY: The patient is and lives at home. She has a very supportive family. FAMILY HISTORY: Positive for hypertension, hypercholesterolemia, and lung cancer. ALLERGIES: LISTED SULFA, WHICH HAS CAUSED A RASH. ALSO LISTED AMLODIPINE. MEDICATIONS: Dopamine, acetaminophen, atorvastatin, atropine, Zyrtec, diphenhydramine, folic/vitamin D, furosemide, DuoNeb, levothyroxine, linagliptin, Singulair, ondansetron, and pantoprazole. REVIEW OF SYSTEMS: Per HPI, otherwise all other review of systems are negative. PHYSICAL EXAMINATION: VITAL SIGNS: Temperature 97.8, blood pressure 115/32, heart rate 36, respiratory rate 18, pulse oximetry 96% is on 2 liters oxygen, BMI 27. GENERAL: The patient is propped up in bed, alert, weak appearing. HEENT: Normal conjunctivae. Oropharynx pink, moist. NECK: Supple. LUNGS: Clear to auscultation. No accessory muscle use. HEART: S1, S2, bradycardic, regular. ABDOMEN: Obese, soft, nontender with bowel sounds present. EXTREMITIES: No gross edema or cyanosis. SKIN: Warm to touch. No signs of rash. LUE -- AV fistula. NEUROLOGIC: Alert, oriented x 3. LABORATORY DATA: Today's WBC 15.4, hematocrit 40.6, hemoglobin 12.1 and platelets 263,000. Sodium 129, potassium 4.7, creatinine 6.5, and BUN 54. Total bilirubin 0.3, AST 17, ALT 14. Troponin less than 0.017. BNP 24,870, albumin 2.8, lipase 218. TSH 4.852. Chest x-ray per HPI. Blood cultures pending. IMPRESSION: 1. Leukocytosis, likely reactive. 2. Epigastric pain. 3. Bradycardia. 4. SULFA ALLERGY with rash. 5. Constipation. 6. Paroxysmal atrial fibrillation. 7. Acute on chronic diastolic congestive heart failure. 8. Small left pleural effusion. 9. Chronic kidney disease, on hemodialysis via arteriovenous fistula. 10. Diabetes type 2 with peripheral neuropathy. 11. Diabetes. 12. Hypothyroidism. PLAN: Low-threshold to start antibiotics. Maintain aspiration precautions. Continue to monitor. Discussed with family at bedside. Thank you, Dr. Garg, for asking us to participate in this patient's care. Should you have further questions or concerns, please call. KARI SCRUGGS MD DR: MAHAMED/gerri JOB#: [id number] / [id number] NANCY
[2020-05-01] MEDS ORDERED: IV NORMAL SALINE 1000ML BAG 1,000 ML IV PRN ×2 (11:05)
[2020-05-01] MEDS ORDERED: DIALYSIS PATIENT. MC PRN ×2 (11:15)
[2020-05-01] MEDS ORDERED: ALBUMIN HUMAN 25% 200 ML IV PRN (11:15)
[2020-05-01] MEDS: ALPRAZolam 0.25 MG TABLET PO PRN ×2 (11:24→21:00)
[2020-05-01] MEDS: HEPARIN for SUB-Q USE 5,000 UNIT/ML VIAL. SQ SCH ×2 (11:36→21:14)
--- NOTE | 2020-05-01 12:27 | PDOC ---
BRADEN STARKEY SORT SUPERVISOR 05/01/20 1227: CARDIO Progress Notes Date and Time Date of Service 05/01/2020 Time of Evaluation 1040 Subjective Subjective: No Chest Pain, No shortness of breath, No Palpitations Vitals Vitals Vital Signs Date Time Temp Pulse Resp B/P (MAP) Pulse Ox O2 Delivery O2 Flow Rate FiO2 05/01/20 12:16 Nasal Cannula 2.0 05/01/20 10:37 50 128/50 (76) 97 05/01/20 07:37 97.8 97.8 05/01/20 04:15 18 Weight Weight [ ] Input and Output Intake and Output Intake and Output 05/01/20 07:00 Intake Total 120 ml Output Total 0 ml Balance 120 ml Intake Oral 120 ml Output Urine Total 0 ml Laboratory Labs Laboratory Tests Test 04/30/20 15:42 05/01/20 03:40 White Blood Count 14.6 x10^3/uL (4.0-11.0) 15.4 x10^3/uL (4.0-11.0) Red Blood Count 3.39 x10^6/uL (3.50-5.40) 3.49 x10^6/uL (3.50-5.40) Hemoglobin 11.9 g/dL (12.0-15.5) 12.1 g/dL (12.0-15.5) Hematocrit 36.1 % (36.0-47.0) 37.1 % (36.0-47.0) Mean Corpuscular Volume 107 fL (79-100) 107 fL (79-100) Mean Corpuscular Hemoglobin 35 pg (25-35) 35 pg (25-35) Mean Corpuscular Hemoglobin Concent 33 g/dL (31-37) 33 g/dL (31-37) Red Cell Distribution Width 14.2 % (11.5-14.5) 13.9 % (11.5-14.5) Platelet Count 294 x10^3/uL (140-400) 263 x10^3/uL (140-400) Neutrophils (%) (Auto) 80 % (31-73) 76 % (31-73) Lymphocytes (%) (Auto) 12 % (24-48) 15 % (24-48) Monocytes (%) (Auto) 7 % (0-9) 7 % (0-9) Eosinophils (%) (Auto) 1 % (0-3) 1 % (0-3) Basophils (%) (Auto) 1 % (0-3) 1 % (0-3) Neutrophils # (Auto) 11.7 x10^3/uL (1.8-7.7) 11.7 x10^3/uL (1.8-7.7) Lymphocytes # (Auto) 1.7 x10^3/uL (1.0-4.8) 2.4 x10^3/uL (1.0-4.8) Monocytes # (Auto) 1.0 x10^3/uL (0.0-1.1) 1.1 x10^3/uL (0.0-1.1) Eosinophils # (Auto) 0.1 x10^3/uL (0.0-0.7) 0.1 x10^3/uL (0.0-0.7) Basophils # (Auto) 0.1 x10^3/uL (0.0-0.2) 0.1 x10^3/uL (0.0-0.2) Sodium Level 130 mmol/L (136-145) 129 mmol/L (136-145) Potassium Level 4.8 mmol/L (3.5-5.1) 4.7 mmol/L (3.5-5.1) Chloride Level 93 mmol/L (98-107) 93 mmol/L (98-107) Carbon Dioxide Level 26 mmol/L (21-32) 23 mmol/L (21-32) Anion Gap 11 (6-14) 13 (6-14) Blood Urea Nitrogen 46 mg/dL (7-20) 54 mg/dL (7-20) Creatinine 5.8 mg/dL (0.6-1.0) 6.5 mg/dL (0.6-1.0) Estimated GFR (Cockcroft-Gault) 6.9 6.1 BUN/Creatinine Ratio 8 (6-20) 8 (6-20) Glucose Level 221 mg/dL (70-99) 131 mg/dL (70-99) Calcium Level 9.0 mg/dL (8.5-10.1) 9.0 mg/dL (8.5-10.1) Phosphorus Level 5.4 mg/dL (2.6-4.7) Magnesium Level 2.2 mg/dL (1.8-2.4) 2.6 mg/dL (1.8-2.4) Total Bilirubin 0.3 mg/dL (0.2-1.0) 0.3 mg/dL (0.2-1.0) Aspartate Amino Transf (AST/SGOT) 17 U/L (15-37) 17 U/L (15-37) Alanine Aminotransferase (ALT/SGPT) 13 U/L (14-59) 14 U/L (14-59) Alkaline Phosphatase 73 U/L (46-116) 64 U/L (46-116) Troponin I Quantitative < 0.017 ng/mL (0.000-0.055) HB-Bto-I-Type Natriuretic Peptide 36385 pg/mL (0-449) Total Protein 6.9 g/dL (6.4-8.2) 6.7 g/dL (6.4-8.2) Albumin 2.9 g/dL (3.4-5.0) 2.8 g/dL (3.4-5.0) Albumin/Globulin Ratio 0.7 (1.0-1.7) 0.7 (1.0-1.7) Lipase 218 U/L (73-393) Thyroid Stimulating Hormone (TSH) 4.892 uIU/mL (0.358-3.74) Physical Exam HEENT: Neck Supple W Full Motion Chest: Symmetric LUNGS: Other (diminished) Heart: RRR (junctional 40s) Abdomen: Soft N/T Extremities: No Calf Tenderness Neurology: alert, oriented, follow commands Assessment Assessment 1. Bradycardia: noted junctional regular narrow complex initially in upper 20s with stable BP, HR in the 40s with dopamine 2. PAFIB: on home amiodarone and metoprolol 3. Hypertension: controlled 4. Acute on Chronic diastolic CHF 4. DM2/HLP 6. ESRD: missed HD today due to bradycardia 7. Hypothyroidism: on replacement 8. Prior diverticular bleed: hence taken off NOAC 9. Abdominal pain: possibly cramps. no tenderness 10. Hyponatremia: suspect from CHF Recommendations 1. Has not been on ASA for a while. Will resume prior to DC. Hold for now with noted abd pain.Will start prior to DC. 2. DC amiodarone and metoprolol. Allow washout period. Monitor for 1-2 more days. Continue low dose dopamine and responding well. OK for HD today. BP adequately stable, will reevaluate in 1-2 days and note any need for PPM. TCP on standby 3. Fluid off loading per HD 4. Consider outpatient ischemic evaluation if none recent 5. MCOT if no plans for PPM.. Will consider for Watchman referral. Justicifation of Admission Dx: Justifications for Admission: Justification of Admission Dx: Yes Chronic Renal Failure: Cardiac Arrhythmias LEVON BILLINGS MD 05/02/20 0914: CARDIO Progress Notes Assessment Assessment Patient seen and examined 05/01/20. Agree with PHLEBOTOMY TECH's assessment and plan. Heart rate improved. Telemetry showed sinus rhythm. Titrate dopamine off as blood pressure tolerates. Continue to hold amiodarone and metoprolol. Continue hemodialysis per nephrology team. Plan outpatient event monitor. BRADEN STARKEY APRN May 01, 2020 12:27 LEVON BILLINGS MD May 02, 2020 09:14
[2020-05-01] MEDS ORDERED: LIDOCAINE 1% PF 2 ML VIAL. INJ ONE (13:00)
[2020-05-01] MEDS: CETIRIZINE HCL 10 MG TABLET. PO SCH (18:28)
[2020-05-01] MEDS: LINAGLIPTIN 5 MG TABLET PO SCH (18:28)
[2020-05-01] MEDS: FOLIC/VIT B COMP W-C (RENAL) TABLET. PO SCH (18:28)
[2020-05-01] MEDS: MONTELUKAST SODIUM 10 MG TABLET. PO SCH (21:00)
[2020-05-01] MEDS: ATORVASTATIN CALCIUM 10 MG TABLET. PO SCH (21:00)
[2020-05-02] VITALS (16 sets, daily range): BP systolic 92–144; BP diastolic 36–73
[2020-05-02 04:10] LABS: BASO # 0.1 x10^3/uL (0.0-0.2); BASO % 1 % (0-3); EOS # 0.3 x10^3/uL (0.0-0.7); EOS % 2 % (0-3); HEMATOCRIT 31.9 % (36.0-47.0); HEMOGLOBIN 10.5 g/dL (12.0-15.5); LYMPH # 1.5 x10^3/uL (1.0-4.8); LYMPH % 13 % (24-48); MEAN CORPUSCULAR HEMOGLOBIN 35 pg (25-35); MEAN CORPUSCULAR HGB CONC 33 g/dL (31-37); MEAN CORPUSCULAR VOLUME 106 fL (79-100); MONO # 0.9 x10^3/uL (0.0-1.1); MONO % 8 % (0-9); NEUT # 8.9 x10^3/uL (1.8-7.7); NEUT % 76 % (31-73); PLATELET COUNT 212 x10^3/uL (140-400); RED CELL DISTRIBUTION WIDTH 13.9 % (11.5-14.5); WHITE BLOOD COUNT 11.8 x10^3/uL (4.0-11.0)
[2020-05-02 04:22] LABS: CALCIUM 8.3 mg/dL (8.5-10.1); CREATININE 4.5 mg/dL (0.6-1.0); GFR 9.3; POTASSIUM 4.3 mmol/L (3.5-5.1)
[2020-05-02 05:00] LABS: % EOS 1 % (0-5); % LYMPHS 14 % (24-48); % MONOS 6 % (0-10); % SEGS 79 % (35-66); PLT ESTIMATE ADEQUATE (ADEQUATE)
[2020-05-02] MEDS: LEVOTHYROXINE 125 MCG TABLET PO SCH (06:27)
[2020-05-02] MEDS: PANTOPRAZOLE 40 MG TABLET.DR. PO SCH (06:28)
[2020-05-02] MEDS: IPRATRPIUM/ALBUTEROL 0.5/2.5MG 3 ML NEBU. NEB SCH ×2 (07:43→20:15)
[2020-05-02] MEDS: LINAGLIPTIN 5 MG TABLET PO SCH (08:02)
[2020-05-02] MEDS: CETIRIZINE HCL 10 MG TABLET. PO SCH (08:02)
[2020-05-02] MEDS: FOLIC/VIT B COMP W-C (RENAL) TABLET. PO SCH (08:02)
[2020-05-02] MEDS: FUROSEMIDE 20 MG TABLET PO SCH (08:02)
[2020-05-02] MEDS: HEPARIN for SUB-Q USE 5,000 UNIT/ML VIAL. SQ SCH ×2 (08:09→21:31)
--- NOTE | 2020-05-02 08:32 | PDOC ---
Infectious Disease Note Subjective Subjective Feeling better this morning, a cup of coffee is sounding good. Some mild abdominal discomfort and bloating No BM in four days now, denies flatus. Denies SOA/CP/cough/N/V ROS ROS as mentioned above Vital Sign Vital Signs Vital Signs Date Time Temp Pulse Resp B/P (MAP) Pulse Ox O2 Delivery O2 Flow Rate FiO2 05/02/20 08:09 97.7 53 18 119/36 (63) 92 Room Air 97.7 05/02/20 07:44 2.0 Physical Exam PHYSICAL EXAM GENERAL: Propped up in bed, alert, laughing, looks better HEENT: Pupils equal, oropharynx pink, moist. No thrush. NECK: Supple. LUNGS: Clear to auscultation. No accessory muscle use. HEART: S1, S2, regular. HR 50s ABDOMEN: Obese, soft, bowel sounds present, nontender to light palpation EXTREMITIES: No gross edema or cyanosis. SKIN: Warm to touch. No signs of rash. LUE -- AV fistula. NEUROLOGIC: Alert, oriented x 3. PIV Labs Lab Laboratory Tests Test 05/01/20 14:03 05/01/20 18:30 05/01/20 20:59 05/02/20 03:40 Glucose (Fingerstick) 103 mg/dL (70-99) 99 mg/dL (70-99) 92 mg/dL (70-99) White Blood Count 11.8 x10^3/uL (4.0-11.0) Red Blood Count 3.00 x10^6/uL (3.50-5.40) Hemoglobin 10.5 g/dL (12.0-15.5) Hematocrit 31.9 % (36.0-47.0) Mean Corpuscular Volume 106 fL (79-100) Mean Corpuscular Hemoglobin 35 pg (25-35) Mean Corpuscular Hemoglobin Concent 33 g/dL (31-37) Red Cell Distribution Width 13.9 % (11.5-14.5) Platelet Count 212 x10^3/uL (140-400) Neutrophils (%) (Auto) 76 % (31-73) Lymphocytes (%) (Auto) 13 % (24-48) Monocytes (%) (Auto) 8 % (0-9) Eosinophils (%) (Auto) 2 % (0-3) Basophils (%) (Auto) 1 % (0-3) Neutrophils # (Auto) 8.9 x10^3/uL (1.8-7.7) Lymphocytes # (Auto) 1.5 x10^3/uL (1.0-4.8) Monocytes # (Auto) 0.9 x10^3/uL (0.0-1.1) Eosinophils # (Auto) 0.3 x10^3/uL (0.0-0.7) Basophils # (Auto) 0.1 x10^3/uL (0.0-0.2) Segmented Neutrophils % 79 % (35-66) Lymphocytes % 14 % (24-48) Monocytes % 6 % (0-10) Eosinophils % 1 % (0-5) Platelet Estimate Adequate (ADEQUATE) Sodium Level 135 mmol/L (136-145) Potassium Level 4.3 mmol/L (3.5-5.1) Chloride Level 99 mmol/L (98-107) Carbon Dioxide Level 30 mmol/L (21-32) Anion Gap 6 (6-14) Blood Urea Nitrogen 29 mg/dL (7-20) Creatinine 4.5 mg/dL (0.6-1.0) Estimated GFR (Cockcroft-Gault) 9.3 Glucose Level 94 mg/dL (70-99) Calcium Level 8.3 mg/dL (8.5-10.1) Micro Microbiology 04/30/20 Blood Culture - Preliminary, Resulted NO GROWTH AFTER 1 DAY Objective Assessment Leukocytosis - likely reactive - better Epigastric pain - lipase 218 Bradycardia - now off Dopamine Sulfa allergy w/ rash Constipation (last BM 34days ago; takes hypdrocodone night before dialysis days regularly PAFIB - now off amiodarone CHF with a small left pleural effusion CKD/HD via AVF Diabetes type II w/ neuropathy Hypothyroidism Plan Plan of Care Remains afebrile, WBC count down to 11,800, BP and HR better Continue to observe off antibiotics Maintain aspiration precautions D/w family at bedside D/w nursing Seen in HD and doing well . WBC better Off abx ID to sign off Attending Co-Sign Attending Co-Sign The patient was seen and interviewed as well as examined at the bedside. The chart was reviewed. The case was discussed. Agree with the plan of care. CECILLE BECERRA APRN May 02, 2020 08:32 KARI SCRUGGS MD May 02, 2020 16:18
--- NOTE | 2020-05-02 10:43 | PDOC ---
PROGRESS NOTES Subjective Subjective seen in ICU for Dr Garg, family at bedside, no complaints ,feels better today Objective Objective Vital Signs Date Time Temp Pulse Resp B/P (MAP) Pulse Ox O2 Delivery O2 Flow Rate FiO2 05/02/20 10:07 55 92/49 (63) 05/02/20 08:09 97.7 18 92 Room Air 97.7 05/02/20 07:44 2.0 Intake and Output 05/02/20 07:00 Intake Total 240 ml Output Total 0 ml Balance 240 ml Intake Oral 240 ml Output Urine Total 0 ml Physical Exam Abdomen: Soft, No tenderness Heart: Regular rate (junctional), Normal S1, Normal S2, Other (2/6 systolic murmur to LLS border) Extremities: No cyanosis, No edema General: Alert, Oriented X3, Cooperative, No acute distress HEENT: Mucous membr. moist/pink Lungs: Other (diminished bases) MUSCULOSKELETAL: Osteoarthritic changes both hands Neuro: Normal speech, Sensation intact Psych/Mental Status: Mental status NL, Mood NL Skin: No breakdown, No significant lesion Diagnosis Problem List Problems Medical Problems: (1) Bradycardia Status: Acute (2) ESRD (end stage renal disease) Status: Chronic (3) Pleural effusion, left Status: Acute (4) Weakness Status: Acute Assessment Assessment 1. Symptomatic bradycardia. 2. End-stage renal disease, on hemodialysis. 3. Acute on chronic diastolic congestive heart failure. Previous echocardiogram showed ejection fraction of 60-65%. 4. Leukocytosis, etiology not clear. 5. 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 6. Neck pain after her recent fall. 7. Asthma. 8. Allergic rhinitis. 9. Anxiety, stable. 10. Chronic Gout. 11. Hypertension. 12. Mixed hyperlipidemia. 13. History of paroxysmal atrial fibrillation. 14. History of diverticular bleeding. 15. Anemia. 16. Osteoarthritis. 17. Physical deconditioning. PLAN: bradycardia improving ,off meds BP good off pressors dialysis today wbc 12 down without antibiotics, reactive downgrade to tele later today. pt/ot Consult Dr. Elizondo for cardiology evaluation and management. We will hold amiodarone and Toprol. TSH is borderline, so I do not believe that is contributing significantly to the bradycardia. The patient has been started on IV dopamine and heart rate is now at 48 per minute. She will be admitted to Intensive Care Unit. For details, please refer to the orders. Condition and treatment discussed with the patient and her daughter in the Emergency Room. She will get dialysis tomorrow. Consult glass frame fitter, Dr. Rao, for nephrology evaluation and management. I will also consult Dr. Godinez because of the leukocytosis. Clinically, the patient does not have any infection. This may be reactive. We will monitor. For details, please refer to the orders. Leukocytosis-WBC count is 15.6. Etiology not clear. This could be reactive. Bradycardia-patient is on low-dose IV dopamine. Amiodarone and Toprol were stopped. Anxiety-Xanax as needed. Heparin subcu for DVT prophylaxis. Condition treatment options discussed with the patient and the family. Plan Plan of Care Problems Medical Problems: (1) Bradycardia Status: Acute (2) ESRD (end stage renal disease) Status: Chronic (3) Pleural effusion, left Status: Acute (4) Weakness Status: Acute Comment Review of Relevant I have reviewed the following items james (where applicable) has been applied. Labs Laboratory Tests Test 05/01/20 14:03 05/01/20 18:30 05/01/20 20:59 05/02/20 03:40 Glucose (Fingerstick) 103 mg/dL (70-99) 99 mg/dL (70-99) 92 mg/dL (70-99) White Blood Count 11.8 x10^3/uL (4.0-11.0) Red Blood Count 3.00 x10^6/uL (3.50-5.40) Hemoglobin 10.5 g/dL (12.0-15.5) Hematocrit 31.9 % (36.0-47.0) Mean Corpuscular Volume 106 fL (79-100) Mean Corpuscular Hemoglobin 35 pg (25-35) Mean Corpuscular Hemoglobin Concent 33 g/dL (31-37) Red Cell Distribution Width 13.9 % (11.5-14.5) Platelet Count 212 x10^3/uL (140-400) Neutrophils (%) (Auto) 76 % (31-73) Lymphocytes (%) (Auto) 13 % (24-48) Monocytes (%) (Auto) 8 % (0-9) Eosinophils (%) (Auto) 2 % (0-3) Basophils (%) (Auto) 1 % (0-3) Neutrophils # (Auto) 8.9 x10^3/uL (1.8-7.7) Lymphocytes # (Auto) 1.5 x10^3/uL (1.0-4.8) Monocytes # (Auto) 0.9 x10^3/uL (0.0-1.1) Eosinophils # (Auto) 0.3 x10^3/uL (0.0-0.7) Basophils # (Auto) 0.1 x10^3/uL (0.0-0.2) Segmented Neutrophils % 79 % (35-66) Lymphocytes % 14 % (24-48) Monocytes % 6 % (0-10) Eosinophils % 1 % (0-5) Platelet Estimate Adequate (ADEQUATE) Sodium Level 135 mmol/L (136-145) Potassium Level 4.3 mmol/L (3.5-5.1) Chloride Level 99 mmol/L (98-107) Carbon Dioxide Level 30 mmol/L (21-32) Anion Gap 6 (6-14) Blood Urea Nitrogen 29 mg/dL (7-20) Creatinine 4.5 mg/dL (0.6-1.0) Estimated GFR (Cockcroft-Gault) 9.3 Glucose Level 94 mg/dL (70-99) Calcium Level 8.3 mg/dL (8.5-10.1) Microbiology 04/30/20 Blood Culture - Preliminary, Resulted NO GROWTH AFTER 1 DAY Medications Current Medications Albumin Human 200 ml @ 200 mls/hr 1X PRN PRN IV Hypotension; Start 05/01/20 at 11:15; Stop 05/01/20 at 17:14; Status DC Heparin Sodium (Porcine) (Heparin Sodium) 5,000 unit Q12HR SQ Last administered on 05/02/20at 08:09; Start 05/01/20 at 11:00 Info (PHARMACY MONITORING -- do not chart) 1 each PRN DAILY PRN MC SEE COMMENTS; Start 05/01/20 at 11:15 Info (PHARMACY MONITORING -- do not chart) 1 each PRN DAILY PRN MC SEE COMMENTS; Start 05/01/20 at 11:15; Status UNV Lidocaine HCl (Xylocaine-Mpf 1% 2ml Vial) 2 ml 1X ONCE INJ ; Start 05/01/20 at 13:00; Stop 05/01/20 at 13:01; Status DC Sodium Chloride 1,000 ml @ 400 mls/hr Q2H30M PRN IV PATENCY; Start 05/01/20 at 11:05; Stop 05/01/20 at 23:04; Status DC Sodium Chloride 1,000 ml @ 1,000 mls/hr Q1H PRN IV hypotension; Start 05/01/20 at 11:05; Stop 05/01/20 at 17:04; Status DC Vitals/I & O Vital Sign - Last 24 Hours 05/01/20 05/01/20 05/01/20 05/01/20 12:00 12:16 13:00 14:00 Temp 97.7 97.7 Pulse 38 58 60 B/P (MAP) 114/39 (64) 154/61 (92) 140/49 (79) Pulse Ox 97 97 97 O2 Delivery Nasal Cannula Nasal Cannula Nasal Cannula Nasal Cannula O2 Flow Rate 2.0 2.0 2.0 2.0 05/01/20 05/01/20 05/01/20 05/01/20 15:00 16:00 16:00 17:00 Temp 97.9 97.9 Pulse 58 62 58 B/P (MAP) 119/51 (73) 131/46 (74) 114/38 (63) Pulse Ox 98 98 98 O2 Delivery Nasal Cannula Nasal Cannula Nasal Cannula Nasal Cannula O2 Flow Rate 2.0 2.0 2.0 2.0 05/01/20 05/01/20 05/01/20 05/01/20 18:00 19:31 19:40 20:08 Pulse 62 53 Resp 12 B/P (MAP) 111/72 (85) 112/46 (68) Pulse Ox 98 97 96 O2 Delivery Nasal Cannula Nasal Cannula Nasal Cannula Nasal Cannula O2 Flow Rate 2.0 2.0 2.0 2.0 05/01/20 05/01/20 05/01/20 05/01/20 20:16 21:02 22:01 23:01 Temp 97.6 97.6 Pulse 53 53 54 57 Resp 12 14 18 18 B/P (MAP) 110/37 (61) 111/39 (63) 116/43 (67) 117/45 (69) Pulse Ox 97 97 98 97 O2 Delivery Nasal Cannula Nasal Cannula Nasal Cannula Nasal Cannula O2 Flow Rate 2.0 2.0 2.0 2.0 705/02/20 05/02/20 05/02/20 23:34 00:01 01:01 02:04 Temp 98.0 98.0 Pulse 54 54 54 Resp 16 18 16 B/P (MAP) 110/38 (62) 99/55 (70) 115/40 (65) Pulse Ox 97 98 99 O2 Delivery Nasal Cannula Nasal Cannula Nasal Cannula Nasal Cannula O2 Flow Rate 2.0 2.0 2.0 2.0 05/02/20 05/02/20 05/02/20 05/02/20 03:01 03:34 04:01 05:01 Pulse 51 51 52 Resp 14 16 14 B/P (MAP) 105/38 (60) 125/46 (72) 117/36 (63) Pulse Ox 98 99 96 O2 Delivery Nasal Cannula Nasal Cannula Nasal Cannula Nasal Cannula O2 Flow Rate 2.0 2.0 2.0 2.0 05/02/20 05/02/20 05/02/20 05/02/20 06:25 07:10 07:43 07:44 Temp 97.7 97.7 Pulse 51 51 Resp 18 B/P (MAP) 113/41 (65) 125/39 (67) Pulse Ox 99 99 O2 Delivery Nasal Cannula Nasal Cannula Nasal Cannula O2 Flow Rate 2.0 2.0 2.0 05/02/20 05/02/20 05/02/20 08:09 09:00 10:07 Temp 97.7 97.7 Pulse 53 57 55 Resp 18 B/P (MAP) 119/36 (63) 129/42 (71) 92/49 (63) Pulse Ox 92 O2 Delivery Room Air Intake and Output 05/01/20 05/01/20 05/02/20 15:00 23:00 07:00 Intake Total 0 ml 210 ml 30 ml Output Total 0 ml 0 ml Balance 0 ml 210 ml 30 ml Justicifation of Admission Dx: Justifications for Admission: Justification of Admission Dx: Yes Chronic Renal Failure: Cardiac Arrhythmias NAPOLEON LUNA MD May 02, 2020 10:42
[2020-05-02] MEDS ORDERED: IV NORMAL SALINE 250ML 250 ML IV ONE (10:45)
[2020-05-02] MEDS ORDERED: IV NORMAL SALINE 1000ML BAG 1,000 ML IV PRN ×2 (11:58)
--- NOTE | 2020-05-02 11:59 | PDOC ---
SUBJECTIVE ROS States feeling better, per daughters BP was low and had to be given Fluid bolus per Dr. Argueta Her O2 sats were also in 80's without O2 . Was Dialyzed yesterday OBJECTIVE Vital Signs Vital Signs Date Time Temp Pulse Resp B/P (MAP) Pulse Ox O2 Delivery O2 Flow Rate FiO2 05/02/20 11:10 56 94/51 (65) 05/02/20 08:09 97.7 18 92 Room Air 97.7 05/02/20 07:44 2.0 I & 0 Intake and Output 05/02/20 07:00 Intake Total 240 ml Output Total 0 ml Balance 240 ml Intake Oral 240 ml Output Urine Total 0 ml PHYSICAL EXAM Physical Exam GENERAL: , NAD HEENT: OM moist , on O2 by NC NECK: Supple. LUNGS: Clear. HEART: Bradycardia +, improved ABDOMEN: Obese, soft, EXTREMITIES: No gross edema or cyanosis LUE-AV fistula SKIN: No rash NEUROLOGIC: Alert, nonfocal No CVA or SP tenderness DIAGNOSIS/ASSESSMENT Assessment & Plan ESRD - HD on MWF Dialyzed Yesterday due to missed HD on Tue and mild congeation on CxR Dialysis today with 2-3 Lts UF ,Albumin as needed , If unable to tolerate UF/ hypotensive stop treatment and will schedule for tomorrow , [facility] Access - Lt AV access Hyponatremia- Na improved after HD yesterday Bradycardia- symptomatic at presentation , improved HR Amiodarone and metoprolol dced , cardiology following PAFIB Acute on Chronic diastolic CHF Hypothyroidism: on replacement Anemia- Hx of Suspected diverticular bleed needing transfusion in the past Currently stable, No indication for HUSSEIN Hypertension; BP low Diabetes, II- as per PCP CoVid-19 was negative at her recent admission COMMENT/RELEVANT DATA Meds Current Medications Medications (Trade) Dose Ordered Sig/Cate Start Time Stop Time Status Last Admin Dose Admin Acetaminophen (Tylenol) 650 mg PRN Q6HRS PRN 04/30/20 18:15 05/01/20 10:08 650 MG Albumin Human 200 ml @ 200 mls/hr 1X PRN PRN 05/01/20 11:15 05/01/20 17:14 DC Albuterol/ Ipratropium (Duoneb) 3 ml RTBID 04/30/20 20:00 05/02/20 07:43 3 ML Alprazolam (Xanax) 0.25 mg PRN Q8HRS PRN 05/01/20 10:15 05/01/20 21:00 0.25 MG Atorvastatin Calcium (Lipitor) 10 mg QHS 04/30/20 21:00 05/01/20 21:00 10 MG Atropine Sulfate (ATROPINE 1mg SYRINGE) 1 mg STK-MED ONCE 04/30/20 15:40 04/30/20 15:41 DC Cetirizine HCl (ZyrTEC) 10 mg DAILY 05/01/20 09:00 05/02/20 08:02 10 MG Diphenhydramine HCl (Benadryl) 25 mg PRN Q8HRS PRN 04/30/20 18:15 05/01/20 02:53 25 MG Dopamine HCl/ Dextrose 250 ml @ 12.769 mls/ hr 1X ONCE 04/30/20 17:15 05/01/20 12:49 DC 04/30/20 17:15 5.108 MLS/HR Furosemide (Lasix) 20 mg DAILY 05/01/20 09:00 05/02/20 08:02 20 MG Heparin Sodium (Porcine) (Heparin Sodium) 5,000 unit Q12HR 05/01/20 11:00 05/02/20 08:09 5,000 UNIT Info (PHARMACY MONITORING -- do not chart) 1 each PRN DAILY PRN 05/01/20 11:15 Levothyroxine Sodium (Synthroid) 125 mcg DAILY07 05/01/20 07:00 05/02/20 06:27 125 MCG Lidocaine HCl (Xylocaine-Mpf 1% 2ml Vial) 2 ml 1X ONCE 05/01/20 13:00 05/01/20 13:01 DC Linagliptin (Tradjenta) 5 mg DAILY 05/01/20 09:00 05/02/20 08:02 5 MG Montelukast Sodium (Singulair) 10 mg QHS 04/30/20 21:00 05/01/20 21:00 10 MG Ondansetron HCl (Zofran) 4 mg PRN Q6HRS PRN 04/30/20 18:15 Pantoprazole Sodium (Protonix) 40 mg DAILYAC 05/01/20 07:30 05/02/20 06:28 40 MG Sodium Chloride 250 ml @ 250 mls/hr 1X ONCE 05/02/20 10:45 05/02/20 11:44 DC 05/02/20 10:45 250 MLS/HR Vitamin B Complex/ Vitamin C (Nabila-Pepito) 1 tab DAILY 05/01/20 09:00 05/02/20 08:02 1 TAB Lab Laboratory Tests Test 05/01/20 14:03 05/01/20 18:30 05/01/20 20:59 05/02/20 03:40 Glucose (Fingerstick) 103 mg/dL (70-99) 99 mg/dL (70-99) 92 mg/dL (70-99) White Blood Count 11.8 x10^3/uL (4.0-11.0) Red Blood Count 3.00 x10^6/uL (3.50-5.40) Hemoglobin 10.5 g/dL (12.0-15.5) Hematocrit 31.9 % (36.0-47.0) Mean Corpuscular Volume 106 fL (79-100) Mean Corpuscular Hemoglobin 35 pg (25-35) Mean Corpuscular Hemoglobin Concent 33 g/dL (31-37) Red Cell Distribution Width 13.9 % (11.5-14.5) Platelet Count 212 x10^3/uL (140-400) Neutrophils (%) (Auto) 76 % (31-73) Lymphocytes (%) (Auto) 13 % (24-48) Monocytes (%) (Auto) 8 % (0-9) Eosinophils (%) (Auto) 2 % (0-3) Basophils (%) (Auto) 1 % (0-3) Neutrophils # (Auto) 8.9 x10^3/uL (1.8-7.7) Lymphocytes # (Auto) 1.5 x10^3/uL (1.0-4.8) Monocytes # (Auto) 0.9 x10^3/uL (0.0-1.1) Eosinophils # (Auto) 0.3 x10^3/uL (0.0-0.7) Basophils # (Auto) 0.1 x10^3/uL (0.0-0.2) Segmented Neutrophils % 79 % (35-66) Lymphocytes % 14 % (24-48) Monocytes % 6 % (0-10) Eosinophils % 1 % (0-5) Platelet Estimate Adequate (ADEQUATE) Sodium Level 135 mmol/L (136-145) Potassium Level 4.3 mmol/L (3.5-5.1) Chloride Level 99 mmol/L (98-107) Carbon Dioxide Level 30 mmol/L (21-32) Anion Gap 6 (6-14) Blood Urea Nitrogen 29 mg/dL (7-20) Creatinine 4.5 mg/dL (0.6-1.0) Estimated GFR (Cockcroft-Gault) 9.3 Glucose Level 94 mg/dL (70-99) Calcium Level 8.3 mg/dL (8.5-10.1) Results All relevant outside records, renal labs, imaging studies, telemetry/EKG's were reviewed. Justicifation of Admission Dx: Justifications for Admission: Justification of Admission Dx: Yes Chronic Renal Failure: Cardiac Arrhythmias LAQUITA SEGUNDO MD May 02, 2020 11:59
[2020-05-02] MEDS ORDERED: DIALYSIS PATIENT. MC PRN ×2 (12:00)
[2020-05-02] MEDS ORDERED: ALBUMIN HUMAN 25% 200 ML IV PRN (12:00)
[2020-05-02] MEDS: ACETAMINOPHEN 325 MG TABLET. PO PRN (12:08)
--- NOTE | 2020-05-02 12:54 | PDOC ---
PROGRESS NOTES Subjective Subjective Feeling better today. Objective Objective Vital Signs Date Time Temp Pulse Resp B/P (MAP) Pulse Ox O2 Delivery O2 Flow Rate FiO2 05/02/20 11:10 56 94/51 (65) 05/02/20 08:09 97.7 18 92 Room Air 97.7 05/02/20 07:44 2.0 Intake and Output 05/02/20 06:59 Intake Total 240 ml Output Total 0 ml Balance 240 ml Intake Oral 240 ml Output Urine Total 0 ml Physical Exam Abdomen: Soft, No tenderness Heart: Regular rate (junctional), Normal S1, Normal S2, Other (2/6 systolic murmur to LLS border) Extremities: No cyanosis, No edema General: Alert, Oriented X3, Cooperative, No acute distress HEENT: Mucous membr. moist/pink Lungs: Other (diminished bases) Neuro: Normal speech, Sensation intact Psych/Mental Status: Mental status NL, Mood NL Skin: No breakdown, No significant lesion Assessment Assessment 1. Bradycardia: junctional rhythm on presentation, presently in sinus rhythm with heart rate in 60s. She is currently off dopamine. Continue to hold amiodarone and metoprolol. Patient does not need pacemaker at this time. We will plan for outpatient event monitor. 2. PAFIB: In sinus rhythm. She is a poor candidate for long-term anticoagulation secondary to previous diverticular bleeding. Will consider outpatient referral for watchman device. 3. Hypertension: controlled 4. Acute on Chronic diastolic CHF: Better compensated. Continue current medical regimen. 4. DM2/HLP: Per IM. 6. ESRD: Continue hemodialysis per nephrology team. 7. Hypothyroidism: on replacement Plan Plan of Care Problems Medical Problems: (1) Bradycardia Status: Acute (2) ESRD (end stage renal disease) Status: Chronic (3) Pleural effusion, left Status: Acute (4) Weakness Status: Acute Comment Review of Relevant I have reviewed the following items james (where applicable) has been applied. Labs Laboratory Tests Test 05/01/20 14:03 05/01/20 18:30 05/01/20 20:59 05/02/20 03:40 Glucose (Fingerstick) 103 mg/dL (70-99) 99 mg/dL (70-99) 92 mg/dL (70-99) White Blood Count 11.8 x10^3/uL (4.0-11.0) Red Blood Count 3.00 x10^6/uL (3.50-5.40) Hemoglobin 10.5 g/dL (12.0-15.5) Hematocrit 31.9 % (36.0-47.0) Mean Corpuscular Volume 106 fL (79-100) Mean Corpuscular Hemoglobin 35 pg (25-35) Mean Corpuscular Hemoglobin Concent 33 g/dL (31-37) Red Cell Distribution Width 13.9 % (11.5-14.5) Platelet Count 212 x10^3/uL (140-400) Neutrophils (%) (Auto) 76 % (31-73) Lymphocytes (%) (Auto) 13 % (24-48) Monocytes (%) (Auto) 8 % (0-9) Eosinophils (%) (Auto) 2 % (0-3) Basophils (%) (Auto) 1 % (0-3) Neutrophils # (Auto) 8.9 x10^3/uL (1.8-7.7) Lymphocytes # (Auto) 1.5 x10^3/uL (1.0-4.8) Monocytes # (Auto) 0.9 x10^3/uL (0.0-1.1) Eosinophils # (Auto) 0.3 x10^3/uL (0.0-0.7) Basophils # (Auto) 0.1 x10^3/uL (0.0-0.2) Segmented Neutrophils % 79 % (35-66) Lymphocytes % 14 % (24-48) Monocytes % 6 % (0-10) Eosinophils % 1 % (0-5) Platelet Estimate Adequate (ADEQUATE) Sodium Level 135 mmol/L (136-145) Potassium Level 4.3 mmol/L (3.5-5.1) Chloride Level 99 mmol/L (98-107) Carbon Dioxide Level 30 mmol/L (21-32) Anion Gap 6 (6-14) Blood Urea Nitrogen 29 mg/dL (7-20) Creatinine 4.5 mg/dL (0.6-1.0) Estimated GFR (Cockcroft-Gault) 9.3 Glucose Level 94 mg/dL (70-99) Calcium Level 8.3 mg/dL (8.5-10.1) Microbiology 04/30/20 Blood Culture - Preliminary, Resulted NO GROWTH AFTER 1 DAY Medications Current Medications Albumin Human 200 ml @ 200 mls/hr 1X PRN PRN IV Hypotension; Start 05/02/20 at 12:00; Stop 05/02/20 at 17:59 Info (PHARMACY MONITORING -- do not chart) 1 each PRN DAILY PRN MC SEE COMMENTS; Start 05/02/20 at 12:00 Info (PHARMACY MONITORING -- do not chart) 1 each PRN DAILY PRN MC SEE COMMENTS; Start 05/02/20 at 12:00; Status UNV Lidocaine HCl (Xylocaine-Mpf 1% 2ml Vial) 2 ml 1X ONCE INJ ; Start 05/01/20 at 13:00; Stop 05/01/20 at 13:01; Status DC Sodium Chloride 250 ml @ 250 mls/hr 1X ONCE IV Last administered on 05/02/20at 10:45; Start 05/02/20 at 10:45; Stop 05/02/20 at 11:44; Status DC Sodium Chloride 1,000 ml @ 400 mls/hr Q2H30M PRN IV PATENCY; Start 05/02/20 at 11:58; Stop 05/02/20 at 23:57 Sodium Chloride 1,000 ml @ 1,000 mls/hr Q1H PRN IV hypotension; Start 05/02/20 at 11:58; Stop 05/02/20 at 17:57 Vitals/I & O Vital Sign - Last 24 Hours 05/01/20 05/01/20 05/01/20 05/01/20 13:00 14:00 15:00 16:00 Temp 97.9 97.9 Pulse 58 60 58 62 B/P (MAP) 154/61 (92) 140/49 (79) 119/51 (73) 131/46 (74) Pulse Ox 97 97 98 98 O2 Delivery Nasal Cannula Nasal Cannula Nasal Cannula Nasal Cannula O2 Flow Rate 2.0 2.0 2.0 2.0 05/01/20 05/01/20 05/01/20 05/01/20 16:00 17:00 18:00 19:31 Pulse 58 62 53 Resp 12 B/P (MAP) 114/38 (63) 111/72 (85) 112/46 (68) Pulse Ox 98 98 97 O2 Delivery Nasal Cannula Nasal Cannula Nasal Cannula Nasal Cannula O2 Flow Rate 2.0 2.0 2.0 2.0 7/2/05/01/20 05/01/20 05/01/20 19:40 20:08 20:16 21:02 Temp 97.6 97.6 Pulse 53 53 Resp 12 14 B/P (MAP) 110/37 (61) 111/39 (63) Pulse Ox 96 97 97 O2 Delivery Nasal Cannula Nasal Cannula Nasal Cannula Nasal Cannula O2 Flow Rate 2.0 2.0 2.0 2.0 05/01/20 05/01/20 05/01/20 05/02/20 22:01 23:01 23:34 00:01 Temp 98.0 98.0 Pulse 54 57 54 Resp 18 18 16 B/P (MAP) 116/43 (67) 117/45 (69) 110/38 (62) Pulse Ox 98 97 97 O2 Delivery Nasal Cannula Nasal Cannula Nasal Cannula Nasal Cannula O2 Flow Rate 2.0 2.0 2.0 2.0 05/02/20 05/02/20 05/02/20 05/02/20 01:01 02:04 03:01 03:34 Pulse 54 54 51 Resp 18 16 14 B/P (MAP) 99/55 (70) 115/40 (65) 105/38 (60) Pulse Ox 98 99 98 O2 Delivery Nasal Cannula Nasal Cannula Nasal Cannula Nasal Cannula O2 Flow Rate 2.0 2.0 2.0 2.0 05/02/20 05/02/20 05/02/20 05/02/20 04:01 05:01 06:25 07:10 Temp 97.7 97.7 Pulse 51 52 51 51 Resp 16 14 18 B/P (MAP) 125/46 (72) 117/36 (63) 113/41 (65) 125/39 (67) Pulse Ox 99 96 99 O2 Delivery Nasal Cannula Nasal Cannula Nasal Cannula O2 Flow Rate 2.0 2.0 2.0 05/02/20 05/02/20 05/02/20 05/02/20 07:43 07:44 08:09 09:00 Temp 97.7 97.7 Pulse 53 57 Resp 18 B/P (MAP) 119/36 (63) 129/42 (71) Pulse Ox 99 92 O2 Delivery Nasal Cannula Nasal Cannula Room Air O2 Flow Rate 2.0 2.0 05/02/20 05/02/20 10:07 11:10 Pulse 55 56 B/P (MAP) 92/49 (63) 94/51 (65) Intake and Output 05/01/20 05/01/20 05/02/20 14:59 22:59 06:59 Intake Total 0 ml 210 ml 30 ml Output Total 0 ml 0 ml Balance 0 ml 210 ml 30 ml LEVON BILLINGS MD May 02, 2020 12:54
[2020-05-02] MEDS: MONTELUKAST SODIUM 10 MG TABLET. PO SCH (21:27)
[2020-05-02] MEDS: ATORVASTATIN CALCIUM 10 MG TABLET. PO SCH (21:27)
[2020-05-02] MEDS: ALPRAZolam 0.25 MG TABLET PO PRN (21:27)
[2020-05-02 21:52] LABS: BILIRUBIN,URINE NEGATIVE (NEG); CLARITY,URINE TURBID; COLOR,URINE AMBER; NITRITE,URINE NEGATIVE (NEG); PH,URINE 5.5 (<5.0-8.0); PROTEIN,URINE >=300 mg/dL (NEG-TRACE); UROBILINOGEN,URINE 0.2 mg/dL (0.2 mg/dL)
[2020-05-02 22:12] LABS: BACTERIA,URINE MANY /HPF (0-FEW); WBC,URINE TNTC /HPF (0-4); YEAST,URINE PRESENT /HPF
[2020-05-03 03:55] VITALS: BP 124/38
[2020-05-03 05:31] LABS: BASO # 0.1 x10^3/uL (0.0-0.2); BASO % 1 % (0-3); EOS # 0.2 x10^3/uL (0.0-0.7); EOS % 2 % (0-3); HEMATOCRIT 33.8 % (36.0-47.0); HEMOGLOBIN 11.1 g/dL (12.0-15.5); LYMPH # 1.7 x10^3/uL (1.0-4.8); LYMPH % 17 % (24-48); MEAN CORPUSCULAR HEMOGLOBIN 35 pg (25-35); MEAN CORPUSCULAR HGB CONC 33 g/dL (31-37); MEAN CORPUSCULAR VOLUME 107 fL (79-100); MONO # 1.2 x10^3/uL (0.0-1.1); MONO % 12 % (0-9); NEUT # 6.7 x10^3/uL (1.8-7.7); NEUT % 68 % (31-73); PLATELET COUNT 184 x10^3/uL (140-400); RED BLOOD COUNT 3.15 x10^6/uL (3.50-5.40); RED CELL DISTRIBUTION WIDTH 13.8 % (11.5-14.5); WHITE BLOOD COUNT 9.9 x10^3/uL (4.0-11.0)
[2020-05-03] MEDS: LEVOTHYROXINE 125 MCG TABLET PO SCH (06:24)
[2020-05-03 07:00] VITALS: BP 115/40
[2020-05-03] MEDS: IPRATRPIUM/ALBUTEROL 0.5/2.5MG 3 ML NEBU. NEB SCH (07:47)
--- NOTE | 2020-05-03 07:47 | DISCH ---
DISCHARGE INSTRUCTIONS Condition on Discharge Condition on Discharge: Stable Activity After Discharge Activity Instructions for Disc: Activity as tolerated Lifting Instructions after Dis: No heavy lifting Weight Bearing Status after Di: As tolerated Diet after Discharge Diet after Discharge: Renal Dialysis Checks after Discharge Checks after discharge: Weigh Yourself Daily DC Comment: Continue hemodialysis Contacting the DRChristian after DC Call your doctor for: Concerns you may have Follow-Up Follow up with: Dr. Hira Garg in 5 days Treatment/Equipment after DC Adaptive Equipment Issued: HIRA Gonzalez MD May 03, 2020 07:47
--- NOTE | 2020-05-03 08:28 | PDOC3 ---
IM DISCHARGE SUMMARY Date of Admission Date of Admission Date of Admission: Apr 30, 2020 at 16:40 Date of Discharge Date of Discharge May 03, 2020 Primary Diagnosis Primary Diagnosis 1. Symptomatic bradycardia. 2. End-stage renal disease, on hemodialysis. 3. Acute on chronic diastolic congestive heart failure. Previous echocardiogram showed ejection fraction of 60-65%. 4. Leukocytosis, reactive 5. 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 6. Neck pain after her recent fall. 7. Asthma. 8. Allergic rhinitis. 9. Anxiety, stable. 10. Chronic Gout. 11. Hypertension. 12. Mixed hyperlipidemia. 13. History of paroxysmal atrial fibrillation. 14. History of diverticular bleeding. 15. Anemia. 16. Osteoarthritis. 17. Physical deconditioning. 18. Hypothyroidism Consults Consults Andre Box MD; Galindo Rao MD; Omid Elizondo MD Labs Labs Laboratory Tests Test 05/02/20 17:24 05/02/20 19:41 05/02/20 20:42 05/03/20 04:00 Glucose (Fingerstick) 101 mg/dL (70-99) H 148 mg/dL (70-99) H Urine Collection Type Unknown Urine Color Peggy Urine Clarity Turbid Urine pH 5.5 (<5.0-8.0) Urine Specific [place] 1.020 (1.000-1.030) Urine Protein >=300 mg/dL (NEG-TRACE) Urine Glucose (UA) Negative mg/dL (NEG) Urine Ketones (Stick) Negative mg/dL (NEG) Urine Blood Moderate (NEG) Urine Nitrite Negative (NEG) Urine Bilirubin Negative (NEG) Urine Urobilinogen Dipstick 0.2 mg/dL (0.2 mg/dL) Urine Leukocyte Esterase Large (NEG) Urine RBC /HPF (0-2) Urine WBC Tntc /HPF (0-4) Urine Bacteria Many /HPF (0-FEW) Urine Yeast Present /HPF White Blood Count 9.9 x10^3/uL (4.0-11.0) Red Blood Count 3.15 x10^6/uL (3.50-5.40) L Hemoglobin 11.1 g/dL (12.0-15.5) L Hematocrit 33.8 % (36.0-47.0) L Mean Corpuscular Volume 107 fL (79-100) H Mean Corpuscular Hemoglobin 35 pg (25-35) Mean Corpuscular Hemoglobin Concent 33 g/dL (31-37) Red Cell Distribution Width 13.8 % (11.5-14.5) Platelet Count 184 x10^3/uL (140-400) Neutrophils (%) (Auto) 68 % (31-73) Lymphocytes (%) (Auto) 17 % (24-48) L Monocytes (%) (Auto) 12 % (0-9) H Eosinophils (%) (Auto) 2 % (0-3) Basophils (%) (Auto) 1 % (0-3) Neutrophils # (Auto) 6.7 x10^3/uL (1.8-7.7) Lymphocytes # (Auto) 1.7 x10^3/uL (1.0-4.8) Monocytes # (Auto) 1.2 x10^3/uL (0.0-1.1) H Eosinophils # (Auto) 0.2 x10^3/uL (0.0-0.7) Basophils # (Auto) 0.1 x10^3/uL (0.0-0.2) Test 05/03/20 07:33 Glucose (Fingerstick) 107 mg/dL (70-99) H Laboratory Tests 05/03/20 04:00 Brief hospital course Brief hospital course This 85-year-old female, who was recently admitted here and who is on hemodialysis for end-stage renal disease, went to the dialysis unit today for dialysis and was noted to have symptomatic bradycardia with a heart rate in 30s. Because of that, the patient was sent to the Emergency Room. The patient states that for the last 3 days, she has been feeling very weak and tired and dizzy. She denies any fever, cold, cough, congestion, chest pains, palpitations. She does admit to some shortness of breath. In the Emergency Room, the heart rate was around 24 per minute to 27 per minute. The patient's blood pressure was stable. Because of the very low heart rate, the patient was started on IV dopamine. The patient is admitted for further evaluation and management. The patient is on metoprolol and amiodarone at home that are on hold at this time. In the Emergency Room, WBC count was 14.6, hemoglobin was 11.9. Sodium 130, potassium 4.8, BUN 46, creatinine 5.8, phosphorus 5.4, calcium 9, ALT 13, AST 17, albumin 2.9. Troponin less than 0.017. BNP was 24,870. TSH was 4.892. Chest x-ray shows congestive changes with small left pleural effusion. Because of the symptomatic bradycardia with acute on chronic diastolic congestive heart failure and failure to get dialysis done and leukocytosis, the patient was admitted for further evaluation and management. For more details regarding the past history, family history, social history, surgical history and other details, please refer to History and Physical. Consult Dr. Elizondo for cardiology evaluation and management. We will hold amiodarone and Toprol. TSH is borderline, so I do not believe that is contributing significantly to the bradycardia. The patient has been started on IV dopamine and heart rate is now at 48 per minute. She will be admitted to Intensive Care Unit. For details, please refer to the orders. Condition and treatment discussed with the patient and her daughter in the Emergency Room. She will get dialysis tomorrow. Consult insulator technician, Dr. Rao, for nephrology evaluation and management. I will also consult Dr. Box because of the leukocytosis. Clinically, the patient does not have any infection. This may be reactive. We will monitor. For details, please refer to the orders. Leukocytosis-WBC count is 15.6. Etiology not clear. This could be reactive. Bradycardia-patient is on low-dose IV dopamine. Amiodarone and Toprol were stopped. Anxiety-Xanax as needed. Heparin subcu for DVT prophylaxis. Condition treatment options discussed with the patient and the family. Consult Dr. Elizondo for cardiology evaluation and management. We will hold amiodarone and Toprol. TSH is borderline, so I do not believe that is contributing significantly to the bradycardia. The patient has been started on IV dopamine and heart rate is now at 48 per minute. She will be admitted to Intensive Care Unit. For details, please refer to the orders. Condition and treatment discussed with the patient and her daughter in the Emergency Room. She will get dialysis tomorrow. Consult insulator technician, Dr. Rao, for nephrology evaluation and management. I will also consult Dr. Box because of the leukocytosis. Leukocytosis-WBC count is 15.6. Work-up during the stay in the hospital was negative. WBC count has decreased to 9.9. Leukocytosis is reactive. Bradycardia-the patient was initially given low-dose IV dopamine. Heart rate was 27/min on admission. Amiodarone and Toprol were stopped. Patient is now off IV dopamine and her heart rate is around 66/min. She is not symptomatic. Anxiety-Xanax as needed. I will discontinue Xanax on discharge. Heparin subcu for DVT prophylaxis. Paroxysmal atrial fibrillation-currently in sinus rhythm. She will have an outpatient hoop maker machine and she may be referred to [facility] for a watchman device because she is not a good candidate for anticoagulation due to history of diverticular bleeding. Condition treatment options discussed with the patient and the family Patient is currently on oxygen and will discontinue it and see how she does on room air. If the oxygen level is low on room air then she will need home oxygen. Patient tolerated dialysis well yesterday. Medications Current Medications Medications (Trade) Dose Ordered Sig/Cate Route PRN Reason Start Time Stop Time Status Last Admin Dose Admin Sodium Chloride 250 ml @ 250 mls/hr 1X ONCE IV 05/02/20 10:45 05/02/20 11:44 DC 05/02/20 10:45 Medications reviewed and reconciled for discharge. Allergy Allergies Coded Allergies Type Severity Reaction Last Updated Verified Sulfa (Sulfonamide Antibiotics) Allergy Severe Swelling 07/05/19 Yes amlodipine Adverse Reaction Severe Severe Leg Swelling 07/31/19 Yes Follow up in 5 days. DISPOSITION: Home Comments Discharge Management - 35 minutes. For other details please refer to discharge instructions Justicifation of Admission Dx: Justifications for Admission: Justification of Admission Dx: Yes Chronic Renal Failure: Cardiac Arrhythmias HIRA BELTRE MD May 03, 2020 08:28
[2020-05-03] MEDS ORDERED: BISACODYL 5 MG TABLET.DR. PO PRN (08:30)
[2020-05-03] MEDS: PANTOPRAZOLE 40 MG TABLET.DR. PO SCH (08:31)
[2020-05-03] MEDS: FOLIC/VIT B COMP W-C (RENAL) TABLET. PO SCH (08:31)
[2020-05-03] MEDS: FUROSEMIDE 20 MG TABLET PO SCH (08:31)
[2020-05-03] MEDS: CETIRIZINE HCL 10 MG TABLET. PO SCH (08:31)
[2020-05-03] MEDS: LINAGLIPTIN 5 MG TABLET PO SCH (08:31)
[2020-05-03] MEDS: HEPARIN for SUB-Q USE 5,000 UNIT/ML VIAL. SQ SCH (08:33)
--- NOTE | 2020-05-03 09:59 | PDOC ---
PROGRESS NOTES Subjective Subjective Feeling good. Denied any chest pain. Has mild dyspnea with exertion. Objective Objective Vital Signs Date Time Temp Pulse Resp B/P (MAP) Pulse Ox O2 Delivery O2 Flow Rate FiO2 05/03/20 09:04 94 Room Air 05/03/20 08:00 2.0 05/03/20 07:00 97.5 62 18 115/40 (65) 97.5 Intake and Output 05/03/20 07:00 Intake Total 350 ml Output Total 50 ml Balance 300 ml Intake Oral 100 ml IV Total 250 ml Output Urine Total 50 ml Physical Exam Abdomen: Soft, No tenderness Heart: Regular rate (junctional), Normal S1, Normal S2, Other (2/6 systolic murmur to LLS border) Extremities: No cyanosis, No edema General: Alert, Oriented X3, Cooperative, No acute distress HEENT: Mucous membr. moist/pink Lungs: Other (diminished bases) Neuro: Normal speech, Sensation intact Psych/Mental Status: Mental status NL, Mood NL Skin: No breakdown, No significant lesion Assessment Assessment 1. Bradycardia: junctional rhythm on presentation, presently in sinus rhythm with heart rate in 60s. She is currently off dopamine. Continue to hold amiodarone and metoprolol. Patient does not need pacemaker at this time. We will plan for outpatient event monitor and consider resuming amiodarone at a later date. 2. PAFIB: In sinus rhythm. She is a poor candidate for long-term anticoagulation secondary to previous diverticular bleeding. Will consider outp atient referral for watchman device. 3. Hypertension: controlled 4. Acute on Chronic diastolic CHF: Better compensated. Continue current medical regimen. 4. DM2/HLP: Per IM. 6. ESRD: Continue hemodialysis per nephrology team. 7. Hypothyroidism: on replacement Possible discharge home today. Plan Plan of Care Problems Medical Problems: (1) Bradycardia Status: Acute (2) ESRD (end stage renal disease) Status: Chronic (3) Pleural effusion, left Status: Acute (4) Weakness Status: Acute Comment Review of Relevant I have reviewed the following items james (where applicable) has been applied. Labs Laboratory Tests Test 05/02/20 17:24 05/02/20 19:41 05/02/20 20:42 05/03/20 04:00 Glucose (Fingerstick) 101 mg/dL (70-99) 148 mg/dL (70-99) Urine Collection Type Unknown Urine Color Peggy Urine Clarity Turbid Urine pH 5.5 (<5.0-8.0) Urine Specific [place] 1.020 (1.000-1.030) Urine Protein >=300 mg/dL (NEG-TRACE) Urine Glucose (UA) Negative mg/dL (NEG) Urine Ketones (Stick) Negative mg/dL (NEG) Urine Blood Moderate (NEG) Urine Nitrite Negative (NEG) Urine Bilirubin Negative (NEG) Urine Urobilinogen Dipstick 0.2 mg/dL (0.2 mg/dL) Urine Leukocyte Esterase Large (NEG) Urine RBC /HPF (0-2) Urine WBC Tntc /HPF (0-4) Urine Bacteria Many /HPF (0-FEW) Urine Yeast Present /HPF White Blood Count 9.9 x10^3/uL (4.0-11.0) Red Blood Count 3.15 x10^6/uL (3.50-5.40) Hemoglobin 11.1 g/dL (12.0-15.5) Hematocrit 33.8 % (36.0-47.0) Mean Corpuscular Volume 107 fL (79-100) Mean Corpuscular Hemoglobin 35 pg (25-35) Mean Corpuscular Hemoglobin Concent 33 g/dL (31-37) Red Cell Distribution Width 13.8 % (11.5-14.5) Platelet Count 184 x10^3/uL (140-400) Neutrophils (%) (Auto) 68 % (31-73) Lymphocytes (%) (Auto) 17 % (24-48) Monocytes (%) (Auto) 12 % (0-9) Eosinophils (%) (Auto) 2 % (0-3) Basophils (%) (Auto) 1 % (0-3) Neutrophils # (Auto) 6.7 x10^3/uL (1.8-7.7) Lymphocytes # (Auto) 1.7 x10^3/uL (1.0-4.8) Monocytes # (Auto) 1.2 x10^3/uL (0.0-1.1) Eosinophils # (Auto) 0.2 x10^3/uL (0.0-0.7) Basophils # (Auto) 0.1 x10^3/uL (0.0-0.2) Test 05/03/20 07:33 Glucose (Fingerstick) 107 mg/dL (70-99) Microbiology 04/30/20 Blood Culture - Preliminary, Resulted NO GROWTH AFTER 2 DAYS Medications Current Medications Albumin Human 200 ml @ 200 mls/hr 1X PRN PRN IV Hypotension; Start 05/02/20 at 12:00; Stop 05/02/20 at 17:59; Status DC Bisacodyl (Dulcolax Tab) 10 mg PRN DAILY PRN PO CONSTIPATION Last administered on 05/03/20at 08:31; Start 05/03/20 at 08:30 Info (PHARMACY MONITORING -- do not chart) 1 each PRN DAILY PRN MC SEE COMMENTS; Start 05/02/20 at 12:00 Info (PHARMACY MONITORING -- do not chart) 1 each PRN DAILY PRN MC SEE COMMENTS; Start 05/02/20 at 12:00; Status UNV Sodium Chloride 250 ml @ 250 mls/hr 1X ONCE IV Last administered on 05/02/20at 10:45; Start 05/02/20 at 10:45; Stop 05/02/20 at 11:44; Status DC Sodium Chloride 1,000 ml @ 400 mls/hr Q2H30M PRN IV PATENCY; Start 05/02/20 at 11:58; Stop 05/02/20 at 23:57; Status DC Sodium Chloride 1,000 ml @ 1,000 mls/hr Q1H PRN IV hypotension; Start 05/02/20 at 11:58; Stop 05/02/20 at 17:57; Status DC Vitals/I & O Vital Sign - Last 24 Hours 05/02/20 05/02/20 05/02/20 05/02/20 10:07 11:10 16:37 19:40 Temp 98.3 97.9 98.3 97.9 Pulse 55 56 70 69 Resp 16 22 B/P (MAP) 92/49 (63) 94/51 (65) 128/43 (71) 130/40 (70) Pulse Ox 97 97 O2 Delivery Nasal Cannula Nasal Cannula O2 Flow Rate 2.0 2.0 05/02/20 05/02/20 05/02/20 05/03/20 19:56 20:15 23:15 03:55 Temp 97.7 97.1 97.7 97.1 Pulse 66 64 Resp 18 18 B/P (MAP) 99/44 (62) 124/38 (66) Pulse Ox 97 94 100 O2 Delivery Nasal Cannula Nasal Cannula Nasal Cannula Nasal Cannula O2 Flow Rate 2.0 2.0 2.0 2.0 05/03/20 05/03/20 05/03/20 05/03/20 07:00 07:48 08:00 09:04 Temp 97.5 97.5 Pulse 62 Resp 18 B/P (MAP) 115/40 (65) Pulse Ox 98 98 94 O2 Delivery Nasal Cannula Nasal Cannula Nasal Cannula Room Air O2 Flow Rate 2.0 2.0 2.0 Intake and Output 05/02/20 05/02/20 05/03/20 15:00 23:00 07:00 Intake Total 350 ml Output Total 50 ml 0 ml Balance 350 ml -50 ml 0 ml LEVON BILLINGS MD May 03, 2020 09:59
== END 2020-05-03 11:10 | disposition home or self-care (01) | DRG 291 ==
LOC: ER 15:22 → ED HOLD 16:40 → 1 WEST ICU 19:40 → 2 SOUTH 05-02 14:37
PROVIDERS: ADMIT Internal Medicine; ATTEND Internal Medicine
PROC: 5A1D70Z Performance of Urinary Filtration, Intermittent, Less than 6 Hours Per Day (ICD-10-PCS; 2020-05-01)
PROC: 5A1D70Z Performance of Urinary Filtration, Intermittent, Less than 6 Hours Per Day (ICD-10-PCS; principal; 2020-05-02)
DX: I13.2 Hypertensive heart and chronic kidney disease with heart failure and with stage 5 chronic kidney disease, or end stage renal disease (principal); I50.33 Acute on chronic diastolic (congestive) heart failure; N18.6 End stage renal disease; E87.1 Hypo-osmolality and hyponatremia; R00.1 Bradycardia, unspecified; D64.9 Anemia, unspecified; D72.829 Elevated white blood cell count, unspecified; E03.9 Hypothyroidism, unspecified; E11.22 Type 2 diabetes mellitus with diabetic chronic kidney disease; E11.42 Type 2 diabetes mellitus with diabetic polyneuropathy; E78.2 Mixed hyperlipidemia; F41.9 Anxiety disorder, unspecified; I48.0 Paroxysmal atrial fibrillation; J45.909 Unspecified asthma, uncomplicated; K59.00 Constipation, unspecified; G89.29 Other chronic pain; M06.9 Rheumatoid arthritis, unspecified; M19.90 Unspecified osteoarthritis, unspecified site; M1A.9XX0 Chronic gout, unspecified, without tophus (tophi); M81.0 Age-related osteoporosis without current pathological fracture; Z80.1 Family history of malignant neoplasm of trachea, bronchus and lung; Z82.49 Family history of ischemic heart disease and other diseases of the circulatory system; Z83.3 Family history of diabetes mellitus; Z87.440 Personal history of urinary (tract) infections; Z88.2 Allergy status to sulfonamides; Z90.710 Acquired absence of both cervix and uterus; Z99.2 Dependence on renal dialysis; Z88.8 Allergy status to other drugs, medicaments and biological substances; Z79.899 Other long term (current) drug therapy; Z20.828 Contact with and (suspected) exposure to other viral communicable diseases; K57.90 Diverticulosis of intestine, part unspecified, without perforation or abscess without bleeding; E11.21 Type 2 diabetes mellitus with diabetic nephropathy
CPT/HCPCS: 36415; 71045; 80048; 80053; 81001; 82962; 83690; 83735; 83880; 84100; 84443; 84484; 85007; 85025; 87040; 93005; 94640; 94760; 96365; 96375; 99291; J1265; J1644; J2405; J7050; G0378; J7030; Q0163

== ENCOUNTER → 2021-02-24 | Outpatient (CLI) | payer MEDICARE ==
[~2021-02-24] MED LIST changes: -AMIO200T4 PO; +AMIO200T6 PO
--- NOTE | 2021-02-25 09:13 | CARD ---
MR#: [id number] Date of Study: 02/24/2021 Ordering Physician: LEVON ELIZONDO, Referring Physician: LEVON ELIZONDO, Tech: Lydia Anglin [facility] APPROVED REPORT EXAM: Two-dimensional and M-mode echocardiogram with Doppler and color Doppler. Other Information Quality : AverageHR: 75bpm INDICATION Atrial Fibrillation Paroxysmal atrial fibrillation RISK FACTORS Hypertension Hyperlipidemia Diabetes 2D DIMENSIONS RVDd3.4 (2.9-3.5cm)Left Atrium(2D)3.4 (1.6-4.0cm) IVSd1.0 (0.7-1.1cm)Aortic Root(2D)2.7 (2.0-3.7cm) LVDd4.4 (3.9-5.9cm)LVOT Diameter2.0 (1.8-2.4cm) PWd0.9 (0.7-1.1cm)LVDs2.8 (2.5-4.0cm) FS (%) 35.9 %SV57.7 ml LVEF(%)65.7 (>50%) Aortic Valve AoV Peak Mayur.132.2cm/sAoV VTI28.9cm AO Peak GR.7.0mmHgLVOT Peak Mayur.95.7cm/s LVOT VTI 23.06cmAO Mean GR.4mmHg JOSE L (VMAX)1.45ma7FLO (VTI)2.39cm2 Mitral Valve MV E Wsnyamtf432.2cm/sMV DECEL [id number] MV A Fyyqtysk01.5cm/sMV HDN19ts E/A Ratio1.1MVA (PHT)3.41cm2 TDI E/Lateral E'8.2E/Medial E'13.2 Pulmonary Valve PV Peak Dqowkpan55.2cm/sPV Peak Grad.3mmHg Tricuspid Valve TR P. Jwmpvjqy162pu/sRAP [id number] TR Peak Gr.65bzOeDATL30nnEy Pulmonary Vein S1 Tqdsgqhj50.1cm/sD2 Ftrnesjv69.7cm/s PVa [id number] LEFT VENTRICLE The left ventricle is normal size. There is normal left ventricular wall thickness. The left ventricu lar systolic function is normal. The Ejection Fraction is 55-60%. There is normal LV segmental wall m otion. Transmitral Doppler flow pattern is Grade II-pseudonormal filling dynamics. RIGHT VENTRICLE The right ventricle is mildly dilated. There is normal right ventricular wall thickness. Systolic fun ction is mildly reduced. ATRIA The left atrium size is normal. The right atrium is borderline dilated. The interatrial septum is int act with no evidence for an atrial septal defect or patent foramen ovale as noted on 2-D or Doppler i maging. AORTIC VALVE The aortic valve is thickened but opens well. Doppler and Color Flow revealed trace aortic regurgitat ion. There is no significant aortic valvular stenosis. Calculated aortic valve area is 2.25 cm2 with maximum pressure gradient of 9 mmHg and mean pressure gradient of 5 mmHg. MITRAL VALVE The mitral valve is normal in structure and function. There is no evidence of mitral valve prolapse. There is no mitral valve stenosis. Doppler and Color-flow revealed trace mitral regurgitation. TRICUSPID VALVE The tricuspid valve is normal in structure and function. Doppler and Color Flow revealed trace to mil d tricuspid regurgitation with an estimated PAP of 64 mmHg. There is no tricuspid valve stenosis. GREAT VESSELS The aortic root is normal in size. The ascending aorta is normal in size. The IVC is normal in size a nd collapses >50% with inspiration. PERICARDIAL EFFUSION There is no evidence of significant pericardial effusion. Critical Notification Critical Value: No <Conclusion> The left ventricular systolic function is normal. The Ejection Fraction is 55-60%. There is normal LV segmental wall motion. Trace mitral regurgitation. Trace to mild tricuspid regurgitation with an estimated PAP of 64 mmHg. There is no evidence of significant pericardial effusion. Signed by : Levon Elizondo, Electronically Approved : 02/25/2021 09:12:56
== END ==
LOC: ECHO 10:09
PROVIDERS: ATTEND Internal Medicine Cardiovascular Disease
DX: I07.1 Rheumatic tricuspid insufficiency (principal); I48.0 Paroxysmal atrial fibrillation
CPT/HCPCS: 93306